=== PATIENT | female | born 1940 | race Caucasian/White ===

== ENCOUNTER 2016-09-06 23:29 | Emergency (ER) | payer OTHER ==
[~2016-09-06] VITALS: Ht 154.9 cm; Wt 81.6 kg
[~2016-09-06 23:29] MED LIST: ASPI1TAB PO; COUM2.5T11 PO; DIVA250T7 PO; FOLI1TAB2 PO; FURO20TA2 PO; NEXI40CA PO; PERC5TAB6 PO; ROSUVASTATIN PO; THYROX; TYLE650T35 PO; VALS1TAB46 PO; VERA240C PO; VITA500046 PO; XOPEAER INH; ZYLO300T4 PO; thyroxine PO
[2016-09-06] MEDS ORDERED: SYNT50TA PO (23:51)
[2016-09-06] MEDS ORDERED: OMEP40CA2 PO (23:51)
[2016-09-06] MEDS ORDERED: CRES10TA32 PO (23:51)
[2016-09-07] MEDS ORDERED: hydrALAZINE INJ 20 MG/ML VIAL IV ONE ×2 (00:15→00:45)
[2016-09-07 00:33] LABS: INR 0.88
[2016-09-07 00:40] LABS: BASO % 0.5 % (0.0-1.0); EOS # 0.2 K/mm3 (0.0-0.50); EOS % 2.6 % (0.0-3.0); LARGE UNSTAINED CELL # 0.2 K/mm3 (0.0-0.4); LARGE UNSTAINED CELL % 3.1 % (0.0-4.0); LYMPH # 2.6 K/mm3 (1.5-4.5); LYMPH % 39.5 % (24.0-44.0); MEAN CORPUSCULAR HEMOGLOBIN 29.9 pg (27.0-33.0); MEAN CORPUSCULAR HGB CONC 32.2 g/dl (32.0-36.5); MONO # 0.5 K/mm3 (0.0-0.8); MONO % 8.4 % (0.0-5.0); NEUTROPHILS # 2.8 K/mm3 (1.8-7.7); NEUTROPHILS % 45.8 % (36.0-66.0); PLATELET COUNT, AUTOMATED 208 k/mm3 (150-450); WHITE BLOOD COUNT 6.2 K/mm3 (4.0-10.0)
--- NOTE | 2016-09-07 01:00 | REPUSA ---
CLINICAL HISTORY: Altered level of consciousness. TECHNIQUE: Multiple axial brain CT scan sections were obtained from base to vertex without contrast a dministration. COMMENTS: The study shows normal configuration of sella turcica. There are no intra or extra-axial collections. There is no mass effect or midline shift. There is no evidence of hematoma formation. No hydrocephal us is present. No abnormal calcifications are noted. No significant abnormalities are seen either in the posterior fossa or supratentorial compartment. The sinuses and mastoid air cells are patent. IMPRESSION: No evidence of acute intracranial pathology. Thank you for your kind referral of this patient.
[2016-09-07] MEDS ORDERED: ASPIRIN 325 MG TAB PO ONE (01:15)
[2016-09-07] MEDS ORDERED: VERAPAMIL 80 MG TAB PO ONE (01:30)
[2016-09-07 01:33] VITALS: BP 175/81
[2016-09-07 01:56] LABS: CALCIUM LEVEL 9.1 MG/DL (8.8-10.2); CREATININE FOR GFR 1.08 MG/DL (0.55-1.02); GLOMERULAR FILTRATION RATE 52.7 (>39); POTASSIUM SERUM 4.3 MEQ/L (3.5-5.1)
[2016-09-07] MEDS ORDERED: VERA300C PO (03:26)
[2016-09-07] MEDS ORDERED: ASPI1TAB PO (03:27)
[2016-09-07 03:45] VITALS: BP 164/79
--- NOTE | 2016-09-07 20:37 | ECGEPIP ---
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
== END 2016-09-07 04:03 | disposition home or self-care (01) ==
LOC: M ED 23:37
DX: I16.0 Hypertensive urgency (principal); I10 Essential (primary) hypertension; E78.5 Hyperlipidemia, unspecified; K21.9 Gastro-esophageal reflux disease without esophagitis; Z86.73 Personal history of transient ischemic attack (TIA), and cerebral infarction without residual deficits; Z79.82 Long term (current) use of aspirin; Z79.899 Other long term (current) drug therapy; Z88.5 Allergy status to narcotic agent; Z88.8 Allergy status to other drugs, medicaments and biological substances

== ENCOUNTER 2016-09-14 22:56 | Emergency (ER) | payer OTHER ==
[~2016-09-14] VITALS: Ht 152.4 cm; Wt 87.1 kg
[~2016-09-14 22:56] MED LIST changes: +CRES10TA32 PO; +OMEP40CA2 PO; +SYNT50TA PO; +VERA300C PO
[2016-09-15 00:29] LABS: BASO % 0.7 % (0.0-1.0); EOS # 0.2 K/mm3 (0.0-0.50); EOS % 3.4 % (0.0-3.0); LARGE UNSTAINED CELL # 0.2 K/mm3 (0.0-0.4); LARGE UNSTAINED CELL % 3.1 % (0.0-4.0); LYMPH # 2.2 K/mm3 (1.5-4.5); LYMPH % 36.2 % (24.0-44.0); MEAN CORPUSCULAR HEMOGLOBIN 31.2 pg (27.0-33.0); MEAN CORPUSCULAR HGB CONC 33.4 g/dl (32.0-36.5); MEAN CORPUSCULAR VOLUME 93.6 fl (80.0-96.0); MONO # 0.6 K/mm3 (0.0-0.8); MONO % 9.2 % (0.0-5.0); NEUTROPHILS # 2.8 K/mm3 (1.8-7.7); NEUTROPHILS % 47.4 % (36.0-66.0); PLATELET COUNT, AUTOMATED 183 k/mm3 (150-450); RED CELL DISTRIBUTION WIDTH 14.7 % (11.5-14.5)
[2016-09-15 00:42] LABS: ANION GAP 7 MEQ/L (8-16); BLOOD UREA NITROGEN 17 MG/DL (7-18); CALCIUM LEVEL 8.8 MG/DL (8.8-10.2); CARBON DIOXIDE LEVEL 29 MEQ/L (21-32); CHLORIDE LEVEL 107 MEQ/L (98-107); GLOMERULAR FILTRATION RATE > 60.0 (>39); GLUCOSE, FASTING 106 MG/DL (83-110); POTASSIUM SERUM 3.9 MEQ/L (3.5-5.1); SODIUM LEVEL 143 MEQ/L (136-145)
[2016-09-15] MEDS ORDERED: cloNIDine 0.1 MG TAB PO ONE (01:00)
[2016-09-15] MEDS ORDERED: ACETAMINOPHEN 325 MG TAB PO ONE (01:00)
[2016-09-15 01:04] VITALS: BP 206/98
[2016-09-15 02:01] VITALS: BP 175/77
--- NOTE | 2016-09-15 08:28 | ECGEPIP ---
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
== END 2016-09-15 02:12 | disposition home or self-care (01) ==
LOC: M ED 09-15 01:09
DX: I10 Essential (primary) hypertension (principal); J45.909 Unspecified asthma, uncomplicated; E03.9 Hypothyroidism, unspecified; G40.909 Epilepsy, unspecified, not intractable, without status epilepticus; Z79.82 Long term (current) use of aspirin; Z79.899 Other long term (current) drug therapy; Z88.5 Allergy status to narcotic agent; Z88.8 Allergy status to other drugs, medicaments and biological substances

== ENCOUNTER → 2016-10-19 | Outpatient (REF) | payer OTHER ==
[2016-10-19 20:47] LABS: BACTERIA, URINE SMALL AMOUNT; HYALINE CAST, URINE NONE SEEN /lpf (0-1); MICROSCOPIC EXAM PERFORMED; RBC, URINE 0-1 /hpf (0-3); SQUAMOUS EPITHELIAL CELL URINE SMALL AMOUNT /hpf (SMALL AMT)
== END ==
LOC: M SMT 16:26
PROVIDERS: ATTEND Specialist
DX: R32 Unspecified urinary incontinence (principal)

== ENCOUNTER → 2017-04-15 | Outpatient (CLI) | payer OTHER ==
[~2017-04-15] MED LIST changes: -COUM2.5T11 PO; +COUM2.5T17 PO; -FOLI1TAB2 PO; +FOLI1TAB4 PO; +LEVAINH INH; +PERC5TAB12 PO; -PERC5TAB6 PO; -XOPEAER INH
[2017-04-15 14:39] LABS: BASO # 0.1 10^3/uL (0.0-0.2); BASO % 0.7 % (0.0-1.0); EOS # 0.1 10^3/uL (0.0-0.50); EOS % 1.9 % (0.0-3.0); IMMATURE GRANULOCYTE % 1.3 % (0-0); LYMPH # 1.8 10^3/uL (1.5-4.5); LYMPH % 26.1 % (24.0-44.0); MEAN CORPUSCULAR HEMOGLOBIN 30.6 pg (27.0-33.0); MEAN CORPUSCULAR HGB CONC 32.2 g/dl (32.0-36.5); MONO # 0.9 10^3/uL (0.0-0.8); MONO % 12.4 % (0.0-5.0); NEUTROPHILS % 57.6 % (36.0-66.0); PLATELET COUNT, AUTOMATED 215 10^3/uL (150-450); WHITE BLOOD COUNT 6.9 10^3/uL (4.0-10.0)
[2017-04-15 15:15] LABS: ALBUMIN 3.4 GM/DL (3.2-5.2); ALBUMIN/GLOBULIN RATIO 0.81 (1.00-1.93); BILIRUBIN,TOTAL 0.2 MG/DL (0.2-1.0); CALCIUM LEVEL 9.6 MG/DL (8.8-10.2); CREATININE FOR GFR 1.39 MG/DL (0.55-1.02); GLOMERULAR FILTRATION RATE 39.2 (>39); POTASSIUM SERUM 4.5 MEQ/L (3.5-5.1); TOTAL PROTEIN 7.6 GM/DL (6.4-8.2)
== END ==
LOC: M LABNEURO 13:45
PROVIDERS: ATTEND Psychiatry & Neurology Neurology
DX: Z79.899 Other long term (current) drug therapy (principal)

== ENCOUNTER → 2017-05-03 | Outpatient (CLI) | payer OTHER ==
--- NOTE | 2017-05-03 15:52 | REP ---
MRI brain without contrast: History: Effusion. Comparison CT brain study is from September 08, 1999 17. Technique: Axial and sagittal imaging planes are utilized for T1 and T2-weighted scans. Sequences include spin-echo, fast spin echo, FLAIR, and diffusion weighted sequences. MRI findings: No bony calvarial lesion is seen. Craniocervical junction and upper cervical cord are normal in appearance. There is diffuse moderate cerebral atrophy, unchanged from the September 07, 2016 CT study. There is no MR evidence of significant paranasal sinus disease. No intraorbital abnormality is seen. There are mild small vessel changes in the periventricular and subcortical white matter bilaterally. There is no evidence of intracranial hemorrhage. Diffusion weighted scans show no evidence of acute ischemia. No extra-axial fluid collection, mass or infarction is seen Impression: Moderate diffuse cerebral atrophy. Small vessel changes. Otherwise unremarkable MRI brain. Signed by Claude Hussein MD 05/03/2017 04:15 P
== END ==
LOC: M PLARAD 13:57
PROVIDERS: ATTEND Psychiatry & Neurology Neurology
DX: R41.0 Disorientation, unspecified (principal); G31.9 Degenerative disease of nervous system, unspecified; I67.9 Cerebrovascular disease, unspecified

== ENCOUNTER → 2017-09-28 | Outpatient (REF) | payer OTHER ==
[2017-09-28 13:49] LABS: BACTERIA, URINE AUTO 1+ (NEGATIVE); MUCUS, URINE SMALL (NEGATIVE); RBC, URINE AUTO 0 /HPF (0-3); SQUAMOUS EPITHELIAL CELL UR AU 7 /HPF (0-6); TRANSITIONAL EPITHELIAL AUTO 2 /HPF; WBC, URINE AUTO 3 /HPF (0-3)
== END ==
LOC: M SMT 13:12
DX: R35.0 Frequency of micturition (principal)
CPT/HCPCS: 81015

== ENCOUNTER → 2017-10-18 | Outpatient (REF) | payer OTHER ==
[2017-10-18 19:40] LABS: FERRITIN 104 NG/ML (8-252); IRON (FE) 70 UG/DL (50-170); PERCENT SATURATION 20.9 % (13.2-45.0); TOTAL IRON BINDING CAPACITY 335 UG/DL (250-450)
== END ==
LOC: M LAB REF 18:09
DX: R56.9 Unspecified convulsions (principal); D64.9 Anemia, unspecified
CPT/HCPCS: 83550

== ENCOUNTER → 2018-09-05 | Outpatient (REF) | payer OTHER, MEDICARE ==
[~2018-09-05] MED LIST changes: -ASPI1TAB PO; +ASPI81TA26 PO; +CRES10TA PO; -CRES10TA32 PO; +FOLI1TAB11 PO; -FOLI1TAB4 PO; -VALS1TAB46 PO; +VALS1TAB66 PO; -ZYLO300T4 PO; +ZYLO300T6 PO
[2018-09-05 18:55] LABS: PERCENT SATURATION 17.7 % (13.2-45.0)
== END ==
LOC: M LAB REF 18:10
PROVIDERS: ATTEND Internal Medicine
DX: D50.9 Iron deficiency anemia, unspecified (principal)

== ENCOUNTER → 2019-03-13 | Outpatient (REF) | payer OTHER, MEDICARE ==
[~2019-03-13] MED LIST changes: -OMEP40CA2 PO; +OMEP40CA97 PO; -VERA300C PO; +VERA300C6 PO
== END ==
LOC: M LAB REF 16:26
PROVIDERS: ATTEND Internal Medicine
DX: D50.9 Iron deficiency anemia, unspecified (principal)

== ENCOUNTER → 2019-06-30 | Outpatient (CLI) | payer MEDICARE ==
[~2019-06-30] MED LIST changes: +ALEN70TA74 PO; +ELIQ2.5T PO; +LEXA1TAB PO; +MYRB50TA PO
--- NOTE | 2019-06-30 10:55 | REP ---
Clinical: Preoperative assessment . Comparison: 01/10/2016 . Technique: PA and lateral. Findings: The mediastinum and cardiac silhouette are normal. The lung duran are clear and without acute consolidation, effusion, or pneumothorax. The skeletal structures are intact and normal. Impression: 1. No acute cardiopulmonary process. Electronically Signed by Reese Quintanilla MD 06/30/2019 10:46 A
[2019-06-30 11:28] LABS: HEMATOCRIT 34.5 % (36.0-47.0); HEMOGLOBIN 11.2 g/dl (12.0-15.5); MEAN CORPUSCULAR HEMOGLOBIN 30.8 pg (27.0-33.0); MEAN CORPUSCULAR HGB CONC 32.5 g/dl (32.0-36.5); MEAN CORPUSCULAR VOLUME 94.8 fl (80.0-96.0); PLATELET COUNT, AUTOMATED 214 10^3/uL (150-450); RED BLOOD COUNT 3.64 10^6/uL (4.00-5.40); WHITE BLOOD COUNT 7.7 10^3/uL (4.0-10.0)
[2019-06-30 11:46] LABS: INR 1.21
[2019-06-30 12:02] LABS: ALBUMIN 3.2 GM/DL (3.2-5.2); BILIRUBIN,TOTAL 0.3 MG/DL (0.2-1.0); CALCIUM LEVEL 9.3 MG/DL (8.8-10.2); CREATININE FOR GFR 1.22 MG/DL (0.55-1.30); GLOMERULAR FILTRATION RATE 45.4 (>39); POTASSIUM SERUM 4.6 MEQ/L (3.5-5.1); TOTAL PROTEIN 7.1 GM/DL (6.4-8.2)
[2019-06-30 12:08] LABS: ERYTHROCYTE SEDIMENTATION RATE 50 mm/hr (0-30)
== END ==
LOC: M LAB 09:58
PROVIDERS: ATTEND Orthopaedic Surgery
DX: Z01.810 Encounter for preprocedural cardiovascular examination (principal); M16.11 Unilateral primary osteoarthritis, right hip; Z79.899 Other long term (current) drug therapy; Z79.01 Long term (current) use of anticoagulants

== ENCOUNTER 2019-07-12 08:35 | Inpatient (IN) | payer MEDICARE ==
[~2019-07-12] VITALS: Ht 157.5 cm; Wt 88.3 kg
[~2019-07-12 08:35] MED LIST changes: +LR 1,000 ML IV ONE; +ceFAZolin SOD 2 GM in IV 1 EA IV ONE
--- NOTE | 2019-07-12 09:31 | IPN ---
DATE: 07/12/2019 The patient is seen and examined. She wishes to go ahead with a right total hip arthroplasty. She understands the nature of this and the risks of bleeding, infection, damage to nerves, vessels, persistent pain, wear, loosening, dislocation, leg length inequality, blood clots, medical problems, , among others. I anticipate this being more difficult due to her obesity. Preop clearance was obtained.
[2019-07-12] MEDS ORDERED: TRANEXAMIC ACID 100 MG/ML 10ML VIAL As Ordered ONE (09:36)
[2019-07-12] MEDS ORDERED: BUPIVACAINE LIPOSOME/PF 1.3% 20ML VIAL (13.3MG/ML)(EXPAREL)(C9290 PER1MG) As Ordered ONE (09:37)
[2019-07-12] MEDS ORDERED: ceFAZolin 1GM INJ (J0690 PER 500MG) As Ordered ONE (09:37)
[2019-07-12] MEDS ORDERED: EPINEPHrine INJ 1 MG/ML 1ML VIAL As Ordered ONE (09:37)
[2019-07-12] MEDS ORDERED: fentaNYL 100 MCG/2 ML INJECTION (J3010) As Ordered ONE (10:40)
[2019-07-12] MEDS ORDERED: MIDAZOLAM INJ 2 MG/2 ML VIAL (J2250) As Ordered ONE (10:40)
[2019-07-12] MEDS ORDERED: propofoL 200 MG/20 ML VIAL As Ordered ONE (10:40)
[2019-07-12] MEDS ORDERED: LIDOCAINE 2% INJ 100 MG/5 ML SDV (FOR ANES.) As Ordered ONE (10:40)
[2019-07-12] MEDS ORDERED: PHENYLephrine HCL 500 MCG/5 ML (100MCG/ML) SYRINGE (J2370) As Ordered ONE (10:59)
[2019-07-12] MEDS ORDERED: ePHEDrine SULFATE 25 MG/5 ML(5MG/ML) SYRINGE As Ordered ONE (11:19)
[2019-07-12] MEDS ORDERED: LR 1,000 ML IV SCH (12:45)
[2019-07-12] MEDS ORDERED: HYDROMORPHONE HCL 0.5 MG/ 0.5 ML SYRINGE (J1170 PER 1) IV PRN ×2 (12:45)
[2019-07-12] MEDS ORDERED: PERCOCET 5MG/325MG TAB PO PRN (12:45)
[2019-07-12] MEDS ORDERED: ONDANSETRON 4MG/2ML VIAL (J2405) IV PRN ×2 (12:45)
[2019-07-12] MEDS ORDERED: METOCLOPRAMIDE INJ 10MG/2ML VIAL (J2765) IV PRN (12:45)
[2019-07-12] MEDS ORDERED: fentaNYL 100 MCG/2 ML INJECTION (J3010) IV PRN (12:45)
[2019-07-12] MEDS ORDERED: oxyCODONE 5MG TAB PO PRN (12:45)
--- NOTE | 2019-07-12 13:24 | REP ---
Right hip two views postoperative study: There is a total hip arthroplasty with the components tightly applied and in satisfactory positions alignment. Electronically Signed by Dakota Mcgee MD 07/12/2019 01:14 P
[2019-07-12 15:00] VITALS: BP 100/59
[2019-07-12] MEDS: LR 1,000 ML IV SCH (15:15)
[2019-07-12 15:30] VITALS: BP 96/52
[2019-07-12] MEDS ORDERED: LEVALBUTEROL 1.25 MG/0.5 ML CONCENTRATE NEB INH PRN (15:45)
--- NOTE | 2019-07-12 15:47 | CR.PDOC ---
General Date of Consultation: Jul 12, 2019 Consultation REASON FOR CONSULTATION/CHIEF COMPLAINT: Who presented to [facility] for an elective right hip arthroplasty HISTORY OF PRESENT ILLNESS: Patient is a 71-year-old female with a PMHx of Paroxysmal A. fib, Diastolic CHF, HTN, DLP, Asthma, Hypothyroidism, Seizure disorder, Anxiety, Gout, Vitamin D deficiency, Osteopenia, GERD, who presented to [facility] for an elective total right hip arthroplasty. Patient received medical clearance through her outpatient provider, Dr. Carmen Mejia. Patient was seen postoperatively. . She denies headache, nausea, vomiting, chest pain, shortness breath, palpitations, cough, abdominal pain, constipation, diarrhea, urinary discomfort or any fevers or chills recently. Patient reports that her appetite has been fairly normal and denies any significant changes in her weight. ALLERGIES: Please see below. HOME MEDICATIONS: Please see below. PAST MEDICAL HISTORY: Paroxysmal A. fib, Diastolic CHF, HTN, DLP, Asthma, Hypothyroidism, Seizure disorder, Anxiety, Gout, Vitamin D deficiency, Osteopenia, GERD PAST SURGICAL HISTORY: Total left hip arthroplasty, 2016 Cholecystectomy 2006 Dilation curettage Tonsillectomy and adenoidectomy Bilateral cataract resection 2008 Right nasal cauterization 2/2 bleed Right eyebrow lesion biopsied and was negative FAMILY HISTORY: - Family history was reviewed and is currently noncontributory to the current hospitalization SOCIAL HISTORY: - Denies the use of alcohol or illicit drugs; patient quit smoking in 1995 but was a smoker for about 20 years at [facility] - Denies recent travel or sick contacts - Lives alone - 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; 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 ASSESSMENT/PLAN: Elective total right hip arthroplasty - Presented to [facility] for elective procedure with the patient. Surgery - Shes received outpatient medical clearance through her provider leo Mejia - Pain control and physical therapy at the direction of orthopedic surgery - Discussed anti-coag elation with orthopedic surgery; will resume tomorrow; 07/13 AM Paroxysmal A. fib - Currently, patient is rate controlled - Will continue with rate control with verapamil - Will resume anticoagulation tomorrow a.m. Chronic Diastolic CHF - No evidence of exacerbation at this time - Will resume furosemide tomorrow morning HTN - BP on lower limits of normal - Will likely resume Furosemide and Losartan tomorrow AM DLP - Will resume Rosuvastatin Asthma - No evidence of exacerbation - Will start Xopenix PRN Hypothyroidism - Will resume levothyroxine Seizure disorder - Will resume divalproex Anxiety - Will resume Escitalopram Gout - Will resume allopurinol Vitamin D deficiency / Osteopenia - Patient takes alendronate on a weekly basis; will resume this as an outpatient GERD - Will resume Omeprazole DVT prophylaxis - c/w full anticoagulation; will resume tomorrow AM Vital Signs/I&O Vital Signs Date Time Temp Pulse Resp B/P (MAP) Pulse Ox O2 Delivery O2 Flow Rate FiO2 07/12/19 15:30 97.4 64 16 96/52 (67) 90 Room Air Laboratory Data Labs 24H Laboratory Tests 2 07/12/19 09:43: Bedside Glucose (Misc Panel) 123H Allergies Coded Allergies: promethazine (Verified Adverse Reaction, Intermediate, confusion, 06/26/19) morphine (Verified Adverse Reaction, Mild, nausea, 06/26/19) tramadol (Verified Adverse Reaction, Mild, dizziness, 06/26/19) Home Medications Scheduled Alendronate Sodium (Alendronate Sodium) 70 Mg Tablet, 70 MG PO QWEEK, (Reported) Allopurinol (Zyloprim) 300 Mg Tab, 300 MG PO DAILY, (Reported) Apixaban (Eliquis) 2.5 Mg Tablet, 2.5 MG PO BID, (Reported) Divalproex Sodium (Divalproex Sodium ER) 250 Mg Tab, 500 MG PO QAM, (Reported) Divalproex Sodium (Divalproex Sodium ER) 250 Mg Tab, 250 MG PO QHS, (Reported) Escitalopram Oxalate (Lexapro) 10 Mg Tablet, 10 MG PO DAILY, (Reported) Folic Acid (Folic Acid) 1 Mg Tab, 1 MG PO BID, (Reported) Levothyroxine Sodium (Synthroid) 50 Mcg Tab, 50 MCG PO DAILY, (Reported) Mirabegron (Myrbetriq) 50 Mg Tab.er.24h, 50 MG PO DAILY, (Reported) Omeprazole (Omeprazole) 40 Mg Cap, 40 MG PO DAILY, (Reported) Valsartan (Valsartan) 80 Mg Tab, 160 MG PO DAILY, (Reported) Verapamil Hcl (Verapamil ER Pm) 300 Mg Cap, 300 MG PO DAILY, #60 Scheduled PRN Acetaminophen (Tylenol Arthritis) 650 Mg Tab, 500 MG PO PRN PRN for PAIN, (Reported) Furosemide (Furosemide) 20 Mg Tab, 20 MG PO DAILY PRN for EDEMA, (Reported) Levalbuterol Hydrochloride (Xopenex Hfa) 45 Mcg/Act Aer, 2 PUFF INH PRN PRN for SHORTNESS OF BREATH, (Reported) Miscellaneous Medications Rosuvastatin Calcium (Crestor) 10 Mg Tab, 10 MG PO, (Reported) OLIVIA TOLEDO MD Jul 12, 2019 15:47
[2019-07-12 16:30] VITALS: BP 109/43
[2019-07-12 17:30] VITALS: BP 136/57
[2019-07-12] MEDS: PERCOCET 5MG/325MG TAB PO PRN (18:15)
[2019-07-12 18:30] VITALS: BP 135/58
[2019-07-12] MEDS: ceFAZolin SOD 2 GM in IV 1 EA IV SCH (18:53)
[2019-07-12] MEDS: FOLIC ACID 1 MG TAB PO SCH (21:16)
[2019-07-12] MEDS: DIVALPROEX 250MG *ER* TAB PO SCH (21:17)
[2019-07-12 21:53] VITALS: BP 137/55
[2019-07-13] MEDS: PERCOCET 5MG/325MG TAB PO PRN ×4 (01:06→20:46)
[2019-07-13] MEDS: ceFAZolin SOD 2 GM in IV 1 EA IV SCH ×3 (02:22→18:19)
[2019-07-13] MEDS: LR 1,000 ML IV SCH (02:22)
[2019-07-13 02:23] VITALS: BP 118/52
[2019-07-13 06:00] VITALS: BP 125/55
[2019-07-13] MEDS: LEVOTHYROXINE 50MCG TABLET (0.05MG) PO SCH (06:06)
[2019-07-13] MEDS ORDERED: PERC5TAB12 PO (07:04)
[2019-07-13 08:28] LABS: HEMATOCRIT 27.5 % (36.0-47.0); HEMOGLOBIN 8.6 g/dl (12.0-15.5); MEAN CORPUSCULAR HEMOGLOBIN 29.9 pg (27.0-33.0); MEAN CORPUSCULAR HGB CONC 31.3 g/dl (32.0-36.5); MEAN CORPUSCULAR VOLUME 95.5 fl (80.0-96.0); PLATELET COUNT, AUTOMATED 172 10^3/uL (150-450); RED BLOOD COUNT 2.88 10^6/uL (4.00-5.40); WHITE BLOOD COUNT 11.9 10^3/uL (4.0-10.0)
[2019-07-13 08:49] LABS: CALCIUM LEVEL 8.6 MG/DL (8.8-10.2); CREATININE FOR GFR 1.52 MG/DL (0.55-1.30); GLOMERULAR FILTRATION RATE 35.2 (>39); MAGNESIUM LEVEL 1.4 MG/DL (1.8-2.4); POTASSIUM SERUM 5.2 MEQ/L (3.5-5.1)
[2019-07-13] MEDS ORDERED: VERAPAMIL 180MG EXTENDED RELEASE TABLET PO SCH (09:00)
[2019-07-13] MEDS: MIRALAX *UNIT DOSE* 17GM PACKET PO SCH (09:00)
[2019-07-13] MEDS: MOM 30ML SUSPENSION UDC PO SCH (09:00)
[2019-07-13 09:01] LABS: ANISOCYTOSIS 1+; LYMPHOCYTES 15 % (16-44); MONOCYTES 8 % (0-5); NEUTROPHILS 73 % (28-66); PLATELET ESTIMATE NORMAL (NORMAL)
[2019-07-13] MEDS: VERAPAMIL 120 MG SR TAB PO SCH (09:15)
[2019-07-13] MEDS: allopurinoL 300 MG TAB PO SCH (09:15)
[2019-07-13] MEDS: FOLIC ACID 1 MG TAB PO SCH ×2 (09:15→20:46)
[2019-07-13] MEDS: VERAPAMIL 180MG EXTENDED RELEASE TABLET PO SCH (09:15)
[2019-07-13] MEDS: DIVALPROEX 250MG *ER* TAB PO SCH ×2 (09:15→20:46)
[2019-07-13] MEDS: ESCITALOPRAM OXALATE 10 MG TAB (LEXAPRO) PO SCH (09:15)
[2019-07-13] MEDS: ROSUVASTATIN 10 MG TAB (CRESTOR) PO SCH (09:15)
[2019-07-13] MEDS: OMEPRAZOLE 20 MG CAP PO SCH (09:16)
[2019-07-13] MEDS: NS 1,000 ML IV SCH (09:44)
[2019-07-13] MEDS: MAG SULF 1GM/100ML (MAG RUN) 1 GM in IV 1 EA IV SCH ×2 (09:44→12:16)
--- NOTE | 2019-07-13 09:53 | RO ---
DATE OF PROCEDURE: 07/12/2019 PREOPERATIVE DIAGNOSIS: Right hip osteoarthritis. AVN. POSTOPERATIVE DIAGNOSIS: Right hip osteoarthritis. PROCEDURE: Right total hip arthroplasty using a [place] size 4 standard plus one 32 ball with a size 50 cup. SURGEON: Dr. Bib Basilio BULK PLANT MANAGER: HENRY Lindsay ANESTHESIA: Spinal. ESTIMATED BLOOD LOSS: 200. COMPLICATIONS: None. INDICATIONS: This 79-year-old morbidly obese woman with right hip pain who wished to go ahead with a hip replacement. 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 PROCEDURE: The patient was taken to operating room, placed in the left lateral decubitus position on the [place] positioner. All areas were padded appropriately. Positioning was a little bit difficult due to her obesity. We prepped and draped the right hip in the usual sterile fashion. A longitudinal incision was made. Sharp dissection was carried down through subcutaneous tissue. I controlled hemostasis with a cautery. I identified the fascia which was quite deep. We then incised the fascia and then I exposed the anterior aspect the proximal femur, removing about 40% of the abductors as we externally rotated the femur and this was relatively challenging due to the depth of the wound. I was able to dislocate the hip. There was some evidence of some delamination consistent with AVN of the femoral head. I then used an oscillating saw to remove the head with a guide. This was done about three-quarters of a fingerbreadth up from the lesser trochanter. The acetabulum was then prepared, anterior and posterior retractors were placed, soft tissue was removed, and I sequentially reamed up to a size 49 which had good concentric reaming of bleeding bone. I did bone graft a cyst. I irrigated and then impacted in the actual size 50 cup in the appropriate amount of anteversion horizontal tilt. Excellent fit was noted. There were no osteophytes that needed to be removed. I inserted the cup and impacted this in place. I had also placed the apex hole eliminator. I then directed attention to the femur, removed the bone from the proximal femur and then sequentially broached up to a size 4. I had previously reamed the canal prior to removal of the head and neck using the canal initiating reamer and the canal finding reamer lateralizing reamer and then had was able to ream up to a size 4 which had good bony purchase. The other side had a 5, but when I was broaching it was clear that I was not going to be able to get a 5 in this side. Once I had seated. The actual broach were it should be I then trialed off that with a plus one 32 ball, reduced it, put the hip through range of motion, there was minimal shuck in full extension, excellent stability in external rotation, full extension and flexion internal rotation. Her thigh actually impinged on her pannus before I could get to 90 degrees but it felt very stable. I then removed the trial components, irrigated again copiously placed the actual size 4r standard stem, impacted it down it was well seated. There were no fractures noted. I then dried the taper placed the plus one 32 ball and we reduced the hip again put the hip through range of motion again very pleased with in terms of stability, soft tissue, tension. I irrigated copiously placed the Exparel the deep tissues and the TXA in the deep wound then repaired the minimus with #1 Vicryl suture and the abductor with #1 Vicryl suture. I was not terribly pleased with quality of her abductors, they were somewhat infiltrated by fat. I was able to get with several stitches a reasonable approximation. I then irrigated, closed the fascia carmel with #1 Vicryl in running Stratafix suture in both directions. We obtained a watertight closure. I then closed the deep subcutaneous tissue with another running Stratafix double arm suture in both directions to close the space because there was significant subcutaneous tissue. Subcu was closed 2-0 Vicryl and the skin with yvon. Sterile dressing was applied. She was taken to recovery room in stable condition. No known complications. The plan will be routine postop. The assistant producer was instrumental holding retractors and assisting at reducing and dislocating the hip multiple times. She was instrumental in wound closure and retraction. This is coded as an unusually difficult procedure due to the patient's morbid obesity which added significant amount of difficulty due to the depth of the wound and the difficulty manipulating the leg in reducing and dislocating the hip and difficulty in wound closure.
--- NOTE | 2019-07-13 11:04 | IPNPDOC ---
Text Note Date of Service The patient was seen on 07/13/19. NOTE Subjective: Patient is a 71-year-old female with a PMHx of Paroxysmal A. fib, Diastolic CHF, HTN, DLP, Asthma, Hypothyroidism, Seizure disorder, Anxiety, Gout, Vitamin D deficiency, Osteopenia, GERD, who presented to [facility] for an elective total right hip arthroplasty. Patient received medical clearance through her outpatient provider, Dr. Carmen Mejia. Patient was seen postoperatively. She denies headache, nausea, vomiting, chest pain, shortness breath, palpitations, cough, abdominal pain, constipation, diarrhea, urinary discomfort or any fevers or chills recently. Patient reports that her appetite has been fairly normal and denies any significant changes in her weight. Patient was seen and examined at the bedside. Currently, patient reports that she feels weak. She has been out of bed and ambulatory but still reports sig nificant pain. She denies nausea, vomiting, chest pain, shortness breath, palpitations. She has not yet had a bowel movement this morning. Denies any difficulty with urination. Objective: Vitals (See below) General: Lying in bed, no acute distress, comfortable, AAOx3 HEENT: NC, AT CVS: +S1S2 Lungs: Fair air entry b/l, -w/r/r Abdomen: Soft, ND, NT Extremities: - Edema, - Calf tenderness Assessment and plan: Elective total right hip arthroplasty - Presented to [facility] for elective procedure with orthopedic surgery - Shes received outpatient medical clearance through her provider Carmen Mejia - Pain control and physical therapy at the direction of orthopedic surgery Hypomagnesemia - Will supplement Elevated Cr on likely CKD - Cr baseline of 0.9-1.22 - Will provide IV fluid hydration - Will continue to hold on diuretics at this time Paroxysmal A. fib - Currently, patient is rate controlled - Will continue with rate control with verapamil - c/w Eliquis tonight Chronic Diastolic CHF - No evidence of exacerbation at this time - Will Hold furosemide again today HTN - BP well controlled currently - Will continue to hold Furosemide and Losartan tomorrow AM DLP - c/w Rosuvastatin Asthma - No evidence of exacerbation - Will start Xopenix PRN Hypothyroidism - c/w levothyroxine Seizure disorder - c/w divalproex Anxiety - c/w Escitalopram Gout - c/w allopurinol Vitamin D deficiency / Osteopenia - Patient takes alendronate on a weekly basis; will resume this as an outpatient GERD - c/w Omeprazole DVT prophylaxis - c/w full anticoagulation starting tonight VSNancy, I+O VSNancy, I+O Laboratory Tests 07/13/19 07:54 Vital Signs Date Time Temp Pulse Resp B/P (MAP) Pulse Ox O2 Delivery O2 Flow Rate FiO2 07/13/19 09:15 85 125/55 07/13/19 06:06 17 07/13/19 06:00 97.9 98 Nasal Cannula 2.0 I&O- Last 24 Hours up to 6 AM 07/13/19 06:00 Intake Total 4820 ml Output Total 200 ml Balance 4620 ml OLIVIA TOLEDO MD Jul 13, 2019 11:04
[2019-07-13 14:00] VITALS: BP 128/56
[2019-07-13] MEDS: APIXABAN 2.5 MG TAB (ELIQUIS) PO SCH (20:47)
[2019-07-13 20:51] VITALS: BP 105/48
[2019-07-14] VITALS (30 sets, daily range): BP systolic 58–113; BP diastolic 32–58
[2019-07-14] MEDS: NS 1,000 ML IV SCH (02:12)
[2019-07-14] MEDS: ceFAZolin SOD 2 GM in IV 1 EA IV SCH ×3 (02:13→18:39)
[2019-07-14] MEDS: PERCOCET 5MG/325MG TAB PO PRN (02:14)
[2019-07-14] MEDS: LEVOTHYROXINE 50MCG TABLET (0.05MG) PO SCH (06:12)
[2019-07-14] MEDS ORDERED: NS 1,000 ML IV ONE (06:15)
[2019-07-14] MEDS ORDERED: CYCL10TA PO (06:55)
[2019-07-14] MEDS ORDERED: NS 500 ML IV ONE (07:30)
[2019-07-14 08:03] LABS: BASO % 0.1 % (0.0-1.0); EOS # 0.2 10^3/uL (0.0-0.5); EOS % 2.2 % (0.0-3.0); HEMATOCRIT 22.8 % (36.0-47.0); HEMOGLOBIN 7.2 g/dl (12.0-15.5); LYMPH # 0.9 10^3/uL (1.5-5.0); LYMPH % 10.3 % (24.0-44.0); MEAN CORPUSCULAR HEMOGLOBIN 30.5 pg (27.0-33.0); MEAN CORPUSCULAR HGB CONC 31.6 g/dl (32.0-36.5); MEAN CORPUSCULAR VOLUME 96.6 fl (80.0-96.0); MONO # 1.5 10^3/uL (0.0-0.8); NEUTROPHILS # 6.4 10^3/uL (1.5-8.5); NEUTROPHILS % 70.7 % (36.0-66.0); PLATELET COUNT, AUTOMATED 140 10^3/uL (150-450); RED BLOOD COUNT 2.36 10^6/uL (4.00-5.40); WHITE BLOOD COUNT 9.1 10^3/uL (4.0-10.0)
[2019-07-14 08:32] LABS: CALCIUM LEVEL 7.2 MG/DL (8.8-10.2); CREATININE FOR GFR 2.59 MG/DL (0.55-1.30); POTASSIUM SERUM 4.9 MEQ/L (3.5-5.1)
[2019-07-14] MEDS: MOM 30ML SUSPENSION UDC PO SCH (09:00)
[2019-07-14] MEDS ORDERED: CYCLOBENZAPRINE 10 MG TAB PO SCH (09:00)
[2019-07-14] MEDS: VERAPAMIL 120 MG SR TAB PO SCH (09:00)
[2019-07-14] MEDS: MIRALAX *UNIT DOSE* 17GM PACKET PO SCH (09:00)
[2019-07-14] MEDS: VERAPAMIL 180MG EXTENDED RELEASE TABLET PO SCH (09:00)
[2019-07-14] MEDS: OMEPRAZOLE 20 MG CAP PO SCH (09:02)
[2019-07-14] MEDS: FOLIC ACID 1 MG TAB PO SCH ×2 (09:02→21:14)
[2019-07-14] MEDS: APIXABAN 2.5 MG TAB (ELIQUIS) PO SCH (09:02)
[2019-07-14] MEDS: ROSUVASTATIN 10 MG TAB (CRESTOR) PO SCH (09:03)
[2019-07-14] MEDS: DIVALPROEX 250MG *ER* TAB PO SCH ×2 (09:03→21:14)
[2019-07-14] MEDS: ESCITALOPRAM OXALATE 10 MG TAB (LEXAPRO) PO SCH (09:03)
[2019-07-14] MEDS: allopurinoL 300 MG TAB PO SCH (09:04)
[2019-07-14] MEDS ORDERED: MIDODRINE 5 MG TAB PO ONE ×2 (10:00→10:15)
--- NOTE | 2019-07-14 10:54 | ECGEPIP ---
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
--- NOTE | 2019-07-14 10:59 | REP ---
CHEST, SINGLE VIEW: Single view of the chest is performed. There is mild cardiomegaly. There is pulmonary venous hypertension with no infiltrate. There is calcification and tortuosity of the thoracic aorta. Mediastinal silhouette is unchanged since 06/30/2019. IMPRESSION: Cardiomegaly and pulmonary venous hypertension without acute infiltrate. Electronically Signed by Dakota Mendiola MD 07/14/2019 11:58 A
[2019-07-14] MEDS ORDERED: HYDROCORTISONE 100 MG/2 ML VIAL (J1720 PER 1) IV ONE (11:00)
[2019-07-14 11:37] LABS: BASO % 0.1 % (0.0-1.0); EOS # 0.2 10^3/uL (0.0-0.5); EOS % 2.4 % (0.0-3.0); HEMATOCRIT 23.3 % (36.0-47.0); HEMOGLOBIN 7.5 g/dl (12.0-15.5); LYMPH # 0.7 10^3/uL (1.5-5.0); LYMPH % 7.4 % (24.0-44.0); MEAN CORPUSCULAR HEMOGLOBIN 30.9 pg (27.0-33.0); MEAN CORPUSCULAR HGB CONC 32.2 g/dl (32.0-36.5); MEAN CORPUSCULAR VOLUME 95.9 fl (80.0-96.0); MONO # 1.5 10^3/uL (0.0-0.8); MONO % 16.5 % (0.0-5.0); NEUTROPHILS # 6.4 10^3/uL (1.5-8.5); NEUTROPHILS % 72.6 % (36.0-66.0); PLATELET COUNT, AUTOMATED 134 10^3/uL (150-450); RED BLOOD COUNT 2.43 10^6/uL (4.00-5.40); WHITE BLOOD COUNT 8.9 10^3/uL (4.0-10.0)
[2019-07-14 12:00] LABS: ALBUMIN 1.9 GM/DL (3.2-5.2); ALT/SGPT < 6 U/L (12-78); BILIRUBIN,TOTAL 0.2 MG/DL (0.2-1.0); BLOOD UREA NITROGEN 37 MG/DL (7-18); CALCIUM LEVEL 7.4 MG/DL (8.8-10.2); CARBON DIOXIDE LEVEL 24 MEQ/L (21-32); CHLORIDE LEVEL 106 MEQ/L (98-107); CK-MB VALUE MASS 6.1 NG/ML (<3.6); CPK CREATINE PHOSPHOKINASE 874 U/L (26-192); CREATININE FOR GFR 2.64 MG/DL (0.55-1.30); GLOMERULAR FILTRATION RATE 18.6 (>39); GLUCOSE, FASTING 115 MG/DL (70-100); POTASSIUM SERUM 4.6 MEQ/L (3.5-5.1); SODIUM LEVEL 135 MEQ/L (136-145); TOTAL PROTEIN 5.6 GM/DL (6.4-8.2); TROPONIN I < 0.02 NG/ML (< 0.10)
[2019-07-14 12:08] LABS: FOLATE > 24.0 NG/ML (>5.4); VITAMIN B12 LEVEL 293 PG/ML (247-911)
[2019-07-14 12:35] LABS: NT-PRO BNP 2182 PG/ML (<450)
[2019-07-14] MEDS ORDERED: FUROSEMIDE 20 MG/2 ML VIAL (J1940) IV ONE (13:00)
[2019-07-14 13:25] LABS: INR 1.21; PARTIAL THROMBOPLASTIN TIME 39.2 SECONDS (25.0-38.4); PROTHROMBIN TIME 15.1 SECONDS (11.8-14.0)
[2019-07-14] MEDS: MIDODRINE 5 MG TAB PO SCH ×2 (14:33→16:42)
--- NOTE | 2019-07-14 15:51 | IPNPDOC ---
Text Note Date of Service The patient was seen on 07/14/19. NOTE HOSPITALIST NOTE S: Pt examined at bedside. No events overnight, however started to become hypotensive towards the morning. Her only complaint is that she feels slightly weak which she has had since admission. Denies all other complaints, including chest pain, shortness of breath, lightheadedness, dizziness, nausea, vomiting, abdominal pain, blood loss. Still requiring supplemental oxygen since yesterday morning, 2 L. She has been afebrile thus far. When examined at bedside, she continues to be hypotensive with manual blood pressures in 80s/40s despite continuous gentle IVF since yesterday. No tachycardia or tachypnea. She received roughly an additional 2 L of fluids this morning with minimal response in blood pressure. Also is found to be worsening in her anemia with hemoglobin down to 7.5 today from 8.6 yesterday, baseline appears to be around 10 -11. She is agreeable to receive blood transfusions, which have been ordered with repeat H&H afterwards. No occult bleed. Given her persistent hypotension, she was started on Midodrine and 1 dose steroids for possible adrenal crisis. She is transferred over to ICU this morning and reassessed at bedside, she continues to be asymptomatic and has no other complaints. When attempting to wean off of her nasal cannula, she desats to the high 80s, but again remains asymptomatic. PE: Vitals: see below General: NAD, A&Ox3, resting comfortably speaking in full sentences HEENT: NCAT, EOMI, anicteric sclera, MMM, no appreciable JVD, neck supple CV: RRR, soft 2/6 systolic murmur, no clicks or rub. Trace edema RESP: CTAB, no w/r/r, no accessory muscle use, breathing comfortably on 2 L nasal cannula supplemental O2 ABD: soft, NT, ND. Benign EXTREMITIES: 2+ radial pulses b/l, able to move all extremities SKIN: No visible lesions or rashes. Right hip bandage dry and intact from recent surgery. Skin taut around the surgical site without any oozing NEURO: no focal deficits or acute changes. Appropriate the follows commands and answers questions A/P: 71-year-old female with a PMHx of Paroxysmal A. fib, Diastolic CHF, HTN, DLP, Asthma, Hypothyroidism, Seizure disorder, Anxiety, Gout, Vitamin D deficiency, Osteopenia, GERD, who presented to hospital for an elective total right hip arthroplasty. Hospitalist is following for medical management. 1. Hypotension in setting of baseline HTN Etiology at this point is unclear. She does not have any signs of infection and does not appear septic. No leukocytosis or fever, lactic acidosis negative X2. She is asymptomatic and otherwise doing well and has no complaints. There is concern for possible pericardial effusion versus tamponade given globular appearing heart on chest x-ray done today. Stat echo is done with formal read pending. Cardiac markers and EKG are unremarkable, however BNP is elevated 2000+ today. She has not required an increase in her oxygen from yesterday to today, however remains on 2 L nasal cannula although she is on no supplementation at baseline. She quickly desaturates into the 80s when attempting to wean her off of her nasal cannula. Thoracic surgery and pulmonary are consulted, appreciate input. At this point, closely monitor blood pressure and will hold off on any additional IV fluids given her history of CHF and increasing lower extremity edema and elevated BNP. Will transfer to the ICU. Less likely adrenal crisis during clinical picture and electrolytes has received 1 dose of IV steroids, monitor response and consider additional doses as an option. This may also be 2/2 fluid overload versus third spacing with low albumin. Consider Lasix depending on her renal function which also has been worsening since admission. Ponce has been placed for critical monitoring of I's and O's. Hold all antihypertensives. 2. Acute on chronic anemia Baseline hemoglobin appears to be around 11. She has been gradually dropping down to 7.2 today. No occult bleeding. May be 2/2 operative blood loss versus hemodilution. She has consented to blood transfusion after risks and benefits discussed and informed consent obtained. 2 units have been ordered, transfuse 1 unit now slowly given her volume status and recheck levels after. May possibly be bleeding into her surgical site. We have reached out to her surgeon who will reassess her right thigh. Her iron panel from 01/2019 was all within normal. Repeat iron workup is pending. In meanwhile, will hold off on her Eliquis till bleed is ruled out and she is stablized. 3. Acute kidney injury on CKD 3 Baseline GFR around 0.9-1.1. She had mildly DIMITRI preoperatively with creatinine 1.52, gradually been rising since then, up to 2.64 today. Hold all nephrotoxins and also hold IVF given lack of improvement with hydration. May require diuresis at this point. Repeat labs pending. UA is also ordered, currently awaiting sample to be sent. 4. Arthritis Patient underwent elective right hip arthroplasty with Dr. Basilio 07/12. Activity, diet, pain as per Ortho. Would recommend holding off on anticoagulation at this point until bleed is ruled out -see above. Rehab and therapy once more stable. Paroxysmal A. fib-controlled on verapamil. This is on hold due to hypotension. Closely monitor heart rate. If needed, consider cardioselective drugs. Diastolic CHF-does not appear to be significantly fluid overloaded. Monitor volume status. Repeat echo pending - Will provide low dose Furosemide 20 IV x 1 HTN-hold meds given hypotension DLP-continue Crestor Asthma-controlled. Continue prn inhalers Hypothyroidism-continue Synthroid Seizure disorder-stable. Continue Depakote Anxiety/depression-controlled. Continue Lexapro Gout-continue allopurinol Vitamin D deficiency-continue supplement & o/p f/u Osteopenia-o/p f/u GERD-continue omeprazole DVT ppx: Mechanical. Hold anticoagulation given concern for possible bleed DISPO: Transfer to ICU for critical monitoring. Pending workup & Pulmonology and thoracic surgery input. VS,Nancy, I+O VS, Nancy, I+O Laboratory Tests 07/14/19 07:52 07/14/19 11:18 Vital Signs Date Time Temp Pulse Resp B/P (MAP) Pulse Ox O2 Delivery O2 Flow Rate FiO2 07/14/19 14:45 82 8 94/54 90 NIPPV (BIPAP/CPAP) 3.0 07/14/19 14:00 97.0 I&O- Last 24 Hours up to 6 AM 07/14/19 06:00 Intake Total 2420 ml Balance 2420 ml GME ATTESTATION GME ATTESTATION My faculty preceptor for this patient encounter was physically present during the encounter and was fully available. All aspects of the patient interview, examination, medical decision making process, and medical care plan development were reviewed and approved by the faculty preceptor. The faculty preceptor is aware and concurs with the plan as stated in the body of this note and will attest to such by his/her cosignature. ATTENDING NOTE I, Kaylin Schmidt, have independently examined this patient and performed my own physical exam, as well as reviewed the documentation and edited where necessary. I have discussed in detail with the resident / student the findings and plan of treatment as documented by the resident / student and edited their note. I agree with their findings and treatment plan and have edited their documentation. I will continue to follow the patient during this hospital stay. Critical care of 56 minutes JIM SUNSHINE DO Jul 14, 2019 15:51 KAYLIN SCHMIDT MD Jul 14, 2019 16:03
[2019-07-14 15:53] LABS: FERRITIN 319 NG/ML (8-252); IRON (FE) 14 UG/DL (50-170); PERCENT SATURATION 7.2 % (13.2-45.0); TOTAL IRON BINDING CAPACITY 195 UG/DL (250-450)
[2019-07-14 17:23] LABS: HEMATOCRIT 28.8 % (36.0-47.0); HEMOGLOBIN 9.3 g/dl (12.0-15.5)
--- NOTE | 2019-07-14 18:42 | CR ---
DATE OF CONSULTATION: 07/14/2019 CHIEF COMPLAINT: Hypotension. HISTORY OF PRESENT ILLNESS: Ms. Guzman is a 71-year-old female with history of paroxysmal atrial fibrillation on anticoagulation, diastolic congestive heart failure (CHF), hypertension, hyperlipidemia, asthma, hypothyroidism, seizure disorder, anxiety, gastroesophageal reflux disease (GERD) and osteopenia and obstructive sleep apnea (CHANDU) on continuous positive airway pressure (C-PAP), who presented for a total right hip arthroplasty. Preoperatively, the patient had denied any significant complaints besides her right hip pain. She was admitted and had a right hip arthroplasty on 07/12/2019. During this surgery, she did not have any significant blood loss noted. However, given her obesity, there was some increased difficulty to the procedure due to the depth of the wound and some difficulty in manipulating the leg and reducing and dislocating the hip and some difficulty in wound closure. Patient was seen postoperatively and had denied any significant complaints. Later on in the day, however, she was noted to be hypotensive, although she denied feeling any chest pain or increased shortness of breath and had not had any dizziness or lightheadedness. She also denied any nausea or vomiting. The patient was on intravenous (IV) fluid 14. hydration pre- and postoperatively. She was also given additional fluid boluses during the episodes of hypotension. She continued to maintain well. However, she had significantly dropped her blood pressure and there was some concern. The patient was also started on midodrine and given one dose of steroids for a possible adrenal crisis. She was transferred to the intensive care unit (ICU) for further monitoring. PAST MEDICAL AND SURGICAL HISTORY: 1. Paroxysmal atrial fibrillation. 2. Diastolic congestive heart failure (CHF). 3. Hypertension. 4. Hyperlipidemia. 5. Asthma. 6. Hypothyroidism. 7. Seizure disorder. 8. Anxiety. 9. Gout. 10. Vitamin D deficiency. 11. Osteopenia. 12. Gastroesophageal reflux disease. 13. Obstructive sleep apnea (CHANDU) on continuous positive airway pressure (C- PAP) . 14. Left hip arthroplasty in 2016. 15. Cholecystectomy 2005. 16. Tonsillectomy. 17. Adenoidectomy. 18. Bilateral cataract surgery. 19. Right eyebrow lesion biopsy. 20. Right nasal cauterization. FAMILY HISTORY: Noncontributory. SOCIAL HISTORY: Former smoker, one pack a day for 20 years, quit in 1995. HOME MEDICATIONS: - alendronate - allopurinol - Eliquis - divalproex - Lexapro - folic acid - Synthroid - Myrbetriq - omeprazole - valsartan - verapamil - Lasix 20 mg as needed - Xopenex - rosuvastatin PHYSICAL EXAMINATION: Temperature 98.1, pulse 62, respirations 13, blood pressure 92/55, oxygen 90-83% on 2 liters nasal cannula. INPUT: 4 liters. OUTPUT: None reported. GENERAL:: The patient is an obese female, lying in bed, in no acute distress. She is sleepy, but able to be easily arousable and answering questions appropriately. HEENT: Normocephalic, atraumatic. Mucous membranes are moist. Neck is supple. No palpable cervical adenopathy. CARDIOVASCULAR: Regular rate and rhythm. Normal S1, S2 with the slight systolic murmur auscultated. PULMONARY: There are diminished breath sounds bilaterally with few crackles noted. ABDOMEN: Obese, soft, nontender and mildly distended. EXTREMITIES: There is new pitting bilateral +1 edema in the lower extremities. The right hip has a surgical dressing in place. LABORATORY DATA: WBC 8.9, hemoglobin 7.5, platelets 134. Chemistry: Sodium is 135, potassium is 4.6, chloride is 106, bicarbonate is 24, BUN 37, creatinine is 2.64, glucose is 115, calcium 7.4. Lactic acid 4.2, AST 40, ALT less than 6. CPK is 874. Troponins are negative. BNP 2182. Albumin is 1.9. IMAGING STUDIES: Chest x-ray 07/14/2019 showed some cardiomegaly and increased pulmonary vascular congestion. ASSESSMENT AND PLAN: Ms. Guzman is a 79-year-old female with a past medical history of atrial fibrillation on anticoagulation, diastolic CHF, hypertension, hyperlipidemia, asthma, hypothyroidism, CHANDU on C-PAP, who presented for a right hip arthroplasty on 07/12/2019. Postoperatively, the patient was noted to have hypotension this morning and required fluid boluses on top of her maintenance IV fluids. Her blood pressure did respond with the IV fluid boluses, but she was noted to have new hypoxemic respiratory failure requiring nasal cannula oxygen supplementation. The patient's hemoglobin and hematocrit (H and H) postoperatively was 8.6. Presurgery, she had a hemoglobin of approximately 11 and her hemoglobin did continue to trend down this morning to 7.2. She has not had any fevers overnight and her mild leukocytosis has improved. The patient's chest x-ray today also showed some increased pulmonary vascular congestion and some cardiomegaly. She did have a stat echocardiogram done which, on the bedside read, showed a normal ejection fraction (EF) with what appears to be have likely some diastolic dysfunction. Her right ventricle did not appear enlarged and her inferior vena cava (IVC) was not distended, with normal respiratory variation noted. She did have a small pericardial effusion; however, given the normal IVC, pericardial tamponade is less likely. She also did not have any elevated pulmonary artery systolic pressures as well. Hypotension, likely in the setting of anemia. - Anemia, likely in the setting of acute blood loss postoperatively. During the surgery there was some difficulty due to her morbid obesity and she likely does have some component of bleeding into her wound, as she is also been on anticoagulation for her history of atrial fibrillation. - The patient was given IV fluid boluses, but was noted to have increasing pulmonary edema contributing to her hypoxemic respiratory failure. Would discontinue fluids and continue with transfusion of blood products as needed, with as needed Lasix as well as tolerated by her blood pressure and her renal function. - The patient has acute kidney injury, possibly prerenal from her hypotension from anemia versus a component of cardiorenal, given her history of CHF. Would continue to closely monitor renal function and input and output and monitor her electrolytes and replete as needed. - Continue with nasal cannula oxygen supplementation to maintain oxygen saturations above 90%. She also has a history of sleep apnea, but has not received her C-PAP during her admission, and so has had increasing fatigue and sleepiness. Would start her on her home C-PAP continue to monitor. If there is any concern for hypercapnia, would get an arterial blood gas (ABG). - The patient was started on antibiotics with cephazolin. She and did have some slight leukocytosis, which is likely reactionary postoperatively and has not had any significant fever or white count; however, given her hypotension, there was some potential concern for sepsis and so would continue with the Ancef now and can de-escalate as clinically indicated. - Would hold her anticoagulation and continue with thromboembolitic deterrents (TEDs) and sequential compression devices (SCDs) for deep venous thrombosis (DVT) prophylaxis. Given her risk of venous thromboembolic disease with her surgery, would need heparin for DVT ppx however when possible when no further active bleeding. - Will continue to monitor her blood pressures. If she becomes more hypotensive, the patient may need central line placement for administration of vasopressors to maintain a mean arterial pressure (MAP) above 65. Continue with midodrine. Her blood pressures are currently maintaining now with MAPs above 65, and she has no lactic acidosis noted. - DVT prophylaxis. TEDs and SCDs. - FULL CODE. Total critical care time spent, not including procedures, approximately 1 hour and 15 minutes. MTDD
[2019-07-14] MEDS ORDERED: SLF 3 ML SYR IV PRN (18:45)
--- NOTE | 2019-07-14 19:33 | CR ---
DATE OF ADMISSION: 07/12/2019 DATE OF CONSULTATION: 07/14/2019 ADMITTING PHYSICIAN: Dr. Glaser. CONSULTING PHYSICIAN: Dr. Kaylin Schmidt. REASON FOR CONSULT: Pericardial effusion. HISTORY OF PRESENT ILLNESS: This is a very pleasant 79-year-old female who has a pertinent past medical history of hypertension, diastolic heart failure, asthma, who presented to [facility] on 07/12/2019 for an elective right hip arthroplasty. Hospitalist team was called for medical management. The day after the surgery, the patient was doing relatively well with no complications whatsoever, but she was placed on 2 liters of nasal cannula as she was desaturating to around 80% on room air. With the daily labs, it also showed she had worsening acute kidney injury (DIMITRI), so she was started on gentle hydration. Early this morning, while she was evaluated by hospitalist team, it was found that the patient had a systolic blood pressure in the 90s and was given 2 liters of sodium chloride, which she did not respond appropriately. Around 9:00 a.m., her systolic blood pressure went down to the lows of 50s and a stat chest x-ray was performed at bedside, which showed that she had a mild cardiomegaly and a globular-appearing heart. Because of the hypotension and the mild cardiomegaly, hospitalist team then decided to transfer her to a higher level of care floor. Her labs up to this point showed that she had a slight drop in her hemoglobin and hematocrit (H and H) from 8.6 to 7.5, so she was consented for 2 units of blood and was given a one-time dose of hydrocortisone 100 mg, as well as started on midodrine 10 mg three times a day. Dr. Joiner was then consulted for evaluation of the pericardial effusion and possible tamponade. PAST MEDICAL HISTORY: 1. Paroxysmal atrial fibrillation. 2. Diastolic congestive heart failure. 3. Hypertension. 4. Dyslipidemia. 5. Asthma. 6. Hypothyroidism. 7. Seizure disorder. 8. Anxiety. 9. Gout. 10. Vitamin D deficiency. 11. Osteopenia. 12. Gastroesophageal reflux disease (GERD). PAST SURGICAL HISTORY: 1. Total left hip arthroplasty in 2015. 2. Cholecystectomy in 2005. 3. Dilation and curettage (D C). 4. Tonsillectomy. 5. Adenoidectomy. 6. Bilateral cataract resection 2008. 7. Right nasal catheterization secondary to bleed. 8. Right eyebrow lesion biopsied. 9. 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 SOCIAL HISTORY: Denies any illicit intravenous (IV) drug use. Former smoker of one pack a day for 20 years. Quit in 1995. Denies any recent travel or sick contact. 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 REVIEW OF SYSTEMS: CONSTITUTIONAL: Denies any weight change, fevers, chills, night sweats or fatigue. HEENT: Denies hearing changes, ear pain, nasal congestion, sinus pain, hoarseness, sore throat, rhinorrhea. CARDIOVASCULAR: Denies any chest pain, shortness of breath, paroxysmal nocturnal dyspnea (PND), dyspnea on exertion, orthopnea, or lower extremity edema. RESPIRATION: Admits to a dry cough, minimal sputum production. No wheezing. Admits to a history of obstructive sleep apnea. Has not worn her continuous positive airway pressure (C-PAP) since being admitted. GASTROINTESTINAL (GI): Denies any nausea, vomiting, diarrhea, constipation. GENITOURINARY: Denies any dysuria or urinary frequency. MUSCULOSKELETAL: Admits to some discomfort in the right hip secondary to surgical pain. No increased tenderness to palpation, erythema, joint stiffness or joint swelling. INTEGUMENTARY: Denies any new skin changes. NEUROLOGIC: Denies any weakness, paresthesia, syncope, dizziness, headaches. HEMATOLOGIC: Denies any easy bruising, bleeding or lymphadenopathy. PHYSICAL EXAMINATION: VITAL SIGNS: Temperature 97.0, pulse 80, respirations 10, blood pressure 90/49, pulse oximetry 92 on C-PAP on 3 liters of flow rate. INTAKE AND OUTPUT: Intake total 4280, output total documented with zero, net balance positive 4280 mL. GENERAL: This is a very pleasant 79-year-old female who is resting in bed, did not appear in any acute distress, appropriately answering questions, but very somnolent during exam, a the patient randomly will fall asleep in the middle of conversation, arousable to light touch, though. HEENT: Atraumatic, normocephalic. Pupils equal, round and reactive. Moist mucous membranes. No jugular venous distention (JVD). Neck is supple. CARDIOVASCULAR: Regular rate and rhythm. Soft 2/6 systolic murmur loudest at the right intercostal space with no radiation to the carotids at the apex. No clicks or rubs noted. 1+ to 2+ pitting edema bilaterally in the lower extremities up to mid calves, which improved after Lasix, now localized to the left side. RESPIRATION: Patient had bibasilar crackles with no audible wheezing. ABDOMEN: Soft, nontender, nondistended. EXTREMITIES: 1+ to 2+ pitting edema bilaterally in the lower extremities, which improved after Lasix. Right hip examined. Bandage over surgical site. Very minimal serosanguineous discharge appreciated on top of bandage with no tenderness to palpation. No oozing. No erythema noted. NEUROLOGIC: Alert and oriented times three. Very fatigable during exam. Falls asleep in mid conversation, but arousable with light touch. Appropriately answering questions and follows commands. LABORATORY DATA: WBC 8.9, hemoglobin 7.5, hematocrit 23.3, platelet count 134. Chemistry: Sodium 135, potassium 4.6, chloride 106, carbon dioxide 24, anion gap 5, BUN 37, creatinine 2.64, fasting glucose of 115, lactic acid 1.2, calcium 7.4. Pro-BNP 2182. Troponin less than 0.02. IMAGING: Chest x-ray from 07/14/2019: Cardiomegaly with pulmonary venous hypertension without acute infiltrate. ASSESSMENT AND PLAN: This is a very pleasant 79-year-old female with a pertinent past medical history of paroxysmal atrial fibrillation, diastolic heart failure, hypertension, asthma, obstructive sleep apnea, who presented to [facility] for an elective right total hip replacement whose stay was complicated by low systolic blood pressures despite IV fluids, as well as easy fatigue, despite not being on narcotics greater than 10 hours. Patient had a chest x-ray that showed a globular-appearing heart that has mild cardiomegaly with pulmonary hypertension. Therefore, cardiothoracic surgery was called for possible management of pericardial effusion. ]Abnormal chest x-ray. Abnormal chest x-ray did show an enlarged heart with vitals showing systolic blood pressures in the 90s despite IV fluids, midodrine and stress-dose steroids. Patient was transferred to intensive care unit (ICU) for further evaluation. Bedside echocardiogram did show that she had a pericardial effusion, maximum distance of 1 cm at it's greatest length, with no right ventricular collapse and had compressible IVCs. Based on the echo, it did not appear that she is currently in tamponade, and no surgical intervention is currently needed at this current time. Because the patient does have a history of obstructive sleep apnea who has not been on her CPAP machine since being admitted, I do believe her obstructive sleep apnea is contributing to her underlying problem at this current time. She does have worsening creatinine function despite IV fluids, lower extremity edema and crackles in her bases bilaterally in her lungs. I do believe that she might benefit from some gentle IV Lasix to help her diurese the extra fluid that she has gotten and place her back on her home CPAP settings. I do believe her mentation and her systolic blood pressure will improve with noninvasive ventilation. If mentation does not continue to improve, can consider getting a venous blood gas (VBG) or an arterial blood gas (ABG) to assess if the patient is retaining any carbon dioxide and will need BI-PAP assistance with a backup respiration mode. Thank you for this consultation. We will follow along with you while the patient is admitted.
[2019-07-14] MEDS: SLF 3 ML SYR IV SCH (21:15)
--- NOTE | 2019-07-14 22:13 | ECHO ---
DATE OF PROCEDURE: 07/14/2019 Date of : 1940 Age: 79 REFERRING PHYSICIAN: Michela Schmidt MD PATIENT LOCATION: Room 3221 REASON FOR ECHOCARDIOGRAM: Heart murmur. 2D MEASUREMENTS: IVS: 1.2 cm LV: 5.1 cm LVPW: 1.0 cm LA: 4.2 cm Aorta: 2.4 cm IVC: 1.9 cm DOPPLER MEASUREMENTS: Peak velocity across the aortic valve: 2.6 m/s Peak velocity across the LVOT: 1.3 m/s Peak gradient across the aortic valve: 26 mmHg Mean gradient across the aortic valve: 16 mmHg Mitral E: 1.3, Mitral A: 1.0 with a ratio of 1.3 Maximum tricuspid valve velocity: 2.7 m/s 2D COMMENTS: 1. Normal left ventricular size, wall thickness, and normal global left ventricular systolic function. The estimated left ventricular systolic ejection fraction is 60 to 65%. 2. Mildly enlarged left atrium. Normal right atrium and right ventricle. 3. The atrial septum appeared to be normal without evidence of defect or shunt. 4. Normal aortic root. 5. A small pericardial effusion was noted, no evidence of cardiac tamponade. 6. Mildly calcified aortic valve with minimally restricted leaflet motion. Mildly calcified mitral annulus with normal anterior mitral valve leaflet motion. Normal tricuspid valve and pulmonic valve. The proximal pulmonary artery branches also appeared to be normal. 7. The inferior vena cava was normal in size, central venous pressure might be normal. DOPPLER: Doppler detects moderately severe mitral regurgitation, mild tricuspid regurgitation. The calculated pulmonary artery systolic pressure varies between 30-40 mmHg. Assessment of the left ventricular diastolic function appeared to be normal. IMPRESSION 1. Normal global left ventricular systolic and diastolic function. 2. Aortic valve sclerosis with mild aortic stenosis. 3. Mitral annulus calcification with a mildly enlarged left atrium and moderately severe mitral regurgitation. 4. Mild tricuspid regurgitation with mild pulmonary hypertension. 5. A small pericardial effusion was noted, no evidence of cardiac tamponade. MTDD
[2019-07-15] VITALS (12 sets, daily range): BP systolic 107–151; BP diastolic 50–75
[2019-07-15] MEDS ORDERED: FUROSEMIDE 20 MG/2 ML VIAL (J1940) IV ONE (00:45)
[2019-07-15] MEDS: ceFAZolin SOD 2 GM in IV 1 EA IV SCH ×3 (02:43→18:00)
[2019-07-15 04:48] LABS: BASO % 0.2 % (0.0-1.0); EOS # 0.3 10^3/uL (0.0-0.5); EOS % 2.8 % (0.0-3.0); HEMATOCRIT 27.3 % (36.0-47.0); HEMOGLOBIN 8.8 g/dl (12.0-15.5); LYMPH # 0.9 10^3/uL (1.5-5.0); LYMPH % 8.8 % (24.0-44.0); MEAN CORPUSCULAR HEMOGLOBIN 30.4 pg (27.0-33.0); MEAN CORPUSCULAR HGB CONC 32.2 g/dl (32.0-36.5); MEAN CORPUSCULAR VOLUME 94.5 fl (80.0-96.0); MONO # 1.5 10^3/uL (0.0-0.8); MONO % 15.3 % (0.0-5.0); NEUTROPHILS # 7.1 10^3/uL (1.5-8.5); NEUTROPHILS % 71.6 % (36.0-66.0); PLATELET COUNT, AUTOMATED 153 10^3/uL (150-450); RED BLOOD COUNT 2.89 10^6/uL (4.00-5.40)
[2019-07-15 05:09] LABS: CALCIUM LEVEL 7.8 MG/DL (8.8-10.2); CREATININE FOR GFR 3.05 MG/DL (0.55-1.30); GLOMERULAR FILTRATION RATE 15.8 (>39); POTASSIUM SERUM 4.7 MEQ/L (3.5-5.1)
[2019-07-15] MEDS: LEVOTHYROXINE 50MCG TABLET (0.05MG) PO SCH (05:31)
[2019-07-15] MEDS: SLF 3 ML SYR IV SCH ×3 (05:32→21:37)
[2019-07-15] MEDS: VERAPAMIL 180MG EXTENDED RELEASE TABLET PO SCH (10:25)
[2019-07-15] MEDS: VERAPAMIL 120 MG SR TAB PO SCH (10:25)
[2019-07-15] MEDS: MOM 30ML SUSPENSION UDC PO SCH (10:26)
[2019-07-15] MEDS: ESCITALOPRAM OXALATE 10 MG TAB (LEXAPRO) PO SCH (10:26)
[2019-07-15] MEDS: FOLIC ACID 1 MG TAB PO SCH ×2 (10:26→21:36)
[2019-07-15] MEDS: ROSUVASTATIN 10 MG TAB (CRESTOR) PO SCH (10:26)
[2019-07-15] MEDS: OMEPRAZOLE 20 MG CAP PO SCH (10:26)
[2019-07-15] MEDS: DIVALPROEX 250MG *ER* TAB PO SCH ×2 (10:26→22:10)
[2019-07-15] MEDS: MIRALAX *UNIT DOSE* 17GM PACKET PO SCH (10:26)
[2019-07-15] MEDS: FUROSEMIDE 40 MG/4 ML VIAL (J1940) IV SCH ×2 (10:27→17:14)
[2019-07-15] MEDS: allopurinoL 300 MG TAB PO SCH (10:27)
--- NOTE | 2019-07-15 10:27 | REP ---
RENAL ULTRASOUND: Real-time sonographic evaluation of kidneys performed. The kidneys are normal in size and echotexture, right kidney measuring 10.2 x 4.7 x 5.3 cm, and left kidney 10.8 x 4.5 x 5.4 cm. There is no hydronephrosis or renal mass seen bilaterally. No definite calculus is seen. Ponce catheter is seen in a collapsed urinary bladder. IMPRESSION: Essentially negative renal ultrasound. Electronically Signed by Dakota Mendiola MD 07/15/2019 06:37 P
[2019-07-15] MEDS: FERROUS GLUCONATE 324 MG TAB PO SCH (10:33)
[2019-07-15] MEDS: MIDODRINE 5 MG TAB PO SCH ×3 (10:33→17:13)
--- NOTE | 2019-07-15 11:50 | IPNPDOC ---
Text Note Date of Service The patient was seen on 07/15/19. NOTE HOSPITALIST NOTE S: Pt examined at bedside in ICU. Is feeling better after she was transfused 1 unit with adequate response in H&H, Hgb 8.8 this am. Slightly short of breath overnight with low urine output, s/p 20 mg IV Lasix. She has no complaints today. No chest pain, shortness of breath, lightheaded, dizziness, weakness. Has been weaned down on her oxygen, down to 1 L nasal cannula is morning. She did use her CPAP overnight without any issues, and blood pressure has significantly improved but stable in 110s/50s. PE: Vitals: see below General: NAD, A&Ox3, laying comfortably in bed speaking in full sentences HEENT: NCAT, EOMI, anicteric sclera, MMM, no appreciable JVD, neck supple CV: RRR, soft 2/6 systolic murmur, no clicks or rub. 3+ edema bilateral lower extremities up to the knees RESP: CTAB, no w/r/r, no accessory muscle use, breathing comfortably on 1 L nasal cannula supplemental O2 ABD: soft, NT, ND. Benign EXTREMITIES: 2+ radial pulses b/l, able to move all extremities : Ponce in place SKIN: No visible lesions or rashes. Right hip bandage dry and intact from recent surgery. Skin continues to be taut around the surgical site without any oozing NEURO: no focal deficits or acute changes. Appropriately follows commands and answers questions A/P: 71-year-old female with a PMHx of Paroxysmal A. fib, Diastolic CHF, HTN, DLP, Asthma, Hypothyroidism, Seizure disorder, Anxiety, Gout, Vitamin D deficiency, Osteopenia, GERD, who presented to hospital for an elective total right hip arthroplasty. Hospitalist is following for medical management. Had severe asymptomatic hypotension 07/14 and desatting into 80s, along with worsening renal function. No tachycardia or tachypnea or fever and was otherwise stable and transferred to ICU for dropping blood pressures as low as 80s/40s. 1. Hypotension in setting of baseline HTN Resolved S/P 2+ liters fluid hydration, 1 unit PRBC transfusion, Midodrine, hydrocortisone x1. - Patient has been asymptomatic throughout the entire episode even with blood pressures as low 80s/40s. - She continues to not show any signs of infection or sepsis. - She has improved with diuresis and continues to remain afebrile without l eukocytosis. - Probable causes include third spacing and fluid overload. - Continue holding antihypertensives and monitor blood pressure. - Will consider resuming verapamil if she remained stable. - Given hypervolemic state, will start diuretics cautiously with close monitoring of blood pressure and renal function. Ponce in place for strict I's and O's. Continue monitoring daily weights. - Echo done yesterday reveals EF 60-65% and no diastolic dysfunction, small pericardial effusion present without any signs of tamponade and normal IVC and CVP. - Pulmonology following; Appreciate input: Hold off on Eilquis, start on heparin tomorrow for DVT prophylaxis if H&H remain stable, outpatient follow-up for repeat echo next week. 2. Acute hypervolemia Echo as noted above, normal systolic and diastolic function, inconsistent with the diagnosis of congestive heart failure. She has received aggressive IVF resuscitation in light of her recent surgery & post-op hypotension. Has been started on IV Lasix with close monitoring I's/O's with Ponce in place. 3. Acute kidney injury with oliguria in setting of baseline CKD 3 Baseline GFR around 0.9-1.1. Renal function continues to worsen with creatinine up to 3.05 today, with only roughly 400mL urine out yesterday. May be cardiorenal syndrome versus 2/2 hypervolemic state. Started on IV Lasix. Continue with holding any additional IV fluids given her lack of improvement with this. Will reassess renal function after diuresis is started. Repeat labs pending for the afternoon. Renal ultrasound done today is unremarkable. Trace ketones and a8RBC in UA, otherwise negative. Continue monitoring. 4. Acute on chronic anemia Improved after 1 unit PRBC transfused yesterday with hemoglobin of from 7.2 to 9.3. Her H&H have been gradually dropping during her hospitalization, with baseline hemoglobin around 11, as low 7.2. She has had no overt bleeding. Possible intra-operative blood loss versus bleeding into the surgical site postoperatively. We have reached out to her surgeon who will reassess her right thigh. Iron workup also revealed severe iron deficiency. Started on are supplement. Continue with holding all at this until she is stabilized. Repeat H&H through the day. 5. Small pericardial effusion Thoracic surgery consult, appreciate input. Currently no plans on any intervention. She is otherwise stable with without signs of tamponade. 6. Acute hypoxia Patient is asymptomatic, however desats into the 80s off nasal cannula. Likely 2/2 anemia and hypovolemic state and not using CPAP. Is improving and requiring less O2, down to 1L today. Continue to titrate off oxygen. 7. Arthritis Patient underwent elective right hip arthroplasty with Dr. Basilio 07/12. Activity, diet, pain as per Ortho. Would recommend holding off on anticoagulation at this point until bleed is ruled out -see above. Rehab and therapy once more stable. Paroxysmal A. fib-controlled on verapamil. This is on hold due to hypotension. Closely monitor heart rate & BP. If needed, consider cardioselective drugs. HTN-hold meds given hypotension DLP-continue Crestor Asthma-controlled. Continue prn inhalers Hypothyroidism-continue Synthroid Seizure disorder-stable. Continue Depakote Anxiety/depression-controlled. Continue Lexapro Gout-continue allopurinol Vitamin D deficiency-continue supplement & o/p f/u Osteopenia-o/p f/u GERD-continue omeprazole DVT ppx: Mechanical. Hold anticoagulation until H&H stable. Consider starting Heparin tomorrow. DISPO: Will downgrade out of ICU if stable today. Continue post-op therapy once more stable. VS,Prafulbone, I+O VS, Prafulbone, I+O Laboratory Tests 07/14/19 11:18 07/14/19 17:10 07/15/19 04:27 Vital Signs Date Time Temp Pulse Resp B/P (MAP) Pulse Ox O2 Delivery O2 Flow Rate FiO2 07/15/19 06:00 81 112/53 (72) 94 Nasal Cannula 1.0 07/15/19 04:00 98.4 17 I&O- Last 24 Hours up to 6 AM 07/15/19 06:00 Intake Total 1660 ml Output Total 677 ml Balance 983 ml GME ATTESTATION GME ATTESTATION My faculty preceptor for this patient encounter was physically present during the encounter and was fully available. All aspects of the patient interview, examination, medical decision making process, and medical care plan development were reviewed and approved by the faculty preceptor. The faculty preceptor is aware and concurs with the plan as stated in the body of this note and will attest to such by his/her cosignature. ATTENDING NOTE I, Kaylin Schmidt, have independently examined this patient and performed my own physical exam, as well as reviewed the documentation and edited where necessary. I have discussed in detail with the resident / student the findings and plan of treatment as documented by the resident / student and edited their note. I agree with their findings and treatment plan and have edited their documentation. I will continue to follow the patient during this hospital stay. JIM SUNSHINE DO Jul 15, 2019 11:50 KAYLIN SCHMIDT MD Jul 15, 2019 16:55
--- NOTE | 2019-07-15 12:18 | CCN ---
DATE: 07/15/2019 Patient was seen and examined this morning during bedside rounds. Yesterday, she was transfused 1 unit of packed red blood cells (PRBC) as well as given a dose of Lasix with the transfusion. Her blood pressures improved, and she did not require any vasopressor support yesterday. Patient was also placed on her home continuous positive airway pressure (CPAP) at night, and this morning she does report feeling less tired and sleepy and more refreshed from her sleep. She denies any chest pain. Has not had any shortness of breath. She does have some cough still, occasionally productive of mucus. She denies any nausea or vomiting. No abdominal pain. She does have some pain in her right hip still as well. PHYSICAL EXAM: Temperature 98.4, pulse 81, respirations 17, blood pressure 112/53, oxygen 94% on 1 liter nasal cannula. Ins 130 mL, out 212. General: The patient is an obese female, is lying in bed, is awake and alert and answering questions appropriately, in no acute respiratory distress. HEENT: Normocephalic, atraumatic. Mucous membranes are moist. Neck is supple. No palpable cervical adenopathy. Cardiovascular: Regular rate and normal S1, S2 with a faint systolic murmur auscultated. Pulmonary: There are some diminished breath sounds bilaterally with few crackles at the bases. Abdomen is soft, obese, nontender and nondistended. Extremities: There is mild pitting edema in the lower extremities and some tenderness in the right hip with a cervical dressing in place. LABS: WBC 10.0, hemoglobin 8.8, platelets are 153. Chemistry: Sodium is 134, potassium 4.7, chloride is 103, bicarb 25, BUN 46, creatinine is 3.05, glucose is 108. IMAGING: Echocardiogram; normal ejection fraction (EF) with mildly enlarged left atrium and normal right atrium, right ventricle. There is a small pericardial effusion but no evidence of cardiac tamponade. There is moderately severe mitral regurgitation with mild tricuspid regurgitation. The pulmonary artery systolic pressure is 30-40 mmHg. ASSESSMENT AND PLAN: Ms. Guzman is a 79-year-old female with a history of atrial fibrillation on anticoagulation, diastolic CHF, hypertension, hyperlipidemia, asthma, hypothyroidism, obstructive sleep apnea (CHANDU) on continuous positive airway pressure, who presented for right hip arthroplasty on 07/12/2019. Postoperatively, the patient was noted to have episodes of hypotension requiring intravenous (IV) fluid boluses. She was also to be more anemic and required a transfusion of 1 unit packed red blood cells (PRBC) yesterday with improvement in her blood pressure. The patient was also noted to have some increased pulmonary vascular congestion as well as acute hypoxemic respiratory failure, likely in the setting of some pulmonary edema. She was given Lasix as well for diuresis which her blood pressure tolerated, and she able to be weaned down on her nasal cannula oxygen. - Hypotension in the setting of anemia, likely acute blood loss from her right hip surgery postoperatively. She did have some difficulty during the surgery due to her morbid obesity, and she had also been on anticoagulation for her history of atrial fibrillation postoperatively. - The patient did have a small pericardial effusion noted on her echo, but no evidence of tamponade. Would repeat echocardiogram in 1 week to monitor the effusion as well as her mitral regurgitation. Patient likely does need to followup with coppersmith helper as an outpatient for her MR. - The patient's blood pressure improved with transfusion of 1 unit PRBC yesterday. Will continue to monitor her hemoglobin and hematocrit and transfuse as needed and continue to monitor blood pressure and maintain a MAP above 65. - The patient's Eliquis is on hold given the acute blood loss. However, she is at increased risk for venous thromboembolism (VTE) given her recent surgery, and if her hemoglobin and hematocrit remain stable, would start her on deep venous thrombosis (DVT) prophylaxis with heparin, likely tomorrow, and continue monitoring and start anticoagulation when clinically indicated. - The patient had acute hypoxemic respiratory failure likely in the setting of some atelectasis postoperatively as well as from pulmonary edema, as her x-ray had shown increased pulmonary vascular congestion and she did have increased BNP. Her echocardiogram shows evidence of some mitral regurgitation which likely contributed to her pulmonary edema. She was given Lasix for diuresis yesterday, which she tolerated, and she has been able to be weaned down on her nasal cannula oxygen. - Would continue Lasix as per primary team, but would monitor renal function as she does have evidence of acute kidney injury. Likely prerenal from her hypotension as well as possible component of cardiorenal; however, she may also be in ATN at this point as well. Would need to closely monitor renal function with any diuresis and monitor ins and outs and replete electrolytes as needed. - Continue to wean down nasal cannula oxygen and wean off as tolerated to maintain oxygen saturation above 90%. Would continue with incentive spirometer to help with atelectasis. - The patient has history of sleep apnea. Will continue with home C-PAP at night. - The patient was given a cephazolin for concern of possible sepsis. Her leukocytosis postoperative likely reactionary, and she has not had any fevers. Would de-escalate antibiotics as clinically indicated. Deep venous thrombosis (DVT) prophylaxis. Thromboembolism deterrents (TEDs) and sequential compression devices (SCDs). FULL CODE. Total critical care time spent, not including procedures, approximately 40 minutes. Please do not hesitate to call if any further questions or concerns. MTDD
[2019-07-15 12:57] LABS: HEMATOCRIT 26.3 % (36.0-47.0); HEMOGLOBIN 8.5 g/dl (12.0-15.5)
[2019-07-15 13:18] LABS: CALCIUM LEVEL 7.4 MG/DL (8.8-10.2); CREATININE FOR GFR 2.9 MG/DL (0.55-1.30); GLOMERULAR FILTRATION RATE 16.7 (>39); POTASSIUM SERUM 4.7 MEQ/L (3.5-5.1)
--- NOTE | 2019-07-15 14:42 | IPN ---
DATE: 07/15/2019 SUBJECTIVE: Ms. Guzman was seen and examined this morning during bedside rounds in the intensive care unit (ICU). She does not appear in acute distress. She has no complaints this morning. She states she slept relatively well last night with her continuous positive airway pressure (C-PAP) machine on. She states she is feeling much better, but she did not have any complaints yesterday to begin with. She has no complaints this morning, as well. No overnight events were reported by nursing. She denies any nausea, vomiting, diarrhea, constipation, abdominal pain. She does have some discomfort with palpation of the right hip, but this was expected. PHYSICAL EXAMINATION: VITAL SIGNS: Temperature 98.4, pulse 79, respirations 17, blood pressure 119/59 (79), pulse oximetry 94% on 1 liter of nasal cannula. INTAKE AND OUTPUT: Intake total 1820, output total 455, balance positive 1355. Weight 91.3, up from 86.6 kg. GENERAL: This is a very pleasant 79-year-old female who is obese, no acute distress, laying comfortably in bed, appropriately answering questions, not as sleepy during exam today and answering questions appropriately. HEENT: Atraumatic, normocephalic. Mucous membranes are moist. No jugular venous distention (JVD) noted. CARDIOVASCULAR: Regular rate and rhythm. Normal S1, S2 sounds with a 2/6 systolic murmur at the lattice at the right second intercostal space, with no radiation. No rubs or gallops noted. PULMONARY: Bilateral crackles. Diminished breath sounds at the bases. Clear to auscultation in the upper lobes. ABDOMEN: Soft, nontender. Obese. EXTREMITIES: 1+ pitting edema bilaterally in the lower extremities. Right hip surgical dressing in place. Slightly indurated, hard fullness appreciated at the inferior pole of the dressing, but no ecchymosis, no skin breakdown noted. No dimpling. No pus or discharge noted on the surgical dressing as well. LABORATORIES: WBC 10.0, hemoglobin 8.8, hematocrit 27.3, platelets 153. Chemistries: Sodium 134, potassium 4.7, chloride 103, carbon dioxide 25, BUN 46, creatinine 3.05, fasting glucose 108, calcium 7.8. IMAGING STUDIES: New imaging since yesterday: Renal ultrasound: Normal kidney size and echotexture. No hydronephrosis or renal mass noted. No calculi. ASSESSMENT AND PLAN: Ms. Guzman is a 79-year-old female with a pertinent past medical history of atrial fibrillation on anticoagulation, diastolic heart failure, hypertension, asthma, hypothyroidism, obstructive sleep apnea (CHANDU) on CPAP, who presented for a right hip arthroplasty on 07/12/2019. Postoperatively, she was noted to have hypotension that required fluid boluses. The patient did respond to the fluid boluses, but not adequately. She ended up having a new hypoxic respiratory failure requiring nasal cannula oxygen supplementation. Chest x-ray at bedside showed a globular-appearing heart and cardiothoracic was called for a possible pericardial effusion management. 1. Pericardial effusion. Abnormal chest x-ray at bedside showed enlarged heart. Bedside echocardiogram did show ejection fraction of 60-65%, mild enlarged left atrium with mitral anular calcification with a moderately severe mitral regurgitation. There is a small pericardial effusion noted and mild tricuspid regurgitation with mild pulmonary hypertension. Based on these findings, for the pericardial effusion, because is it not too large and the patient is currently stable, we do not believe any surgical intervention is needed at this current time. We do recommend a repeat echocardiogram in one weeks' time to reassess that pericardial effusion level. 2. Abnormal echocardiogram. Abnormal echocardiogram did show mildly enlarged left atrium with moderately severe mitral regurgitation with mild pulmonary hypertension in 30-40 mmHg. We do not know if it is contributing to the fact that she is fluid overloaded. Because of the severity of the mitral regurgitation, they are fluid-dependent. Because of the kidney function, do recommend continuing gentle diuresing and monitor kidney function and see if there is improvement in her regurgitation. Do continue to recommend that the followup repeat echocardiogram in one week to reassess if the severe mitral regurgitation improves slightly. Do recommend that she follows with her sample processor to reassess the severe regurgitation to see if she is a candidate for a possible replacement versus repair. Thank you for this consultation. Cardiothoracic team will be signing off. If you have any questions, please feel free to consult us again.
[2019-07-15] MEDS: ACETAMINOPHEN TAB 650MG DOSE (2X325MG) PO PRN (21:36)
[2019-07-16] VITALS: BP 136/63
[2019-07-16] MEDS: PERCOCET 5MG/325MG TAB PO PRN ×2 (00:11→14:13)
[2019-07-16] MEDS: ceFAZolin SOD 2 GM in IV 1 EA IV SCH ×3 (03:40→18:34)
[2019-07-16 04:00] VITALS: BP 144/67
[2019-07-16 05:13] LABS: HEMATOCRIT 26.8 % (36.0-47.0); HEMOGLOBIN 8.8 g/dl (12.0-15.5); MEAN CORPUSCULAR HEMOGLOBIN 30.4 pg (27.0-33.0); MEAN CORPUSCULAR HGB CONC 32.8 g/dl (32.0-36.5); MEAN CORPUSCULAR VOLUME 92.7 fl (80.0-96.0); PLATELET COUNT, AUTOMATED 196 10^3/uL (150-450); RED BLOOD COUNT 2.89 10^6/uL (4.00-5.40); WHITE BLOOD COUNT 9.9 10^3/uL (4.0-10.0)
[2019-07-16 05:32] LABS: CREATININE FOR GFR 2.62 MG/DL (0.55-1.30); GLOMERULAR FILTRATION RATE 18.8 (>39); POTASSIUM SERUM 4.6 MEQ/L (3.5-5.1)
[2019-07-16] MEDS: LEVOTHYROXINE 50MCG TABLET (0.05MG) PO SCH (06:32)
[2019-07-16] MEDS: SLF 3 ML SYR IV SCH ×3 (06:33→22:52)
[2019-07-16 08:00] VITALS: BP 138/64
[2019-07-16] MEDS: MIRALAX *UNIT DOSE* 17GM PACKET PO SCH (08:28)
[2019-07-16] MEDS: MOM 30ML SUSPENSION UDC PO SCH (08:28)
[2019-07-16] MEDS: FOLIC ACID 1 MG TAB PO SCH ×2 (08:29→22:51)
[2019-07-16] MEDS: MIDODRINE 5 MG TAB PO SCH ×3 (08:29→16:45)
[2019-07-16] MEDS: OMEPRAZOLE 20 MG CAP PO SCH (08:29)
[2019-07-16] MEDS: ROSUVASTATIN 10 MG TAB (CRESTOR) PO SCH (08:29)
[2019-07-16] MEDS: allopurinoL 300 MG TAB PO SCH (08:29)
[2019-07-16] MEDS: ESCITALOPRAM OXALATE 10 MG TAB (LEXAPRO) PO SCH (08:29)
[2019-07-16] MEDS: FERROUS GLUCONATE 324 MG TAB PO SCH (08:29)
[2019-07-16] MEDS: DIVALPROEX 250MG *ER* TAB PO SCH ×2 (08:30→22:52)
[2019-07-16] MEDS: FUROSEMIDE 40 MG/4 ML VIAL (J1940) IV SCH ×2 (08:30→16:46)
[2019-07-16 12:00] VITALS: BP 140/58
--- NOTE | 2019-07-16 12:28 | IPNPDOC ---
Text Note Date of Service The patient was seen on 07/16/19. NOTE Subjective: Patient is a 71-year-old female with a PMHx of Paroxysmal A. fib, Diastolic CHF, HTN, DLP, Asthma, Hypothyroidism, Seizure disorder, Anxiety, Gout, Vitamin D deficiency, Osteopenia, GERD, who presented to [facility] for an elective total right hip arthroplasty. Patient received medical clearance through her outpatient provider, Dr. Carmen Mejia. Hospitalist service was consulted for medical management. Patient was seen and examined at the bedside. Currently she denies any CP, SOB or palpitations. Denies any CP or palpitations. Denies any abdominal pain. No constipation. Ponce catheter is in place. Objective: Vitals (See below) General: Lying in bed, no acute distress, comfortable, AAOx3 HEENT: NC, AT CVS: +S1S2 Lungs: Fair air entry b/l, no appreciable wheezing / rhonchi / rales Abdomen: Soft, non-distended and non-tender Extremities: No evidence of edema, - Calf tenderness Assessment and plan: Elective total right hip arthroplasty (POD#4) - Presented to [facility] for elective procedure with orthopedic surgery - Shes received outpatient medical clearance through her provider Carmen Mejia - Pain control and physical therapy at the direction of orthopedic surgery Hypotension - etiology unclear - possibly 2/2 cardiogenic etiology, possibly 2/2 anemia - Remains asymptomatic - Denies any CP, SOB, Palpitations, Denies any dizziness / light headedness - ECHO 07/14: EF 60-65% and no diastolic dysfunction, small pericardial effusion present without any signs of tamponade and normal IVC and CVP. - Ponce catheter present for critical monitoring - will discontinue within 24 hours - Strict ins/outs, daily weights - Will reduce Midodrine dose; c/w Diuresis with Furosemide 40 IV BID - Pulmonology on consult s/p Hyponatremia s/p Hypomagnesemia Elevated Cr on likely CKD - possibly 2/2 cardiorenal syndrome - Cr baseline of 0.9-1.22 - Cr has been improving with diuresis - c/w diuresis Paroxysmal A. fib - Currently, patient is rate controlled - Will continue with rate control with verapamil - Off eliquis at this time - re (anemia / transfusions) Chronic Diastolic CHF - No evidence of exacerbation at this time - c/w Diuresis (See above) HTN - BP well controlled currently - Holding Losartan at this time DLP - c/w Rosuvastatin Asthma - No evidence of exacerbation - c/w Xopenix PRN Hypothyroidism - c/w Levothyroxine Seizure disorder - c/w Divalproex Anxiety - c/w Escitalopram Gout - c/w allopurinol Vitamin D deficiency / Osteopenia - Patient takes alendronate on a weekly basis; will resume this as an outpatient GERD - c/w Omeprazole DVT prophylaxis - c/w Heparin - Will likely need to resume Eliquis VS,Fishbone, I+O VS, Fishbone, I+O Laboratory Tests 07/15/19 12:35 07/16/19 04:56 Vital Signs Date Time Temp Pulse Resp B/P (MAP) Pulse Ox O2 Delivery O2 Flow Rate FiO2 07/16/19 08:00 97.3 82 17 138/64 (88) 91 Room Air 07/15/19 08:00 1.0 I&O- Last 24 Hours up to 6 AM 07/16/19 06:00 Intake Total 700 ml Output Total 1380 ml Balance -680 ml OLIVIA TOLEDO MD Jul 16, 2019 12:28
[2019-07-16 13:44] LABS: CALCIUM LEVEL 8.6 MG/DL (8.8-10.2); CREATININE FOR GFR 2.31 MG/DL (0.55-1.30); GLOMERULAR FILTRATION RATE 21.7 (>39); POTASSIUM SERUM 4.6 MEQ/L (3.5-5.1)
[2019-07-16 16:00] VITALS: BP 140/62
[2019-07-16 20:00] VITALS: BP 153/66
[2019-07-17] VITALS: BP 142/58
[2019-07-17] MEDS: ceFAZolin SOD 2 GM in IV 1 EA IV SCH (03:43)
[2019-07-17 04:00] VITALS: BP 162/70
[2019-07-17 05:38] LABS: HEMATOCRIT 26.2 % (36.0-47.0); HEMOGLOBIN 8.7 g/dl (12.0-15.5); MEAN CORPUSCULAR HEMOGLOBIN 30.7 pg (27.0-33.0); MEAN CORPUSCULAR HGB CONC 33.2 g/dl (32.0-36.5); MEAN CORPUSCULAR VOLUME 92.6 fl (80.0-96.0); PLATELET COUNT, AUTOMATED 239 10^3/uL (150-450); RED BLOOD COUNT 2.83 10^6/uL (4.00-5.40); WHITE BLOOD COUNT 7.4 10^3/uL (4.0-10.0)
[2019-07-17] MEDS: LEVOTHYROXINE 50MCG TABLET (0.05MG) PO SCH (05:43)
[2019-07-17] MEDS: SLF 3 ML SYR IV SCH ×3 (05:44→21:01)
[2019-07-17 05:54] LABS: CALCIUM LEVEL 8.7 MG/DL (8.8-10.2); CREATININE FOR GFR 1.76 MG/DL (0.55-1.30); GLOMERULAR FILTRATION RATE 29.7 (>39); POTASSIUM SERUM 4.7 MEQ/L (3.5-5.1)
[2019-07-17 08:00] VITALS: BP 180/70
[2019-07-17] MEDS: ROSUVASTATIN 10 MG TAB (CRESTOR) PO SCH (08:38)
[2019-07-17] MEDS: OMEPRAZOLE 20 MG CAP PO SCH (08:38)
[2019-07-17] MEDS: allopurinoL 300 MG TAB PO SCH (08:39)
[2019-07-17] MEDS: ESCITALOPRAM OXALATE 10 MG TAB (LEXAPRO) PO SCH (08:39)
[2019-07-17] MEDS: MIRALAX *UNIT DOSE* 17GM PACKET PO SCH (08:39)
[2019-07-17] MEDS: MOM 30ML SUSPENSION UDC PO SCH (08:39)
[2019-07-17] MEDS: FOLIC ACID 1 MG TAB PO SCH ×2 (08:39→20:55)
[2019-07-17] MEDS: DIVALPROEX 250MG *ER* TAB PO SCH (08:39)
[2019-07-17] MEDS: FERROUS GLUCONATE 324 MG TAB PO SCH (08:39)
[2019-07-17] MEDS: HEPARIN SOD (PORCINE) 5000 UNITS/ML VIAL (J1644 PER 1000UNITS) SQ SCH ×3 (08:40→21:01)
[2019-07-17] MEDS: FUROSEMIDE 40 MG/4 ML VIAL (J1940) IV SCH ×3 (09:00→17:34)
[2019-07-17] MEDS: VERAPAMIL 180MG EXTENDED RELEASE TABLET PO SCH (09:29)
[2019-07-17] MEDS: VERAPAMIL 120 MG SR TAB PO SCH (09:29)
--- NOTE | 2019-07-17 10:37 | IPNPDOC ---
Date Seen The patient was seen on 07/17/19. Progress Note SUBJECTIVE: Patient was seen and examined this morning bedside. She says she is feeling better today with no events overnight. She is still having trouble with swallowing, describes the swallowing trouble as she feels food is getting stuck. Patient otherwise denies chest pain, cough, shortness of breath, nausea, vomiting, lightheadedness, fevers, chills, acid reflux. OBJECTIVE PHYSICAL EXAMINATION: VITAL SIGNS: Please see below. GENERAL: Pleasant 79 year old female sitting up in bed eating for a swallow study, in no acute distress. HEENT: Atraumatic, normocephalic, moist mucus membranes, neck supple with no elevated JVD. CARDIOVASCULAR: Regular rate and rhythm with soft 2/6 systolic murmur no gallops or rubs RESPIRATORY: Clear to auscultation bilaterally with no wheezes, rhonchi or rales On room air. ABDOMINAL: Bowel sounds present abdomen soft and nontender. EXTREMITIES: Surgical site on R outside leg is non-erythematous and not warm with no discharge. NEUROLOGICAL: AOx3 with no gross focal deficits. PSYCHOLOGICAL: Appropriate. LABORATORY DATA, MICROBIOLOGY: Please see below. IMAGING STUDIES: No new imaging today. ASSESSMENT: This is a 79 year old female with PMHx of Paroxysmal A. fib, Diastolic CHF, HTN, Asthma, Hypothyroidism, Seizure disorder, GERD who presented for an elective R total hip arthroplasty. Hospitalist was consulted for medical management and patient was found to have severe asymptomatic hypotension on 07/14/19 with desatting in 80s and decreased renal function. She has stabilized and will be downgraded to Med/Surg today. PLAN: Elective total right hip arthroplasty (POD #5) - presented on 07/12/19 for elective R total hip arthroplasty, cleared by PCP prior to surgery. - Pain control and physical therapy at the direction of orthopedic surgery s/p Hypotension - etiology unclear - possibly 2/2 cardiogenic etiology, possibly 2/2 anemia - ECHO 07/14: EF 60-65% and no diastolic dysfunction, small pericardial effusion present without any signs of tamponade and normal IVC and CVP. - Ponce catheter present for critical monitoring - Strict ins/outs, daily weights - discontinue Midodrine - c/w Diuresis with Furosemide 40 IV TID - Pulmonology on consult s/p Hyponatremia s/p Hypomagnesemia Elevated Cr on likely CKD - possibly 2/2 cardiorenal syndrome - Cr baseline of 0.9-1.22 - Cr has been improving with diuresis - c/w diuresis Paroxysmal A. fib - Currently, patient is rate controlled - Will continue with rate control with verapamil - Off eliquis at this time due to transfusion and anemia, will discharge on Eliquis. Chronic Diastolic CHF - No evidence of exacerbation at this time - c/w Diuresis (See above) Difficulty Swallowing -swallow study ordered -recommended cookie swallow (modified barium swallow) which has been orderd. HTN - BP moderately elevated today - Will resume home BP medications - Has received Valsartan - however will hold additional doses (re: elevated Cr); Will start Amlodipine DLP - c/w Rosuvastatin Asthma - No evidence of exacerbation - c/w Xopenix PRN Hypothyroidism - c/w Levothyroxine Seizure disorder - c/w Divalproex Anxiety - Will hold Escitalopram Gout - c/w allopurinol Vitamin D deficiency / Osteopenia - Patient takes alendronate on a weekly basis; will resume this as an outpatient GERD - c/w Omeprazole DVT prophylaxis: Continue with Heparin, will likely discharge on Eliquis. DISPOSITION: Pending clinical improvement. VS, I&O, 24H, Fishbone Vital Signs/I&O Vital Signs Date Time Temp Pulse Resp B/P (MAP) Pulse Ox O2 Delivery O2 Flow Rate FiO2 07/17/19 09:29 100 180/70 07/17/19 08:00 98.2 12 93 Room Air 07/15/19 08:00 1.0 I&O- Last 24 Hours up to 6 AM 07/17/19 06:00 Intake Total 480 ml Output Total 1525 ml Balance -1045 ml Laboratory Data 24H LABS Laboratory Tests 2 07/16/19 13:08: Anion Gap 5L, Glomerular Filtration Rate 21.7L, Calcium Level 8.6L, Magnesium Level 2.4 07/17/19 04:57: Anion Gap 2L, Glomerular Filtration Rate 29.7L, Calcium Level 8.7L, Nucleated Red Blood Cells % (auto) 0.0 CBC/BMP Laboratory Tests 07/16/19 13:08 07/17/19 04:57 Microbiology Microbiology 07/14/19 Blood Culture - Preliminary, Resulted No Growth after 48 hours. All Specime... 2/28/20 Blood Culture - Preliminary, Resulted No Growth after 48 hours. All Specime... GME ATTESTATION GME ATTESTATION My faculty preceptor for this patient encounter was physically present during the encounter and was fully available. All aspects of the patient interview, examination, medical decision making process, and medical care plan development were reviewed and approved by the faculty preceptor. The faculty preceptor is aware and concurs with the plan as stated in the body of this note and will attest to such by his/her cosignature. ATTENDING NOTE I, Kaylin Toledo, have independently examined this patient and performed my own physical exam, as well as reviewed the documentation and edited where necessary. I have discussed in detail with the resident / student the findings and plan of treatment as documented by the resident / student and edited their note. I agree with their findings and treatment plan and have edited their documentation. I will continue to follow the patient during this hospital stay. MANDIE PRESTON OMS-3 Jul 17, 2019 10:37 KAYLIN TOLEDO MD Jul 17, 2019 14:37
[2019-07-17] MEDS ORDERED: VALSARTAN 80 MG TAB (DIOVAN) PO SCH (10:45)
[2019-07-17 12:00] VITALS: BP 156/68
[2019-07-17 12:51] LABS: ABG BASE EXCESS 5.1 (-2.0-2.0); ABG HCO3 28.5 MEQ/L (22.0-26.0); ABG O2 SATURATION 95.7 % (95.0-99.0); ABG PARTIAL PRESSURE CO2 37.3 mmHg (35.0-45.0); ABG PARTIAL PRESSURE O2 75.1 mmHg (75.0-100.0); ABG TOTAL CO2 29.6 MEQ/L (23.0-31.0); ABG pH (ARTERIAL) 7.501 UNITS (7.350-7.450)
--- NOTE | 2019-07-17 13:48 | REP ---
CT BRAIN WITHOUT CONTRAST: HISTORY: Confusion. Comparison brain CT study September 07, 2016. FINDINGS: Digital preliminary record press tender radiograph is unremarkable. There is moderate vascular calcification in the distal carotid arteries. Visualized paranasal sinuses are clear. The bony calvarium is intact. There is mild hyperostosis frontalis interna. There is no evidence of extra-axial fluid collection, mass or hemorrhage. No midline shift is seen. There is a 5 mm low density area in the left thalamus consistent with a lacunar infarct. This appears sharply circumscribed and although it is new from the 2017 study it appears to be an old lacunar infarct. No acute cortical infarct is seen. Study is otherwise unremarkable. 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 Mild diffuse atrophy. Vascular calcification. Otherwise negative. Electronically Signed by Claude Hussein MD 07/17/2019 08:04 P
--- NOTE | 2019-07-17 14:12 | REP ---
Modified barium swallow: History: Dysphasia. Technique: Lateral fluoroscopy was performed in conjunction with the swallowing therapist who fed the patient various textures of barium labeled material. 1.1 minutes of fluoroscopy time was utilized. Findings: Moderate repetitive laryngeal penetration was observed with a thin liquid, nectar, and thickened orange juice material. No tracheal aspiration was observed. No other motor discoordination of swallow is seen. There is mild degenerative disc disease in the cervical spine. Impression: Laryngeal reflux noted. No tracheal aspiration seen. Electronically Signed by Claude Hussein MD 07/17/2019 08:05 P
[2019-07-17 15:28] LABS: CALCIUM LEVEL 8.5 MG/DL (8.8-10.2); CREATININE FOR GFR 1.5 MG/DL (0.55-1.30); GLOMERULAR FILTRATION RATE 35.8 (>39); POTASSIUM SERUM 4.4 MEQ/L (3.5-5.1)
[2019-07-17 16:00] VITALS: BP 146/64
[2019-07-17 20:00] VITALS: BP 150/70
[2019-07-17] MEDS: DIVALPROEX SPRINKLE 125 MG CAP PO SCH (20:55)
[2019-07-18] VITALS: BP 161/72
[2019-07-18 04:00] VITALS: BP 162/70
[2019-07-18 06:00] LABS: HEMATOCRIT 26.3 % (36.0-47.0); HEMOGLOBIN 8.5 g/dl (12.0-15.5); MEAN CORPUSCULAR HEMOGLOBIN 29.8 pg (27.0-33.0); MEAN CORPUSCULAR HGB CONC 32.3 g/dl (32.0-36.5); MEAN CORPUSCULAR VOLUME 92.3 fl (80.0-96.0); PLATELET COUNT, AUTOMATED 248 10^3/uL (150-450); RED BLOOD COUNT 2.85 10^6/uL (4.00-5.40); WHITE BLOOD COUNT 7.3 10^3/uL (4.0-10.0)
[2019-07-18] MEDS: HEPARIN SOD (PORCINE) 5000 UNITS/ML VIAL (J1644 PER 1000UNITS) SQ SCH (06:03)
[2019-07-18] MEDS: LEVOTHYROXINE 50MCG TABLET (0.05MG) PO SCH (06:03)
[2019-07-18] MEDS: SLF 3 ML SYR IV SCH ×3 (06:04→20:12)
[2019-07-18 06:22] LABS: CREATININE FOR GFR 1.26 MG/DL (0.55-1.30); GLOMERULAR FILTRATION RATE 43.7 (>39)
[2019-07-18 08:00] VITALS: BP 160/68
[2019-07-18] MEDS ORDERED: amLODIPine 5 MG TAB PO ONE (08:00)
[2019-07-18] MEDS: FERROUS GLUCONATE 324 MG TAB PO SCH (08:04)
[2019-07-18] MEDS: FOLIC ACID 1 MG TAB PO SCH ×2 (08:04→20:11)
[2019-07-18] MEDS: allopurinoL 300 MG TAB PO SCH (08:04)
[2019-07-18] MEDS: ROSUVASTATIN 10 MG TAB (CRESTOR) PO SCH (08:04)
[2019-07-18] MEDS: OMEPRAZOLE 20 MG CAP PO SCH (08:04)
[2019-07-18] MEDS: DIVALPROEX SPRINKLE 125 MG CAP PO SCH ×2 (08:05→20:11)
[2019-07-18] MEDS: VERAPAMIL 120 MG SR TAB PO SCH (08:05)
[2019-07-18] MEDS: MOM 30ML SUSPENSION UDC PO SCH (08:06)
[2019-07-18] MEDS: MIRALAX *UNIT DOSE* 17GM PACKET PO SCH (08:06)
[2019-07-18] MEDS: FUROSEMIDE 40 MG/4 ML VIAL (J1940) IV SCH ×2 (08:06→20:12)
[2019-07-18] MEDS: VERAPAMIL 180MG EXTENDED RELEASE TABLET PO SCH (08:06)
[2019-07-18 12:00] VITALS: BP 132/48
[2019-07-18] MEDS: APIXABAN 2.5 MG TAB (ELIQUIS) PO SCH ×2 (12:33→20:11)
--- NOTE | 2019-07-18 15:07 | IPNPDOC ---
Date Seen The patient was seen on 07/18/19. Progress Note SUBJECTIVE: Patient was seen and examined this morning bedside. She is tired today but otherwise feels good. Patient denies headaches, fevers, chills, chest pain, cough, shortness of breath, nausea and vomiting. OBJECTIVE PHYSICAL EXAMINATION: VITAL SIGNS: Please see below. GENERAL: Pleasant 79 year old female lying in bed, awake and alert in no acute distress. HEENT: Atraumatic, normocephalic, moist mucus membranes, neck supple with no elevated JVD. CARDIOVASCULAR: Regular rate and rhythm with 2/6 systolic murmur with no radiation, no gallops or rubs. RESPIRATORY: Clear to auscultation bilaterally with no wheezes, rhonchi or rales. ABDOMINAL: Bowel sounds present abdomen soft and nontender with no palpable masses. EXTREMITIES: Surgical site on R outside leg is non-erythematous and not warm with no discharge. NEUROLOGICAL: AOx3, no gross focal deficits. PSYCHOLOGICAL: Appropriate. LABORATORY DATA, MICROBIOLOGY: Please see below. IMAGING STUDIES: Esophagus XRay 07/17/19- impression: Laryngeal reflux noted. No tracheal aspiration seen. Head CT 07/17/19- impression: Old appearing small lacunar infarct in the left thalamus. Mild diffuse atrophy. Vascular calcification. Otherwise negative. ASSESSMENT : This is a 79 year old female with PMHx of Paroxysmal A. fib, Diastolic CHF, HTN, Asthma, Hypothyroidism, Seizure disorder, GERD who presented for an elective R total hip arthroplasty. Hospitalist was consulted for medical management and patient was found to have severe asymptomatic hypotension on 07/14/19 with desatting in 80s and decreased renal function. She has stabilized and will be downgraded today. PLAN: Elective total right hip arthroplasty (POD #6) - presented on 07/12/19 for elective R total hip arthroplasty, cleared by PCP prior to surgery. - Pain control and physical therapy at the direction of orthopedic surgery s/p Hypotension - etiology unclear - possibly 2/2 cardiogenic etiology, possibly 2/2 anemia - ECHO 07/14: EF 60-65% and no diastolic dysfunction, small pericardial effusion present without any signs of tamponade and normal IVC and CVP. - Ponce catheter present for critical monitoring - Strict ins/outs, daily weights - c/w Diuresis with Furosemide 40 IV BID - Pulmonology was consulted s/p Hyponatremia s/p Hypomagnesemia s/p Elevated Cr on likely CKD - possibly 2/2 cardiorenal syndrome - Cr baseline of 0.9-1.22 - Cr today is 1.26, will continue to monitor - c/w diuresis Paroxysmal A. fib - Currently, patient is rate controlled - Will continue with rate control with verapamil - Will discontinue Heparin today and restart Eliquis. Chronic Diastolic CHF - No evidence of exacerbation at this time - c/w Diuresis (See above) Difficulty Swallowing -swallow study ordered -esophageal xray showed laryngeal reflux. -c/w Omeprazole 40 mg PO daily HTN - BP moderately elevated today - Will resume home BP medications - Has received Valsartan - however will hold additional doses (re: elevated Cr); Will start Amlodipine DLP - c/w Rosuvastatin Asthma - No evidence of exacerbation - c/w Xopenix PRN Hypothyroidism - c/w Levothyroxine Seizure disorder - c/w Divalproex Anxiety - Will hold Escitalopram Gout - c/w allopurinol Vitamin D deficiency / Osteopenia - Patient takes alendronate on a weekly basis; will resume this as an outpatient GERD - c/w Omeprazole DVT prophylaxis: - Will discontinue Heparin, restart Eliquis. DISPOSITION: Pending clinical improvement. VS, I&O, 24H, Fishbone Vital Signs/I&O Vital Signs Date Time Temp Pulse Resp B/P (MAP) Pulse Ox O2 Delivery O2 Flow Rate FiO2 07/18/19 08:06 88 160/68 07/18/19 08:00 97.9 18 94 Room Air 07/15/19 08:00 1.0 I&O- Last 24 Hours up to 6 AM 07/18/19 06:00 Intake Total 0 ml Output Total 2400 ml Balance -2400 ml Laboratory Data 24H LABS Laboratory Tests 2 07/17/19 12:40: Blood Gas Bicarbonate Standard 29.0H, Arterial Blood pH 7.501H, Arterial Blood Partial Pressure CO2 37.3, Arterial Blood Partial Pressure O2 75.1, Arterial Blood Total CO2 29.6, Arterial Blood HCO3 28.5H, Arterial Blood Base Excess 5.1H, Arterial Blood Oxygen Saturation 95.7 07/17/19 14:29: Anion Gap 6L, Glomerular Filtration Rate 35.8L, Calcium Level 8.5L, Magnesium Level 2.0 07/18/19 05:20: Anion Gap 4L, Glomerular Filtration Rate 43.7, Calcium Level 9.0, Nucleated Red Blood Cells % (auto) 0.4H CBC/BMP Laboratory Tests 07/17/19 14:29 07/18/19 05:20 Microbiology Microbiology 07/14/19 Blood Culture - Preliminary, Resulted No Growth after 72 hours. All specime... 07/14/19 Blood Culture - Preliminary, Resulted No Growth after 72 hours. All specime... GME ATTESTATION GME ATTESTATION My faculty preceptor for this patient encounter was physically present during the encounter and was fully available. All aspects of the patient interview, examination, medical decision making process, and medical care plan development were reviewed and approved by the faculty preceptor. The faculty preceptor is aware and concurs with the plan as stated in the body of this note and will attest to such by his/her cosignature. ATTENDING NOTE I, Kaylin Toledo, have independently examined this patient and performed my own physical exam, as well as reviewed the documentation and edited where necessary. I have discussed in detail with the resident / student the findings and plan of treatment as documented by the resident / student and edited their note. I agree with their findings and treatment plan and have edited their documentation. I will continue to follow the patient during this hospital stay. MANDIE PRESTON S-3 Jul 18, 2019 11:44 KAYLIN TOLEDO MD Jul 18, 2019 16:45
[2019-07-18 15:30] VITALS: BP 141/51
[2019-07-18 22:00] VITALS: BP 156/72
[2019-07-19] MEDS: LEVOTHYROXINE 50MCG TABLET (0.05MG) PO SCH (05:24)
[2019-07-19] MEDS: SLF 3 ML SYR IV SCH ×3 (05:24→20:03)
[2019-07-19 06:00] VITALS: BP 166/79
[2019-07-19 06:23] LABS: HEMATOCRIT 30.9 % (36.0-47.0); HEMOGLOBIN 9.9 g/dl (12.0-15.5); MEAN CORPUSCULAR VOLUME 93.6 fl (80.0-96.0); PLATELET COUNT, AUTOMATED 266 10^3/uL (150-450)
[2019-07-19 06:47] LABS: CALCIUM LEVEL 9.3 MG/DL (8.8-10.2); CREATININE FOR GFR 1.19 MG/DL (0.55-1.30); GLOMERULAR FILTRATION RATE 46.7 (>39); POTASSIUM SERUM 4.2 MEQ/L (3.5-5.1)
[2019-07-19] MEDS: VALSARTAN 80 MG TAB (DIOVAN) PO SCH (08:24)
[2019-07-19] MEDS: OMEPRAZOLE 20 MG CAP PO SCH (08:24)
[2019-07-19] MEDS: ROSUVASTATIN 10 MG TAB (CRESTOR) PO SCH (08:25)
[2019-07-19] MEDS: FUROSEMIDE 40 MG TAB PO SCH (08:25)
[2019-07-19] MEDS: APIXABAN 2.5 MG TAB (ELIQUIS) PO SCH ×2 (08:25→20:02)
[2019-07-19] MEDS: FOLIC ACID 1 MG TAB PO SCH ×2 (08:25→20:02)
[2019-07-19] MEDS: FERROUS GLUCONATE 324 MG TAB PO SCH (08:25)
[2019-07-19] MEDS: DIVALPROEX SPRINKLE 125 MG CAP PO SCH ×2 (08:25→20:02)
[2019-07-19] MEDS: VERAPAMIL 120 MG SR TAB PO SCH (08:26)
[2019-07-19] MEDS: MOM 30ML SUSPENSION UDC PO SCH (08:26)
[2019-07-19] MEDS: allopurinoL 300 MG TAB PO SCH (08:26)
[2019-07-19] MEDS: MIRALAX *UNIT DOSE* 17GM PACKET PO SCH (08:26)
[2019-07-19] MEDS: VERAPAMIL 180MG EXTENDED RELEASE TABLET PO SCH (08:26)
--- NOTE | 2019-07-19 10:41 | IPNPDOC ---
Date Seen The patient was seen on 07/19/19. Progress Note SUBJECTIVE: Patient was seen and examined this morning. She is feeling well and more like herself today. She denies fevers, chills, headaches, cough, chest pain, shortness of breath, nausea, vomiting, abdominal pain, diarrhea, constipation. OBJECTIVE PHYSICAL EXAMINATION: VITAL SIGNS: Please see below. GENERAL: Pleasant 79 year old female sitting up in bed, in no acute distress. HEENT: atraumatic, normocephalic, moist mucus membranes. CARDIOVASCULAR: Regular rate and rhythm with 2/6 systolic murmur, no gallops or rubs. RESPIRATORY: Clear to auscultation bilaterally with no wheezes, rhonchi or rales. ABDOMINAL: Bowel sounds present abdomen soft and nontender. EXTREMITIES: Surgical site on R outside leg is non-erythematous and not warm with no discharge. NEUROLOGICAL: AOx3, no gross focal deficits. PSYCHOLOGICAL: Appropriate. LABORATORY DATA, MICROBIOLOGY: Please see below. IMAGING STUDIES: Esophagus XRay 07/17/19- impression: Laryngeal reflux noted. No tracheal aspiration seen. Head CT 07/17/19- impression: Old appearing small lacunar infarct in the left thalamus. Mild diffuse atrophy. Vascular calcification. Otherwise negative. ASSESSMENT : This is a 79 year old female with PMHx of Paroxysmal A. fib, Diastolic CHF, HTN, Asthma, Hypothyroidism, Seizure disorder, GERD who presented for an elective R total hip arthroplasty. Hospitalist was consulted for medical management. PLAN: Elective total right hip arthroplasty (POD #7) - presented on 07/12/19 for elective R total hip arthroplasty, cleared by PCP prior to surgery. - Pain control, diet and physical therapy at the direction of orthopedic surgery s/p Hypotension - Etiology unclear - possibly 2/2 cardiogenic etiology, possibly 2/2 anemia - ECHO 07/14: EF 60-65% and no diastolic dysfunction, small pericardial effusion present without any signs of tamponade and normal IVC and CVP. - Ponce catheter present for critical monitoring - Strict ins/outs, daily weights - will start her home dose of Furosemide 40 mg PO daily today. - Pulmonology was consulted s/p DIMITRI -patient had elevated creatinine possibly 2/2 cardiorenal syndrome - Cr is 1.19, which is her baseline. -will start her home medications that had been held including Valsartan and Furosemide 40 mg PO daily. s/p Hyponatremia s/p Hypomagnesemia Paroxysmal A. fib - Currently, patient is rate controlled - c/w rate control with verapamil - c/w Eliquis. Chronic Diastolic CHF - No evidence of exacerbation at this time - c/w home Furosemide Difficulty Swallowing -swallow study ordered -esophageal xray showed laryngeal reflux. -pureed diet -speech therapy was consulted and will continue to work with the patient. HTN - BP moderately elevated today - Will resume all home BP medications today including her Valsartan which was held due to DIMITRI. DLP - c/w Rosuvastatin Asthma - No evidence of exacerbation - c/w Xopenix PRN Hypothyroidism - c/w Levothyroxine Seizure disorder - c/w Divalproex Anxiety - Will hold Escitalopram Gout - c/w allopurinol Vitamin D deficiency / Osteopenia - Patient takes alendronate on a weekly basis; will resume this as an outpatient GERD - c/w Omeprazole DVT prophylaxis: Eliquis DISPOSITION: Discharged pending Orthopedics. Patient is medically stable on her home medications and will be having an EGD on Wednesday. VS, I&O, 24H, Fishbone Vital Signs/I&O Vital Signs Date Time Temp Pulse Resp B/P (MAP) Pulse Ox O2 Delivery O2 Flow Rate FiO2 07/19/19 06:00 98.8 96 18 166/79 (108) 94 Room Air 07/15/19 08:00 1.0 I&O- Last 24 Hours up to 6 AM 07/19/19 06:00 Intake Total 595 ml Output Total 800 ml Balance -205 ml Laboratory Data 24H LABS Laboratory Tests 2 07/19/19 05:59: Nucleated Red Blood Cells % (auto) 0.0, Anion Gap 4L, Glomerular Filtration Rate 46.7, Calcium Level 9.3 CBC/BMP Laboratory Tests 07/19/19 05:59 Microbiology Microbiology 07/14/19 Blood Culture - Preliminary, Resulted No Growth after 72 hours. All specime... 07/14/19 Blood Culture - Preliminary, Resulted No Growth after 72 hours. All specime... GME ATTESTATION GME ATTESTATION My faculty preceptor for this patient encounter was physically present during the encounter and was fully available. All aspects of the patient interview, examination, medical decision making process, and medical care plan development were reviewed and approved by the faculty preceptor. The faculty preceptor is aware and concurs with the plan as stated in the body of this note and will attest to such by his/her cosignature. ATTENDING NOTE I, Kaylin Toledo, have independently examined this patient and performed my own physical exam, as well as reviewed the documentation and edited where necessary. I have discussed in detail with the resident / student the findings and plan of treatment as documented by the resident / student and edited their note. I agree with their findings and treatment plan and have edited their documentation. I will continue to follow the patient during this hospital stay. MANDIE PRESTON OMS-3 Jul 19, 2019 10:41 KAYLIN TOLEDO MD Jul 25, 2019 17:19
[2019-07-19 14:00] VITALS: BP 133/61
[2019-07-19 20:09] VITALS: BP 109/63
[2019-07-19] MEDS: ACETAMINOPHEN TAB 650MG DOSE (2X325MG) PO PRN (23:15)
[2019-07-20 06:00] VITALS: BP 152/80
[2019-07-20] MEDS: SLF 3 ML SYR IV SCH (06:08)
[2019-07-20] MEDS: LEVOTHYROXINE 50MCG TABLET (0.05MG) PO SCH (06:08)
[2019-07-20 07:14] LABS: HEMATOCRIT 28.7 % (36.0-47.0); MEAN CORPUSCULAR HEMOGLOBIN 29.8 pg (27.0-33.0); MEAN CORPUSCULAR HGB CONC 31.4 g/dl (32.0-36.5); PLATELET COUNT, AUTOMATED 240 10^3/uL (150-450); RED BLOOD COUNT 3.02 10^6/uL (4.00-5.40); WHITE BLOOD COUNT 6.9 10^3/uL (4.0-10.0)
[2019-07-20 07:35] LABS: CREATININE FOR GFR 1.14 MG/DL (0.55-1.30); GLOMERULAR FILTRATION RATE 49.1 (>39); POTASSIUM SERUM 3.9 MEQ/L (3.5-5.1)
[2019-07-20] MEDS: ROSUVASTATIN 10 MG TAB (CRESTOR) PO SCH (09:09)
[2019-07-20] MEDS: DIVALPROEX SPRINKLE 125 MG CAP PO SCH ×2 (09:10→21:33)
[2019-07-20] MEDS: VERAPAMIL 120 MG SR TAB PO SCH (09:10)
[2019-07-20] MEDS: FOLIC ACID 1 MG TAB PO SCH ×2 (09:10→21:34)
[2019-07-20] MEDS: APIXABAN 2.5 MG TAB (ELIQUIS) PO SCH ×2 (09:11→21:34)
[2019-07-20] MEDS: VALSARTAN 80 MG TAB (DIOVAN) PO SCH (09:11)
[2019-07-20] MEDS: VERAPAMIL 180MG EXTENDED RELEASE TABLET PO SCH (09:11)
[2019-07-20] MEDS: OMEPRAZOLE 20 MG CAP PO SCH (09:12)
[2019-07-20] MEDS: FERROUS GLUCONATE 324 MG TAB PO SCH (09:12)
[2019-07-20] MEDS: MIRALAX *UNIT DOSE* 17GM PACKET PO SCH (09:12)
[2019-07-20] MEDS: allopurinoL 300 MG TAB PO SCH (09:12)
[2019-07-20] MEDS: MOM 30ML SUSPENSION UDC PO SCH (09:12)
[2019-07-20] MEDS: FUROSEMIDE 40 MG TAB PO SCH (09:13)
--- NOTE | 2019-07-20 10:14 | IPNPDOC ---
Date Seen The patient was seen on 07/20/19. Progress Note SUBJECTIVE: Patient was seen and examined this morning. She is feeling well today and her pain is under control. She denies fevers, chills, headaches, cough, chest pain, shortness of breath, nausea, vomiting, abdominal pain, diarrhea, constipation. OBJECTIVE PHYSICAL EXAMINATION: VITAL SIGNS: Please see below. GENERAL: Pleasant 79 year old female sitting up in her chair, in no acute distress. HEENT: atraumatic, normocephalic, moist mucus membranes. CARDIOVASCULAR: Regular rate and rhythm with 2/6 systolic murmur, no gallops or rubs. RESPIRATORY: Clear to auscultation bilaterally with no wheezes, rhonchi or rales. ABDOMINAL: Bowel sounds present abdomen soft and nontender with no palpable masses. EXTREMITIES: Surgical site on R outside leg is non-erythematous and not warm with no discharge. NEUROLOGICAL: AOx3, no gross focal deficits. PSYCHOLOGICAL: Appropriate. LABORATORY DATA, MICROBIOLOGY: Please see below. IMAGING STUDIES: Esophagus XRay 07/17/19- impression: Laryngeal reflux noted. No tracheal aspiration seen. Head CT 07/17/19- impression: Old appearing small lacunar infarct in the left thalamus. Mild diffuse atrophy. Vascular calcification. Otherwise negative. ASSESSMENT : This is a 79 year old female with PMHx of Paroxysmal A. fib, Diastolic CHF, HTN, Asthma, Hypothyroidism, Seizure disorder, GERD who presented for an elective R total hip arthroplasty. Hospitalist was consulted for medical management. PLAN: Elective total right hip arthroplasty (POD #8) - presented on 07/12/19 for elective R total hip arthroplasty, cleared by PCP prior to surgery. - Pain control, diet and physical therapy at the direction of orthopedic surgery s/p Hypotension - etiology unclear - possibly 2/2 cardiogenic etiology, possibly 2/2 anemia - ECHO 07/14: EF 60-65% and no diastolic dysfunction, small pericardial effusion present without any signs of tamponade and normal IVC and CVP. - Ponce catheter present for critical monitoring - Strict ins/outs, daily weights - will start her home dose of Furosemide 40 mg PO daily today. - Pulmonology was consulted s/p DIMITRI -patient had elevated creatinine possibly 2/2 cardiorenal syndrome - Cr is 1.19, which is her baseline. -c/w all home medications including the ones held for the DIMITRI. s/p Hyponatremia s/p Hypomagnesemia Paroxysmal A. fib - Currently, patient is rate controlled - c/w rate control with verapamil - c/w Eliquis. Chronic Diastolic CHF - No evidence of exacerbation at this time - c/w home Furosemide Difficulty Swallowing -swallow study ordered -esophageal xray showed laryngeal reflux. -pureed diet -speech therapy was consulted and will continue to work with the patient. -gastroenterology consulted and we appreciate their input. Patient will have an EGD on Wednesday. HTN - BP moderately elevated today - c/w all home medications DLP - c/w Rosuvastatin Asthma - No evidence of exacerbation - c/w Xopenix PRN Hypothyroidism - c/w Levothyroxine Seizure disorder - c/w Divalproex Anxiety - Will hold Escitalopram Gout - c/w allopurinol Vitamin D deficiency / Osteopenia - Patient takes alendronate on a weekly basis; will resume this as an outpatient GERD - c/w Omeprazole DVT prophylaxis: Eliquis DISPOSITION: Discharged pending Orthopedics. Patient is scheduled for an EGD on Wednesday. Attending Note: Patient was independently evaluated and examined. Agree with note. VS, I&O, 24H, [facility] Vital Signs/I&O Vital Signs Date Time Temp Pulse Resp B/P (MAP) Pulse Ox O2 Delivery O2 Flow Rate FiO2 07/20/19 06:00 98.4 99 18 152/80 (104) 96 Room Air 07/15/19 08:00 1.0 I&O- Last 24 Hours up to 6 AM 07/20/19 06:00 Intake Total 680 ml Output Total 250 ml Balance 430 ml Laboratory Data 24H LABS Laboratory Tests 2 07/20/19 06:55: Nucleated Red Blood Cells % (auto) 0.0, Anion Gap 5L, Glomerular Filtration Rate 49.1, Calcium Level 9.0 CBC/BMP Laboratory Tests 07/20/19 06:55 Microbiology Microbiology 07/14/19 Blood Culture - Final, Complete NO GROWTH AFTER 5 DAYS 07/14/19 Blood Culture - Final, Complete NO GROWTH AFTER 5 DAYS MANDIE PRESTON OMS-3 Jul 20, 2019 09:12 CLAUDIA BARKER MD Aug 01, 2019 07:30
[2019-07-21 06:00] VITALS: BP 152/78
[2019-07-21] MEDS: MOM 30ML SUSPENSION UDC PO SCH (09:00)
[2019-07-21] MEDS: MIRALAX *UNIT DOSE* 17GM PACKET PO SCH (09:00)
[2019-07-21] MEDS ORDERED: LIDOCAINE 2% INJ 100 MG/5 ML SDV (FOR ANES.) As Ordered ONE (09:09)
[2019-07-21] MEDS ORDERED: propofoL 200 MG/20 ML VIAL As Ordered ONE (09:09)
--- NOTE | 2019-07-21 09:36 | ROOR ---
Patient Name: Diana Guzman Procedure Date: 07/21/2019 9:22 AM Date of : 1940 Age: 79 Room: [facility] Gender: Female Note Status: Finalized Procedure: Upper GI endoscopy Indications: Dysphagia Providers: Jasvir Dailey MD Referring MD: Carmen Mejia DO Requesting Provider: Medicines: Monitored Anesthesia Care Complications: No immediate complications. Procedure: Pre-Anesthesia Assessment: - The heart rate, respiratory rate, oxygen saturations, blood pressure, adequacy of pulmonary ventilation, and response to care were monitored throughout the procedure. The Endoscope was introduced through the mouth, and advanced to the second part of duodenum. The upper GI endoscopy was accomplished without difficulty. The patient tolerated the procedure well. Findings: The Z-line was irregular and was found 35 cm from the incisors. A small hiatal hernia was present. No other significant abnormalities were identified in a careful examination of the stomach. The exam of the duodenum was otherwise normal. Impression: - Z-line irregular, 35 cm from the incisors. - Small hiatal hernia. - No specimens collected. - The examination was otherwise normal. Recommendation: - Patient has a contact number available for emergencies. The signs and symptoms of potential delayed complications were discussed with the patient. Return to normal activities tomorrow. Written discharge instructions were provided to the patient. - High fiber diet. - [place] thick liquids diet. - Continue present medications. - Return to referring physician. - Return patient to hospital [facility] for ongoing care. - The findings and recommendations were discussed with the patient. Jasvir Dailey MD Jasvir Dailey MD 07/21/2019 9:36:25 AM Electronically signed by Jasvir Dailey MD Number of Addenda: 0 Note Initiated On: 07/21/2019 9:22 AM Estimated Blood Loss: Estimated blood loss: none.
--- NOTE | 2019-07-21 09:53 | IPNPDOC ---
Date Seen The patient was seen on 07/21/19. Progress Note SUBJECTIVE: Patient was seen and examined this morning. She is feeling well today, just a little nervous about her EGD this morning. She denies fevers, c hills, headaches, cough, sore throat, burning in her throat, dysphagia, chest pain, shortness of breath, nausea, vomiting, abdominal pain, diarrhea, constipation. OBJECTIVE PHYSICAL EXAMINATION: VITAL SIGNS: Please see below. GENERAL: Pleasant 79 year old female sitting up in bed, in no acute distress. HEENT: atraumatic, normocephalic, moist mucus membrane, no elevated JVD. CARDIOVASCULAR: Regular rate and rhythm with 2/6 systolic murmur, no gallops or rubs. RESPIRATORY: Clear to auscultation bilaterally with no wheezes, rhonchi or rales. ABDOMINAL: Bowel sounds present abdomen soft and nontender with no palpable masses. EXTREMITIES: Surgical site on R outside leg is non-erythematous with no discharge. NEUROLOGICAL: AOx3, no gross focal deficits. PSYCHOLOGICAL: Appropriate. LABORATORY DATA, MICROBIOLOGY: Please see below. IMAGING STUDIES: Esophagus XRay 07/17/19- impression: Laryngeal reflux noted. No tracheal aspiration seen. 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 Mild diffuse atrophy. Vascular calcification. Otherwise negative. ASSESSMENT : This is a 79 year old female with PMHx of Paroxysmal A. fib, Diastolic CHF, HTN, Asthma, Hypothyroidism, Seizure disorder, GERD who presented for an elective R total hip arthroplasty. Hospitalist was consulted for medical management. PLAN: Elective total right hip arthroplasty (POD #9) - presented on 07/12/19 for elective R total hip arthroplasty, cleared by PCP prior to surgery. - Pain control, diet and physical therapy at the direction of orthopedic surgery s/p Hypotension - etiology unclear - possibly 2/2 cardiogenic etiology, possibly 2/2 anemia - ECHO 07/14: EF 60-65% and no diastolic dysfunction, small pericardial effusion present without any signs of tamponade and normal IVC and CVP. - Ponce catheter present for critical monitoring - Strict ins/outs, daily weights - will start her home dose of Furosemide 40 mg PO daily today. - Pulmonology was consulted s/p DIMITRI -patient had elevated creatinine possibly 2/2 cardiorenal syndrome -her last Cr was 1.14, which is her baseline. -c/w all home medications including the ones held for the DIMITRI. s/p Hyponatremia s/p Hypomagnesemia Paroxysmal A. fib - Currently, patient is rate controlled - c/w rate control with verapamil - c/w Eliquis. Chronic Diastolic CHF - No evidence of exacerbation at this time - c/w home Furosemide Difficulty Swallowing -swallow study ordered -esophageal xray showed laryngeal reflux. -pureed diet -speech therapy was consulted and will continue to work with the patient. -gastroenterology consulted and we appreciate their input. Patient will have an EGD this AM with Dr. Dailey. HTN - BP moderately elevated today - c/w all home medications DLP - c/w Rosuvastatin Asthma - No evidence of exacerbation - c/w Xopenix PRN Hypothyroidism - c/w Levothyroxine Seizure disorder - c/w Divalproex Anxiety - Will hold Escitalopram Gout - c/w allopurinol Vitamin D deficiency / Osteopenia - Patient takes alendronate on a weekly basis; will resume this as an outpatient GERD - c/w Omeprazole DVT prophylaxis: Eliquis DISPOSITION: Discharged pending Orthopedics. Patient is stable on all of her home medications. Hospitalist team will be signing off on the patient, we appreciate the consult. Attending Note: Patient was independently evaluated and examined. Agree with note. VS, I&O, 24H, Fishbone Vital Signs/I&O Vital Signs Date Time Temp Pulse Resp B/P (MAP) Pulse Ox O2 Delivery O2 Flow Rate FiO2 07/21/19 09:37 98.2 90 16 123/58 (79) 94 Room Air 07/15/19 08:00 1.0 I&O- Last 24 Hours up to 6 AM 07/21/19 06:00 Intake Total 480 ml Balance 480 ml Laboratory Data Microbiology Microbiology 07/14/19 Blood Culture - Final, Complete NO GROWTH AFTER 5 DAYS 07/14/19 Blood Culture - Final, Complete NO GROWTH AFTER 5 DAYS MANDIE PRESTON OMS-3 Jul 21, 2019 09:53 CLAUDIA BARKER MD Aug 01, 2019 07:31
[2019-07-21] MEDS: FUROSEMIDE 40 MG TAB PO SCH (11:15)
[2019-07-21] MEDS: LEVOTHYROXINE 50MCG TABLET (0.05MG) PO SCH (11:15)
[2019-07-21] MEDS: APIXABAN 2.5 MG TAB (ELIQUIS) PO SCH ×2 (11:15→20:32)
[2019-07-21] MEDS: ROSUVASTATIN 10 MG TAB (CRESTOR) PO SCH (11:15)
[2019-07-21] MEDS: OMEPRAZOLE 20 MG CAP PO SCH (11:15)
[2019-07-21] MEDS: DIVALPROEX SPRINKLE 125 MG CAP PO SCH ×2 (11:16→20:33)
[2019-07-21] MEDS: FERROUS GLUCONATE 324 MG TAB PO SCH (11:16)
[2019-07-21] MEDS: FOLIC ACID 1 MG TAB PO SCH ×2 (11:16→20:32)
[2019-07-21] MEDS: allopurinoL 300 MG TAB PO SCH (11:16)
[2019-07-21] MEDS: VERAPAMIL 180MG EXTENDED RELEASE TABLET PO SCH (11:19)
[2019-07-21] MEDS: VALSARTAN 80 MG TAB (DIOVAN) PO SCH (11:19)
[2019-07-21] MEDS: VERAPAMIL 120 MG SR TAB PO SCH (11:19)
[2019-07-22] MEDS: LEVOTHYROXINE 50MCG TABLET (0.05MG) PO SCH (05:42)
[2019-07-22 06:00] VITALS: BP 159/76
[2019-07-22] MEDS: VERAPAMIL 120 MG SR TAB PO SCH (07:55)
[2019-07-22] MEDS: VALSARTAN 80 MG TAB (DIOVAN) PO SCH (07:55)
[2019-07-22] MEDS: DIVALPROEX SPRINKLE 125 MG CAP PO SCH ×2 (07:55→21:23)
[2019-07-22] MEDS: OMEPRAZOLE 20 MG CAP PO SCH (07:56)
[2019-07-22] MEDS: allopurinoL 300 MG TAB PO SCH (07:56)
[2019-07-22] MEDS: VERAPAMIL 180MG EXTENDED RELEASE TABLET PO SCH (07:56)
[2019-07-22] MEDS: FERROUS GLUCONATE 324 MG TAB PO SCH (07:56)
[2019-07-22] MEDS: ROSUVASTATIN 10 MG TAB (CRESTOR) PO SCH (07:56)
[2019-07-22] MEDS: FUROSEMIDE 40 MG TAB PO SCH (07:56)
[2019-07-22] MEDS: APIXABAN 2.5 MG TAB (ELIQUIS) PO SCH ×2 (07:56→21:22)
[2019-07-22] MEDS: FOLIC ACID 1 MG TAB PO SCH ×2 (07:56→21:22)
[2019-07-22] MEDS: MOM 30ML SUSPENSION UDC PO SCH (07:57)
[2019-07-22] MEDS: MIRALAX *UNIT DOSE* 17GM PACKET PO SCH (07:57)
--- NOTE | 2019-07-22 08:07 | CR ---
DATE OF CONSULTATION: 07/21/2019 This is 79-year white female who has multiple medical problems including atrial fibrillation on Eliquis for the atrial fibrillation, has know diastolic congestive heart failure, hypertension, hyperlipidemia, and hypothyroidism, seizure disorder, reflux disease, obstructive sleep apnea who is status post right hip arthroplasty. The patient is being seen by GI for a recent onset of dysphagia. The patient is on chronic reflux medications; has not had any issues with dysphagia as an outpatient. The patient will have an upper endoscopy set up. Past medical history is positive as above. Past surgical history is positive for left hip arthroplasty 2015, cholecystectomy 2005, tonsils and adenoids and bilateral cataract surgery. Family history is noncontributory. SOCIAL HISTORY: The patient smoked one pack a day for 20 years, quit in 1995. MEDICATIONS: As per admission history and physical. REVIEW OF SYSTEMS: 12-point review of systems noncontributory to the above problem. Laboratory studies at the time of this consultation shows a white count 6900, hemoglobin and hematocrit 9 and 28.7. The patient had a med profile which was normal, BUN 30, creatinine is 1.14. INR was 1.21. Imaging studies on 07/17/2019 the patient had esophagram, which showed some laryngeal reflux but no tracheal aspiration seen. No strictures or abnormalities were noted. ANALYSIS: 1. Dysphagia, unknown etiology. At the present time, plan will be to set the patient up for upper endoscopy. 2. Thickened liquids will be recommended. 3. Would be more aggressive with proton pump inhibitor (PPI) and with the dose of the proton pump inhibitor she is on take it twice a day before breakfast and dinner. The patient should be advised to be careful and eat slowly.
[2019-07-22] MEDS: ACETAMINOPHEN TAB 650MG DOSE (2X325MG) PO PRN (17:25)
[2019-07-23] MEDS: LEVOTHYROXINE 50MCG TABLET (0.05MG) PO SCH (05:35)
[2019-07-23] MEDS: ACETAMINOPHEN TAB 650MG DOSE (2X325MG) PO PRN ×2 (05:36→17:56)
[2019-07-23 06:00] VITALS: BP 150/68
[2019-07-23] MEDS: ROSUVASTATIN 10 MG TAB (CRESTOR) PO SCH (08:40)
[2019-07-23] MEDS: FUROSEMIDE 40 MG TAB PO SCH (08:40)
[2019-07-23] MEDS: FOLIC ACID 1 MG TAB PO SCH ×2 (08:40→20:30)
[2019-07-23] MEDS: OMEPRAZOLE 20 MG CAP PO SCH (08:40)
[2019-07-23] MEDS: VERAPAMIL 120 MG SR TAB PO SCH (08:40)
[2019-07-23] MEDS: FERROUS GLUCONATE 324 MG TAB PO SCH (08:40)
[2019-07-23] MEDS: allopurinoL 300 MG TAB PO SCH (08:40)
[2019-07-23] MEDS: APIXABAN 2.5 MG TAB (ELIQUIS) PO SCH ×2 (08:40→20:30)
[2019-07-23] MEDS: VALSARTAN 80 MG TAB (DIOVAN) PO SCH (08:40)
[2019-07-23] MEDS: VERAPAMIL 180MG EXTENDED RELEASE TABLET PO SCH (08:41)
[2019-07-23] MEDS: DIVALPROEX SPRINKLE 125 MG CAP PO SCH ×2 (08:41→20:31)
[2019-07-23] MEDS: MOM 30ML SUSPENSION UDC PO SCH (09:00)
[2019-07-23] MEDS: MIRALAX *UNIT DOSE* 17GM PACKET PO SCH (09:00)
[2019-07-24 06:00] VITALS: BP 153/84
[2019-07-24] MEDS: LEVOTHYROXINE 50MCG TABLET (0.05MG) PO SCH (06:41)
[2019-07-24] MEDS: MIRALAX *UNIT DOSE* 17GM PACKET PO SCH (09:00)
[2019-07-24] MEDS: MOM 30ML SUSPENSION UDC PO SCH (09:00)
[2019-07-24] MEDS: FERROUS GLUCONATE 324 MG TAB PO SCH (09:36)
[2019-07-24] MEDS: FUROSEMIDE 40 MG TAB PO SCH (09:36)
[2019-07-24] MEDS: allopurinoL 300 MG TAB PO SCH (09:36)
[2019-07-24] MEDS: APIXABAN 2.5 MG TAB (ELIQUIS) PO SCH ×2 (09:37→20:12)
[2019-07-24] MEDS: ROSUVASTATIN 10 MG TAB (CRESTOR) PO SCH (09:37)
[2019-07-24] MEDS: FOLIC ACID 1 MG TAB PO SCH ×2 (09:37→20:12)
[2019-07-24] MEDS: VALSARTAN 80 MG TAB (DIOVAN) PO SCH (09:37)
[2019-07-24] MEDS: VERAPAMIL 180MG EXTENDED RELEASE TABLET PO SCH (09:37)
[2019-07-24] MEDS: VERAPAMIL 120 MG SR TAB PO SCH (09:38)
[2019-07-24] MEDS: OMEPRAZOLE 20 MG CAP PO SCH (09:38)
[2019-07-24] MEDS: DIVALPROEX SPRINKLE 125 MG CAP PO SCH ×2 (09:38→20:12)
[2019-07-24] MEDS ORDERED: E-Z-PAQUE 96% w/w SUSP 176GM BTL As Ordered ONE (13:28)
[2019-07-24] MEDS ORDERED: BARIUM SULFATE 700 MG TABLET (E-Z-DISK) As Ordered ONE (13:28)
[2019-07-24] MEDS ORDERED: VARIBAR PUDDING 40% w/v 230ML TUBE As Ordered ONE (13:28)
[2019-07-24] MEDS ORDERED: VARIBAR NECTAR 40% w/v 240ML SUSP BTL As Ordered ONE (13:28)
--- NOTE | 2019-07-24 17:55 | REP ---
COOKIE SWALLOW The procedure was performed under the direct supervision of Dr. Hussein. The procedure was performed with Luanne Kelly from speech pathology present. 5 ml aliquots of pudding, thin, fruit, soft and solid consistency barium as well as a barium pill were administered. With thin, soft and solid consistency barium there is laryngeal penetration. The detailed report of this examination will be provided by speech pathology. 1.4 minutes of fluoroscopy time was utilized for this procedure. Electronically Signed by ILANA Person 07/24/2019 04:16 P Electronically Signed by Claude Hussein MD 07/24/2019 05:47 P
[2019-07-24] MEDS: ACETAMINOPHEN TAB 650MG DOSE (2X325MG) PO PRN (20:12)
[2019-07-25 06:00] VITALS: BP 158/85
[2019-07-25] MEDS: LEVOTHYROXINE 50MCG TABLET (0.05MG) PO SCH (06:22)
[2019-07-25] MEDS: MIRALAX *UNIT DOSE* 17GM PACKET PO SCH (09:00)
[2019-07-25] MEDS: MOM 30ML SUSPENSION UDC PO SCH (09:00)
[2019-07-25] MEDS: APIXABAN 2.5 MG TAB (ELIQUIS) PO SCH (09:34)
[2019-07-25] MEDS: VERAPAMIL 180MG EXTENDED RELEASE TABLET PO SCH (09:34)
[2019-07-25] MEDS: OMEPRAZOLE 20 MG CAP PO SCH (09:35)
[2019-07-25] MEDS: VERAPAMIL 120 MG SR TAB PO SCH (09:35)
[2019-07-25 09:36] VITALS: BP 158/85
[2019-07-25] MEDS: VALSARTAN 80 MG TAB (DIOVAN) PO SCH (09:36)
[2019-07-25] MEDS: FOLIC ACID 1 MG TAB PO SCH (09:36)
[2019-07-25] MEDS: FUROSEMIDE 40 MG TAB PO SCH (09:36)
[2019-07-25] MEDS: allopurinoL 300 MG TAB PO SCH (09:36)
[2019-07-25] MEDS: ROSUVASTATIN 10 MG TAB (CRESTOR) PO SCH (09:36)
[2019-07-25] MEDS: FERROUS GLUCONATE 324 MG TAB PO SCH (09:37)
[2019-07-25] MEDS: DIVALPROEX SPRINKLE 125 MG CAP PO SCH (09:37)
--- NOTE | 2019-07-29 15:44 | DSES ---
DATE OF ADMISSION: 07/12/2019 DATE OF DISCHARGE: 07/25/2019 ADMISSION DIAGNOSIS: Osteoarthritis, right hip. OTHER DIAGNOSES: 1. Atrial fibrillation. 2. Congestive heart failure, diastolic. 3. Hypertension. 4. Elevated lipids. 5. Asthma. 6. Hypothyroidism. 7. Seizure disorder. 8. Anxiety. 9. Gout. 10. Vitamin D deficiency. 11. Osteopenia. 12. Gastric reflux disease. 13. Also developed hypotension and dysphagia during her hospital stay. DISCHARGE DIAGNOSIS: Osteoarthritis, right hip, status post right total hip arthroplasty. OPERATION PERFORMED: Right total hip arthroplasty. HISTORY: This is a 79-year-old female patient with progressively worsening right hip pain and stiffness. She failed to improve with conservative management. She was admitted for elective hip replacement on the right side. HOSPITAL COURSE: The patient was admitted on the day of surgery and underwent a right total hip arthroplasty, which was uneventful. Unfortunately, during the postoperative period she did develop significant hypotension and ultimately required transfusions and intravenous (IV) fluids, and then she also developed persistent dysphagia and ultimately was seen by Dr. Dailey, and an upper gastrointestinal (GI) was performed. Ultimately, her symptoms had improved, and 07/25/2019 she was discharged home. At that juncture, she was weightbearing as tolerated on her right lower extremity. She will followup in our office in 10-14 days for surgical followup. She will begin her Eliquis as per her head correction officer. She will use that for deep vein thrombosis (DVT) prophylaxis and her atrial fibrillation. She will use thromboembolic deterrent (VICK) stockings for 30 days postoperatively. She will use oral pain medications for pain control. Please refer the medical record further detail.
== END 2019-07-25 14:35 | disposition home health service (06) | DRG 469 ==
LOC: M OR 08:35 → M MS5PR 14:30 → M PCU 07-14 10:42 → M ICU 07-14 13:01 → M PCU 07-15 17:29 → M MS5PR 07-18 15:25
PROVIDERS: ADMIT Orthopaedic Surgery; ATTEND Orthopaedic Surgery
PROC: 0SR904A Replacement of Right Hip Joint with Ceramic on Polyethylene Synthetic Substitute, Uncemented, Open Approach (ICD-10-PCS; principal; 2019-07-12 11:00)
PROC: 30233N1 Transfusion of Nonautologous Red Blood Cells into Peripheral Vein, Percutaneous Approach (ICD-10-PCS; 2019-07-14)
PROC: 0DJ08ZZ Inspection of Upper Intestinal Tract, Via Natural or Artificial Opening Endoscopic (ICD-10-PCS; 2019-07-21)
DX: M16.11 Unilateral primary osteoarthritis, right hip (principal); J96.01 Acute respiratory failure with hypoxia; D62 Acute posthemorrhagic anemia; N17.9 Acute kidney failure, unspecified; I31.3 Pericardial effusion (noninflammatory); I13.0 Hypertensive heart and chronic kidney disease with heart failure and stage 1 through stage 4 chronic kidney disease, or unspecified chronic kidney disease; E87.1 Hypo-osmolality and hyponatremia; I50.32 Chronic diastolic (congestive) heart failure; J98.11 Atelectasis; N18.3 Chronic kidney disease, stage 3 (moderate); E66.01 Morbid (severe) obesity due to excess calories; I48.0 Paroxysmal atrial fibrillation; J45.909 Unspecified asthma, uncomplicated; E03.9 Hypothyroidism, unspecified; G40.909 Epilepsy, unspecified, not intractable, without status epilepticus; F41.9 Anxiety disorder, unspecified; M10.9 Gout, unspecified; E55.9 Vitamin D deficiency, unspecified; K21.9 Gastro-esophageal reflux disease without esophagitis; Z79.899 Other long term (current) drug therapy; E83.42 Hypomagnesemia; E78.5 Hyperlipidemia, unspecified; G47.33 Obstructive sleep apnea (adult) (pediatric); Z96.642 Presence of left artificial hip joint; Z87.891 Personal history of nicotine dependence; Z79.01 Long term (current) use of anticoagulants; I95.81 Postprocedural hypotension; E87.70 Fluid overload, unspecified; I08.1 Rheumatic disorders of both mitral and tricuspid valves; R13.10 Dysphagia, unspecified

== ENCOUNTER 2019-07-31 04:08 | Inpatient (IN) | payer MEDICARE ==
[~2019-07-31] VITALS: Ht 157.5 cm; Wt 86.4 kg
[~2019-07-31 04:08] MED LIST changes: +CYCL10TA PO; -LR 1,000 ML IV ONE; -ceFAZolin SOD 2 GM in IV 1 EA IV ONE
[2019-07-31] MEDS ORDERED: PERC5TAB12 PO (04:17)
--- NOTE | 2019-07-31 07:28 | REP ---
Clinical: Trauma. Technique: AP and cross-table lateral views of the right femur. Findings: The patient is noted to be status post right hip replacement. There is a new acute oblique fracture through the proximal femoral metadiaphysis through the area of prior femoral prosthetic device placement. The acetabular component appears intact and in normal position and there is no evidence for hip dislocation. Impression: Prior hip replacement. New acute oblique fracture through the proximal femoral metadiaphysis. Electronically Signed by Reese Quintanilla MD 07/31/2019 07:19 A
--- NOTE | 2019-07-31 07:30 | REP ---
Clinical: Trauma. Fall. Technique: AP, lateral, bilateral oblique views of the right knee. Findings: Advanced tricompartmental osteoarthritic degenerative changes and age related osteopenia noted. No acute fracture or dislocation identified. Impression: Age-related osteopenia and advanced tricompartmental degenerative changes. No acute fracture or dislocation. Electronically Signed by Reese Quintanilla MD 07/31/2019 07:21 A
[2019-07-31] MEDS: NS 1,000 ML IV SCH ×2 (07:34→17:29)
[2019-07-31 07:37] LABS: HEMATOCRIT 27.8 % (36.0-47.0); HEMOGLOBIN 8.9 g/dl (12.0-15.5); MEAN CORPUSCULAR HEMOGLOBIN 30.3 pg (27.0-33.0); MEAN CORPUSCULAR VOLUME 94.6 fl (80.0-96.0); PLATELET COUNT, AUTOMATED 278 10^3/uL (150-450); RED BLOOD COUNT 2.94 10^6/uL (4.00-5.40); WHITE BLOOD COUNT 7.7 10^3/uL (4.0-10.0)
[2019-07-31] MEDS ORDERED: ONDANSETRON 4MG/2ML VIAL (J2405) IV ONE (07:45)
[2019-07-31] MEDS ORDERED: MORPHINE 2 MG/ML 1ML VIAL (J2270) IV PRN (07:45)
[2019-07-31 07:52] LABS: INR 1.14; PROTHROMBIN TIME 14.3 SECONDS (11.8-14.0)
[2019-07-31 07:53] LABS: PARTIAL THROMBOPLASTIN TIME 28.3 SECONDS (25.0-38.4)
[2019-07-31 08:27] LABS: CREATININE FOR GFR 1.1 MG/DL (0.55-1.30); GLOMERULAR FILTRATION RATE 51.1 (>39)
[2019-07-31] MEDS ORDERED: ACET-683 PO (08:49)
[2019-07-31] MEDS ORDERED: VERA300C6 PO (08:49)
[2019-07-31] MEDS ORDERED: VALS1TAB67 PO (08:49)
[2019-07-31] MEDS ORDERED: DIVA250T67 PO ×2 (08:59)
[2019-07-31] MEDS ORDERED: ACETAMINOPHEN TAB 650MG DOSE (2X325MG) PO PRN (10:15)
--- NOTE | 2019-07-31 10:38 | HPEPDOC ---
General Date of Admission 07/31/19 Date of Service: Jul 31, 2019 Chief Complaint The patient is a 79-year-old female admitted with a reason for visit of Knee Pain. Source: Patient Exam Limitations: No limitations Timing/Duration: 4-6 hours Severity: Moderate Associated Symptoms: Mechanical fall History of Present Illness Patient is 79 years old female with past medical history hypertension, hypothyroidism, seizure disorder, atrial fibrillation, diastolic CHF presented to the hospital with history of mechanical fall. The patient stated that she lost her balance in the way to the bathroom. In emergency room patient was found to have on x-ray New acute oblique fracture through the proximal femoral metadiaphysis. Of note, patient had recent right hip arthroplasty on July 12/2020. Dr Lemon was contacted by phone, she recommended to postpone surgery due to oral targeted anticoagulation therapy which patient took last night. Patient denied fever, chills, nausea, vomiting, chest pain, palpitations, diarrhea or dysuria Home Medications Scheduled Alendronate Sodium (Alendronate Sodium) 70 Mg Tablet, 70 MG PO QWEEK, (Reported) wednesday Allopurinol (Zyloprim) 300 Mg Tab, 300 MG PO DAILY, (Reported) Apixaban (Eliquis) 2.5 Mg Tablet, 2.5 MG PO BID, (Reported) Divalproex Sodium (Divalproex Sodium) 250 Mg Tablet.dr, 500 MG PO QAM, (Reported) Divalproex Sodium (Divalproex Sodium) 250 Mg Tablet.dr, 250 MG PO QHS, (Reported) Escitalopram Oxalate (Lexapro) 10 Mg Tablet, 10 MG PO DAILY, (Reported) Folic Acid (Folic Acid) 1 Mg Tab, 1 MG PO BID, (Reported) Levothyroxine Sodium (Synthroid) 50 Mcg Tab, 50 MCG PO QAM, (Reported) Mirabegron (Myrbetriq) 50 Mg Tab.er.24h, 50 MG PO DAILY, (Reported) Omeprazole (Omeprazole) 40 Mg Cap, 40 MG PO DAILY, (Reported) Rosuvastatin Calcium (Crestor) 10 Mg Tab, 10 MG PO QHS, (Reported) Valsartan (Valsartan) 160 Mg Tablet, 160 MG PO DAILY, (Reported) Verapamil Hcl (Verapamil ER Pm) 300 Mg Cap24h.pct, 300 MG PO DAILY, (Reported) Scheduled PRN Acetaminophen (Acetaminophen) 500 Mg Tablet, 500 MG PO Q4H PRN for PAIN, (Reported) Furosemide (Furosemide) 20 Mg Tab, 20 MG PO DAILY PRN for EDEMA, (Reported) Levalbuterol Hydrochloride (Xopenex Hfa) 45 Mcg/Act Aer, 2 PUFF INH PRN PRN for SHORTNESS OF BREATH, (Reported) Oxycodone HCl/Acetaminophen (Percocet 5-325 mg Tablet) 1 Each Tablet, 1-2 TAB PO Q4-6HP PRN for PAIN, (Reported) Allergies Coded Allergies: promethazine (Verified Adverse Reaction, Intermediate, confusion, 06/26/19) morphine (Verified Adverse Reaction, Mild, nausea, 06/26/19) tramadol (Verified Adverse Reaction, Mild, dizziness, 06/26/19) Past Medical History Medical History 1. 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 2. Gastroesophageal reflux disease (GERD). 3. Hypothyroidism. 4. Vitamin D deficiency. 5. Seizure disorder. 6. Hyperlipidemia. 7. Venous insufficiency. 8. Paroxysmal atrial fibrillation (PAF) with diastolic dysfunction seen on echocardiogram with preserved systolic function. 9. Gout. Surgical History 1. Left hip total arthroplasty 2015. 2. Cholecystectomy 2005. 3. Dilatation and curettage (D and C). 4. Tonsillectomy and adenoidectomy (T and A). Right hip arthroplasty in 2019 Family History Mother with coronary artery disease, hypertension. Father with hypertension, congestive heart failure (CHF). Sister with diabetes. Social History * Smoker: former Smoker Alcohol: Denies Drugs: denies A-FIB/CHADSVASC A-FIB History Current/History of A-Fib/PAF?: Yes Current PO Anticoag Therapy: No Treatment Reason Anticoagulant not given: Recent/upcomin procedure Review of Systems Constitutional: Denies: Chills, Fever Eyes: Denies: Pain, Vision change ENT: Denies: Head Aches Skin: Denies: Rash, Lesions Pulmonary: Denies: Dyspnea Cardiovascular: Denies: Chest Pain Gastrointestinal: Denies: Nausea, Vomiting Genitourinary: Denies: Dysuria, Frequency Hematologic: Denies: Bruising Endocrine: Denies: Polydipsia, Polyphagia Musculoskeletal: Reports: Leg Pain (right femoral pain) Neurological: Denies: Weakness, Numbness Psych: Reports: Mood Normal Physical Examination General Exam: Positive: Alert, Cooperative Eye Exam: Positive: PERRLA ENT Exam: Positive: Atraumatic Neck Exam: Positive: Supple; Negative: JVD Chest Exam: Positive: Clear to auscultation Heart Exam: Positive: Rate Normal Telemetry: Positive: Sinus Abdomen Exam: Positive: Normal bowel sounds Extremity Exam: Negative: Clubbing, Cyanosis Skin Exam: Positive: Nl turgor and temperature Neuro Exam: Positive: Strength at 5/5 X4 ext, Cranial Nerves 3-12 NL; Negative: Normal Gait Psych Exam: Positive: Mental status NL Vital Signs Vital Signs Date Time Temp Pulse Resp B/P (MAP) Pulse Ox O2 Delivery O2 Flow Rate FiO2 07/31/19 10:01 100 139/63 (88) 94 Room Air 07/31/19 08:30 20 07/31/19 07:31 97.5 Laboratory Data Labs 24H Laboratory Tests 2 07/31/19 07:05: Nucleated Red Blood Cells % (auto) 0.0, Prothrombin Time 14.3H, Prothromb Time International Ratio 1.14, Activated Partial Thromboplast Time 28.3, Anion Gap 3L, Glomerular Filtration Rate 51.1, Calcium Level 10.0 CBC/BMP Laboratory Tests 07/31/19 07:05 Assessment/Plan Patient is 79 years old female with past medical history hypertension, hypothyroidism, seizure disorder, atrial fibrillation, diastolic CHF presented to the hospital with history of mechanical fall. The patient stated that she lost her balance in the way to the bathroom. In emergency room patient was found to have on x-ray New acute oblique fracture through the proximal femoral metadiaphysis. Of note, patient had recent right hip arthroplasty on July 12/2020. Dr Lemon was contacted by phone, she recommended to postpone surgery due to oral targeted anticoagulation therapy which patient took last night. Problems (1) Right femoral fracture Status: Acute Problem Text: Appreciate/agree with orthopedic surgeon consult Due to Eliquis which patient took last night with postpone surgical intervention Revised cardiac index <1 (2) Hypertension Status: Chronic Problem Text: Blood pressures under control, continue home meds (3) GERD (gastroesophageal reflux disease) Status: Chronic Problem Text: Continue home meds (4) Seizure disorder Status: Chronic Problem Text: Continue home meds (5) Atrial fibrillation Status: Chronic Problem Text: Heart rate is under control I changed her verapamil to metoprolol given history of CHF I will hold apixaban due to upcoming hip surgery (6) Hypothyroidism Status: Chronic Problem Text: Continue levothyroxine Plan / VTE VTE Prophylaxis Ordered?: Yes RAI ESTEVEZ DO Jul 31, 2019 10:37
[2019-07-31] MEDS ORDERED: FUROSEMIDE 20 MG TAB PO PRN (10:45)
[2019-07-31] MEDS ORDERED: ACETAMINOPHEN 500 MG TAB PO PRN (10:45)
[2019-07-31] MEDS ORDERED: KETOROLAC 30 MG/ML VIAL (J1885) IV PRN (10:45)
[2019-07-31] MEDS ORDERED: LEVALBUTEROL 1.25 MG/0.5 ML CONCENTRATE NEB INH PRN (10:45)
[2019-07-31] MEDS ORDERED: METOPROLOL TART 25 MG TABLET PO ONE (11:00)
[2019-07-31] MEDS ORDERED: PERCOCET 5MG/325MG TAB PO PRN (13:30)
[2019-07-31] MEDS: DIVALPROEX 250 MG TAB PO SCH ×2 (13:34→21:35)
[2019-07-31] MEDS: ESCITALOPRAM OXALATE 10 MG TAB (LEXAPRO) PO SCH (13:34)
[2019-07-31] MEDS: OMEPRAZOLE 20 MG CAP PO SCH (13:34)
[2019-07-31] MEDS: VALSARTAN 80 MG TAB (DIOVAN) PO SCH (13:35)
[2019-07-31] MEDS: LEVOTHYROXINE 50MCG TABLET (0.05MG) PO SCH (13:35)
[2019-07-31] MEDS: FOLIC ACID 1 MG TAB PO SCH ×2 (13:35→21:35)
[2019-07-31] MEDS: HEPARIN SOD (PORCINE) 5000 UNITS/ML VIAL (J1644 PER 1000UNITS) SC SCH ×2 (13:36→21:36)
[2019-07-31] MEDS: PERCOCET 5MG/325MG TAB PO PRN (13:51)
[2019-07-31 14:00] VITALS: BP 135/53
--- NOTE | 2019-07-31 17:24 | ECGEPIP ---
[facility] - ED Test Date: 2019-07-31 Pat Name: ÁLVARO LYONS Department: Room: - Gender: Female Dinkey Dispatcher: : [id number] Requested By: JUAN LOZANO PA-C. Order Number: [id number] Reading MD: Donna Gann Measurements Intervals [place] Rate: 98 P: 52 WI: 143 QRS: 16 QRSD: 102 T: 63 QT: 348 QTc: 445 Interpretive Statements SINUS RHYTHM NSTTW abnormalities INCREASED RATE 07/14/19 Electronically Signed on 07-31-2019 17:24:21 EDT by Donna Gann
[2019-07-31] MEDS: ROSUVASTATIN 10 MG TAB (CRESTOR) PO SCH (21:35)
[2019-07-31 22:00] VITALS: BP 150/64
[2019-08-01] VITALS (9 sets, daily range): BP systolic 102–156; BP diastolic 42–70
[2019-08-01] MEDS: NS 1,000 ML IV SCH ×2 (03:26→12:45)
[2019-08-01] MEDS: LEVOTHYROXINE 50MCG TABLET (0.05MG) PO SCH (05:31)
[2019-08-01 06:37] LABS: HEMATOCRIT 24.5 % (36.0-47.0); HEMOGLOBIN 7.7 g/dl (12.0-15.5); MEAN CORPUSCULAR HEMOGLOBIN 30.3 pg (27.0-33.0); MEAN CORPUSCULAR HGB CONC 31.4 g/dl (32.0-36.5); MEAN CORPUSCULAR VOLUME 96.5 fl (80.0-96.0); PLATELET COUNT, AUTOMATED 237 10^3/uL (150-450); RED BLOOD COUNT 2.54 10^6/uL (4.00-5.40); WHITE BLOOD COUNT 5.2 10^3/uL (4.0-10.0)
[2019-08-01 07:05] LABS: BLOOD UREA NITROGEN 16 MG/DL (7-18); CALCIUM LEVEL 8.6 MG/DL (8.8-10.2); CARBON DIOXIDE LEVEL 29 MEQ/L (21-32); CHLORIDE LEVEL 108 MEQ/L (98-107); CREATININE FOR GFR 0.93 MG/DL (0.55-1.30); GLOMERULAR FILTRATION RATE > 60.0 (>39); GLUCOSE, FASTING 90 MG/DL (70-100); SODIUM LEVEL 140 MEQ/L (136-145)
[2019-08-01] MEDS: VALSARTAN 80 MG TAB (DIOVAN) PO SCH (08:30)
[2019-08-01] MEDS: DIVALPROEX 250 MG TAB PO SCH ×2 (08:30→21:35)
[2019-08-01] MEDS: FOLIC ACID 1 MG TAB PO SCH ×2 (08:31→21:34)
[2019-08-01] MEDS: allopurinoL 300 MG TAB PO SCH (08:31)
[2019-08-01] MEDS: OMEPRAZOLE 20 MG CAP PO SCH (08:31)
[2019-08-01] MEDS: PERCOCET 5MG/325MG TAB PO PRN ×2 (08:31→21:36)
[2019-08-01] MEDS: ESCITALOPRAM OXALATE 10 MG TAB (LEXAPRO) PO SCH (08:31)
--- NOTE | 2019-08-01 08:38 | CR ---
DATE OF CONSULTATION: 07/31/2019 CHIEF COMPLAINT: Right hip pain. HISTORY OF PRESENT ILLNESS (HPI): Diana Guzman is a 79-year-old female, who is status post a right total hip arthroplasty, by Dr. Basilio, on 07/12/2019. The patient states she was recovering well at home. She was not having any significant pain. She had some slight drainage from the proximal aspect of her wound that was being monitored, but overall she was getting around quite well in her walker. Unfortunately, last evening, the patient was trying to get out of bed when she sustained a mechanical fall. She was unable to ambulate afterwards. She was brought to the emergency room and found to have a periprosthetic right femur fracture. She was then admitted to the medical service. She has been on Xarelto for deep venous thrombosis (DVT) prophylaxis postoperatively. The patient is somewhat confused about when she last took the medication but thinks it may have been Wednesday night. Other notes indicate it was actually Wednesday night. She denied any fevers, chills, nausea, vomiting, chest pain, shortness of breath, or other concerning symptoms. PAST MEDICAL HISTORY: 1. 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 2. Gastroesophageal reflux disease (GERD). 3. Hypothyroidism. 4. Vitamin D deficiency. 5. Seizure disorder. 6. Hyperlipidemia. 7. Venous insufficiency. 8. Atrial fibrillation (AFib) with diastolic dysfunction. 9. Gout. PAST SURGICAL HISTORY: 1. Left hip total arthroplasty 2015. 2. Cholecystectomy 2005. 3. Dilatation and curettage (D and C). 4. Tonsillectomy and adenoidectomy (T and A). 5. Right total hip arthroplasty 07/12/2019. SOCIAL HISTORY: The patient does not smoke. PHYSICAL EXAM: General: Well appearing, alert and oriented, no acute distress, afebrile with stable vital signs. Chest: Lungs clear to auscultation bilaterally. Abdomen: Soft, nontender. Cardiovascular (CV): Regular rate and rhythm. Extremities: The patient's right lower extremity is examined. There is a very mild amount of serosanguineous drainage on the dressing from the proximal aspect of the incision. There is no erythema. She is intact TA/GS/EHL/FHL. Normal sensation to light touch in the superficial peroneal, deep peroneal and tibialis distribution. Foot is warm and well perfused. The foot is warm and well perfused. IMAGING: Right femur x-rays are reviewed. There is periprosthetic right femur fracture. IMPRESSION: Right periprosthetic femur fracture. PLAN: The patient has been admitted to the medical service for medical optimization. Once she has been off Xarelto for 72 hours we will be able to proceed with surgery. The case was discussed with Dr. Basilio.
[2019-08-01] MEDS: HEPARIN SOD (PORCINE) 5000 UNITS/ML VIAL (J1644 PER 1000UNITS) SC SCH (09:42)
--- NOTE | 2019-08-01 10:02 | REP ---
CT RIGHT HIP WITHOUT CONTRAST: HISTORY: Recent right hip replacement July 12, 2019. Injury in a fall. Comparison radiographs July 12, 2019 and July 31, 2019. The July 31, 2019 study shows an interval fracture of the proximal femur. CT FINDINGS: The previously placed prosthetic components of the right hip replacement are unchanged in position. There is an acute fracture of the proximal femur extending through the medial cortex in the subtrochanteric level and extending cephalad to the intertrochanteric level. The fracture fragment is displaced anteromedially. The fracture fragment encompasses approximately 180 degrees of the circumference of the subtrochanteric femur. The visualized right hemipelvis and acetabulum are intact. No other acute fracture is seen. IMPRESSION: There is an acute fracture of the lesser trochanter and subtrochanteric femur on the right adjacent to a previously positioned right hip arthroplasty. Electronically Signed by Claude Hussein MD 08/01/2019 10:56 A
--- NOTE | 2019-08-01 12:30 | IPNPDOC ---
Text Note Date of Service The patient was seen on 08/01/19. NOTE Subjective: No any acute events overnight. Patient denies fever, chills, nausea, vomiting, diarrhea or dysuria Objective: VITAL SIGNS: Please see below. GENERAL APPEARANCE: not in apparent distress HEENT: Normocephalic, atraumatic. CARDIOVASCULAR: Regular rate and rhythm. No murmurs, rubs or gallops. Radial pulses are intact. LUNGS: Diminished lung sounds ABDOMEN: Abdomen is soft and nontender. MUSCULOSKELETAL: Range of motion is intact in all 4 extremities, There is a very mild amount of serosanguineous drainage on the dressing from the proximal aspect of the incision. There is no erythema NEUROLOGICAL: Cranial nerves II-12 are grossly intact. Speech is not dysarthric Assessment/Plan Patient is 79 years old female with past medical history hypertension, hypot hyroidism, seizure disorder, atrial fibrillation, diastolic CHF presented to the hospital with history of mechanical fall. The patient stated that she lost her balance in the way to the bathroom. In emergency room patient was found to have on x-ray New acute oblique fracture through the proximal femoral metadiaphysis. Of note, patient had recent right hip arthroplasty on July 12/2020. Dr Singh garcia was contacted by phone, she recommended to postpone surgery due to oral targeted anticoagulation therapy which patient took last night. Problems (1) Right femoral fracture Orthopedic team proceeded with surgery tomorrow Because of serosanguineous drainage on the dressing of the right lower ex tremity we will proceed with right lower extremity CAT scan to exclude acute bleed. Eliquis on hold Revised cardiac index <1 We will transfuse 2 units of blood as orthopedic surgical team recommended (2) Hypertension Blood pressures under control, continue home meds (3) GERD (gastroesophageal reflux disease) Continue home meds (4) Seizure disorder Continue home meds (5) Atrial fibrillation Heart rate is under control I changed her verapamil to metoprolol given history of CHF I will hold apixaban due to upcoming hip surgery (6) Hypothyroidism Continue levothyroxine Plan / VTE VTE Prophylaxis Ordered?: Yes VS,Fishbone, I+O VS, Fishbone, I+O Laboratory Tests 08/01/19 06:27 Vital Signs Date Time Temp Pulse Resp B/P (MAP) Pulse Ox O2 Delivery O2 Flow Rate FiO2 08/01/19 11:52 98.0 92 18 118/45 92 Room Air I&O- Last 24 Hours up to 6 AM 08/01/19 06:00 Intake Total 2375 ml Balance 2375 ml RAI ESTEVEZ DO Aug 01, 2019 12:30
[2019-08-01 17:15] LABS: HEMATOCRIT 30.6 % (36.0-47.0); HEMOGLOBIN 9.9 g/dl (12.0-15.5)
[2019-08-01] MEDS: ROSUVASTATIN 10 MG TAB (CRESTOR) PO SCH (21:34)
[2019-08-02] VITALS (8 sets, daily range): BP systolic 122–169; BP diastolic 56–96
[2019-08-02] MEDS: NS 1,000 ML IV SCH ×2 (04:41→15:17)
[2019-08-02] MEDS: LEVOTHYROXINE 50MCG TABLET (0.05MG) PO SCH (05:20)
[2019-08-02] MEDS ORDERED: ceFAZolin SOD 2 GM in IV 1 EA IV ONE (06:00)
[2019-08-02 06:13] LABS: BASO # 0.1 10^3/uL (0.0-0.2); BASO % 1.1 % (0.0-1.0); EOS # 0.2 10^3/uL (0.0-0.5); EOS % 4.5 % (0.0-3.0); HEMATOCRIT 32.1 % (36.0-47.0); HEMOGLOBIN 10.2 g/dl (12.0-15.5); LYMPH # 1.8 10^3/uL (1.5-5.0); LYMPH % 33.3 % (24.0-44.0); MEAN CORPUSCULAR HEMOGLOBIN 29.3 pg (27.0-33.0); MEAN CORPUSCULAR HGB CONC 31.8 g/dl (32.0-36.5); MEAN CORPUSCULAR VOLUME 92.2 fl (80.0-96.0); MONO # 0.9 10^3/uL (0.0-0.8); MONO % 17.5 % (0.0-5.0); NEUTROPHILS # 2.3 10^3/uL (1.5-8.5); NEUTROPHILS % 41.9 % (36.0-66.0); PLATELET COUNT, AUTOMATED 235 10^3/uL (150-450); RED BLOOD COUNT 3.48 10^6/uL (4.00-5.40); WHITE BLOOD COUNT 5.4 10^3/uL (4.0-10.0)
[2019-08-02 06:38] LABS: BLOOD UREA NITROGEN 12 MG/DL (7-18); CALCIUM LEVEL 8.8 MG/DL (8.8-10.2); CARBON DIOXIDE LEVEL 30 MEQ/L (21-32); CHLORIDE LEVEL 109 MEQ/L (98-107); CREATININE FOR GFR 0.91 MG/DL (0.55-1.30); GLOMERULAR FILTRATION RATE > 60.0 (>39); GLUCOSE, FASTING 89 MG/DL (70-100); MAGNESIUM LEVEL 1.7 MG/DL (1.8-2.4); POTASSIUM SERUM 5.2 MEQ/L (3.5-5.1); SODIUM LEVEL 142 MEQ/L (136-145)
[2019-08-02] MEDS: OMEPRAZOLE 20 MG CAP PO SCH (09:00)
[2019-08-02] MEDS: FOLIC ACID 1 MG TAB PO SCH ×2 (09:00→20:57)
[2019-08-02] MEDS: ESCITALOPRAM OXALATE 10 MG TAB (LEXAPRO) PO SCH (09:00)
[2019-08-02] MEDS: allopurinoL 300 MG TAB PO SCH (09:00)
[2019-08-02] MEDS: DIVALPROEX 250 MG TAB PO SCH ×2 (09:08→20:58)
[2019-08-02] MEDS: VALSARTAN 80 MG TAB (DIOVAN) PO SCH (09:10)
[2019-08-02] MEDS ORDERED: TRANEXAMIC ACID 100 MG/ML 10ML VIAL As Ordered ONE (10:34)
[2019-08-02] MEDS ORDERED: ceFAZolin 1GM INJ (J0690 PER 500MG) As Ordered ONE (10:34)
[2019-08-02] MEDS ORDERED: EPINEPHrine INJ 1 MG/ML 1ML VIAL As Ordered ONE (10:35)
[2019-08-02] MEDS ORDERED: ceFAZolin 2 GM/D5W 50 ML IV BAG (J0690 PER 500MG) As Ordered ONE (11:00)
[2019-08-02] MEDS ORDERED: IODINE STRONG SOLN 15 ML BTL As Ordered ONE (11:05)
[2019-08-02] MEDS ORDERED: MIDAZOLAM INJ 2 MG/2 ML VIAL (J2250) As Ordered ONE (11:08)
[2019-08-02] MEDS ORDERED: propofoL 500 MG/50 ML VIAL As Ordered ONE (11:08)
[2019-08-02] MEDS ORDERED: LIDOCAINE 2% INJ 100 MG/5 ML SDV (FOR ANES.) As Ordered ONE (11:08)
[2019-08-02] MEDS ORDERED: fentaNYL 100 MCG/2 ML INJECTION (J3010) As Ordered ONE ×2 (11:08→14:26)
[2019-08-02] MEDS ORDERED: ONDANSETRON 4MG/2ML VIAL (J2405) As Ordered ONE (11:09)
[2019-08-02] MEDS ORDERED: METOPROLOL TART 25 MG TABLET PO ONE (11:15)
--- NOTE | 2019-08-02 11:15 | IPNPDOC ---
Text Note Date of Service The patient was seen on 08/02/19. NOTE Subjective: No any acute events overnight. Patient denies fever, chills, chest pain, palpitations, nausea, vomiting, diarrhea or dysuria Objective: VITAL SIGNS: Please see below. GENERAL APPEARANCE: not in apparent distress HEENT: Normocephalic, atraumatic. CARDIOVASCULAR: Regular rate and rhythm. No murmurs, rubs or gallops. Radial pulses are intact. LUNGS: Diminished lung sounds ABDOMEN: Abdomen is soft and nontender. MUSCULOSKELETAL: Range of motion is intact in all 4 extremities, There is a very mild amount of serosanguineous drainage on the dressing from the proximal aspect of the incision. There is no erythema NEUROLOGICAL: Cranial nerves II-12 are grossly intact. Speech is not dysarthric Assessment/Plan Patient is 79 years old female with past medical history hypertension, hypothyroidism, seizure disorder, atrial fibrillation, diastolic CHF presented to the hospital with history of mechanical fall. The patient stated that she lost her balance in the way to the bathroom. In emergency room patient was found to have on x-ray New acute oblique fracture through the proximal femoral metadiaphysis. Of note, patient had recent right hip arthroplasty on July 12/2020. Dr Lemon was contacted by phone, she recommended to postpone surgery due to oral targeted anticoagulation therapy which patient took last night. Problems (1) Right femoral fracture Orthopedic team proceeded with surgery tomorrow CT showed There is an acute fracture of the lesser trochanter and subtrochanteric femur on the right adjacent to a previously positioned right hip arthroplasty. Eliquis on hold Revised cardiac index <1 Hemoglobin is stable Orthopedic team will proceed with surgery today (2) Hypertension Blood pressures under control, continue home meds (3) GERD (gastroesophageal reflux disease) Continue home meds (4) Seizure disorder Continue home meds (5) Atrial fibrillation Heart rate is under control I changed her verapamil to metoprolol given history of CHF. Metoprolol 25 mg twice a day I will hold apixaban due to upcoming hip surgery (6) Hypothyroidism Continue levothyroxine VS,Fishbone, I+O VS, Fishbone, I+O Laboratory Tests 08/01/19 17:02 08/02/19 05:55 Vital Signs Date Time Temp Pulse Resp B/P (MAP) Pulse Ox O2 Delivery O2 Flow Rate FiO2 08/02/19 09:10 160/96 3/18/20 06:00 98.1 99 18 95 Room Air I&O- Last 24 Hours up to 6 AM 08/02/19 06:00 Intake Total 1660 ml Balance 1660 ml RAI ESTEVEZ DO Aug 02, 2019 11:15
[2019-08-02] MEDS ORDERED: ROCURONIUM BROMIDE 50 MG/5 ML VIAL As Ordered ONE ×2 (11:19→12:54)
[2019-08-02] MEDS ORDERED: dexameTHASONE 4 MG/ML 1ML VIAL (J1100) As Ordered ONE (11:19)
[2019-08-02] MEDS ORDERED: ETOMIDATE INJ 20MG/10ML VIAL As Ordered ONE (11:19)
--- NOTE | 2019-08-02 11:21 | IPN ---
DATE: 08/02/2019 HISTORY: This is a 79-year-old woman who fell a couple of days ago. She is status post right total hip arthroplasty about 3 weeks ago when she fell going to the bathroom. She landed on her right hip and sustained a periprosthetic right femur fracture. Her History and physical was done by the hospitalist of the consult on by Dr. Lemon. She has some shortening of that leg due to the fracture. She has some coarse pain and difficulty with any sort of motion. Exam demonstrates no palpable cords. No calf tenderness. No signs of deep venous thrombosis (DVT) and she moves her toes well. Her incision is well healed. I talked the patient about the options and the plan and she does wish to go ahead with surgery. We would anticipate doing a removal of the stem and open reduction internal fixation of the proximal femur usually with cables and then a revision of the femoral component with likely a longer stem that is porous coated more distally to provide fixation be on the fracture site to hopefully not put pressure on it. She understands the nature this and the risks of bleeding, infection, damage to nerves, vessels, persistent pain, wear loosening, dislocation, leg length inequality, blood clots, medical problems, , malunion, nonunion, among others. She was given blood yesterday and her hematocrit is in the low 30s now. She has apparently been off her Eliquis since Wednesday night about 3 days ago as far as we can tell. She wishes to proceed. Preop clearance was obtained. NORA
[2019-08-02] MEDS ORDERED: TOBRAMYCIN SULF 1.2 GM VIAL As Ordered ONE (12:18)
[2019-08-02] MEDS ORDERED: VANCOMYCIN 1000 MG/20 ML VIAL (J3370) As Ordered ONE (12:19)
[2019-08-02] MEDS ORDERED: BUPIVACAINE LIPOSOME/PF 1.3% 20ML VIAL (13.3MG/ML)(EXPAREL)(C9290 PER1MG) As Ordered ONE (12:19)
[2019-08-02] MEDS ORDERED: HYDROmorphone HCL 2 MG/ML 1ML VIAL (J1170) As Ordered ONE (12:54)
[2019-08-02 12:56] LABS: HEMATOCRIT 31.9 % (36.0-47.0); HEMOGLOBIN 10.3 g/dl (12.0-15.5); MEAN CORPUSCULAR HEMOGLOBIN 29.9 pg (27.0-33.0); MEAN CORPUSCULAR HGB CONC 32.3 g/dl (32.0-36.5); MEAN CORPUSCULAR VOLUME 92.5 fl (80.0-96.0); PLATELET COUNT, AUTOMATED 215 10^3/uL (150-450); RED BLOOD COUNT 3.45 10^6/uL (4.00-5.40)
[2019-08-02] MEDS ORDERED: propofoL 200 MG/20 ML VIAL As Ordered ONE (13:34)
[2019-08-02] MEDS ORDERED: SUGAMMADEX SODIUM 500 MG/5 ML VIAL (BRIDION) As Ordered ONE (13:36)
[2019-08-02] MEDS: fentaNYL 100 MCG/2 ML INJECTION (J3010) IV PRN ×4 (14:26→15:03)
[2019-08-02] MEDS ORDERED: ONDANSETRON 4MG/2ML VIAL (J2405) IV PRN ×3 (14:30→15:30)
[2019-08-02] MEDS ORDERED: PERCOCET 5MG/325MG TAB PO PRN ×4 (14:30→15:30)
[2019-08-02] MEDS ORDERED: LR 1,000 ML IV SCH ×3 (14:30→15:30)
[2019-08-02] MEDS ORDERED: METOCLOPRAMIDE INJ 10MG/2ML VIAL (J2765) IV PRN (14:30)
[2019-08-02 14:41] LABS: HEMATOCRIT 30.9 % (36.0-47.0); HEMOGLOBIN 9.8 g/dl (12.0-15.5); MEAN CORPUSCULAR HEMOGLOBIN 29.4 pg (27.0-33.0); MEAN CORPUSCULAR HGB CONC 31.7 g/dl (32.0-36.5); MEAN CORPUSCULAR VOLUME 92.8 fl (80.0-96.0); PLATELET COUNT, AUTOMATED 236 10^3/uL (150-450); RED BLOOD COUNT 3.33 10^6/uL (4.00-5.40); WHITE BLOOD COUNT 7.1 10^3/uL (4.0-10.0)
[2019-08-02] MEDS ORDERED: HYDROMORPHONE HCL 0.5 MG/ 0.5 ML SYRINGE (J1170 PER 1) IV PRN ×2 (15:00)
[2019-08-02] MEDS ORDERED: PERCOCET 5MG/325MG TAB As Ordered ONE (15:01)
--- NOTE | 2019-08-02 15:03 | REP ---
RIGHT HIP, TWO VIEWS: Two views of the right hip are performed. Total right hip prosthesis is again noted. There is placement of cerclage wiring at the level of the acute fracture of the proximal right femur in the intertrochanteric region. The osseous structures are well aligned. Multiple radiodensities are seen in the lateral soft tissues. There are multiple skin yvon laterally. Electronically Signed by Dakota Mendiola MD 08/02/2019 03:20 P
[2019-08-02] MEDS ORDERED: ACETAMINOPHEN TAB 650MG DOSE (2X325MG) PO PRN (15:30)
--- NOTE | 2019-08-02 15:43 | RO ---
DATE OF PROCEDURE: 08/02/2019 PREOPERATIVE DIAGNOSIS: Right proximal femur fracture periprosthetic around a Swisher total hip arthroplasty. POSTOPERATIVE DIAGNOSIS: Right proximal femur fracture periprosthetic around a Swisher total hip arthroplasty. PROCEDURE: Open reduction, internal fixation of right proximal femur and revision of femoral component right hip. SURGEON: Bib Basilio MD GEODETIC ADVISOR: Mitzi Mendez MD ANESTHESIA: General. ESTIMATED BLOOD LOSS (EBL): 500. COMPLICATIONS: None. INDICATIONS: 79-year-old woman who about 3 weeks or so ago underwent a hip replacement. She recently went home and fell landing on the hip and sustained a fracture. She wished to go ahead with surgical treatment. She understood the nature and the risks associated with this. She was given 2 units of blood yesterday in anticipation of this being a relatively high blood loss procedure and her hemoglobin and hematocrit (H/H) were somewhat low. DESCRIPTION OF PROCEDURE: The patient was taken to the operating room and placed in a left lateral decubitus position on the [place] positioner. All areas were padded appropriately. We then prepped and draped the right hip in usual fashion. I first used a scrub brush to remove any dry skin and to sterilize the skin to some degree prior to the prep. Time-out was performed. I created a longitudinal incision along the lateral aspect of the hip through the previous incision, which was relatively long due to her morbid obesity. I did have to extend it for another couple inches distally. I then dissected down through the subcutaneous tissue, controlled hemostasis with the cautery and was able to identify the fascia carmel with some difficulty and I elevated a plane on either side of it slightly but it was very hard to define in some areas. I then sized this, removed all the sutures from the previous surgery and then gradually exposed the abductor. I then divided proximally the anterior 40% of the abductor off the femur as we gradually externally rotated the femur, and I did dissect down more distally than I had prior for the hip replacement to expose the fracture site. There was a large piece of the calcar that was displaced off medially and I had to carefully secure that initially with my finger to bring it back up as we exposed the hip and then dislocated the hip with the radiology practitioner assistant's help. I then was able to manipulate this fracture fragment into what appeared to be anatomic position. I had cleaned out the fracture site and irrigated. I then passed three cables 1.7 mm Synthes cables around the proximal femur, one above the lesser trochanter and two below and then gradually tightened these down. I initially tightened them only to about 10 kg to initially secure them and then prepared the femur. I left the locking devices on to keep tension on the cables with anticipation of tightening them more after the stem was put in. I was able to remove the stem without difficulty basically just with my hand, and this was done prior to placement of these cables. I then used the reamers and I was sequentially able to ream up to a size 11.5, which had excellent purchase distally, and I elected to use the 12 stem. I then used broaches and went with the large 12 broach, which had excellent fit and fill. I tried to lateralize a little bit more, and once I get the broach down, we then trialed off and used the +1 32 ball and were very pleased with the stability of this. There was excellent stability in flexion internal rotation, extension external rotation and minimal shuck noted. Was not able to countersink the broach any further and it looked as though the 12 small was going to not have good fit and fill proximally. I then irrigated copiously, impacted in the actual 12 large solution stem 8 inches long, impacted it down obtaining an excellent purchase in the canal. I was able to get it down to just about the calcar maybe a millimeter proud. I then tightened the cables to 4-50 kg and crimped them, cut them off and reduced the hip. Again very pleased with the stability of the hip and range of motion. I irrigated multiple times to this point. I again irrigated. We then prepared the minimus with #1 Vicryl suture. I also had placed tranexamic acid (TXA) in the deep tissues, Exparel the deep tissues and also placed some antibiotic absorbable beads throughout the wound to try to reduce chance of infection given that there was some serous fluid in the hip as we exposed this and due to her morbid obesity I felt the risk of infection was substantially higher. I then repaired the abductor with #1 Vicryl suture and her tissue quality was moderate to poor. I was able to obtain an adequate repair. I then the again irrigated, repaired the fascia carmel with interrupted #1 Vicryl suture in running Stratafix in both directions, but again this layer was a little bit indiscrete and was of medium to poor quality. Once I was satisfied with the reapproximation of the fascia carmel, I then irrigated, closed the deep subcu with a running Stratafix suture to close some of the space, the subcu with #2-0 Vicryl and the skin with yvon. A sterile dressing was applied and she was taken to recovery room in stable condition. There were no known complications. The plan will be routine postop. I am going to go with partial weightbearing for now. The radiology practitioner assistant was instrumental in holding retractors and assisting in reducing and dislocating the hip and assisting in wound closure and assisting in judgment throughout this case. The case was coded as unusually difficult procedure because of the fact she had morbid obesity and significant large soft tissue window which made the dissection much more difficult, the exposure much more difficult. I had used a longer incision and we had a harder time judging tissue tension and stability because of the size of her leg and belly pannus which impinged the leg all of which made this substantially more difficult.
[2019-08-02] MEDS ORDERED: ceFAZolin SOD 2 GM in IV 1 EA IV SCH (18:00)
[2019-08-02] MEDS: ROSUVASTATIN 10 MG TAB (CRESTOR) PO SCH (20:57)
[2019-08-02] MEDS: ceFAZolin SOD 2 GM in IV 1 EA IV SCH (20:57)
[2019-08-02] MEDS: METOPROLOL TART 25 MG TABLET PO SCH (20:58)
[2019-08-03 02:00] VITALS: BP 147/64
[2019-08-03] MEDS: ceFAZolin SOD 2 GM in IV 1 EA IV SCH ×3 (04:12→21:03)
[2019-08-03] MEDS: PERCOCET 5MG/325MG TAB PO PRN ×3 (04:28→18:59)
[2019-08-03] MEDS: LEVOTHYROXINE 50MCG TABLET (0.05MG) PO SCH (05:07)
[2019-08-03 06:01] VITALS: BP 140/62
[2019-08-03 07:16] LABS: BASO % 0.2 % (0.0-1.0); HEMATOCRIT 25.9 % (36.0-47.0); HEMOGLOBIN 8.3 g/dl (12.0-15.5); LYMPH # 1.4 10^3/uL (1.5-5.0); LYMPH % 14.4 % (24.0-44.0); MEAN CORPUSCULAR HEMOGLOBIN 29.4 pg (27.0-33.0); MEAN CORPUSCULAR VOLUME 91.8 fl (80.0-96.0); MONO # 1.8 10^3/uL (0.0-0.8); MONO % 18.8 % (0.0-5.0); NEUTROPHILS # 6.4 10^3/uL (1.5-8.5); NEUTROPHILS % 65.8 % (36.0-66.0); PLATELET COUNT, AUTOMATED 228 10^3/uL (150-450); RED BLOOD COUNT 2.82 10^6/uL (4.00-5.40); WHITE BLOOD COUNT 9.8 10^3/uL (4.0-10.0)
[2019-08-03] MEDS ORDERED: MOM 30ML SUSPENSION UDC PO SCH (07:30)
[2019-08-03 07:48] LABS: CALCIUM LEVEL 8.9 MG/DL (8.8-10.2); CREATININE FOR GFR 1.05 MG/DL (0.55-1.30); MAGNESIUM LEVEL 1.5 MG/DL (1.8-2.4); POTASSIUM SERUM 5.3 MEQ/L (3.5-5.1)
[2019-08-03] MEDS: VALSARTAN 80 MG TAB (DIOVAN) PO SCH (08:42)
[2019-08-03] MEDS: ESCITALOPRAM OXALATE 10 MG TAB (LEXAPRO) PO SCH (08:43)
[2019-08-03] MEDS: METOPROLOL TART 25 MG TABLET PO SCH ×2 (08:43→22:53)
[2019-08-03] MEDS: DIVALPROEX 250 MG TAB PO SCH ×2 (08:43→21:04)
[2019-08-03] MEDS: FOLIC ACID 1 MG TAB PO SCH ×2 (08:43→21:04)
[2019-08-03] MEDS: allopurinoL 300 MG TAB PO SCH (08:44)
[2019-08-03] MEDS: MOM 30ML SUSPENSION UDC PO SCH (08:44)
[2019-08-03] MEDS: MIRALAX *UNIT DOSE* 17GM PACKET PO SCH (08:44)
[2019-08-03] MEDS: OMEPRAZOLE 20 MG CAP PO SCH (08:44)
[2019-08-03 11:00] VITALS: BP 135/82
--- NOTE | 2019-08-03 12:49 | IPNPDOC ---
Text Note Date of Service The patient was seen on 08/03/19. NOTE Subjective: No any acute events overnight. No any symptoms of acute blood loss Patient denies fever, chills, chest pain, palpitations, nausea, vomiting, diarrhea or dysuria Objective: VITAL SIGNS: Please see below. GENERAL APPEARANCE: not in apparent distress HEENT: Normocephalic, atraumatic. CARDIOVASCULAR: Regular rate and rhythm. No murmurs, rubs or gallops. Radial pul ses are intact. LUNGS: Diminished lung sounds ABDOMEN: Abdomen is soft and nontender. MUSCULOSKELETAL: Range of motion is intact in all 4 extremities, There is a very mild amount of serosanguineous drainage on the dressing from the proximal aspect of the incision. There is no erythema NEUROLOGICAL: Cranial nerves II-12 are grossly intact. Speech is not dysarthric Assessment/Plan Patient is 79 years old female with past medical history hypertension, hypothyroidism, seizure disorder, atrial fibrillation, diastolic CHF presented to the hospital with history of mechanical fall. The patient stated that she lost her balance in the way to the bathroom. In emergency room patient was found to have on x-ray New acute oblique fracture through the proximal femoral metadiaphysis. Of note, patient had recent right hip arthroplasty on July 12/2020. Dr Lemon was contacted by phone, she recommended to postpone surgery due to oral targeted anticoagulation therapy which patient took last night. Problems (1) Right femoral fracture Orthopedic team did surgery on 08/02/19. No signs for any acute bleed CT showed There is an acute fracture of the lesser trochanter and subtrochanteric femur on the right adjacent to a previously positioned right hip arthroplasty. will restart Eliquis Hemoglobin is stable (2) Hypertension Blood pressures under control, I will hold ARB for 1 day due to 2 mild hyperkalemia (3) GERD (gastroesophageal reflux disease) Continue home meds (4) Seizure disorder Continue home meds (5) Atrial fibrillation Heart rate is under control I changed her verapamil to metoprolol given history of CHF. Metoprolol 25 mg twice a day (6) Hypothyroidism Continue levothyroxine Hyperkalemia Mild hyperkalemia. Valsartan on hold for 1 day. Lasix PO VS,Fishbone, I+O VS, Fishbone, I+O Laboratory Tests 08/02/19 14:31 08/03/19 06:58 Vital Signs Date Time Temp Pulse Resp B/P (MAP) Pulse Ox O2 Delivery O2 Flow Rate FiO2 08/03/19 11:21 18 Room Air 08/03/19 08:43 84 140/62 08/03/19 06:01 98.0 97 08/02/19 21:00 2.0 I&O- Last 24 Hours up to 6 AM 08/03/19 06:00 Intake Total 4920 ml Output Total 500 ml Balance 4420 ml RAI ESTEVEZ DO Aug 03, 2019 12:49
[2019-08-03] MEDS ORDERED: MAG SULF 1GM/100ML (MAG RUN) 1 GM in IV 1 EA IV ONE (14:00)
[2019-08-03] MEDS: MAGNESIUM CHLORIDE 64 MG TABCR (SLO MAG) PO SCH (14:16)
[2019-08-03] MEDS: FUROSEMIDE 20 MG TAB PO SCH (14:16)
[2019-08-03 15:27] VITALS: BP 114/41
[2019-08-03] MEDS ORDERED: APIXABAN 2.5 MG TAB (ELIQUIS) PO SCH (21:00)
[2019-08-03] MEDS: ROSUVASTATIN 10 MG TAB (CRESTOR) PO SCH (21:04)
[2019-08-03] MEDS: APIXABAN 2.5 MG TAB (ELIQUIS) PO SCH (21:05)
[2019-08-03 21:13] VITALS: BP 105/48
[2019-08-03 21:27] VITALS: BP 116/36
[2019-08-04] VITALS (11 sets, daily range): BP systolic 111–138; BP diastolic 47–54
[2019-08-04] MEDS ORDERED: MAGNESIUM CITRATE 300 ML BTL PO ONE (05:45)
[2019-08-04] MEDS: LEVOTHYROXINE 50MCG TABLET (0.05MG) PO SCH (06:10)
[2019-08-04 06:13] LABS: BASO % 0.3 % (0.0-1.0); EOS # 0.3 10^3/uL (0.0-0.5); HEMATOCRIT 22.8 % (36.0-47.0); HEMOGLOBIN 7.4 g/dl (12.0-15.5); LYMPH # 1.7 10^3/uL (1.5-5.0); LYMPH % 19.2 % (24.0-44.0); MEAN CORPUSCULAR HEMOGLOBIN 29.8 pg (27.0-33.0); MEAN CORPUSCULAR HGB CONC 32.5 g/dl (32.0-36.5); MEAN CORPUSCULAR VOLUME 91.9 fl (80.0-96.0); MONO # 1.7 10^3/uL (0.0-0.8); MONO % 19.4 % (0.0-5.0); NEUTROPHILS # 4.9 10^3/uL (1.5-8.5); NEUTROPHILS % 57.3 % (36.0-66.0); PLATELET COUNT, AUTOMATED 202 10^3/uL (150-450); RED BLOOD COUNT 2.48 10^6/uL (4.00-5.40); WHITE BLOOD COUNT 8.6 10^3/uL (4.0-10.0)
[2019-08-04] MEDS ORDERED: PERC5TAB12 PO (06:14)
[2019-08-04] MEDS: PERCOCET 5MG/325MG TAB PO PRN ×2 (06:18→20:46)
[2019-08-04 06:41] LABS: CALCIUM LEVEL 9.7 MG/DL (8.8-10.2); CREATININE FOR GFR 1.03 MG/DL (0.55-1.30); GLOMERULAR FILTRATION RATE 55.2 (>39); POTASSIUM SERUM 4.7 MEQ/L (3.5-5.1)
[2019-08-04] MEDS: MOM 30ML SUSPENSION UDC PO SCH (09:00)
[2019-08-04] MEDS: METOPROLOL TART 25 MG TABLET PO SCH ×2 (09:00→20:46)
[2019-08-04] MEDS: MIRALAX *UNIT DOSE* 17GM PACKET PO SCH (10:03)
[2019-08-04] MEDS: MAGNESIUM CHLORIDE 64 MG TABCR (SLO MAG) PO SCH (10:03)
[2019-08-04] MEDS: OMEPRAZOLE 20 MG CAP PO SCH (10:03)
[2019-08-04] MEDS: APIXABAN 2.5 MG TAB (ELIQUIS) PO SCH ×2 (10:04→20:45)
[2019-08-04] MEDS: ESCITALOPRAM OXALATE 10 MG TAB (LEXAPRO) PO SCH (10:04)
[2019-08-04] MEDS: DIVALPROEX 250 MG TAB PO SCH ×2 (10:04→20:45)
[2019-08-04] MEDS: FOLIC ACID 1 MG TAB PO SCH ×2 (10:05→20:45)
[2019-08-04] MEDS: allopurinoL 300 MG TAB PO SCH (10:05)
[2019-08-04] MEDS: FUROSEMIDE 20 MG TAB PO SCH (10:05)
--- NOTE | 2019-08-04 10:55 | IPNPDOC ---
Text Note Date of Service The patient was seen on 08/04/19. NOTE Subjective: No any acute events overnight. Patient developed dizziness, light headedness and mild tachycardia. She also complains of generalized fatigue Objective: VITAL SIGNS: Please see below. GENERAL APPEARANCE: not in apparent distress HEENT: Normocephalic, atraumatic. CARDIOVASCULAR: Regular rate and rhythm. No murmurs, rubs or gallops. Radial pulses are intact. LUNGS: Diminished lung sounds ABDOMEN: Abdomen is soft and nontender. MUSCULOSKELETAL: Pulsation preserved, no edema NEUROLOGICAL: Cranial nerves II-12 are grossly intact. Speech is not dysarthric Assessment/Plan Patient is 79 years old female with past medical history hypertension, hypothyroidism, seizure disorder, atrial fibrillation, diastolic CHF presented to the hospital with history of mechanical fall. The patient stated that she lost her balance in the way to the bathroom. In emergency room patient was found to have on x-ray New acute oblique fracture through the proximal femoral metadia physis. Of note, patient had recent right hip arthroplasty on July 12/2020. Dr Lemon was contacted by phone, she recommended to postpone surgery due to oral targeted anticoagulation therapy which patient took last night. Problems (1) Right femoral fracture Orthopedic team did surgery on 08/02/19. CT showed There is an acute fracture of the lesser trochanter and subtrochanteric femur on the right adjacent to a previously positioned right hip arthroplasty. Eliquis restarted (2) Hypertension Blood pressures under control, (3) GERD (gastroesophageal reflux disease) Continue home meds (4) Seizure disorder Continue home meds (5) Atrial fibrillation Heart rate is under control I changed her verapamil to metoprolol given history of CHF. Metoprolol 25 mg twice a day (6) Hypothyroidism Continue levothyroxine Hyperkalemia Resolved . Valsartan on hold for 1 day. Lasix PO Acute blood loss anemia Secondary to orthopedic surgery which was done on 08/02/19 Hemoglobin dropped today to 7.4. Patient complains of lightheadedness, generalized weakness and dizziness We'll transfuse 2 units of blood VS,Fishbone, I+O VS, Fishbone, I+O Laboratory Tests 08/04/19 05:55 Vital Signs Date Time Temp Pulse Resp B/P (MAP) Pulse Ox O2 Delivery O2 Flow Rate FiO2 08/04/19 09:00 97 108/48 08/04/19 06:48 18 08/04/19 06:04 98.6 95 Room Air 08/02/19 21:00 2.0 I&O- Last 24 Hours up to 6 AM 08/04/19 06:00 Intake Total 1070 ml Output Total 500 ml Balance 570 ml RAI ESTEVEZ DO Aug 04, 2019 10:55
[2019-08-04] MEDS: ROSUVASTATIN 10 MG TAB (CRESTOR) PO SCH (20:45)
[2019-08-05] MEDS: LEVOTHYROXINE 50MCG TABLET (0.05MG) PO SCH (05:09)
[2019-08-05] MEDS: PERCOCET 5MG/325MG TAB PO PRN ×2 (05:09→21:04)
[2019-08-05 06:00] VITALS: BP 148/57
[2019-08-05 07:33] LABS: BASO # 0.1 10^3/uL (0.0-0.2); BASO % 0.6 % (0.0-1.0); EOS # 0.7 10^3/uL (0.0-0.5); EOS % 8.7 % (0.0-3.0); HEMATOCRIT 30.5 % (36.0-47.0); LYMPH # 1.5 10^3/uL (1.5-5.0); LYMPH % 18.6 % (24.0-44.0); MEAN CORPUSCULAR HEMOGLOBIN 29.6 pg (27.0-33.0); MEAN CORPUSCULAR HGB CONC 32.1 g/dl (32.0-36.5); MEAN CORPUSCULAR VOLUME 92.1 fl (80.0-96.0); MONO # 1.3 10^3/uL (0.0-0.8); MONO % 15.9 % (0.0-5.0); NEUTROPHILS # 4.3 10^3/uL (1.5-8.5); PLATELET COUNT, AUTOMATED 200 10^3/uL (150-450); RED BLOOD COUNT 3.31 10^6/uL (4.00-5.40); WHITE BLOOD COUNT 7.9 10^3/uL (4.0-10.0)
[2019-08-05 07:34] LABS: BLOOD UREA NITROGEN 20 MG/DL (7-18); CALCIUM LEVEL 9.7 MG/DL (8.8-10.2); CARBON DIOXIDE LEVEL 32 MEQ/L (21-32); CHLORIDE LEVEL 105 MEQ/L (98-107); CREATININE FOR GFR 0.94 MG/DL (0.55-1.30); GLOMERULAR FILTRATION RATE > 60.0 (>39); GLUCOSE, FASTING 93 MG/DL (70-100); MAGNESIUM LEVEL 1.7 MG/DL (1.8-2.4); POTASSIUM SERUM 4.9 MEQ/L (3.5-5.1); SODIUM LEVEL 139 MEQ/L (136-145)
[2019-08-05 07:44] LABS: HEMOGLOBIN 9.8 g/dl (12.0-15.5)
[2019-08-05] MEDS: MAGNESIUM CHLORIDE 64 MG TABCR (SLO MAG) PO SCH (08:18)
[2019-08-05] MEDS: MOM 30ML SUSPENSION UDC PO SCH (08:18)
[2019-08-05] MEDS: DIVALPROEX 250 MG TAB PO SCH ×2 (08:18→21:02)
[2019-08-05] MEDS: OMEPRAZOLE 20 MG CAP PO SCH (08:18)
[2019-08-05] MEDS: ESCITALOPRAM OXALATE 10 MG TAB (LEXAPRO) PO SCH (08:18)
[2019-08-05] MEDS: APIXABAN 2.5 MG TAB (ELIQUIS) PO SCH ×2 (08:19→21:03)
[2019-08-05] MEDS: METOPROLOL TART 25 MG TABLET PO SCH ×2 (08:19→21:03)
[2019-08-05] MEDS: allopurinoL 300 MG TAB PO SCH (08:19)
[2019-08-05] MEDS: FOLIC ACID 1 MG TAB PO SCH ×2 (08:19→21:03)
[2019-08-05] MEDS: MIRALAX *UNIT DOSE* 17GM PACKET PO SCH (08:19)
[2019-08-05] MEDS: FUROSEMIDE 20 MG TAB PO SCH (08:19)
[2019-08-05] MEDS: VALSARTAN 80 MG TAB (DIOVAN) PO SCH (09:10)
--- NOTE | 2019-08-05 09:57 | IPNPDOC ---
Text Note Date of Service The patient was seen on 08/05/19. NOTE Subjective: No any acute events overnight. Patient denies fever, chills, nausea, vomiting, diarrhea or dysuria Objective: VITAL SIGNS: Please see below. GENERAL APPEARANCE: not in apparent distress HEENT: Normocephalic, atraumatic. CARDIOVASCULAR: Regular rate and rhythm. No murmurs, rubs or gallops. Radial pulses are intact. LUNGS: Diminished lung sounds ABDOMEN: Abdomen is soft and nontender. MUSCULOSKELETAL: Pulsation preserved, no edema NEUROLOGICAL: Cranial nerves II-12 are grossly intact. Speech is not dysarthric Assessment/Plan Patient is 79 years old female with past medical history hypertension, hypothyroidism, seizure disorder, atrial fibrillation, diastolic CHF presented to the hospital with history of mechanical fall. The patient stated that she lo st her balance in the way to the bathroom. In emergency room patient was found to have on x-ray New acute oblique fracture through the proximal femoral metadiaphysis. Of note, patient had recent right hip arthroplasty on July 12/2020. Dr Lemon was contacted by phone, she recommended to postpone surgery due to oral targeted anticoagulation therapy which patient took last night. Problems (1) Right femoral fracture Orthopedic team did surgery on 08/02/19. CT showed There is an acute fracture of the lesser trochanter and subtrochanteric femur on the right adjacent to a previously positioned right hip arthroplasty. Eliquis restarted (2) Hypertension Blood pressures under control, (3) GERD (gastroesophageal reflux disease) Continue home meds (4) Seizure disorder Continue home meds (5) Atrial fibrillation Heart rate is under control I changed her verapamil to metoprolol given history of CHF. Metoprolol 25 mg twice a day (6) Hypothyroidism Continue levothyroxine Hyperkalemia Resolved . Valsartan on hold for 1 day. Lasix PO Acute blood loss anemia Secondary to orthopedic surgery which was done on 08/02/19 Patient received 2 units of blood yesterday. Hemoglobin is stable. Patient is not tachycardic, not lightheaded VS,Fishbone, I+O VS, Fishbone, I+O Laboratory Tests 08/05/19 06:49 Vital Signs Date Time Temp Pulse Resp B/P (MAP) Pulse Ox O2 Delivery O2 Flow Rate FiO2 08/05/19 09:10 148/57 08/05/19 08:19 87 08/05/19 06:00 99.8 15 96 NIPPV (BIPAP/CPAP) 08/02/19 21:00 2.0 I&O- Last 24 Hours up to 6 AM 08/05/19 06:00 Intake Total 2810 ml Balance 2810 ml RAI ESTEVEZ DO Aug 05, 2019 09:57
[2019-08-05 14:30] VITALS: BP 117/57
[2019-08-05] MEDS: ROSUVASTATIN 10 MG TAB (CRESTOR) PO SCH (21:03)
[2019-08-05 22:00] VITALS: BP 127/60
[2019-08-06] MEDS: ACETAMINOPHEN TAB 650MG DOSE (2X325MG) PO PRN (01:13)
[2019-08-06] MEDS: LEVOTHYROXINE 50MCG TABLET (0.05MG) PO SCH (05:09)
[2019-08-06] MEDS: PERCOCET 5MG/325MG TAB PO PRN (05:09)
[2019-08-06 05:48] LABS: BASO % 0.5 % (0.0-1.0); EOS % 13.4 % (0.0-3.0); HEMOGLOBIN 10.1 g/dl (12.0-15.5); LYMPH # 1.8 10^3/uL (1.5-5.0); LYMPH % 24.1 % (24.0-44.0); MEAN CORPUSCULAR HEMOGLOBIN 30.5 pg (27.0-33.0); MEAN CORPUSCULAR HGB CONC 32.6 g/dl (32.0-36.5); MEAN CORPUSCULAR VOLUME 93.7 fl (80.0-96.0); MONO # 1.2 10^3/uL (0.0-0.8); MONO % 16.2 % (0.0-5.0); NEUTROPHILS # 3.2 10^3/uL (1.5-8.5); NEUTROPHILS % 43.7 % (36.0-66.0); PLATELET COUNT, AUTOMATED 199 10^3/uL (150-450); RED BLOOD COUNT 3.31 10^6/uL (4.00-5.40); WHITE BLOOD COUNT 7.3 10^3/uL (4.0-10.0)
[2019-08-06 06:00] VITALS: BP 135/63
[2019-08-06 06:13] LABS: BLOOD UREA NITROGEN 19 MG/DL (7-18); CALCIUM LEVEL 10.7 MG/DL (8.8-10.2); CARBON DIOXIDE LEVEL 30 MEQ/L (21-32); CHLORIDE LEVEL 104 MEQ/L (98-107); CREATININE FOR GFR 0.93 MG/DL (0.55-1.30); GLOMERULAR FILTRATION RATE > 60.0 (>39); GLUCOSE, FASTING 104 MG/DL (70-100); MAGNESIUM LEVEL 1.7 MG/DL (1.8-2.4); POTASSIUM SERUM 4.7 MEQ/L (3.5-5.1); SODIUM LEVEL 136 MEQ/L (136-145)
[2019-08-06] MEDS: MAGNESIUM CHLORIDE 64 MG TABCR (SLO MAG) PO SCH (09:48)
[2019-08-06] MEDS: FOLIC ACID 1 MG TAB PO SCH ×2 (09:50→21:20)
[2019-08-06] MEDS: ESCITALOPRAM OXALATE 10 MG TAB (LEXAPRO) PO SCH (09:50)
[2019-08-06] MEDS: DIVALPROEX 250 MG TAB PO SCH ×2 (09:50→21:19)
[2019-08-06] MEDS: OMEPRAZOLE 20 MG CAP PO SCH (09:50)
[2019-08-06] MEDS: VALSARTAN 80 MG TAB (DIOVAN) PO SCH (09:51)
[2019-08-06] MEDS: MOM 30ML SUSPENSION UDC PO SCH (09:52)
[2019-08-06] MEDS: allopurinoL 300 MG TAB PO SCH (09:52)
[2019-08-06] MEDS: METOPROLOL TART 25 MG TABLET PO SCH ×2 (09:52→21:20)
[2019-08-06] MEDS: APIXABAN 2.5 MG TAB (ELIQUIS) PO SCH ×2 (09:52→21:19)
[2019-08-06] MEDS: MIRALAX *UNIT DOSE* 17GM PACKET PO SCH (09:53)
[2019-08-06] MEDS: FUROSEMIDE 20 MG TAB PO SCH (09:53)
[2019-08-06 14:45] VITALS: BP 131/65
[2019-08-06] MEDS: ROSUVASTATIN 10 MG TAB (CRESTOR) PO SCH (21:20)
[2019-08-06 22:00] VITALS: BP 129/60
[2019-08-07] MEDS: ACETAMINOPHEN TAB 650MG DOSE (2X325MG) PO PRN (05:33)
[2019-08-07] MEDS: LEVOTHYROXINE 50MCG TABLET (0.05MG) PO SCH (05:33)
[2019-08-07 05:48] LABS: BASO % 0.6 % (0.0-1.0); EOS # 0.8 10^3/uL (0.0-0.5); EOS % 11.5 % (0.0-3.0); HEMATOCRIT 31.6 % (36.0-47.0); HEMOGLOBIN 10.4 g/dl (12.0-15.5); LYMPH # 1.5 10^3/uL (1.5-5.0); MEAN CORPUSCULAR HEMOGLOBIN 30.4 pg (27.0-33.0); MEAN CORPUSCULAR HGB CONC 32.9 g/dl (32.0-36.5); MEAN CORPUSCULAR VOLUME 92.4 fl (80.0-96.0); MONO # 1.1 10^3/uL (0.0-0.8); MONO % 15.1 % (0.0-5.0); NEUTROPHILS # 3.4 10^3/uL (1.5-8.5); NEUTROPHILS % 48.9 % (36.0-66.0); PLATELET COUNT, AUTOMATED 195 10^3/uL (150-450); RED BLOOD COUNT 3.42 10^6/uL (4.00-5.40); WHITE BLOOD COUNT 6.9 10^3/uL (4.0-10.0)
[2019-08-07 06:00] VITALS: BP 163/78
[2019-08-07 06:03] LABS: BLOOD UREA NITROGEN 17 MG/DL (7-18); CALCIUM LEVEL 10.8 MG/DL (8.8-10.2); CARBON DIOXIDE LEVEL 33 MEQ/L (21-32); CHLORIDE LEVEL 100 MEQ/L (98-107); CREATININE FOR GFR 0.92 MG/DL (0.55-1.30); GLOMERULAR FILTRATION RATE > 60.0 (>39); GLUCOSE, FASTING 104 MG/DL (70-100); MAGNESIUM LEVEL 1.6 MG/DL (1.8-2.4); POTASSIUM SERUM 4.6 MEQ/L (3.5-5.1); SODIUM LEVEL 134 MEQ/L (136-145)
[2019-08-07] MEDS: MAGNESIUM CHLORIDE 64 MG TABCR (SLO MAG) PO SCH (08:31)
[2019-08-07] MEDS: VALSARTAN 80 MG TAB (DIOVAN) PO SCH (08:32)
[2019-08-07] MEDS: DIVALPROEX 250 MG TAB PO SCH (08:32)
[2019-08-07 08:33] VITALS: BP 163/78
[2019-08-07] MEDS: APIXABAN 2.5 MG TAB (ELIQUIS) PO SCH (08:33)
[2019-08-07] MEDS: OMEPRAZOLE 20 MG CAP PO SCH (08:33)
[2019-08-07] MEDS: FOLIC ACID 1 MG TAB PO SCH (08:33)
[2019-08-07] MEDS: ESCITALOPRAM OXALATE 10 MG TAB (LEXAPRO) PO SCH (08:33)
[2019-08-07] MEDS: METOPROLOL TART 25 MG TABLET PO SCH (08:33)
[2019-08-07] MEDS: MOM 30ML SUSPENSION UDC PO SCH (08:34)
[2019-08-07] MEDS: allopurinoL 300 MG TAB PO SCH (08:34)
[2019-08-07] MEDS: FUROSEMIDE 20 MG TAB PO SCH (08:34)
[2019-08-07] MEDS: MIRALAX *UNIT DOSE* 17GM PACKET PO SCH (08:34)
--- NOTE | 2019-08-07 10:43 | DS.PDOC ---
Discharge Summary General Date of Admission Jul 31, 2019 at 10:14 Date of Discharge 08/07/19 Discharge Summary PROCEDURES PERFORMED DURING STAY: Right hip repair ADMITTING DIAGNOSES: Right femoral fracture Hypertension GERD (gastroesophageal reflux disease) Seizure disorder Atrial fibrillation Hypothyroidism Hyperkalemia Acute blood loss anemia DISCHARGE DIAGNOSES: Right femoral fracture Hypertension GERD (gastroesophageal reflux disease) Seizure disorder Atrial fibrillation Hypothyroidism Hyperkalemia Acute blood loss anemia COMPLICATIONS/CHIEF COMPLAINT: Rt Femoral Fracture. HISTORY OF PRESENT ILLNESS: Patient is 79 years old female with past medical history hypertension, hypothyroidism, seizure disorder, atrial fibrillation, diastolic CHF presented to the hospital with history of mechanical fall. The patient stated that she lost her balance in the way to the bathroom. In emergency room patient was found to have on x-ray New acute oblique fracture through the proximal femoral metadiaphysis. Of note, patient had recent right hip arthroplasty on July 12/2020. HOSPITAL COURSE: Orthopedic team did surgery on 08/02/19. Postoperative period without any complications DISCHARGE MEDICATIONS: Please see below. ALLERGIES: Please see below. PHYSICAL EXAMINATION ON DISCHARGE: VITAL SIGNS: Please see below. Objective: VITAL SIGNS: Please see below. GENERAL APPEARANCE: not in apparent distress HEENT: Normocephalic, atraumatic. CARDIOVASCULAR: Regular rate and rhythm. No murmurs, rubs or gallops. Radial pulses are intact. LUNGS: Diminished lung sounds ABDOMEN: Abdomen is soft and nontender. MUSCULOSKELETAL: Pulsation preserved, no edema NEUROLOGICAL: Cranial nerves II-12 are grossly intact. Speech is not dysarthric LABORATORY DATA: Please see below. IMAGING: CT showed There is an acute fracture of the lesser trochanter and subtrochanteric femur on the right adjacent to a previously positioned right hip arthroplasty. PROGNOSIS: Fair ACTIVITY: [As tolerated]. DIET: Cardiac DISCHARGE PLAN: [facility] DISPOSITION: . See above ITEMS TO FOLLOWUP ON ON OUTPATIENT: Follow-up with PCP and orthopedic surgeon DISCHARGE CONDITION: [Stable]. TIME SPENT ON DISCHARGE: Greater than 20 minutes. Vital Signs/I&Os Vital Signs Date Time Temp Pulse Resp B/P (MAP) Pulse Ox O2 Delivery O2 Flow Rate FiO2 08/07/19 08:33 74 163/78 08/07/19 06:00 99.3 17 95 Room Air 08/04/19 21:00 2.0 I&O- Last 24 Hours up to 6 AM 08/07/19 06:00 Intake Total 200 ml Balance 200 ml Laboratory Data Labs 24H Laboratory Tests 2 08/07/19 05:15: Immature Granulocyte % (Auto) 2.9, Neutrophils (%) (Auto) 48.9, Lymphocytes (%) (Auto) 21.0L, Monocytes (%) (Auto) 15.1H, Eosinophils (%) (Auto) 11.5H, Basophils (%) (Auto) 0.6, Neutrophils # (Auto) 3.4, Lymphocytes # (Auto) 1.5, Monocytes # (Auto) 1.1H, Eosinophils # (Auto) 0.8H, Basophils # (Auto) 0.0, Nucleated Red Blood Cells % (auto) 0.0, Anion Gap 1L, Glomerular Filtration Rate > 60.0, Calcium Level 10.8H, Magnesium Level 1.6L CBC/BMP Laboratory Tests 08/07/19 05:15 Discharge Medications Scheduled Alendronate Sodium (Alendronate Sodium) 70 Mg Tablet, 70 MG PO QWEEK, (Reported) wednesday Allopurinol (Zyloprim) 300 Mg Tab, 300 MG PO DAILY, (Reported) Apixaban (Eliquis) 2.5 Mg Tablet, 2.5 MG PO BID, (Reported) Divalproex Sodium (Divalproex Sodium) 250 Mg Tablet.dr, 500 MG PO QAM, (Reported) Divalproex Sodium (Divalproex Sodium) 250 Mg Tablet.dr, 250 MG PO QHS, (Reported) Escitalopram Oxalate (Lexapro) 10 Mg Tablet, 10 MG PO DAILY, (Reported) Folic Acid (Folic Acid) 1 Mg Tab, 1 MG PO BID, (Reported) Levothyroxine Sodium (Synthroid) 50 Mcg Tab, 50 MCG PO QAM, (Reported) Mirabegron (Myrbetriq) 50 Mg Tab.er.24h, 50 MG PO DAILY, (Reported) Omeprazole (Omeprazole) 40 Mg Cap, 40 MG PO DAILY, (Reported) Rosuvastatin Calcium (Crestor) 10 Mg Tab, 10 MG PO QHS, (Reported) Valsartan (Valsartan) 160 Mg Tablet, 160 MG PO DAILY, (Reported) Verapamil Hcl (Verapamil ER Pm) 300 Mg Cap24h.pct, 300 MG PO DAILY, (Reported) Scheduled PRN Acetaminophen (Acetaminophen) 500 Mg Tablet, 500 MG PO Q4H PRN for PAIN, (Reported) Furosemide (Furosemide) 20 Mg Tab, 20 MG PO DAILY PRN for EDEMA, (Reported) Levalbuterol Hydrochloride (Xopenex Hfa) 45 Mcg/Act Aer, 2 PUFF INH PRN PRN for SHORTNESS OF BREATH, (Reported) Oxycodone HCl/Acetaminophen (Percocet 5-325 mg Tablet) 1 Each Tablet, 1-2 TAB PO Q4-6HP PRN for PAIN, (Reported) Oxycodone HCl/Acetaminophen (Percocet 5-325 mg Tablet) 1 Each Tablet, 1 TAB PO Q4H PRN for PAIN Allergies Coded Allergies: promethazine (Verified Adverse Reaction, Intermediate, confusion, 06/26/19) morphine (Verified Adverse Reaction, Mild, nausea, 06/26/19) tramadol (Verified Adverse Reaction, Mild, dizziness, 06/26/19) RAI ESTEVEZ DO Aug 07, 2019 10:42
== END 2019-08-07 12:00 | DRG 467 ==
LOC: M ED 04:08 → M ED INP 10:14 → ENRESERVTM 10:49 → ENRESERVDT 10:49 → M MS5PR 11:15
PROVIDERS: ADMIT Internal Medicine; ATTEND Internal Medicine
PROC: 0SPR0JZ Removal of Synthetic Substitute from Right Hip Joint, Femoral Surface, Open Approach (ICD-10-PCS; 2019-08-02)
PROC: 0QS604Z Reposition Right Upper Femur with Internal Fixation Device, Open Approach (ICD-10-PCS; 2019-08-02)
PROC: 0SRR0JA Replacement of Right Hip Joint, Femoral Surface with Synthetic Substitute, Uncemented, Open Approach (ICD-10-PCS; principal; 2019-08-02 11:30)
DX: M97.01XA Periprosthetic fracture around internal prosthetic right hip joint, initial encounter (principal); I50.32 Chronic diastolic (congestive) heart failure; D62 Acute posthemorrhagic anemia; I48.0 Paroxysmal atrial fibrillation; I11.0 Hypertensive heart disease with heart failure; E87.5 Hyperkalemia; E03.9 Hypothyroidism, unspecified; K21.9 Gastro-esophageal reflux disease without esophagitis; G40.909 Epilepsy, unspecified, not intractable, without status epilepticus; Z96.641 Presence of right artificial hip joint; Z79.899 Other long term (current) drug therapy; Z88.5 Allergy status to narcotic agent; Z88.8 Allergy status to other drugs, medicaments and biological substances; E78.5 Hyperlipidemia, unspecified; Z87.891 Personal history of nicotine dependence; I87.8 Other specified disorders of veins; M10.9 Gout, unspecified; Z96.642 Presence of left artificial hip joint

== ENCOUNTER → 2019-08-28 | Outpatient (REF) | payer MEDICARE ==
[~2019-08-28] MED LIST changes: +ACET-683 PO; +CYCL-707 PO; -CYCL10TA PO; +DIVA250T67 PO; +VALS1TAB67 PO
== END ==
LOC: M LAB REF 15:29
PROVIDERS: ATTEND Physician Assistant
DX: T84.050A Periprosthetic osteolysis of internal prosthetic right hip joint, initial encounter (principal)

== ENCOUNTER 2019-11-23 11:56 | Emergency (ER) | payer MEDICARE ==
[~2019-11-23] VITALS: Ht 157.5 cm; Wt 83.1 kg
[2019-11-23 11:56] VITALS: BP 103/51
[2019-11-23] MEDS ORDERED: LEVO25TA5 PO (12:21)
--- NOTE | 2019-11-23 13:01 | REP ---
CT brain: 11/23/2019. Indication: Head trauma. Technique: Unenhanced axial CT images of the brain were obtained from skull base to vertex with coronal reconstructions provided. Comparison: 07/17/2019. Findings: There is no acute intracranial hemorrhage, acute cortical infarction, mass effect, hydrocephalus or acute calvarial fracture. Age-related volume loss is present. Left cerebellar hypoattenuation is present consistent with chronic infarction. Chronic right basal ganglia and left thalamic lacunar infarctions are present. Patchy areas of cerebral hemisphere white matter hypoattenuation are present most consistent with chronic small vessel disease. Impression: No acute intracranial process. 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 Volume loss and sequelae of chronic microangiopathic ischemic disease. Electronically Signed by Derick Foster DO 11/23/2019 12:52 P
--- NOTE | 2019-11-23 13:08 | REP ---
CT cervical spine: 11/23/2019. Indication: Cervical spine trauma. Technique: Unenhanced axial CT images of the cervical spine were performed with coronal sagittal reconstructions provided. Comparison: None. Findings: There is no acute fracture, subluxation or dislocation. No lytic or blastic lesions are present. Multilevel spondylosis is present most pronounced at C5/C6. No hemorrhage or additional acute post traumatic. Soft tissue abnormalities are detected within the spinal canal. Right lung apical scarring is noted. Impression: No acute osseous cervical spine injury. Electronically Signed by Derick Foster DO 11/23/2019 12:59 P
== END 2019-11-23 13:54 | disposition home or self-care (01) ==
LOC: M ED 11:56
DX: S00.93XA Contusion of unspecified part of head, initial encounter (principal); Z88.5 Allergy status to narcotic agent; Z88.8 Allergy status to other drugs, medicaments and biological substances; W18.30XA Fall on same level, unspecified, initial encounter; Y92.89 Other specified places as the place of occurrence of the external cause; Y99.8 Other external cause status; Y93.9 Activity, unspecified; Z79.01 Long term (current) use of anticoagulants; Z79.899 Other long term (current) drug therapy; I50.9 Heart failure, unspecified; I11.0 Hypertensive heart disease with heart failure; I48.91 Unspecified atrial fibrillation; G47.30 Sleep apnea, unspecified; R13.10 Dysphagia, unspecified; E03.9 Hypothyroidism, unspecified; F41.9 Anxiety disorder, unspecified; F32.9 Major depressive disorder, single episode, unspecified

== ENCOUNTER → 2021-03-10 | Outpatient (REF) | payer MEDICARE ==
[~2021-03-10] MED LIST changes: +ACET650T61 PO; -ALEN70TA74 PO; +ALEN70TA82 PO; +LEVO25TA5 PO; +OMEP40CA4 PO; -OMEP40CA97 PO; -TYLE650T35 PO
[2021-03-10 18:58] LABS: PERCENT SATURATION 21.4 % (13.2-45.0)
== END ==
LOC: M LAB REF 16:47
PROVIDERS: ATTEND Internal Medicine
DX: D64.9 Anemia, unspecified (principal)

== ENCOUNTER → 2021-03-11 | Outpatient (CLI) | payer MEDICARE ==
--- NOTE | 2021-03-11 18:14 | REP ---
INDICATION: SOB. COMPARISON: Portable chest, 07/14/2019. TECHNIQUE: Upright PA and lateral chest images were obtained. FINDINGS: There is cardiomegaly, pulmonary venous hypertension and pulmonary interstitial edema consistent with congestive heart failure. There are no significant pleural effusions. There is calcific vascular disease of the thoracic aorta. The upper abdominal bowel gas pattern is normal. There are no significant bony abnormalities of the chest. IMPRESSION: Congestive heart failure. <Electronically signed by Oseas Olvera > 03/11/21 1639
== END ==
LOC: M RAD 17:22
PROVIDERS: ATTEND Internal Medicine
DX: R06.02 Shortness of breath (principal)

== ENCOUNTER → 2021-07-15 | Outpatient (REF) | payer MEDICARE ==
[2021-07-15 18:06] LABS: PERCENT SATURATION 13.4 % (13.2-45.0)
[2021-07-16 13:11] LABS: EOSINOPHILS 3 % (0-3); LYMPHOCYTES 22 % (16-44); MONOCYTES 7 % (0-5); NEUTROPHILS 66 % (28-66); PLATELET ESTIMATE NORMAL (NORMAL)
[2021-07-16 13:12] LABS: ANISOCYTOSIS 1+
== END ==
LOC: M LAB REF 16:13
PROVIDERS: ATTEND Internal Medicine
DX: D72.9 Disorder of white blood cells, unspecified (principal); D64.9 Anemia, unspecified

== ENCOUNTER → 2022-01-12 | Outpatient (CLI) | payer MEDICARE | LOC: M WHC 10:26 | PROVIDERS: ATTEND Internal Medicine | DX: Z13.820 Encounter for screening for osteoporosis (principal); M85.80 Other specified disorders of bone density and structure, unspecified site; Z79.890 Hormone replacement therapy; Z79.01 Long term (current) use of anticoagulants; Z79.51 Long term (current) use of inhaled steroids; Z79.899 Other long term (current) drug therapy ==

== ENCOUNTER → 2023-01-05 | Outpatient (REF) | payer MEDICARE | LOC: M LAB REF 16:14 | PROVIDERS: ATTEND Nurse Practitioner Family | DX: I13.0 Hypertensive heart and chronic kidney disease with heart failure and stage 1 through stage 4 chronic kidney disease, or unspecified chronic kidney disease (principal); N18.9 Chronic kidney disease, unspecified ==

== ENCOUNTER → 2023-02-23 | Outpatient (REF) | payer MEDICARE, MEDICAID ==
[2023-02-23 19:13] LABS: PERCENT SATURATION 16.2 % (13.2-45.0)
[2023-02-23 19:16] LABS: FERRITIN 198.5 NG/ML (7.3-270.7)
== END ==
LOC: M LAB REF 18:01
PROVIDERS: ATTEND Internal Medicine
DX: D64.9 Anemia, unspecified (principal); I13.0 Hypertensive heart and chronic kidney disease with heart failure and stage 1 through stage 4 chronic kidney disease, or unspecified chronic kidney disease

== ENCOUNTER → 2023-04-05 | Outpatient (REF) | payer MEDICARE, MEDICAID ==
[2023-04-05 19:21] LABS: PERCENT SATURATION 10.4 % (13.2-45.0)
[2023-04-05 19:26] LABS: FERRITIN 386.7 NG/ML (7.3-270.7)
== END ==
LOC: M LAB REF 18:31
PROVIDERS: ATTEND Internal Medicine
DX: D64.9 Anemia, unspecified (principal)

== ENCOUNTER → 2023-05-12 | Outpatient (REF) ==
[2023-05-12 09:52] LABS: HEMATOCRIT 38.3 % (36.0-47.0); HEMOGLOBIN 11.5 g/dl (12.0-15.5); MEAN CORPUSCULAR HEMOGLOBIN 29.6 pg (27.0-33.0); MEAN CORPUSCULAR VOLUME 98.7 fl (80.0-96.0); PLATELET COUNT, AUTOMATED 294 10^3/uL (150-450); RED BLOOD COUNT 3.88 10^6/uL (4.00-5.40); WHITE BLOOD COUNT 10.4 10^3/uL (4.0-10.0)
[2023-05-12 10:19] LABS: URIC ACID 7.5 MG/DL (3.1-7.8); VALPROIC ACID (DEPAKOTE) 33.1 UG/ML (50.0-100.0)
[2023-05-12 10:22] LABS: ALBUMIN 2.9 G/DL (3.2-5.2); BILIRUBIN,DIRECT 0.2 MG/DL (<0.4); BILIRUBIN,TOTAL 0.5 MG/DL (0.3-1.2); CALCIUM LEVEL 9.5 MG/DL (8.3-10.6); CREATININE FOR GFR 1.39 MG/DL (0.55-1.30); GLOMERULAR FILTRATION RATE 38.6 (>32); MAGNESIUM LEVEL 2.2 MG/DL (1.8-2.4); POTASSIUM SERUM 4.5 MMOL/L (3.5-5.1); TOTAL PROTEIN 6.9 G/DL (5.7-8.2)
[2023-05-12 10:32] LABS: THYROID STIMULATING HORMONE 2.204 uIU/ML (0.55-4.78)
== END ==
PROVIDERS: ATTEND Physician Assistant
DX: I48.91 Unspecified atrial fibrillation (principal)

== ENCOUNTER → 2023-05-19 | Outpatient (REF) ==
[2023-05-19 10:54] LABS: HEMATOCRIT 35.5 % (36.0-47.0); HEMOGLOBIN 10.9 g/dl (12.0-15.5); MEAN CORPUSCULAR HEMOGLOBIN 30.2 pg (27.0-33.0); MEAN CORPUSCULAR HGB CONC 30.7 g/dl (32.0-36.5); MEAN CORPUSCULAR VOLUME 98.3 fl (80.0-96.0); PLATELET COUNT, AUTOMATED 212 10^3/uL (150-450); RED BLOOD COUNT 3.61 10^6/uL (4.00-5.40); WHITE BLOOD COUNT 10.4 10^3/uL (4.0-10.0)
[2023-05-19 11:19] LABS: CALCIUM LEVEL 9.1 MG/DL (8.3-10.6); CREATININE FOR GFR 1.23 MG/DL (0.55-1.30); GLOMERULAR FILTRATION RATE 44.5 (>32); POTASSIUM SERUM 4.6 MMOL/L (3.5-5.1)
== END ==
PROVIDERS: ATTEND Physician Assistant
DX: I48.91 Unspecified atrial fibrillation (principal)

== ENCOUNTER 2023-06-07 15:48 | Inpatient (IN) | payer MEDICARE, MEDICAID ==
[~2023-06-07] VITALS: Ht 152.4 cm; Wt 100.1 kg
[2023-06-07 17:45] LABS: VENOUS BASE EXCESS -1.2 (-2.0-2.0); VENOUS HCO3 24.8 MMOL/L (23.0-27.0); VENOUS O2 SATURATION 76.8 % (60.0-80.0); VENOUS PARTIAL PRESSURE O2 47.9 mmHg (30.0-50.0); VENOUS STANDARD HCO3 23.1 MMOL/L; VENOUS TOTAL CO2 26.2 MMOL/L (24.0-28.0)
[2023-06-07 18:02] LABS: HEMATOCRIT 30.9 % (36.0-47.0); HEMOGLOBIN 9.6 g/dl (12.0-15.5); MEAN CORPUSCULAR HEMOGLOBIN 29.6 pg (27.0-33.0); MEAN CORPUSCULAR HGB CONC 31.1 g/dl (32.0-36.5); MEAN CORPUSCULAR VOLUME 95.4 fl (80.0-96.0); PLATELET COUNT, AUTOMATED 204 10^3/uL (150-450); RED BLOOD COUNT 3.24 10^6/uL (4.00-5.40); WHITE BLOOD COUNT 6.4 10^3/uL (4.0-10.0)
[2023-06-07 18:32] LABS: CK-MB VALUE MASS < 1.0 NG/ML (<3.6)
[2023-06-07 18:34] LABS: ALBUMIN 2.3 G/DL (3.2-5.2); ALKALINE PHOSPHATASE 55 U/L (46-116); ALT/SGPT 15 U/L (7.0-40); AST/SGOT 35 U/L (<34); BILIRUBIN,DIRECT 0.2 MG/DL (<0.4); BILIRUBIN,TOTAL 0.7 MG/DL (0.3-1.2); BLOOD UREA NITROGEN 31 MG/DL (9-23); CALCIUM LEVEL 8.6 MG/DL (8.3-10.6); CARBON DIOXIDE LEVEL 28 MMOL/L (20-31); CHLORIDE LEVEL 101 MMOL/L (98-107); CREATININE FOR GFR 1.53 MG/DL (0.55-1.30); GLOMERULAR FILTRATION RATE 34.6 (>32); GLUCOSE, FASTING 139 MG/DL (74-106); POTASSIUM SERUM 5.1 MMOL/L (3.5-5.1); SODIUM LEVEL 136 MMOL/L (136-145); TOTAL PROTEIN 6.1 G/DL (5.7-8.2)
[2023-06-07 18:36] LABS: THYROID STIMULATING HORMONE 3.332 uIU/ML (0.55-4.78)
[2023-06-07 18:39] LABS: CPK CREATINE PHOSPHOKINASE 51 U/L (34-145); MB/CK RELATIVE INDEX 1.96 (< OR =4)
[2023-06-07] MEDS ORDERED: ISOVUE-370 76% 100ML VIAL As Ordered ONE (18:41)
[2023-06-07 19:11] LABS: ATYPICAL LYMPH 7 % (0-5); EOSINOPHILS 2 % (0-3); LYMPHOCYTES 16 % (16-44); METAMYELOCYTES 1 % (0-0); MONOCYTES 5 % (0-5); NEUTROPHILS 68 % (28-66); NUCLEATED RED BLOOD CELL 1 % (0-0)
[2023-06-07 19:12] LABS: PLATELET ESTIMATE NORMAL (NORMAL)
[2023-06-07 19:26] LABS: CK-MB VALUE MASS < 1.0 NG/ML (<3.6)
[2023-06-07 19:28] LABS: CPK CREATINE PHOSPHOKINASE 40 U/L (34-145)
[2023-06-07] MEDS: ALBUTEROL SULFATE 2.5MG/0.5ML INH NEB SOLN NEB SCH (20:00)
[2023-06-07] MEDS ORDERED: AMIO200T49 PO (20:42)
[2023-06-07] MEDS ORDERED: ATOR40TA75 PO (20:42)
[2023-06-07 20:47] LABS: PROCALCITONIN 0.16 ng/ml
[2023-06-07] MEDS ORDERED: ACETAMINOPHEN TAB 650MG DOSE (2X325MG) PO PRN (21:50)
[2023-06-07] MEDS ORDERED: ALBUTEROL SULFATE 2.5MG/0.5ML INH NEB SOLN NEB PRN (21:50)
[2023-06-07] MEDS: methylPREDNISolone 40MG 1ML VIAL IV SCH (22:43)
[2023-06-07] MEDS ORDERED: ELIQ5TAB PO (22:43)
[2023-06-07] MEDS ORDERED: ALBU2.5V10 INH (22:43)
[2023-06-07] MEDS ORDERED: LEVO75TA4 PO (22:44)
[2023-06-07] MEDS ORDERED: DIVA500T94 PO (22:44)
[2023-06-07] MEDS ORDERED: AMIO0.1T PO (22:44)
[2023-06-07] MEDS ORDERED: FERR1TAB8 PO (22:56)
[2023-06-07] MEDS ORDERED: BENZ200C70 PO (22:56)
[2023-06-07] MEDS ORDERED: POTA10CA60 PO (22:56)
[2023-06-07] MEDS ORDERED: METO1TAB87 PO (22:56)
[2023-06-07] MEDS ORDERED: SYMB80INH INH (22:56)
[2023-06-07] MEDS ORDERED: MILKSUS3 PO (22:56)
[2023-06-07] MEDS ORDERED: INCR1INH INH (22:56)
[2023-06-07] MEDS ORDERED: DILT180C78 PO (22:56)
[2023-06-07] MEDS ORDERED: IPRA2IN INH (22:56)
[2023-06-07] MEDS ORDERED: OXYB5TAB11 PO (22:56)
[2023-06-07] MEDS ORDERED: MAGN400T2 PO (22:56)
[2023-06-07] MEDS ORDERED: DIGOXIN INJ 0.5 MG/2 ML AMP IV ONE (23:00)
[2023-06-07] MEDS ORDERED: FURO40TA2 PO (23:05)
[2023-06-07] MEDS ORDERED: BISA10SU27 PR (23:05)
[2023-06-07] MEDS ORDERED: HOME MED LIST COMPLETE! XX SCH (23:05)
[2023-06-07] MEDS ORDERED: IPRA0.00 INH (23:05)
[2023-06-07] MEDS ORDERED: FLEEENE12 PR (23:05)
[2023-06-07 23:32] VITALS: BP 132/69; TEMP 97.8; O2SAT 95
[2023-06-08] VITALS (28 sets, daily range): BP systolic 106–156; BP diastolic 64–86; TEMP 96.5–98.6; O2SAT 82–99
[2023-06-08] MEDS: APIXABAN 2.5 MG TAB (ELIQUIS) PO SCH ×3 (00:04→20:48)
[2023-06-08] MEDS: DIVALPROEX 250MG TAB PO SCH ×2 (00:21→20:48)
[2023-06-08] MEDS: ALBUTEROL SULFATE 2.5MG/0.5ML INH NEB SOLN NEB SCH ×2 (00:55→07:17)
[2023-06-08 06:24] LABS: CALCIUM LEVEL 8.6 MG/DL (8.3-10.6); CREATININE FOR GFR 1.25 MG/DL (0.55-1.30); GLOMERULAR FILTRATION RATE 43.7 (>32); POTASSIUM SERUM 4.8 MMOL/L (3.5-5.1)
[2023-06-08] MEDS: methylPREDNISolone 40MG 1ML VIAL IV SCH ×3 (06:37→23:32)
[2023-06-08] MEDS ORDERED: BISACODYL 10MG SUPP PR PRN (07:15)
[2023-06-08] MEDS ORDERED: FLEET ENEMA PR PRN (07:15)
[2023-06-08 07:43] LABS: BASO % 0.2 % (0.0-1.0); HEMATOCRIT 29.5 % (36.0-47.0); HEMOGLOBIN 9.2 g/dl (12.0-15.5); LYMPH # 0.4 10^3/uL (1.5-5.0); LYMPH % 9.7 % (24.0-44.0); MEAN CORPUSCULAR HEMOGLOBIN 29.7 pg (27.0-33.0); MEAN CORPUSCULAR HGB CONC 31.2 g/dl (32.0-36.5); MEAN CORPUSCULAR VOLUME 95.2 fl (80.0-96.0); MONO # 0.1 10^3/uL (0.0-0.8); MONO % 2.3 % (2.0-8.0); NEUTROPHILS # 3.6 10^3/uL (1.5-8.5); NEUTROPHILS % 80.6 % (36.0-66.0); PLATELET COUNT, AUTOMATED 198 10^3/uL (150-450); WHITE BLOOD COUNT 4.4 10^3/uL (4.0-10.0)
[2023-06-08] MEDS: METOPROLOL TART 25 MG TABLET PO SCH (08:08)
[2023-06-08] MEDS: FERROUS SULFATE 325MG TAB PO SCH (08:09)
[2023-06-08] MEDS: ESCITALOPRAM OXALATE 10 MG TAB (LEXAPRO) PO SCH (08:09)
[2023-06-08] MEDS: guaiFENesin 200 MG TAB PO SCH ×3 (09:45→20:48)
[2023-06-08] MEDS: DIVALPROEX 500 MG TAB PO SCH (09:45)
[2023-06-08] MEDS: TIOTROPIUM INHALER/CAPSULE (SPIRIVA) INH SCH (11:03)
[2023-06-08] MEDS: SYMBICORT 80/4.5MCG INHALER 6GM INH SCH ×2 (11:03→19:37)
[2023-06-08] MEDS: LEVOTHYROXINE 75MCG TABLET (0.075MG) PO SCH (11:37)
[2023-06-08] MEDS ORDERED: LEVALBUTEROL 1.25MG 0.5ML CONCENTRATE NEB INH PRN (11:55)
[2023-06-08] MEDS: IPRATROPIUM 0.5MG/ALBUTEROL 2.5MG INH SOL UD 3ML (DUONEB) NEB SCH ×2 (13:43→19:37)
[2023-06-08] MEDS: ATORVASTATIN 20 MG TAB PO SCH (20:48)
[2023-06-08] MEDS ORDERED: DIVALPROEX 250MG TAB PO SCH (21:00)
[2023-06-09] VITALS (16 sets, daily range): BP systolic 101–145; BP diastolic 56–77; TEMP 96.4–97.6; O2SAT 90–99
[2023-06-09] MEDS: IPRATROPIUM 0.5MG/ALBUTEROL 2.5MG INH SOL UD 3ML (DUONEB) NEB SCH ×4 (02:15→19:44)
[2023-06-09 05:51] LABS: BASO % 0.1 % (0.0-1.0); HEMATOCRIT 26.4 % (36.0-47.0); HEMOGLOBIN 8.3 g/dl (12.0-15.5); LYMPH # 0.3 10^3/uL (1.5-5.0); LYMPH % 3.7 % (24.0-44.0); MEAN CORPUSCULAR HEMOGLOBIN 29.6 pg (27.0-33.0); MEAN CORPUSCULAR HGB CONC 31.4 g/dl (32.0-36.5); MEAN CORPUSCULAR VOLUME 94.3 fl (80.0-96.0); MONO # 0.5 10^3/uL (0.0-0.8); MONO % 5.8 % (2.0-8.0); NEUTROPHILS # 7.4 10^3/uL (1.5-8.5); NEUTROPHILS % 88.1 % (36.0-66.0); PLATELET COUNT, AUTOMATED 205 10^3/uL (150-450); WHITE BLOOD COUNT 8.4 10^3/uL (4.0-10.0)
[2023-06-09 06:04] LABS: CALCIUM LEVEL 8.6 MG/DL (8.3-10.6); CREATININE FOR GFR 1.13 MG/DL (0.55-1.30); GLOMERULAR FILTRATION RATE 49.1 (>32); MAGNESIUM LEVEL 2.2 MG/DL (1.8-2.4); POTASSIUM SERUM 4.7 MMOL/L (3.5-5.1)
[2023-06-09] MEDS: LEVOTHYROXINE 75MCG TABLET (0.075MG) PO SCH (06:24)
[2023-06-09] MEDS: methylPREDNISolone 40MG 1ML VIAL IV SCH ×2 (06:24→17:51)
[2023-06-09] MEDS ORDERED: DEXTROSE 50% 50ML SYRINGE IV PRN (07:05)
[2023-06-09] MEDS ORDERED: GLUCOSE 4GM CHEW TABLET PO PRN (07:05)
[2023-06-09] MEDS ORDERED: GLUCAGON INJ 1MG VIAL SC PRN (07:05)
[2023-06-09] MEDS: SYMBICORT 80/4.5MCG INHALER 6GM INH SCH ×2 (07:43→19:44)
[2023-06-09] MEDS: TIOTROPIUM INHALER/CAPSULE (SPIRIVA) INH SCH (07:43)
[2023-06-09 07:56] LABS: HEMOGLOBIN A1c 6.8 % (4.0-6.0)
[2023-06-09] MEDS: INSULIN LISPRO (NovoLOG) PER UNIT SC SCH ×4 (08:07→20:50)
[2023-06-09] MEDS: APIXABAN 2.5 MG TAB (ELIQUIS) PO SCH ×2 (08:08→20:51)
[2023-06-09] MEDS: guaiFENesin 200 MG TAB PO SCH ×3 (08:08→20:51)
[2023-06-09] MEDS: ESCITALOPRAM OXALATE 10 MG TAB (LEXAPRO) PO SCH (08:08)
[2023-06-09] MEDS: METOPROLOL TART 25 MG TABLET PO SCH (08:13)
[2023-06-09] MEDS: DIVALPROEX 500 MG TAB PO SCH (08:18)
[2023-06-09] MEDS ORDERED: FUROSEMIDE 40MG/4ML VIAL IV STA (10:15)
[2023-06-09] MEDS ORDERED: METOPROLOL SUCC *XL* 25MG TAB (TopROL *XL*) PO ONE (14:40)
[2023-06-09] MEDS ORDERED: DIGOXIN INJ 0.5 MG/2 ML AMP IV ONE (16:35)
[2023-06-09] MEDS: ATORVASTATIN 20 MG TAB PO SCH (20:51)
[2023-06-09] MEDS: DIVALPROEX 250MG TAB PO SCH (20:51)
[2023-06-10] VITALS (13 sets, daily range): BP systolic 106–140; BP diastolic 69–85; TEMP 96–97.7; O2SAT 90–98
[2023-06-10] MEDS: IPRATROPIUM 0.5MG/ALBUTEROL 2.5MG INH SOL UD 3ML (DUONEB) NEB SCH ×4 (02:43→19:18)
[2023-06-10 04:49] LABS: BASO % 0.1 % (0.0-1.0); HEMATOCRIT 27.3 % (36.0-47.0); HEMOGLOBIN 8.6 g/dl (12.0-15.5); LYMPH # 0.4 10^3/uL (1.5-5.0); LYMPH % 4.2 % (24.0-44.0); MEAN CORPUSCULAR HEMOGLOBIN 29.8 pg (27.0-33.0); MEAN CORPUSCULAR HGB CONC 31.5 g/dl (32.0-36.5); MEAN CORPUSCULAR VOLUME 94.5 fl (80.0-96.0); MONO # 0.4 10^3/uL (0.0-0.8); MONO % 4.5 % (2.0-8.0); NEUTROPHILS # 8.1 10^3/uL (1.5-8.5); NEUTROPHILS % 88.4 % (36.0-66.0); PLATELET COUNT, AUTOMATED 260 10^3/uL (150-450); RED BLOOD COUNT 2.89 10^6/uL (4.00-5.40); WHITE BLOOD COUNT 9.2 10^3/uL (4.0-10.0)
[2023-06-10 05:21] LABS: CALCIUM LEVEL 8.3 MG/DL (8.3-10.6); CREATININE FOR GFR 1.11 MG/DL (0.55-1.30); GLOMERULAR FILTRATION RATE 50.1 (>32); POTASSIUM SERUM 4.9 MMOL/L (3.5-5.1)
[2023-06-10] MEDS: methylPREDNISolone 40MG 1ML VIAL IV SCH (06:09)
[2023-06-10] MEDS: LEVOTHYROXINE 75MCG TABLET (0.075MG) PO SCH (06:09)
[2023-06-10] MEDS: INSULIN LISPRO (NovoLOG) PER UNIT SC SCH ×6 (08:17→22:11)
[2023-06-10] MEDS: APIXABAN 2.5 MG TAB (ELIQUIS) PO SCH ×2 (08:18→22:10)
[2023-06-10] MEDS: FERROUS SULFATE 325MG TAB PO SCH (08:18)
[2023-06-10] MEDS: guaiFENesin 200 MG TAB PO SCH ×3 (08:18→22:10)
[2023-06-10] MEDS: ESCITALOPRAM OXALATE 10 MG TAB (LEXAPRO) PO SCH (08:18)
[2023-06-10] MEDS: METOPROLOL SUCC (TopROL XL) 50MG **XL** TAB PO SCH (08:27)
[2023-06-10] MEDS: DIVALPROEX 500 MG TAB PO SCH (08:27)
[2023-06-10] MEDS: SYMBICORT 80/4.5MCG INHALER 6GM INH SCH ×2 (08:31→19:19)
[2023-06-10] MEDS: TIOTROPIUM INHALER/CAPSULE (SPIRIVA) INH SCH (08:31)
[2023-06-10] MEDS ORDERED: METOPROLOL SUCC *XL* 25MG TAB (TopROL *XL*) PO SCH (09:00)
[2023-06-10] MEDS ORDERED: hydrOXYzine 50 MG TAB PO STA (10:08)
[2023-06-10] MEDS ORDERED: predniSONE 20 MG TAB PO STA (10:08)
[2023-06-10] MEDS ORDERED: FUROSEMIDE 40 MG TAB PO STA (10:08)
[2023-06-10] MEDS ORDERED: HYDR-3363 PO (11:10)
[2023-06-10] MEDS ORDERED: METO1TAB7 PO (11:10)
[2023-06-10] MEDS ORDERED: FERR1TAB8 PO (11:10)
[2023-06-10] MEDS ORDERED: INSUHUMDS SC ×2 (11:10)
[2023-06-10] MEDS ORDERED: PRED10TA2 PO (11:10)
[2023-06-10] MEDS ORDERED: FUROSEMIDE 40MG/4ML VIAL IV ONE (14:00)
[2023-06-10] MEDS: DIVALPROEX 250MG TAB PO SCH (22:10)
[2023-06-10] MEDS: ATORVASTATIN 20 MG TAB PO SCH (22:10)
[2023-06-11] VITALS (9 sets, daily range): BP systolic 110–127; BP diastolic 70–84; TEMP 96.3–98.3; O2SAT 91–100
[2023-06-11] MEDS: IPRATROPIUM 0.5MG/ALBUTEROL 2.5MG INH SOL UD 3ML (DUONEB) NEB SCH ×2 (01:11→08:26)
[2023-06-11 04:44] LABS: HEMATOCRIT 28.9 % (36.0-47.0); HEMOGLOBIN 8.8 g/dl (12.0-15.5); MEAN CORPUSCULAR HEMOGLOBIN 29.1 pg (27.0-33.0); MEAN CORPUSCULAR HGB CONC 30.4 g/dl (32.0-36.5); MEAN CORPUSCULAR VOLUME 95.7 fl (80.0-96.0); PLATELET COUNT, AUTOMATED 271 10^3/uL (150-450); RED BLOOD COUNT 3.02 10^6/uL (4.00-5.40); WHITE BLOOD COUNT 7.7 10^3/uL (4.0-10.0)
[2023-06-11 05:06] LABS: CALCIUM LEVEL 8.6 MG/DL (8.3-10.6); CREATININE FOR GFR 1.15 MG/DL (0.55-1.30); GLOMERULAR FILTRATION RATE 48.1 (>32); POTASSIUM SERUM 4.5 MMOL/L (3.5-5.1)
[2023-06-11 05:26] LABS: ANISOCYTOSIS 1+; LYMPHOCYTES 6 % (16-44); METAMYELOCYTES 3 % (0-0); MONOCYTES 5 % (0-5); MYELOCYTES 1 % (0-0); NEUTROPHILS 85 % (28-66); OVALOCYTES 1+
[2023-06-11 05:27] LABS: PLATELET ESTIMATE NORMAL (NORMAL)
[2023-06-11] MEDS: LEVOTHYROXINE 75MCG TABLET (0.075MG) PO SCH (06:12)
[2023-06-11] MEDS: INSULIN LISPRO (NovoLOG) PER UNIT SC SCH (08:00)
[2023-06-11] MEDS: TIOTROPIUM INHALER/CAPSULE (SPIRIVA) INH SCH (08:27)
[2023-06-11] MEDS: SYMBICORT 80/4.5MCG INHALER 6GM INH SCH (08:27)
[2023-06-11] MEDS ORDERED: predniSONE 10MG TAB PO SCH (09:00)
[2023-06-11] MEDS ORDERED: FUROSEMIDE 40 MG TAB PO SCH (09:00)
[2023-06-11] MEDS: guaiFENesin 200 MG TAB PO SCH (09:49)
[2023-06-11] MEDS: APIXABAN 2.5 MG TAB (ELIQUIS) PO SCH (09:49)
[2023-06-11] MEDS: ESCITALOPRAM OXALATE 10 MG TAB (LEXAPRO) PO SCH (09:49)
[2023-06-11] MEDS: DIVALPROEX 500 MG TAB PO SCH (09:50)
[2023-06-11] MEDS: METOPROLOL SUCC (TopROL XL) 50MG **XL** TAB PO SCH (09:53)
== END 2023-06-11 11:28 | DRG 196 ==
LOC: M ED 15:48 → M ED INP 21:46 → M PCU 23:24
PROVIDERS: ADMIT Internal Medicine; ATTEND Internal Medicine
DX: J84.9 Interstitial pulmonary disease, unspecified (principal); J96.20 Acute and chronic respiratory failure, unspecified whether with hypoxia or hypercapnia; J90 Pleural effusion, not elsewhere classified; Z68.41 Body mass index [BMI] 40.0-44.9, adult; N17.9 Acute kidney failure, unspecified; I48.20 Chronic atrial fibrillation, unspecified; I50.32 Chronic diastolic (congestive) heart failure; J44.1 Chronic obstructive pulmonary disease with (acute) exacerbation; I13.0 Hypertensive heart and chronic kidney disease with heart failure and stage 1 through stage 4 chronic kidney disease, or unspecified chronic kidney disease; E03.9 Hypothyroidism, unspecified; Z79.01 Long term (current) use of anticoagulants; M10.9 Gout, unspecified; K21.9 Gastro-esophageal reflux disease without esophagitis; E78.00 Pure hypercholesterolemia, unspecified; G40.909 Epilepsy, unspecified, not intractable, without status epilepticus; N18.30 Chronic kidney disease, stage 3 unspecified; E11.65 Type 2 diabetes mellitus with hyperglycemia; F39 Unspecified mood [affective] disorder; E66.9 Obesity, unspecified; E78.5 Hyperlipidemia, unspecified; G47.33 Obstructive sleep apnea (adult) (pediatric); Z95.0 Presence of cardiac pacemaker; E11.22 Type 2 diabetes mellitus with diabetic chronic kidney disease; I27.81 Cor pulmonale (chronic); Z88.5 Allergy status to narcotic agent; Z88.8 Allergy status to other drugs, medicaments and biological substances; Z79.899 Other long term (current) drug therapy; Z79.4 Long term (current) use of insulin; Z99.81 Dependence on supplemental oxygen; N32.81 Overactive bladder; Z96.643 Presence of artificial hip joint, bilateral; Z87.891 Personal history of nicotine dependence

== ENCOUNTER → 2023-06-17 | Outpatient (REF) | payer MEDICARE, MEDICAID ==
[~2023-06-17] MED LIST changes: +ALBU2.5V10 INH; +AMIO0.1T PO; +AMIO200T49 PO; +ATOR40TA75 PO; +BENZ200C70 PO; +BISA10SU27 PR; +DILT180C78 PO; +DIVA500T94 PO; +ELIQ5TAB PO; +FERR1TAB8 PO; +FLEEENE12 PR; +FURO40TA2 PO; +HYDR-3363 PO; +INCR1INH INH; +INSUHUMDS SC; +IPRA0.00 INH; +IPRA2IN INH; +LEVO75TA4 PO; +MAGN400T2 PO; +METO1TAB7 PO; +METO1TAB87 PO; +MILKSUS3 PO; +OXYB5TAB11 PO; +POTA10CA60 PO; +PRED10TA2 PO; +SYMB80INH INH
== END ==
PROVIDERS: ATTEND Internal Medicine
DX: R05.9 Cough, unspecified (principal); I50.9 Heart failure, unspecified; J90 Pleural effusion, not elsewhere classified; Z95.0 Presence of cardiac pacemaker

== ENCOUNTER → 2023-06-17 | Outpatient (REF) | payer MEDICARE, MEDICAID | PROVIDERS: ATTEND Internal Medicine | DX: I50.9 Heart failure, unspecified (principal); J90 Pleural effusion, not elsewhere classified; Z95.0 Presence of cardiac pacemaker ==

== ENCOUNTER → 2023-06-21 | Outpatient (REF) | payer MEDICAID, MEDICARE ==
[2023-06-21 11:02] LABS: HEMATOCRIT 37.3 % (36.0-47.0); HEMOGLOBIN 11.2 g/dl (12.0-15.5); MEAN CORPUSCULAR HEMOGLOBIN 28.9 pg (27.0-33.0); MEAN CORPUSCULAR VOLUME 96.4 fl (80.0-96.0); PLATELET COUNT, AUTOMATED 245 10^3/uL (150-450); RED BLOOD COUNT 3.87 10^6/uL (4.00-5.40); WHITE BLOOD COUNT 10.2 10^3/uL (4.0-10.0)
[2023-06-21 11:28] LABS: CALCIUM LEVEL 9.1 MG/DL (8.3-10.6); CREATININE FOR GFR 1.39 MG/DL (0.55-1.30); GLOMERULAR FILTRATION RATE 38.6 (>32); POTASSIUM SERUM 4.7 MMOL/L (3.5-5.1)
== END ==
PROVIDERS: ATTEND Physician Assistant
DX: I50.9 Heart failure, unspecified (principal)

== ENCOUNTER → 2023-06-22 | Outpatient (REF) | payer MEDICARE, MEDICAID | PROVIDERS: ATTEND Internal Medicine | DX: I50.9 Heart failure, unspecified (principal); Z95.0 Presence of cardiac pacemaker ==

== ENCOUNTER → 2023-06-23 | Outpatient (REF) | payer MEDICAID, MEDICARE ==
[2023-06-23 12:05] LABS: HEMATOCRIT 35.9 % (36.0-47.0); HEMOGLOBIN 10.9 g/dl (12.0-15.5); MEAN CORPUSCULAR HEMOGLOBIN 29.1 pg (27.0-33.0); MEAN CORPUSCULAR HGB CONC 30.4 g/dl (32.0-36.5); PLATELET COUNT, AUTOMATED 244 10^3/uL (150-450); RED BLOOD COUNT 3.74 10^6/uL (4.00-5.40); WHITE BLOOD COUNT 17.7 10^3/uL (4.0-10.0)
[2023-06-23 12:42] LABS: CALCIUM LEVEL 8.6 MG/DL (8.3-10.6); CREATININE FOR GFR 1.62 MG/DL (0.55-1.30); GLOMERULAR FILTRATION RATE 32.4 (>32); POTASSIUM SERUM 4.5 MMOL/L (3.5-5.1)
== END ==
PROVIDERS: ATTEND Internal Medicine
DX: I50.9 Heart failure, unspecified (principal)

== ENCOUNTER → 2023-06-28 | Outpatient (REF) ==
[~2023-06-28] MED LIST changes: +APAP325T4 PO; +FERR325T3 PO; +HUMA100I5 SC; +INSU100I48 SQ; -OXYB5TAB11 PO; +OXYB5TAB14 PO; +TORS20TA2 PO
[2023-06-28 11:34] LABS: HEMATOCRIT 35.1 % (36.0-47.0); HEMOGLOBIN 10.8 g/dl (12.0-15.5); MEAN CORPUSCULAR HEMOGLOBIN 29.7 pg (27.0-33.0); MEAN CORPUSCULAR HGB CONC 30.8 g/dl (32.0-36.5); MEAN CORPUSCULAR VOLUME 96.4 fl (80.0-96.0); PLATELET COUNT, AUTOMATED 181 10^3/uL (150-450); RED BLOOD COUNT 3.64 10^6/uL (4.00-5.40); WHITE BLOOD COUNT 12.6 10^3/uL (4.0-10.0)
[2023-06-28 11:55] LABS: CALCIUM LEVEL 8.8 MG/DL (8.3-10.6); CREATININE FOR GFR 1.54 MG/DL (0.55-1.30); GLOMERULAR FILTRATION RATE 34.3 (>32); POTASSIUM SERUM 4.1 MMOL/L (3.5-5.1)
== END ==
PROVIDERS: ATTEND Physician Assistant
DX: I50.9 Heart failure, unspecified (principal)

== ENCOUNTER → 2023-06-28 | Outpatient (REF) | payer MEDICARE, MEDICAID ==
[~2023-06-28] MED LIST changes: -APAP325T4 PO; -FERR325T3 PO; -HUMA100I5 SC; -INSU100I48 SQ; +OXYB5TAB11 PO; -OXYB5TAB14 PO; -TORS20TA2 PO
== END ==
PROVIDERS: ATTEND Internal Medicine
DX: I50.9 Heart failure, unspecified (principal)

== ENCOUNTER → 2023-06-30 | Outpatient (REF) | payer MEDICAID, MEDICARE ==
[~2023-06-30] MED LIST changes: +APAP325T4 PO; +FERR325T3 PO; +HUMA100I5 SC; +INSU100I48 SQ; -OXYB5TAB11 PO; +OXYB5TAB14 PO; +TORS20TA2 PO
[2023-06-30 10:39] LABS: HEMATOCRIT 33.3 % (36.0-47.0); HEMOGLOBIN 10.2 g/dl (12.0-15.5); MEAN CORPUSCULAR HEMOGLOBIN 29.5 pg (27.0-33.0); MEAN CORPUSCULAR HGB CONC 30.6 g/dl (32.0-36.5); MEAN CORPUSCULAR VOLUME 96.2 fl (80.0-96.0); PLATELET COUNT, AUTOMATED 139 10^3/uL (150-450); RED BLOOD COUNT 3.46 10^6/uL (4.00-5.40); WHITE BLOOD COUNT 7.4 10^3/uL (4.0-10.0)
[2023-06-30 11:11] LABS: CALCIUM LEVEL 8.2 MG/DL (8.3-10.6); CREATININE FOR GFR 1.74 MG/DL (0.55-1.30); GLOMERULAR FILTRATION RATE 29.8 (>32); MAGNESIUM LEVEL 1.7 MG/DL (1.8-2.4); POTASSIUM SERUM 4.2 MMOL/L (3.5-5.1)
[2023-06-30 11:12] LABS: THYROID STIMULATING HORMONE 1.287 uIU/ML (0.55-4.78)
== END ==
PROVIDERS: ATTEND Physician Assistant
DX: I50.9 Heart failure, unspecified (principal)

== ENCOUNTER 2023-07-01 09:04 | Inpatient (IN) | payer MEDICARE, MEDICAID ==
[~2023-07-01] VITALS: Ht 152.4 cm; Wt 77.1 kg
[~2023-07-01 09:04] MED LIST changes: -APAP325T4 PO; -FERR325T3 PO; -HUMA100I5 SC; -INSU100I48 SQ; -TORS20TA2 PO
[2023-07-01 09:42] LABS: VENOUS HCO3 31.1 MMOL/L (23.0-27.0); VENOUS O2 SATURATION 39.5 % (60.0-80.0); VENOUS PARTIAL PRESSURE CO2 52.7 mmHg (38.0-50.0); VENOUS PARTIAL PRESSURE O2 25.8 mmHg (30.0-50.0); VENOUS PH 7.389 UNITS (7.330-7.430); VENOUS STANDARD HCO3 27.6 MMOL/L; VENOUS TOTAL CO2 32.7 MMOL/L (24.0-28.0)
[2023-07-01 09:53] LABS: BASO % 0.1 % (0.0-1.0); EOS % 0.2 % (0.0-3.0); HEMATOCRIT 37.6 % (36.0-47.0); HEMOGLOBIN 11.7 g/dl (12.0-15.5); LYMPH # 0.8 10^3/uL (1.5-5.0); LYMPH % 7.2 % (24.0-44.0); MEAN CORPUSCULAR HGB CONC 31.1 g/dl (32.0-36.5); MEAN CORPUSCULAR VOLUME 96.4 fl (80.0-96.0); MONO # 0.7 10^3/uL (0.0-0.8); MONO % 6.3 % (2.0-8.0); NEUTROPHILS # 9.3 10^3/uL (1.5-8.5); NEUTROPHILS % 83.9 % (36.0-66.0); PLATELET COUNT, AUTOMATED 143 10^3/uL (150-450); WHITE BLOOD COUNT 11.1 10^3/uL (4.0-10.0)
[2023-07-01 10:18] LABS: CK-MB VALUE MASS < 1.0 NG/ML (<3.6)
[2023-07-01 10:21] LABS: ALBUMIN 2.4 G/DL (3.2-5.2); ALKALINE PHOSPHATASE 50 U/L (46-116); ALT/SGPT 13 U/L (7.0-40); AST/SGOT 18 U/L (<34); BILIRUBIN,DIRECT 0.4 MG/DL (<0.4); BLOOD UREA NITROGEN 38 MG/DL (9-23); CALCIUM LEVEL 8.7 MG/DL (8.3-10.6); CARBON DIOXIDE LEVEL 34 MMOL/L (20-31); CHLORIDE LEVEL 101 MMOL/L (98-107); CREATININE FOR GFR 1.65 MG/DL (0.55-1.30); GLOMERULAR FILTRATION RATE 31.7 (>32); GLUCOSE, FASTING 154 MG/DL (74-106); POTASSIUM SERUM 4.6 MMOL/L (3.5-5.1); SODIUM LEVEL 139 MMOL/L (136-145); TOTAL PROTEIN 5.9 G/DL (5.7-8.2)
[2023-07-01 10:22] LABS: THYROXINE (T4) 7.5 UG/DL (4.5-10.9)
[2023-07-01 10:23] LABS: THYROID STIMULATING HORMONE 2.166 uIU/ML (0.55-4.78)
[2023-07-01 10:26] LABS: CPK CREATINE PHOSPHOKINASE 26 U/L (34-145); MB/CK RELATIVE INDEX 3.84 (< OR =4)
[2023-07-01] MEDS: METOPROLOL 5 MG/5 ML VIAL IV SCH (11:01)
[2023-07-01] MEDS: DIGOXIN INJ 0.5 MG/2 ML AMP IV STA (12:36)
[2023-07-01] MEDS ORDERED: DEXTROSE 50% 50ML SYRINGE IV PRN (14:10)
[2023-07-01] MEDS ORDERED: GLUCOSE 4GM CHEW TABLET PO PRN (14:10)
[2023-07-01] MEDS ORDERED: GLUCAGON INJ 1MG VIAL SC PRN (14:10)
[2023-07-01] MEDS ORDERED: INSU100I48 SQ (14:25)
[2023-07-01] MEDS ORDERED: PRED10TA2 PO (14:25)
[2023-07-01] MEDS ORDERED: APAP325T4 PO (14:25)
[2023-07-01] MEDS ORDERED: TORS20TA2 PO (14:25)
[2023-07-01] MEDS ORDERED: FERR325T3 PO (14:25)
[2023-07-01] MEDS ORDERED: METO1TAB7 PO (14:25)
[2023-07-01] MEDS ORDERED: HUMA100I5 SC ×2 (14:37)
[2023-07-01] MEDS ORDERED: HOME MED LIST COMPLETE! XX SCH (14:40)
[2023-07-01 16:50] VITALS: BP 93/52; TEMP 97.8; O2SAT 93
[2023-07-01] MEDS: INSULIN LISPRO (NovoLOG) PER UNIT SC SCH ×2 (17:30→20:16)
[2023-07-01] MEDS: METOPROLOL TART 25 MG TABLET PO SCH (18:00)
[2023-07-01] MEDS: DIGOXIN INJ 0.5 MG/2 ML AMP IV ONE (18:47)
[2023-07-01 20:00] VITALS: BP 96/51; TEMP 98.1; O2SAT 97
[2023-07-01] MEDS: APIXABAN 2.5 MG TAB (ELIQUIS) PO SCH (20:17)
[2023-07-01 23:07] VITALS: BP 105/56; TEMP 97.8; O2SAT 97
[2023-07-02] VITALS (7 sets, daily range): BP systolic 108–137; BP diastolic 56–66; TEMP 97.1–98.2; O2SAT 92–100
[2023-07-02 05:46] LABS: HEMATOCRIT 31.5 % (36.0-47.0); HEMOGLOBIN 9.9 g/dl (12.0-15.5); MEAN CORPUSCULAR HEMOGLOBIN 29.6 pg (27.0-33.0); MEAN CORPUSCULAR HGB CONC 31.4 g/dl (32.0-36.5); PLATELET COUNT, AUTOMATED 113 10^3/uL (150-450); RED BLOOD COUNT 3.35 10^6/uL (4.00-5.40); WHITE BLOOD COUNT 5.7 10^3/uL (4.0-10.0)
[2023-07-02 06:21] LABS: CALCIUM LEVEL 8.3 MG/DL (8.3-10.6); CREATININE FOR GFR 1.42 MG/DL (0.55-1.30); GLOMERULAR FILTRATION RATE 37.7 (>32); MAGNESIUM LEVEL 1.8 MG/DL (1.8-2.4); POTASSIUM SERUM 3.7 MMOL/L (3.5-5.1)
[2023-07-02] MEDS: IPRATROPIUM 0.5MG/ALBUTEROL 2.5MG INH SOL UD 3ML (DUONEB) INH SCH (08:00)
[2023-07-02] MEDS ORDERED: FLEET ENEMA PR PRN (08:30)
[2023-07-02] MEDS ORDERED: MOM 30ML SUSPENSION UDC PO PRN (08:30)
[2023-07-02] MEDS ORDERED: BISACODYL 10MG SUPP PR PRN (08:30)
[2023-07-02] MEDS ORDERED: ALBUTEROL SULFATE 2.5MG/0.5ML INH NEB SOLN INH PRN (08:30)
[2023-07-02] MEDS ORDERED: ACETAMINOPHEN 325 MG TAB PO PRN (08:30)
[2023-07-02] MEDS: DIGOXIN INJ 0.5 MG/2 ML AMP IV STA (09:40)
[2023-07-02] MEDS: DIVALPROEX 500 MG TAB PO SCH (09:40)
[2023-07-02] MEDS: BENZONATATE 100MG CAPSULE PO SCH (09:41)
[2023-07-02] MEDS: FERROUS SULFATE 325MG TAB PO SCH (09:41)
[2023-07-02] MEDS: METOPROLOL TART 25 MG TABLET PO SCH (09:42)
[2023-07-02] MEDS: predniSONE 10MG TAB PO SCH (09:42)
[2023-07-02] MEDS: ESCITALOPRAM OXALATE 10 MG TAB (LEXAPRO) PO SCH (09:42)
[2023-07-02] MEDS: LEVOTHYROXINE 75MCG TABLET (0.075MG) PO SCH (10:21)
[2023-07-02 11:12] LABS: PERCENT SATURATION 13.2 % (13.2-45.0)
[2023-07-02 11:19] LABS: FERRITIN 445.4 NG/ML (7.3-270.7)
[2023-07-02] MEDS: SYMBICORT 80/4.5MCG INHALER 6GM INH SCH (11:27)
[2023-07-02] MEDS: FUROSEMIDE injection 250 MG in D5W 225 ML IV SCH (12:09)
[2023-07-02] MEDS: POTASSIUM CHLORIDE 10MEQ SR TABLET PO SCH (12:44)
[2023-07-02 13:34] LABS: PERCENT SATURATION 12.4 % (13.2-45.0)
[2023-07-02 13:39] LABS: FERRITIN 489.4 NG/ML (7.3-270.7)
[2023-07-02] MEDS: DIVALPROEX 250MG TAB PO SCH (21:36)
[2023-07-02] MEDS: ATORVASTATIN 20 MG TAB PO SCH (21:36)
[2023-07-03 04:00] VITALS: BP 146/66; TEMP 97.6; O2SAT 97
[2023-07-03] MEDS: TIOTROPIUM INHALER/CAPSULE (SPIRIVA) INH SCH (07:37)
[2023-07-03 07:49] VITALS: BP 146/72; TEMP 97; O2SAT 98
[2023-07-03 08:34] LABS: BASO % 0.2 % (0.0-1.0); EOS # 0.1 10^3/uL (0.0-0.5); EOS % 2.3 % (0.0-3.0); HEMATOCRIT 34.3 % (36.0-47.0); HEMOGLOBIN 10.7 g/dl (12.0-15.5); LYMPH # 1.3 10^3/uL (1.5-5.0); MEAN CORPUSCULAR HEMOGLOBIN 29.5 pg (27.0-33.0); MEAN CORPUSCULAR HGB CONC 31.2 g/dl (32.0-36.5); MEAN CORPUSCULAR VOLUME 94.5 fl (80.0-96.0); MONO # 0.5 10^3/uL (0.0-0.8); MONO % 10.4 % (2.0-8.0); NEUTROPHILS # 3.2 10^3/uL (1.5-8.5); NEUTROPHILS % 60.8 % (36.0-66.0); PLATELET COUNT, AUTOMATED 124 10^3/uL (150-450); RED BLOOD COUNT 3.63 10^6/uL (4.00-5.40); WHITE BLOOD COUNT 5.2 10^3/uL (4.0-10.0)
[2023-07-03 09:04] LABS: CALCIUM LEVEL 8.3 MG/DL (8.3-10.6); CREATININE FOR GFR 1.25 MG/DL (0.55-1.30); GLOMERULAR FILTRATION RATE 43.7 (>32); MAGNESIUM LEVEL 1.7 MG/DL (1.8-2.4)
[2023-07-03] MEDS: MAGNESIUM OXIDE 400MG TAB (MAG-OX) PO SCH (10:22)
[2023-07-03] MEDS: FERRIC CARBOXYMALTOSE INJ 750 MG, VIAL MATE ADAPTER 1 EACH in NS 250 ML IV ONE (10:22)
[2023-07-03 12:00] VITALS: BP 138/68; TEMP 97.7; O2SAT 90
[2023-07-03] MEDS: NYSTATIN 100,000 UNITS/GM TOPICAL PWD 15GM TOP SCH (12:56)
[2023-07-03 16:00] VITALS: BP 122/64; TEMP 97.5; O2SAT 92
[2023-07-03 20:00] VITALS: BP 126/68; TEMP 97.8; O2SAT 97
[2023-07-03] MEDS: METOPROLOL TART 25 MG TABLET PO ONE (21:45)
[2023-07-04] VITALS (7 sets, daily range): BP systolic 119–155; BP diastolic 56–83; TEMP 97–98.1; O2SAT 96–99
[2023-07-04 04:53] LABS: BASO % 0.4 % (0.0-1.0); EOS # 0.1 10^3/uL (0.0-0.5); EOS % 1.6 % (0.0-3.0); HEMATOCRIT 32.8 % (36.0-47.0); HEMOGLOBIN 10.5 g/dl (12.0-15.5); LYMPH % 18.1 % (24.0-44.0); MEAN CORPUSCULAR HEMOGLOBIN 29.6 pg (27.0-33.0); MEAN CORPUSCULAR VOLUME 92.4 fl (80.0-96.0); MONO # 0.8 10^3/uL (0.0-0.8); MONO % 13.8 % (2.0-8.0); NEUTROPHILS # 3.6 10^3/uL (1.5-8.5); NEUTROPHILS % 63.3 % (36.0-66.0); PLATELET COUNT, AUTOMATED 135 10^3/uL (150-450); RED BLOOD COUNT 3.55 10^6/uL (4.00-5.40); WHITE BLOOD COUNT 5.7 10^3/uL (4.0-10.0)
[2023-07-04 05:17] LABS: CALCIUM LEVEL 8.3 MG/DL (8.3-10.6); CREATININE FOR GFR 1.11 MG/DL (0.55-1.30); GLOMERULAR FILTRATION RATE 50.1 (>32); MAGNESIUM LEVEL 1.6 MG/DL (1.8-2.4)
[2023-07-04] MEDS: DIGOXIN INJ 0.5 MG/2 ML AMP IV SCH (09:04)
[2023-07-04] MEDS: DIGOXIN INJ 0.5 MG/2 ML AMP IV ONE (10:00)
[2023-07-05 03:40] VITALS: BP 131/63; TEMP 97.1; O2SAT 98
[2023-07-05 05:33] LABS: BASO % 0.5 % (0.0-1.0); EOS # 0.1 10^3/uL (0.0-0.5); EOS % 2.1 % (0.0-3.0); HEMATOCRIT 34.3 % (36.0-47.0); HEMOGLOBIN 10.6 g/dl (12.0-15.5); LYMPH # 1.3 10^3/uL (1.5-5.0); LYMPH % 20.9 % (24.0-44.0); MEAN CORPUSCULAR HEMOGLOBIN 29.1 pg (27.0-33.0); MEAN CORPUSCULAR HGB CONC 30.9 g/dl (32.0-36.5); MEAN CORPUSCULAR VOLUME 94.2 fl (80.0-96.0); MONO # 0.8 10^3/uL (0.0-0.8); MONO % 13.1 % (2.0-8.0); NEUTROPHILS # 3.6 10^3/uL (1.5-8.5); NEUTROPHILS % 58.8 % (36.0-66.0); PLATELET COUNT, AUTOMATED 143 10^3/uL (150-450); RED BLOOD COUNT 3.64 10^6/uL (4.00-5.40); WHITE BLOOD COUNT 6.1 10^3/uL (4.0-10.0)
[2023-07-05 05:52] LABS: MAGNESIUM LEVEL 1.8 MG/DL (1.8-2.4)
[2023-07-05 07:02] LABS: CALCIUM LEVEL 8.5 MG/DL (8.3-10.6); CREATININE FOR GFR 1.35 MG/DL (0.55-1.30); POTASSIUM SERUM 4.4 MMOL/L (3.5-5.1)
[2023-07-05 07:55] VITALS: BP 120/71; TEMP 97; O2SAT 97
[2023-07-05 11:58] VITALS: BP 135/56; TEMP 96.9; O2SAT 99
[2023-07-05 16:40] VITALS: BP 124/67; TEMP 96.8; O2SAT 100
[2023-07-05 19:25] VITALS: BP 128/60; TEMP 96.8; O2SAT 98
[2023-07-05 23:55] VITALS: BP 146/89; TEMP 97.2; O2SAT 97
[2023-07-06 04:09] VITALS: BP 147/66; TEMP 97.4; O2SAT 97
[2023-07-06 05:43] LABS: HEMATOCRIT 36.8 % (36.0-47.0); HEMOGLOBIN 11.3 g/dl (12.0-15.5); MEAN CORPUSCULAR HGB CONC 30.7 g/dl (32.0-36.5); MEAN CORPUSCULAR VOLUME 94.4 fl (80.0-96.0); PLATELET COUNT, AUTOMATED 159 10^3/uL (150-450); WHITE BLOOD COUNT 7.2 10^3/uL (4.0-10.0)
[2023-07-06 06:13] LABS: CALCIUM LEVEL 9.2 MG/DL (8.3-10.6); CREATININE FOR GFR 1.47 MG/DL (0.55-1.30); GLOMERULAR FILTRATION RATE 36.2 (>32); POTASSIUM SERUM 5.1 MMOL/L (3.5-5.1)
[2023-07-06 07:06] LABS: ATYPICAL LYMPH 21 % (0-5); EOSINOPHILS 1 % (0-3); LYMPHOCYTES 3 % (16-44); METAMYELOCYTES 1 % (0-0); MONOCYTES 9 % (0-5); NEUTROPHILS 64 % (28-66); PLATELET ESTIMATE NORMAL (NORMAL); TOXIC VACUOLATION 1+
[2023-07-06 07:54] VITALS: BP 166/74; TEMP 96.8; O2SAT 97
[2023-07-06] MEDS: ENTRESTO 24-26MG TABLET (SACUBITRIL/VALSARTAN) PO SCH (09:29)
[2023-07-06 12:01] VITALS: BP 110/54; TEMP 97.3; O2SAT 99
[2023-07-06] MEDS: ACETAMINOPHEN TAB 650MG DOSE (2X325MG) PO PRN (14:10)
[2023-07-06 16:17] VITALS: BP 112/51; TEMP 96.7; O2SAT 90; O2SAT 93
[2023-07-06 20:04] VITALS: BP 101/54; TEMP 97; O2SAT 96
[2023-07-06 23:24] VITALS: BP 113/53; TEMP 97; O2SAT 97
[2023-07-07] VITALS (10 sets, daily range): BP systolic 100–131; BP diastolic 48–81; TEMP 96.7–97.6; O2SAT 87–100
[2023-07-07] MEDS ORDERED: CEPACOL LOZENGE PO PRN (00:35)
[2023-07-07 05:54] LABS: BASO % 0.4 % (0.0-1.0); EOS # 0.1 10^3/uL (0.0-0.5); EOS % 1.3 % (0.0-3.0); HEMOGLOBIN 10.6 g/dl (12.0-15.5); LYMPH # 1.4 10^3/uL (1.5-5.0); LYMPH % 17.9 % (24.0-44.0); MEAN CORPUSCULAR HEMOGLOBIN 29.6 pg (27.0-33.0); MEAN CORPUSCULAR HGB CONC 31.2 g/dl (32.0-36.5); MONO # 1.1 10^3/uL (0.0-0.8); MONO % 13.7 % (2.0-8.0); NEUTROPHILS # 4.8 10^3/uL (1.5-8.5); PLATELET COUNT, AUTOMATED 161 10^3/uL (150-450); RED BLOOD COUNT 3.58 10^6/uL (4.00-5.40); WHITE BLOOD COUNT 7.7 10^3/uL (4.0-10.0)
[2023-07-07 06:16] LABS: ALBUMIN 2.2 G/DL (3.2-5.2); CALCIUM LEVEL 9.1 MG/DL (8.3-10.6); CREATININE FOR GFR 1.8 MG/DL (0.55-1.30); GLOMERULAR FILTRATION RATE 28.7 (>32); MAGNESIUM LEVEL 2.1 MG/DL (1.8-2.4); POTASSIUM SERUM 4.1 MMOL/L (3.5-5.1)
[2023-07-08] VITALS (10 sets, daily range): BP systolic 106–131; BP diastolic 52–85; TEMP 96.1–98; O2SAT 82–98
[2023-07-08 06:04] LABS: BASO % 0.3 % (0.0-1.0); EOS # 0.1 10^3/uL (0.0-0.5); EOS % 1.5 % (0.0-3.0); HEMATOCRIT 34.8 % (36.0-47.0); LYMPH # 1.4 10^3/uL (1.5-5.0); LYMPH % 18.6 % (24.0-44.0); MEAN CORPUSCULAR HEMOGLOBIN 29.6 pg (27.0-33.0); MEAN CORPUSCULAR HGB CONC 31.6 g/dl (32.0-36.5); MEAN CORPUSCULAR VOLUME 93.8 fl (80.0-96.0); NEUTROPHILS # 4.4 10^3/uL (1.5-8.5); NEUTROPHILS % 60.6 % (36.0-66.0); PLATELET COUNT, AUTOMATED 168 10^3/uL (150-450); RED BLOOD COUNT 3.71 10^6/uL (4.00-5.40); WHITE BLOOD COUNT 7.3 10^3/uL (4.0-10.0)
[2023-07-08 06:38] LABS: ALBUMIN 2.4 G/DL (3.2-5.2); CALCIUM LEVEL 9.5 MG/DL (8.3-10.6); CREATININE FOR GFR 2.2 MG/DL (0.55-1.30); GLOMERULAR FILTRATION RATE 22.7 (>32); MAGNESIUM LEVEL 2.4 MG/DL (1.8-2.4); PHOSPHORUS LEVEL 4.1 MG/DL (2.4-5.1); POTASSIUM SERUM 4.1 MMOL/L (3.5-5.1)
[2023-07-08] MEDS: FERROUS SULFATE 325MG TAB PO SCH (08:57)
[2023-07-09 04:00] VITALS: BP 126/58; TEMP 98.2; O2SAT 95
[2023-07-09 05:13] LABS: BASO % 0.6 % (0.0-1.0); EOS # 0.1 10^3/uL (0.0-0.5); EOS % 1.6 % (0.0-3.0); HEMOGLOBIN 11.2 g/dl (12.0-15.5); LYMPH # 1.4 10^3/uL (1.5-5.0); LYMPH % 20.4 % (24.0-44.0); MEAN CORPUSCULAR HEMOGLOBIN 30.1 pg (27.0-33.0); MEAN CORPUSCULAR VOLUME 94.1 fl (80.0-96.0); MONO # 1.1 10^3/uL (0.0-0.8); MONO % 16.6 % (2.0-8.0); NEUTROPHILS # 3.9 10^3/uL (1.5-8.5); NEUTROPHILS % 56.3 % (36.0-66.0); PLATELET COUNT, AUTOMATED 172 10^3/uL (150-450); RED BLOOD COUNT 3.72 10^6/uL (4.00-5.40); WHITE BLOOD COUNT 6.9 10^3/uL (4.0-10.0)
[2023-07-09 05:36] LABS: ALBUMIN 2.4 G/DL (3.2-5.2); CALCIUM LEVEL 9.3 MG/DL (8.3-10.6); CREATININE FOR GFR 2.07 MG/DL (0.55-1.30); GLOMERULAR FILTRATION RATE 24.4 (>32); MAGNESIUM LEVEL 2.7 MG/DL (1.8-2.4); PHOSPHORUS LEVEL 4.1 MG/DL (2.4-5.1); POTASSIUM SERUM 4.7 MMOL/L (3.5-5.1)
[2023-07-09 06:04] LABS: DIGOXIN LEVEL 3.9 NG/ML (0.8-2.0)
[2023-07-09 07:51] VITALS: BP 118/60; TEMP 98.4; O2SAT 94
[2023-07-09 11:44] VITALS: BP 134/60; TEMP 97.4; O2SAT 94
[2023-07-09 15:34] VITALS: BP 115/54; TEMP 97.6; O2SAT 92
[2023-07-09 19:03] VITALS: BP 103/61; TEMP 96.7; O2SAT 97
[2023-07-09 23:26] VITALS: BP_SYST 95; BP_SYST 97; BP_DIAS 48; BP_DIAS 51; TEMP 97; O2SAT 93
[2023-07-10] VITALS (9 sets, daily range): BP systolic 89–136; BP diastolic 48–59; TEMP 96.5–97.2; O2SAT 93–98
[2023-07-10 05:59] LABS: BASO % 0.5 % (0.0-1.0); EOS # 0.1 10^3/uL (0.0-0.5); EOS % 1.1 % (0.0-3.0); HEMATOCRIT 34.3 % (36.0-47.0); HEMOGLOBIN 11.1 g/dl (12.0-15.5); LYMPH # 1.3 10^3/uL (1.5-5.0); LYMPH % 21.4 % (24.0-44.0); MEAN CORPUSCULAR HEMOGLOBIN 29.9 pg (27.0-33.0); MEAN CORPUSCULAR HGB CONC 32.4 g/dl (32.0-36.5); MEAN CORPUSCULAR VOLUME 92.5 fl (80.0-96.0); MONO # 0.9 10^3/uL (0.0-0.8); MONO % 15.1 % (2.0-8.0); NEUTROPHILS # 3.5 10^3/uL (1.5-8.5); NEUTROPHILS % 57.1 % (36.0-66.0); PLATELET COUNT, AUTOMATED 156 10^3/uL (150-450); RED BLOOD COUNT 3.71 10^6/uL (4.00-5.40); WHITE BLOOD COUNT 6.2 10^3/uL (4.0-10.0)
[2023-07-10 06:18] LABS: ALBUMIN 2.3 G/DL (3.2-5.2); CALCIUM LEVEL 8.9 MG/DL (8.3-10.6); CREATININE FOR GFR 1.91 MG/DL (0.55-1.30); GLOMERULAR FILTRATION RATE 26.8 (>32); MAGNESIUM LEVEL 2.6 MG/DL (1.8-2.4); PHOSPHORUS LEVEL 4.3 MG/DL (2.4-5.1); POTASSIUM SERUM 4.2 MMOL/L (3.5-5.1)
[2023-07-10 06:23] LABS: DIGOXIN LEVEL 3.1 NG/ML (0.8-2.0)
[2023-07-10] MEDS: FUROSEMIDE 100MG/10ML VIAL IV SCH (12:00)
[2023-07-10] MEDS ORDERED: ENTRESTO 24-26MG TABLET (SACUBITRIL/VALSARTAN) PO SCH (21:00)
[2023-07-11] VITALS (7 sets, daily range): BP systolic 99–173; BP diastolic 50–70; TEMP 96.7–97.3; O2SAT 93–100
[2023-07-11 06:03] LABS: BASO % 0.4 % (0.0-1.0); EOS # 0.1 10^3/uL (0.0-0.5); EOS % 1.9 % (0.0-3.0); HEMATOCRIT 35.3 % (36.0-47.0); HEMOGLOBIN 11.3 g/dl (12.0-15.5); LYMPH # 1.4 10^3/uL (1.5-5.0); LYMPH % 20.7 % (24.0-44.0); MEAN CORPUSCULAR HEMOGLOBIN 29.8 pg (27.0-33.0); MEAN CORPUSCULAR VOLUME 93.1 fl (80.0-96.0); MONO # 1.1 10^3/uL (0.0-0.8); MONO % 16.3 % (2.0-8.0); NEUTROPHILS # 3.9 10^3/uL (1.5-8.5); NEUTROPHILS % 55.7 % (36.0-66.0); PLATELET COUNT, AUTOMATED 157 10^3/uL (150-450); RED BLOOD COUNT 3.79 10^6/uL (4.00-5.40)
[2023-07-11 06:27] LABS: ALBUMIN 2.4 G/DL (3.2-5.2); CREATININE FOR GFR 1.83 MG/DL (0.55-1.30); GLOMERULAR FILTRATION RATE 28.1 (>32); MAGNESIUM LEVEL 2.5 MG/DL (1.8-2.4); PHOSPHORUS LEVEL 4.1 MG/DL (2.4-5.1); POTASSIUM SERUM 3.9 MMOL/L (3.5-5.1)
[2023-07-11 06:30] LABS: DIGOXIN LEVEL 2.6 NG/ML (0.8-2.0)
[2023-07-11] MEDS: TORSEMIDE (DEMADEX) 50 MG PER 1/2 TAB PO SCH (15:21)
[2023-07-12] VITALS (8 sets, daily range): BP systolic 103–136; BP diastolic 50–62; TEMP 96.3–97.2; O2SAT 92–99
[2023-07-12 05:07] LABS: BASO % 0.4 % (0.0-1.0); EOS # 0.1 10^3/uL (0.0-0.5); EOS % 0.7 % (0.0-3.0); HEMATOCRIT 34.4 % (36.0-47.0); HEMOGLOBIN 11.2 g/dl (12.0-15.5); LYMPH # 1.4 10^3/uL (1.5-5.0); LYMPH % 19.9 % (24.0-44.0); MEAN CORPUSCULAR HEMOGLOBIN 30.4 pg (27.0-33.0); MEAN CORPUSCULAR HGB CONC 32.6 g/dl (32.0-36.5); MEAN CORPUSCULAR VOLUME 93.2 fl (80.0-96.0); MONO # 0.9 10^3/uL (0.0-0.8); MONO % 13.6 % (2.0-8.0); NEUTROPHILS # 4.2 10^3/uL (1.5-8.5); NEUTROPHILS % 60.6 % (36.0-66.0); PLATELET COUNT, AUTOMATED 152 10^3/uL (150-450); RED BLOOD COUNT 3.69 10^6/uL (4.00-5.40); WHITE BLOOD COUNT 6.9 10^3/uL (4.0-10.0)
[2023-07-12 05:45] LABS: ALBUMIN 2.5 G/DL (3.2-5.2); CALCIUM LEVEL 8.7 MG/DL (8.3-10.6); CREATININE FOR GFR 1.54 MG/DL (0.55-1.30); GLOMERULAR FILTRATION RATE 34.3 (>32); MAGNESIUM LEVEL 2.2 MG/DL (1.8-2.4); PHOSPHORUS LEVEL 3.4 MG/DL (2.4-5.1)
[2023-07-12] MEDS: ENTRESTO 24-26MG TABLET (SACUBITRIL/VALSARTAN) PO SCH (10:50)
[2023-07-13 00:10] VITALS: BP 133/60; TEMP 97.9; O2SAT 99
[2023-07-13 04:19] VITALS: BP 114/54; TEMP 98.2; O2SAT 98
[2023-07-13 05:30] LABS: HEMATOCRIT 33.8 % (36.0-47.0); MEAN CORPUSCULAR HEMOGLOBIN 30.2 pg (27.0-33.0); MEAN CORPUSCULAR HGB CONC 32.5 g/dl (32.0-36.5); MEAN CORPUSCULAR VOLUME 92.9 fl (80.0-96.0); PLATELET COUNT, AUTOMATED 157 10^3/uL (150-450); RED BLOOD COUNT 3.64 10^6/uL (4.00-5.40); WHITE BLOOD COUNT 6.6 10^3/uL (4.0-10.0)
[2023-07-13 05:41] LABS: ALBUMIN 2.2 G/DL (3.2-5.2); CALCIUM LEVEL 8.9 MG/DL (8.3-10.6); CREATININE FOR GFR 1.49 MG/DL (0.55-1.30); GLOMERULAR FILTRATION RATE 35.7 (>32); PHOSPHORUS LEVEL 2.9 MG/DL (2.4-5.1); POTASSIUM SERUM 3.9 MMOL/L (3.5-5.1)
[2023-07-13 06:02] LABS: ATYPICAL LYMPH 4 % (0-5); LYMPHOCYTES 18 % (16-44); METAMYELOCYTES 4 % (0-0); MONOCYTES 10 % (0-5); MYELOCYTES 1 % (0-0); NEUTROPHILS 61 % (28-66); OVALOCYTES 1+
[2023-07-13 06:03] LABS: ANISOCYTOSIS 1+
[2023-07-13 06:04] LABS: PLATELET ESTIMATE NORMAL (NORMAL)
[2023-07-13 08:02] VITALS: BP 96/66; TEMP 98.6; O2SAT 97
[2023-07-13 09:00] VITALS: O2SAT 96
[2023-07-13 09:55] VITALS: BP 102/48
[2023-07-13] MEDS ORDERED: TORS100T PO ×2 (11:07→11:21)
[2023-07-13] MEDS ORDERED: ENTR1TAB PO ×2 (11:07→11:21)
[2023-07-13] MEDS ORDERED: METO1TAB87 PO (11:21)
[2023-07-13] MEDS ORDERED: IPRA0.00 INH (11:22)
[2023-07-13] MEDS ORDERED: FARX1TAB3 PO (11:39)
== END 2023-07-13 11:47 | DRG 291 ==
LOC: M ED 09:04 → EDBD 09:04 → M ED INP 13:11 → M PCU 16:22
PROVIDERS: ADMIT Internal Medicine; ATTEND Internal Medicine
DX: I13.0 Hypertensive heart and chronic kidney disease with heart failure and stage 1 through stage 4 chronic kidney disease, or unspecified chronic kidney disease (principal); I50.33 Acute on chronic diastolic (congestive) heart failure; J96.21 Acute and chronic respiratory failure with hypoxia; I48.20 Chronic atrial fibrillation, unspecified; N17.9 Acute kidney failure, unspecified; K21.9 Gastro-esophageal reflux disease without esophagitis; E11.22 Type 2 diabetes mellitus with diabetic chronic kidney disease; N18.30 Chronic kidney disease, stage 3 unspecified; I27.81 Cor pulmonale (chronic); J44.9 Chronic obstructive pulmonary disease, unspecified; E83.42 Hypomagnesemia; D63.1 Anemia in chronic kidney disease; E03.9 Hypothyroidism, unspecified; G40.909 Epilepsy, unspecified, not intractable, without status epilepticus; Z99.81 Dependence on supplemental oxygen; E78.5 Hyperlipidemia, unspecified; M10.9 Gout, unspecified; G47.33 Obstructive sleep apnea (adult) (pediatric); I34.0 Nonrheumatic mitral (valve) insufficiency; Z88.5 Allergy status to narcotic agent; Z88.8 Allergy status to other drugs, medicaments and biological substances; Z79.899 Other long term (current) drug therapy; Z79.4 Long term (current) use of insulin; D72.829 Elevated white blood cell count, unspecified; Z96.643 Presence of artificial hip joint, bilateral; Z87.891 Personal history of nicotine dependence; Z66 Do not resuscitate

== ENCOUNTER → 2023-07-03 | Outpatient (REF) ==
[~2023-07-03] MED LIST changes: +APAP325T4 PO; +FERR325T3 PO; +HUMA100I5 SC; +INSU100I48 SQ; +TORS20TA2 PO
== END ==
PROVIDERS: ATTEND Internal Medicine
DX: Z53.8 Procedure and treatment not carried out for other reasons (principal)

== ENCOUNTER → 2023-07-05 | Outpatient (REF) | PROVIDERS: ATTEND Physician Assistant | DX: I50.9 Heart failure, unspecified (principal) ==

== ENCOUNTER → 2023-07-16 | Outpatient (REF) ==
[~2023-07-16] MED LIST changes: +ENTR1TAB PO; +FARX1TAB3 PO; +TORS100T PO
[2023-07-16 09:33] LABS: HEMATOCRIT 38.2 % (36.0-47.0); MEAN CORPUSCULAR HEMOGLOBIN 29.6 pg (27.0-33.0); MEAN CORPUSCULAR HGB CONC 31.4 g/dl (32.0-36.5); MEAN CORPUSCULAR VOLUME 94.3 fl (80.0-96.0); PLATELET COUNT, AUTOMATED 173 10^3/uL (150-450); RED BLOOD COUNT 4.05 10^6/uL (4.00-5.40); WHITE BLOOD COUNT 7.8 10^3/uL (4.0-10.0)
[2023-07-16 10:01] LABS: ALBUMIN 2.4 G/DL (3.2-5.2); BILIRUBIN,TOTAL 0.4 MG/DL (0.3-1.2); CALCIUM LEVEL 9.4 MG/DL (8.3-10.6); CREATININE FOR GFR 2.47 MG/DL (0.55-1.30); GLOMERULAR FILTRATION RATE 19.9 (>32); MAGNESIUM LEVEL 1.9 MG/DL (1.8-2.4); POTASSIUM SERUM 4.7 MMOL/L (3.5-5.1); TOTAL PROTEIN 5.6 G/DL (5.7-8.2)
== END ==
PROVIDERS: ATTEND Internal Medicine
DX: I50.9 Heart failure, unspecified (principal)

== ENCOUNTER → 2023-07-19 | Outpatient (REF) ==
[2023-07-19 10:37] LABS: HEMATOCRIT 38.1 % (36.0-47.0); MEAN CORPUSCULAR HEMOGLOBIN 31.3 pg (27.0-33.0); MEAN CORPUSCULAR HGB CONC 31.5 g/dl (32.0-36.5); MEAN CORPUSCULAR VOLUME 99.2 fl (80.0-96.0); PLATELET COUNT, AUTOMATED 136 10^3/uL (150-450); RED BLOOD COUNT 3.84 10^6/uL (4.00-5.40); WHITE BLOOD COUNT 8.7 10^3/uL (4.0-10.0)
[2023-07-19 11:02] LABS: CALCIUM LEVEL 8.7 MG/DL (8.3-10.6); CREATININE FOR GFR 1.46 MG/DL (0.55-1.30); GLOMERULAR FILTRATION RATE 36.5 (>32); POTASSIUM SERUM 4.6 MMOL/L (3.5-5.1)
== END ==
PROVIDERS: ATTEND Physician Assistant
DX: I50.9 Heart failure, unspecified (principal)

== ENCOUNTER → 2023-07-21 | Outpatient (REF) | payer MEDICARE, MEDICAID | PROVIDERS: ATTEND Physician Assistant | DX: I50.9 Heart failure, unspecified (principal) ==

== ENCOUNTER → 2023-07-22 | Outpatient (REF) | payer MEDICARE, MEDICAID | PROVIDERS: ATTEND Internal Medicine | DX: R19.7 Diarrhea, unspecified (principal) ==

== ENCOUNTER → 2023-07-26 | Outpatient (CLI) | payer MEDICARE, MEDICAID | LOC: M PLAIMG 09:32 | PROVIDERS: ATTEND Internal Medicine Pulmonary Disease | DX: R91.8 Other nonspecific abnormal finding of lung field (principal); J44.9 Chronic obstructive pulmonary disease, unspecified ==

== ENCOUNTER → 2023-07-28 | Outpatient (REF) | payer MEDICARE, MEDICAID | PROVIDERS: ATTEND Internal Medicine | DX: I50.9 Heart failure, unspecified (principal); Z53.8 Procedure and treatment not carried out for other reasons ==

== ENCOUNTER → 2023-08-06 | Outpatient (REF) | payer MEDICARE, MEDICAID | PROVIDERS: ATTEND Internal Medicine | DX: Z51.81 Encounter for therapeutic drug level monitoring (principal); G40.909 Epilepsy, unspecified, not intractable, without status epilepticus ==

== ENCOUNTER → 2023-08-08 | Outpatient (REF) | payer MEDICARE, MEDICAID | PROVIDERS: ATTEND Internal Medicine | DX: R19.7 Diarrhea, unspecified (principal) ==

== ENCOUNTER → 2023-08-27 | Outpatient (REF) | payer MEDICARE, MEDICAID | PROVIDERS: ATTEND Physician Assistant | DX: I50.9 Heart failure, unspecified (principal); Z53.8 Procedure and treatment not carried out for other reasons ==

== ENCOUNTER → 2023-08-30 | Outpatient (REF) | payer MEDICARE, MEDICAID ==
[2023-08-30 11:48] LABS: HEMATOCRIT 28.4 % (36.0-47.0); HEMOGLOBIN 9.1 g/dl (12.0-15.5); MEAN CORPUSCULAR HEMOGLOBIN 31.7 pg (27.0-33.0); PLATELET COUNT, AUTOMATED 107 10^3/uL (150-450); RED BLOOD COUNT 2.87 10^6/uL (4.00-5.40); WHITE BLOOD COUNT 6.7 10^3/uL (4.0-10.0)
[2023-08-30 12:19] LABS: CALCIUM LEVEL 9.1 MG/DL (8.3-10.6); CREATININE FOR GFR 2.55 MG/DL (0.55-1.30); GLOMERULAR FILTRATION RATE 19.2 (>32); POTASSIUM SERUM 5.4 MMOL/L (3.5-5.1)
== END ==
PROVIDERS: ATTEND Physician Assistant
DX: I50.9 Heart failure, unspecified (principal)

== ENCOUNTER → 2023-08-31 | Outpatient (REF) | payer MEDICARE, MEDICAID ==
[~2023-08-31] MED LIST changes: +BACI1CAP PO; +GLUC1KIT IM; +LANTINJ4 SC; +LOPE2TAB12 PO; +SODIGEL NARES; +TORS10TA3 PO
[2023-08-31 14:58] LABS: CALCIUM LEVEL 9.5 MG/DL (8.3-10.6); CREATININE FOR GFR 2.24 MG/DL (0.55-1.30); GLOMERULAR FILTRATION RATE 22.3 (>32); POTASSIUM SERUM 5.4 MMOL/L (3.5-5.1)
== END ==
PROVIDERS: ATTEND Internal Medicine
DX: R05.9 Cough, unspecified (principal)

== ENCOUNTER → 2023-09-01 | Outpatient (REF) | payer MEDICARE, MEDICAID | PROVIDERS: ATTEND Physician Assistant | DX: I50.9 Heart failure, unspecified (principal); N18.9 Chronic kidney disease, unspecified; Z53.8 Procedure and treatment not carried out for other reasons ==

== ENCOUNTER 2023-09-02 09:32 | Inpatient (IN) | payer MEDICARE, MEDICAID ==
[~2023-09-02] VITALS: Ht 152.4 cm; Wt 74.5 kg
[2023-09-02] VITALS (11 sets, daily range): BP systolic 78–110; BP diastolic 48–65; TEMP 96.9–97.6; O2SAT 94–99
[~2023-09-02 09:32] MED LIST changes: -BACI1CAP PO; -GLUC1KIT IM; -LANTINJ4 SC; -LOPE2TAB12 PO; -POTA10CA60 PO; +POTA10CA70 PO; -SODIGEL NARES; -TORS10TA3 PO
[2023-09-02 10:02] LABS: VENOUS BASE EXCESS -4.5 (-2.0-2.0); VENOUS HCO3 23.1 MMOL/L (23.0-27.0); VENOUS O2 SATURATION 50.7 % (60.0-80.0); VENOUS PARTIAL PRESSURE CO2 54.5 mmHg (38.0-50.0); VENOUS PARTIAL PRESSURE O2 32.3 mmHg (30.0-50.0); VENOUS PH 7.246 UNITS (7.330-7.430); VENOUS STANDARD HCO3 19.9 MMOL/L; VENOUS TOTAL CO2 24.8 MMOL/L (24.0-28.0)
[2023-09-02 10:04] LABS: BASO % 0.5 % (0.0-1.0); EOS # 0.2 10^3/uL (0.0-0.5); EOS % 2.6 % (0.0-3.0); HEMATOCRIT 31.5 % (36.0-47.0); HEMOGLOBIN 9.9 g/dl (12.0-15.5); LYMPH # 1.6 10^3/uL (1.5-5.0); LYMPH % 26.9 % (24.0-44.0); MEAN CORPUSCULAR HEMOGLOBIN 31.6 pg (27.0-33.0); MEAN CORPUSCULAR HGB CONC 31.4 g/dl (32.0-36.5); MEAN CORPUSCULAR VOLUME 100.6 fl (80.0-96.0); MONO # 0.7 10^3/uL (0.0-0.8); MONO % 12.7 % (2.0-8.0); NEUTROPHILS # 3.2 10^3/uL (1.5-8.5); NEUTROPHILS % 55.6 % (36.0-66.0); PLATELET COUNT, AUTOMATED 128 10^3/uL (150-450); RED BLOOD COUNT 3.13 10^6/uL (4.00-5.40); WHITE BLOOD COUNT 5.8 10^3/uL (4.0-10.0)
[2023-09-02] MEDS: NS 500 ML IV ONE ×2 (10:13→11:58)
[2023-09-02 10:25] LABS: INR 1.5; LIPASE 20 U/L (12-53); PROTHROMBIN TIME 17.6 SECONDS (12.5-14.5); VALPROIC ACID (DEPAKOTE) 64.7 UG/ML (50.0-100.0)
[2023-09-02 10:26] LABS: DIGOXIN LEVEL 0.2 NG/ML (0.8-2.0)
[2023-09-02 10:27] LABS: ALBUMIN 2.4 G/DL (3.2-5.2); ALKALINE PHOSPHATASE 63 U/L (46-116); ALT/SGPT < 9 U/L (7.0-40); AST/SGOT 13 U/L (<34); BILIRUBIN,DIRECT 0.1 MG/DL (<0.4); BILIRUBIN,TOTAL 0.3 MG/DL (0.3-1.2); BLOOD UREA NITROGEN 67 MG/DL (9-23); CALCIUM LEVEL 9.3 MG/DL (8.3-10.6); CARBON DIOXIDE LEVEL 26 MMOL/L (20-31); CHLORIDE LEVEL 101 MMOL/L (98-107); CREATININE FOR GFR 2.41 MG/DL (0.55-1.30); GLOMERULAR FILTRATION RATE 20.5 (>32); GLUCOSE, FASTING 117 MG/DL (74-106); MAGNESIUM LEVEL 1.6 MG/DL (1.8-2.4); POTASSIUM SERUM 5.4 MMOL/L (3.5-5.1); SODIUM LEVEL 134 MMOL/L (136-145); TOTAL PROTEIN 6.5 G/DL (5.7-8.2)
[2023-09-02 10:28] LABS: FREE T4 1.32 NG/DL (0.89-1.76)
[2023-09-02 10:29] LABS: THYROID STIMULATING HORMONE 3.491 uIU/ML (0.55-4.78)
[2023-09-02] MEDS: cefTRIAXone SOD 2 GM in D5W MINI-BAG PLUS 50 ML IV ONE (10:48)
[2023-09-02] MEDS: NS IV STA (10:48)
[2023-09-02] MEDS: METOPROLOL TART 25 MG TABLET PO ONE (10:50)
[2023-09-02] MEDS ORDERED: GLUCAGON INJ 1MG VIAL SC PRN (12:35)
[2023-09-02] MEDS ORDERED: GLUCOSE 4 GM CHEW PO PRN (12:35)
[2023-09-02] MEDS ORDERED: DEXTROSE 50% 50ML SYRINGE IV PRN (12:35)
[2023-09-02] MEDS: INSULIN LISPRO (NovoLOG) PER UNIT SC SCH ×2 (12:57→20:19)
[2023-09-02] MEDS: NS 1,000 ML IV ONE (12:58)
[2023-09-02] MEDS: DIGOXIN INJ 0.5 MG/2 ML AMP IV ONE (13:00)
[2023-09-02 14:06] LABS: PROCALCITONIN 0.06 ng/ml
[2023-09-02] MEDS ORDERED: BACI1CAP PO (14:18)
[2023-09-02] MEDS ORDERED: TORS10TA3 PO (14:18)
[2023-09-02] MEDS ORDERED: GLUC1KIT IM (14:18)
[2023-09-02] MEDS ORDERED: SODIGEL NARES (14:18)
[2023-09-02] MEDS ORDERED: LOPE2TAB12 PO (14:18)
[2023-09-02] MEDS ORDERED: METO1TAB87 PO (14:18)
[2023-09-02] MEDS ORDERED: IPRA0.00 INH (14:18)
[2023-09-02] MEDS ORDERED: LANTINJ4 SC (14:18)
[2023-09-02] MEDS: AMIODARONE HCL 150 MG in IV 1 EA IV ONE (14:24)
[2023-09-02] MEDS ORDERED: HOME MED LIST COMPLETE! XX SCH (14:35)
[2023-09-02] MEDS: MAG SULF 1GM/100ML (MAG RUN) 1 GM in IV 1 EA IV SCH (15:07)
[2023-09-02] MEDS: NS 1,000 ML IV SCH (15:07)
[2023-09-02] MEDS ORDERED: IPRATROPIUM 0.5MG/ALBUTEROL 2.5MG INH SOL UD 3ML (DUONEB) INH PRN (15:10)
[2023-09-02] MEDS ORDERED: BISACODYL 10MG SUPP PR PRN (15:10)
[2023-09-02] MEDS: LEVOTHYROXINE 75MCG TABLET (0.075MG) PO SCH (15:44)
[2023-09-02] MEDS: AMIODARONE HCL 360 MG in IV 1 EA IV SCH ×2 (15:44→21:54)
[2023-09-02] MEDS: LACTOBACILLUS ACIDOPHILUS CAP (BACID) PO SCH (18:06)
[2023-09-02] MEDS: NS 250 ML IV ONE (20:11)
[2023-09-02] MEDS: MIDODRINE 5 MG TAB PO ONE (20:18)
[2023-09-02] MEDS: DIVALPROEX 250MG TAB PO SCH (20:19)
[2023-09-02] MEDS: FOLIC ACID 1MG TAB PO SCH (20:19)
[2023-09-02] MEDS: ATORVASTATIN 20 MG TAB PO SCH (20:19)
[2023-09-02] MEDS: BENZONATATE 100MG CAPSULE PO SCH (20:19)
[2023-09-02] MEDS: FERROUS SULFATE 325MG TAB PO SCH (20:19)
[2023-09-02] MEDS: APIXABAN 2.5 MG TAB (ELIQUIS) PO SCH (20:19)
[2023-09-02] MEDS: SYMBICORT 80/4.5MCG INHALER 6GM INH SCH (20:23)
[2023-09-02] MEDS: HYDROCORTISONE 100MG/2ML VIAL IV ONE (20:32)
[2023-09-03 04:19] VITALS: BP 112/62; TEMP 97.2; O2SAT 94
[2023-09-03 07:18] LABS: MAGNESIUM LEVEL 2.2 MG/DL (1.8-2.4)
[2023-09-03 07:57] LABS: BASO % 0.8 % (0.0-1.0); HEMATOCRIT 26.4 % (36.0-47.0); HEMOGLOBIN 8.2 g/dl (12.0-15.5); LYMPH # 0.8 10^3/uL (1.5-5.0); LYMPH % 20.4 % (24.0-44.0); MEAN CORPUSCULAR HEMOGLOBIN 31.7 pg (27.0-33.0); MEAN CORPUSCULAR HGB CONC 31.1 g/dl (32.0-36.5); MEAN CORPUSCULAR VOLUME 101.9 fl (80.0-96.0); MONO # 0.2 10^3/uL (0.0-0.8); MONO % 4.6 % (2.0-8.0); NEUTROPHILS # 2.6 10^3/uL (1.5-8.5); NEUTROPHILS % 69.6 % (36.0-66.0); PLATELET COUNT, AUTOMATED 124 10^3/uL (150-450); RED BLOOD COUNT 2.59 10^6/uL (4.00-5.40); WHITE BLOOD COUNT 3.7 10^3/uL (4.0-10.0)
[2023-09-03 07:58] VITALS: BP 105/52; TEMP 96.7; O2SAT 93
[2023-09-03 08:21] LABS: ALBUMIN 1.8 G/DL (3.2-5.2); ALKALINE PHOSPHATASE 51 U/L (46-116); ALT/SGPT < 9 U/L (7.0-40); AST/SGOT 8 U/L (<34); BILIRUBIN,TOTAL 0.2 MG/DL (0.3-1.2); BLOOD UREA NITROGEN 44 MG/DL (9-23); CALCIUM LEVEL 7.7 MG/DL (8.3-10.6); CARBON DIOXIDE LEVEL 20 MMOL/L (20-31); CHLORIDE LEVEL 111 MMOL/L (98-107); CREATININE FOR GFR 1.59 MG/DL (0.55-1.30); GLOMERULAR FILTRATION RATE 33.1 (>32); GLUCOSE, FASTING 129 MG/DL (74-106); POTASSIUM SERUM 5.1 MMOL/L (3.5-5.1); SODIUM LEVEL 138 MMOL/L (136-145); TOTAL PROTEIN 5.2 G/DL (5.7-8.2)
[2023-09-03] MEDS: cefTRIAXone SOD 1 GM in D5W MINI-BAG PLUS 50 ML IV SCH (09:52)
[2023-09-03] MEDS: LEVEMIR (INSULIN DETEMIR) 1 UNITS/0.01ML SC SCH (09:53)
[2023-09-03] MEDS: DIVALPROEX 500 MG TAB PO SCH (09:54)
[2023-09-03] MEDS: ESCITALOPRAM OXALATE 10 MG TAB (LEXAPRO) PO SCH (09:54)
[2023-09-03 11:57] VITALS: BP 108/55; TEMP 97; O2SAT 90
[2023-09-03 15:42] VITALS: BP 99/61; TEMP 96.8; O2SAT 90
[2023-09-03 19:40] VITALS: BP 103/49; TEMP 97; O2SAT 93
[2023-09-03 23:09] VITALS: BP 109/56; TEMP 97.6; O2SAT 94
[2023-09-04] VITALS (7 sets, daily range): BP systolic 92–135; BP diastolic 54–68; TEMP 97–98.5; O2SAT 89–93
[2023-09-04 06:39] LABS: BASO % 0.6 % (0.0-1.0); EOS # 0.1 10^3/uL (0.0-0.5); EOS % 1.7 % (0.0-3.0); HEMATOCRIT 25.5 % (36.0-47.0); HEMOGLOBIN 8.2 g/dl (12.0-15.5); LYMPH # 1.2 10^3/uL (1.5-5.0); LYMPH % 19.4 % (24.0-44.0); MEAN CORPUSCULAR HEMOGLOBIN 31.8 pg (27.0-33.0); MEAN CORPUSCULAR HGB CONC 32.2 g/dl (32.0-36.5); MEAN CORPUSCULAR VOLUME 98.8 fl (80.0-96.0); MONO # 1.4 10^3/uL (0.0-0.8); MONO % 22.4 % (2.0-8.0); NEUTROPHILS # 3.4 10^3/uL (1.5-8.5); NEUTROPHILS % 54.2 % (36.0-66.0); PLATELET COUNT, AUTOMATED 139 10^3/uL (150-450); RED BLOOD COUNT 2.58 10^6/uL (4.00-5.40); WHITE BLOOD COUNT 6.3 10^3/uL (4.0-10.0)
[2023-09-04 07:14] LABS: ALBUMIN 2.1 G/DL (3.2-5.2); ALKALINE PHOSPHATASE 62 U/L (46-116); ALT/SGPT < 9 U/L (7.0-40); AST/SGOT 9 U/L (<34); BILIRUBIN,TOTAL 0.4 MG/DL (0.3-1.2); BLOOD UREA NITROGEN 34 MG/DL (9-23); CALCIUM LEVEL 8.6 MG/DL (8.3-10.6); CARBON DIOXIDE LEVEL 23 MMOL/L (20-31); CHLORIDE LEVEL 109 MMOL/L (98-107); CREATININE FOR GFR 1.48 MG/DL (0.55-1.30); GLOMERULAR FILTRATION RATE 35.9 (>32); GLUCOSE, FASTING 91 MG/DL (74-106); MAGNESIUM LEVEL 1.9 MG/DL (1.8-2.4); POTASSIUM SERUM 4.7 MMOL/L (3.5-5.1); SODIUM LEVEL 139 MMOL/L (136-145); TOTAL PROTEIN 5.5 G/DL (5.7-8.2)
[2023-09-04] MEDS: TORSEMIDE 10 MG TABLET PO SCH (08:03)
[2023-09-04] MEDS: CEFDINIR 300 MG CAP (OMNICEF) PO SCH (08:29)
[2023-09-04] MEDS: AMIODARONE 200 MG TAB (PACERONE) PO SCH (10:34)
[2023-09-04] MEDS: FUROSEMIDE 40MG/4ML VIAL IV ONE (14:32)
[2023-09-05] VITALS (20 sets, daily range): BP systolic 88–128; BP diastolic 50–69; TEMP 97–99.6; O2SAT 86–100
[2023-09-05 05:37] LABS: BASO % 0.5 % (0.0-1.0); EOS # 0.1 10^3/uL (0.0-0.5); EOS % 1.8 % (0.0-3.0); HEMATOCRIT 22.5 % (36.0-47.0); HEMOGLOBIN 7.1 g/dl (12.0-15.5); LYMPH # 1.2 10^3/uL (1.5-5.0); LYMPH % 19.5 % (24.0-44.0); MEAN CORPUSCULAR HEMOGLOBIN 31.3 pg (27.0-33.0); MEAN CORPUSCULAR HGB CONC 31.6 g/dl (32.0-36.5); MEAN CORPUSCULAR VOLUME 99.1 fl (80.0-96.0); MONO # 1.5 10^3/uL (0.0-0.8); MONO % 23.9 % (2.0-8.0); NEUTROPHILS # 3.3 10^3/uL (1.5-8.5); NEUTROPHILS % 52.5 % (36.0-66.0); PLATELET COUNT, AUTOMATED 129 10^3/uL (150-450); RED BLOOD COUNT 2.27 10^6/uL (4.00-5.40); WHITE BLOOD COUNT 6.2 10^3/uL (4.0-10.0)
[2023-09-05 06:12] LABS: ALBUMIN 1.8 G/DL (3.2-5.2); ALKALINE PHOSPHATASE 57 U/L (46-116); ALT/SGPT < 9 U/L (7.0-40); AST/SGOT 11 U/L (<34); BILIRUBIN,TOTAL 0.5 MG/DL (0.3-1.2); BLOOD UREA NITROGEN 28 MG/DL (9-23); CALCIUM LEVEL 8.4 MG/DL (8.3-10.6); CARBON DIOXIDE LEVEL 23 MMOL/L (20-31); CHLORIDE LEVEL 108 MMOL/L (98-107); CREATININE FOR GFR 1.37 MG/DL (0.55-1.30); GLOMERULAR FILTRATION RATE 39.3 (>32); GLUCOSE, FASTING 96 MG/DL (74-106); MAGNESIUM LEVEL 1.6 MG/DL (1.8-2.4); POTASSIUM SERUM 3.9 MMOL/L (3.5-5.1); SODIUM LEVEL 139 MMOL/L (136-145); TOTAL PROTEIN 5.1 G/DL (5.7-8.2)
[2023-09-05] MEDS ORDERED: FUROSEMIDE injection 250 MG in D5W 225 ML IV SCH (09:00)
[2023-09-05] MEDS: MAG SULF 1GM/100ML (MAG RUN) 1 GM in IV 1 EA IV SCH (09:15)
[2023-09-05] MEDS: diltiaZEM 125 MG in NS 100 ML IV SCH (10:40)
[2023-09-05] MEDS: FUROSEMIDE 40MG/4ML VIAL IV ONE ×2 (16:12→20:42)
[2023-09-05] MEDS ORDERED: METOCLOPRAMIDE INJ 10MG/2ML VIAL IV PRN (23:30)
[2023-09-06 03:23] VITALS: BP 105/51; TEMP 97.2; O2SAT 95
[2023-09-06 05:48] LABS: BASO # 0.1 10^3/uL (0.0-0.2); BASO % 0.7 % (0.0-1.0); EOS # 0.2 10^3/uL (0.0-0.5); EOS % 3.1 % (0.0-3.0); HEMATOCRIT 27.2 % (36.0-47.0); LYMPH % 13.6 % (24.0-44.0); MEAN CORPUSCULAR HEMOGLOBIN 31.5 pg (27.0-33.0); MEAN CORPUSCULAR HGB CONC 33.1 g/dl (32.0-36.5); MEAN CORPUSCULAR VOLUME 95.1 fl (80.0-96.0); MONO # 1.5 10^3/uL (0.0-0.8); NEUTROPHILS # 4.6 10^3/uL (1.5-8.5); NEUTROPHILS % 60.6 % (36.0-66.0); PLATELET COUNT, AUTOMATED 130 10^3/uL (150-450); RED BLOOD COUNT 2.86 10^6/uL (4.00-5.40); WHITE BLOOD COUNT 7.6 10^3/uL (4.0-10.0)
[2023-09-06 06:21] LABS: ALBUMIN 1.8 G/DL (3.2-5.2); ALKALINE PHOSPHATASE 58 U/L (46-116); ALT/SGPT < 9 U/L (7.0-40); AST/SGOT 14 U/L (<34); BILIRUBIN,TOTAL 0.7 MG/DL (0.3-1.2); BLOOD UREA NITROGEN 23 MG/DL (9-23); CALCIUM LEVEL 8.1 MG/DL (8.3-10.6); CARBON DIOXIDE LEVEL 23 MMOL/L (20-31); CHLORIDE LEVEL 106 MMOL/L (98-107); CREATININE FOR GFR 1.28 MG/DL (0.55-1.30); GLOMERULAR FILTRATION RATE 42.5 (>32); GLUCOSE, FASTING 95 MG/DL (74-106); MAGNESIUM LEVEL 1.8 MG/DL (1.8-2.4); POTASSIUM SERUM 3.6 MMOL/L (3.5-5.1); SODIUM LEVEL 137 MMOL/L (136-145); TOTAL PROTEIN 5.2 G/DL (5.7-8.2)
[2023-09-06 07:40] VITALS: BP 96/54; O2SAT 94
[2023-09-06 07:52] VITALS: BP 96/50
[2023-09-06 11:47] VITALS: BP 100/59; TEMP 97.7; O2SAT 97
[2023-09-06 15:50] VITALS: BP 94/52; TEMP 96.9; O2SAT 89
[2023-09-06] MEDS: FUROSEMIDE 20MG/2ML VIAL IV ONE (15:59)
[2023-09-06] MEDS: LOPERAMIDE 2 MG CAPLET PO PRN (16:22)
[2023-09-06 18:53] VITALS: BP 110/52; TEMP 96.8; O2SAT 89
[2023-09-07] VITALS (7 sets, daily range): BP systolic 95–113; BP diastolic 44–69; TEMP 97.1–97.7; O2SAT 90–97
[2023-09-07 06:32] LABS: BASO % 0.5 % (0.0-1.0); EOS # 0.3 10^3/uL (0.0-0.5); EOS % 4.2 % (0.0-3.0); HEMATOCRIT 27.7 % (36.0-47.0); HEMOGLOBIN 8.7 g/dl (12.0-15.5); LYMPH # 1.2 10^3/uL (1.5-5.0); LYMPH % 15.6 % (24.0-44.0); MEAN CORPUSCULAR HEMOGLOBIN 31.8 pg (27.0-33.0); MEAN CORPUSCULAR HGB CONC 31.4 g/dl (32.0-36.5); MEAN CORPUSCULAR VOLUME 101.1 fl (80.0-96.0); MONO # 1.4 10^3/uL (0.0-0.8); MONO % 17.7 % (2.0-8.0); NEUTROPHILS # 4.7 10^3/uL (1.5-8.5); NEUTROPHILS % 59.6 % (36.0-66.0); PLATELET COUNT, AUTOMATED 133 10^3/uL (150-450); RED BLOOD COUNT 2.74 10^6/uL (4.00-5.40)
[2023-09-07 07:05] LABS: ALBUMIN 1.9 G/DL (3.2-5.2); ALKALINE PHOSPHATASE 59 U/L (46-116); ALT/SGPT < 9 U/L (7.0-40); AST/SGOT 16 U/L (<34); BILIRUBIN,TOTAL 0.7 MG/DL (0.3-1.2); BLOOD UREA NITROGEN 21 MG/DL (9-23); CALCIUM LEVEL 8.8 MG/DL (8.3-10.6); CARBON DIOXIDE LEVEL 22 MMOL/L (20-31); CHLORIDE LEVEL 106 MMOL/L (98-107); CREATININE FOR GFR 1.26 MG/DL (0.55-1.30); GLOMERULAR FILTRATION RATE 43.3 (>32); GLUCOSE, FASTING 91 MG/DL (74-106); MAGNESIUM LEVEL 1.9 MG/DL (1.8-2.4); POTASSIUM SERUM 3.9 MMOL/L (3.5-5.1); SODIUM LEVEL 137 MMOL/L (136-145); TOTAL PROTEIN 5.4 G/DL (5.7-8.2)
[2023-09-07] MEDS: METOPROLOL TART 12.5 MG PER 1/2 TAB PO SCH (10:15)
[2023-09-07] MEDS ORDERED: VARIBAR PUDDING 40% w/v 230ML TUBE As Ordered ONE (11:24)
[2023-09-07] MEDS ORDERED: E-Z-PAQUE 96% w/w SUSP 176GM BTL As Ordered ONE (11:24)
[2023-09-07] MEDS ORDERED: VARIBAR NECTAR 40% w/v 240ML SUSP BTL As Ordered ONE (11:24)
[2023-09-07] MEDS: FUROSEMIDE 100MG/10ML VIAL IV ONE (17:28)
[2023-09-08] VITALS (8 sets, daily range): BP systolic 102–136; BP diastolic 54–66; TEMP 96.6–98.8; O2SAT 83–100
[2023-09-08 05:41] LABS: BASO % 0.1 % (0.0-1.0); EOS # 0.3 10^3/uL (0.0-0.5); EOS % 3.8 % (0.0-3.0); HEMATOCRIT 26.7 % (36.0-47.0); HEMOGLOBIN 8.6 g/dl (12.0-15.5); LYMPH # 1.3 10^3/uL (1.5-5.0); LYMPH % 17.5 % (24.0-44.0); MEAN CORPUSCULAR HEMOGLOBIN 31.7 pg (27.0-33.0); MEAN CORPUSCULAR HGB CONC 32.2 g/dl (32.0-36.5); MEAN CORPUSCULAR VOLUME 98.5 fl (80.0-96.0); MONO # 1.5 10^3/uL (0.0-0.8); MONO % 19.8 % (2.0-8.0); NEUTROPHILS # 4.1 10^3/uL (1.5-8.5); NEUTROPHILS % 55.7 % (36.0-66.0); PLATELET COUNT, AUTOMATED 136 10^3/uL (150-450); RED BLOOD COUNT 2.71 10^6/uL (4.00-5.40); WHITE BLOOD COUNT 7.4 10^3/uL (4.0-10.0)
[2023-09-08 06:01] LABS: ALBUMIN 1.8 G/DL (3.2-5.2); ALKALINE PHOSPHATASE 56 U/L (46-116); ALT/SGPT < 9 U/L (7.0-40); AST/SGOT 13 U/L (<34); BILIRUBIN,TOTAL 0.7 MG/DL (0.3-1.2); BLOOD UREA NITROGEN 20 MG/DL (9-23); CALCIUM LEVEL 8.8 MG/DL (8.3-10.6); CARBON DIOXIDE LEVEL 26 MMOL/L (20-31); CHLORIDE LEVEL 107 MMOL/L (98-107); CREATININE FOR GFR 1.27 MG/DL (0.55-1.30); GLOMERULAR FILTRATION RATE 42.9 (>32); GLUCOSE, FASTING 96 MG/DL (74-106); MAGNESIUM LEVEL 1.7 MG/DL (1.8-2.4); POTASSIUM SERUM 3.6 MMOL/L (3.5-5.1); SODIUM LEVEL 139 MMOL/L (136-145); TOTAL PROTEIN 5.3 G/DL (5.7-8.2)
[2023-09-08] MEDS: POTASSIUM CHLORIDE 10MEQ SR TABLET PO ONE (08:20)
[2023-09-08] MEDS: predniSONE 10MG TAB PO SCH (08:21)
[2023-09-08] MEDS: MAG SULF 1GM/100ML (MAG RUN) 1 GM in IV 1 EA IV ONE (08:24)
[2023-09-08] MEDS: FUROSEMIDE 100MG/10ML VIAL IV ONE ×2 (08:25→17:41)
[2023-09-08] MEDS: ACETAMINOPHEN TAB 650MG DOSE (2X325MG) PO PRN (14:46)
[2023-09-09] VITALS (21 sets, daily range): BP systolic 96–145; BP diastolic 51–85; TEMP 96.7–98.3; O2SAT 87–100
[2023-09-09 05:39] LABS: BASO % 0.3 % (0.0-1.0); EOS # 0.2 10^3/uL (0.0-0.5); EOS % 3.4 % (0.0-3.0); HEMATOCRIT 26.8 % (36.0-47.0); HEMOGLOBIN 8.6 g/dl (12.0-15.5); LYMPH # 1.5 10^3/uL (1.5-5.0); LYMPH % 22.3 % (24.0-44.0); MEAN CORPUSCULAR HEMOGLOBIN 31.7 pg (27.0-33.0); MEAN CORPUSCULAR HGB CONC 32.1 g/dl (32.0-36.5); MEAN CORPUSCULAR VOLUME 98.9 fl (80.0-96.0); MONO # 1.3 10^3/uL (0.0-0.8); MONO % 18.2 % (2.0-8.0); NEUTROPHILS # 3.6 10^3/uL (1.5-8.5); NEUTROPHILS % 52.6 % (36.0-66.0); PLATELET COUNT, AUTOMATED 162 10^3/uL (150-450); RED BLOOD COUNT 2.71 10^6/uL (4.00-5.40); WHITE BLOOD COUNT 6.9 10^3/uL (4.0-10.0)
[2023-09-09 06:06] LABS: ALBUMIN 1.8 G/DL (3.2-5.2); ALKALINE PHOSPHATASE 57 U/L (46-116); ALT/SGPT < 9 U/L (7.0-40); AST/SGOT 18 U/L (<34); BILIRUBIN,TOTAL 0.6 MG/DL (0.3-1.2); BLOOD UREA NITROGEN 21 MG/DL (9-23); CALCIUM LEVEL 8.8 MG/DL (8.3-10.6); CARBON DIOXIDE LEVEL 32 MMOL/L (20-31); CHLORIDE LEVEL 106 MMOL/L (98-107); CREATININE FOR GFR 1.31 MG/DL (0.55-1.30); GLOMERULAR FILTRATION RATE 41.4 (>32); GLUCOSE, FASTING 86 MG/DL (74-106); MAGNESIUM LEVEL 1.7 MG/DL (1.8-2.4); POTASSIUM SERUM 3.6 MMOL/L (3.5-5.1); SODIUM LEVEL 143 MMOL/L (136-145); TOTAL PROTEIN 5.3 G/DL (5.7-8.2)
[2023-09-09] MEDS ORDERED: MIRALAX *UNIT DOSE* 17GM PACKET PO SCH (09:00)
[2023-09-09] MEDS ORDERED: DOCUSATE SODIUM 100MG CAPSULE PO SCH (09:00)
[2023-09-09] MEDS: AMIODARONE 200 MG TAB (PACERONE) PO SCH (09:52)
[2023-09-09] MEDS: FUROSEMIDE 20MG/2ML VIAL IV ONE (12:25)
[2023-09-09] MEDS: MAG SULF 1GM/100ML (MAG RUN) 1 GM in IV 1 EA IV ONE (12:26)
[2023-09-09] MEDS: FUROSEMIDE injection 250 MG in D5W 225 ML IV SCH (12:39)
[2023-09-09] MEDS: KCL 10MEQ/100ML SWI (KRUN) 10 MEQ in IV 1 EA IV SCH (13:34)
[2023-09-09] MEDS: IPRATROPIUM 0.02% SOLN 0.5MG 2.5ML NEB INH SCH (16:00)
[2023-09-09] MEDS: KCL 20MEQ IN 100ML SWI (KRUN) 20 MEQ in IV 1 EA IV ONE (16:30)
[2023-09-09 18:19] LABS: CALCIUM LEVEL 9.2 MG/DL (8.3-10.6); CREATININE FOR GFR 1.15 MG/DL (0.55-1.30); GLOMERULAR FILTRATION RATE 48.1 (>32); MAGNESIUM LEVEL 1.8 MG/DL (1.8-2.4); PHOSPHORUS LEVEL 2.4 MG/DL (2.4-5.1); POTASSIUM SERUM 4.4 MMOL/L (3.5-5.1)
[2023-09-09] MEDS: SODIUM CHLORIDE 0.9% INJ 10 ML SYR IV SCH (18:38)
[2023-09-09] MEDS: DOCUSATE SODIUM 100MG CAPSULE PO SCH (20:08)
[2023-09-09] MEDS ORDERED: SENNA 8.6 MG TAB (SENOKOT) PO SCH (21:00)
[2023-09-10] VITALS (27 sets, daily range): BP systolic 111–161; BP diastolic 55–80; TEMP 96.7–98; O2SAT 74–100
[2023-09-10 05:41] LABS: CALCIUM LEVEL 8.8 MG/DL (8.3-10.6); CREATININE FOR GFR 1.14 MG/DL (0.55-1.30); GLOMERULAR FILTRATION RATE 48.6 (>32); MAGNESIUM LEVEL 1.8 MG/DL (1.8-2.4); POTASSIUM SERUM 3.8 MMOL/L (3.5-5.1)
[2023-09-10] MEDS: FUROSEMIDE 40MG/4ML VIAL IV ONE ×3 (06:14→17:04)
[2023-09-10] MEDS: ALBUTEROL SULFATE 2.5MG/0.5ML INH NEB SOLN INH PRN (07:13)
[2023-09-10] MEDS: MAG SULF 1GM/100ML (MAG RUN) 1 GM in IV 1 EA IV ONE (08:19)
[2023-09-10] MEDS: SODIUM CHLORIDE 0.9% INJ 10 ML SYR IV PRN (17:10)
[2023-09-10 21:54] LABS: CREATININE FOR GFR 1.3 MG/DL (0.55-1.30); GLOMERULAR FILTRATION RATE 41.7 (>32); POTASSIUM SERUM 3.9 MMOL/L (3.5-5.1)
[2023-09-11] VITALS (25 sets, daily range): BP systolic 128–170; BP diastolic 59–89; TEMP 96.7–97.9; O2SAT 80–100
[2023-09-11] MEDS: methylPREDNISolone 125MG 2ML VIAL IV ONE (00:33)
[2023-09-11 06:32] LABS: CALCIUM LEVEL 9.2 MG/DL (8.3-10.6); CREATININE FOR GFR 1.26 MG/DL (0.55-1.30); GLOMERULAR FILTRATION RATE 43.3 (>32)
[2023-09-11] MEDS: METOPROLOL TART 25 MG TABLET PO SCH (07:55)
[2023-09-11] MEDS: LEVEMIR (INSULIN DETEMIR) 1 UNITS/0.01ML SC SCH (07:56)
[2023-09-11] MEDS: methylPREDNISolone 125MG 2ML VIAL IV SCH (09:17)
[2023-09-11] MEDS: FUROSEMIDE 20MG/2ML VIAL IV ONE (10:59)
[2023-09-11] MEDS: FUROSEMIDE injection 250 MG in D5W 225 ML IV SCH (10:59)
[2023-09-11 18:40] LABS: CALCIUM LEVEL 8.8 MG/DL (8.3-10.6); CREATININE FOR GFR 1.33 MG/DL (0.55-1.30); GLOMERULAR FILTRATION RATE 40.7 (>32); MAGNESIUM LEVEL 1.8 MG/DL (1.8-2.4); POTASSIUM SERUM 3.4 MMOL/L (3.5-5.1)
[2023-09-11] MEDS: FORMOTEROL FUMARATE 20 MCG/2 ML INHALATION SOLUTION (PERFOROMIST) INH SCH (19:31)
[2023-09-11] MEDS: KCL 10MEQ/100ML SWI (KRUN) 10 MEQ in IV 1 EA IV SCH (20:26)
[2023-09-12] VITALS (25 sets, daily range): BP systolic 111–166; BP diastolic 56–98; TEMP 97–99.5; O2SAT 84–100
[2023-09-12 06:39] LABS: C REACTIVE PROTEIN QUANTITATIV 1.4 MG/DL (<1.0)
[2023-09-12 06:40] LABS: CALCIUM LEVEL 8.5 MG/DL (8.3-10.6); CREATININE FOR GFR 1.33 MG/DL (0.55-1.30); GLOMERULAR FILTRATION RATE 40.7 (>32); MAGNESIUM LEVEL 1.7 MG/DL (1.8-2.4); POTASSIUM SERUM 3.4 MMOL/L (3.5-5.1)
[2023-09-12] MEDS: MAG SULF 1GM/100ML (MAG RUN) 1 GM in IV 1 EA IV ONE (08:01)
[2023-09-12] MEDS: POTASSIUM CHLORIDE 10MEQ SR TABLET PO ONE (08:16)
[2023-09-12] MEDS ORDERED: AMIODARONE 200 MG TAB (PACERONE) PO SCH (09:00)
[2023-09-12] MEDS: KCL 10MEQ/100ML SWI (KRUN) 10 MEQ in IV 1 EA IV SCH (09:50)
[2023-09-12 15:29] LABS: HEMATOCRIT 27.2 % (36.0-47.0); HEMOGLOBIN 8.8 g/dl (12.0-15.5); LYMPH # 0.6 10^3/uL (1.5-5.0); LYMPH % 8.4 % (24.0-44.0); MEAN CORPUSCULAR HEMOGLOBIN 31.8 pg (27.0-33.0); MEAN CORPUSCULAR HGB CONC 32.4 g/dl (32.0-36.5); MEAN CORPUSCULAR VOLUME 98.2 fl (80.0-96.0); MONO # 0.4 10^3/uL (0.0-0.8); MONO % 6.4 % (2.0-8.0); NEUTROPHILS # 5.8 10^3/uL (1.5-8.5); NEUTROPHILS % 83.9 % (36.0-66.0); PLATELET COUNT, AUTOMATED 221 10^3/uL (150-450); RED BLOOD COUNT 2.77 10^6/uL (4.00-5.40); WHITE BLOOD COUNT 6.9 10^3/uL (4.0-10.0)
[2023-09-12 19:13] LABS: CALCIUM LEVEL 8.6 MG/DL (8.3-10.6); CREATININE FOR GFR 1.32 MG/DL (0.55-1.30); POTASSIUM SERUM 3.5 MMOL/L (3.5-5.1)
[2023-09-12] MEDS: METOPROLOL TART 50 MG TAB PO SCH (20:55)
[2023-09-13] VITALS (24 sets, daily range): BP systolic 116–172; BP diastolic 63–81; TEMP 97–98.9; O2SAT 90–100
[2023-09-13 07:07] LABS: BLOOD UREA NITROGEN 49 MG/DL (9-23); CARBON DIOXIDE LEVEL > 40.0 MMOL/L (20-31); CHLORIDE LEVEL 99 MMOL/L (98-107); CREATININE FOR GFR 1.36 MG/DL (0.55-1.30); GLOMERULAR FILTRATION RATE 39.6 (>32); GLUCOSE, FASTING 148 MG/DL (74-106); PHOSPHORUS LEVEL 3.2 MG/DL (2.4-5.1); POTASSIUM SERUM 3.3 MMOL/L (3.5-5.1); SODIUM LEVEL 145 MMOL/L (136-145)
[2023-09-13 08:00] LABS: ABG BASE EXCESS 14.1 (-2.0-2.0); ABG HCO3 38.7 MMOL/L (22.0-26.0); ABG O2 SATURATION 98.9 % (95.0-99.0); ABG PARTIAL PRESSURE CO2 49.5 mmHg (35.0-45.0); ABG PARTIAL PRESSURE O2 147.7 mmHg (75.0-100.0); ABG STANDARD HCO3 37.9 MMOL/L. (22.0-26.0); ABG TOTAL CO2 40.2 MMOL/L (23.0-31.0); ABG pH (ARTERIAL) 7.511 UNITS (7.350-7.450)
[2023-09-13] MEDS: KCL 10MEQ/100ML SWI (KRUN) 10 MEQ in IV 1 EA IV SCH (09:20)
[2023-09-13] MEDS: CHLORHEXIDINE GLUCONATE 0.12 % 15ML UDC (PERIDEX ORAL RINSE) MT SCH (16:14)
[2023-09-14] VITALS (13 sets, daily range): BP systolic 124–162; BP diastolic 59–89; TEMP 97.3–98.3; O2SAT 87–100
[2023-09-14 05:54] LABS: BASO % 0.1 % (0.0-1.0); HEMATOCRIT 28.7 % (36.0-47.0); HEMOGLOBIN 8.9 g/dl (12.0-15.5); LYMPH # 0.6 10^3/uL (1.5-5.0); LYMPH % 5.2 % (24.0-44.0); MEAN CORPUSCULAR HEMOGLOBIN 31.3 pg (27.0-33.0); MEAN CORPUSCULAR VOLUME 101.1 fl (80.0-96.0); MONO # 1.1 10^3/uL (0.0-0.8); MONO % 9.1 % (2.0-8.0); NEUTROPHILS # 9.9 10^3/uL (1.5-8.5); NEUTROPHILS % 83.7 % (36.0-66.0); PLATELET COUNT, AUTOMATED 227 10^3/uL (150-450); RED BLOOD COUNT 2.84 10^6/uL (4.00-5.40); WHITE BLOOD COUNT 11.8 10^3/uL (4.0-10.0)
[2023-09-14 06:04] LABS: ALBUMIN 2.1 G/DL (3.2-5.2); ALKALINE PHOSPHATASE 55 U/L (46-116); ALT/SGPT < 9 U/L (7.0-40); AST/SGOT 9 U/L (<34); BILIRUBIN,TOTAL 0.6 MG/DL (0.3-1.2); BLOOD UREA NITROGEN 59 MG/DL (9-23); CALCIUM LEVEL 9.2 MG/DL (8.3-10.6); CARBON DIOXIDE LEVEL > 40.0 MMOL/L (20-31); CHLORIDE LEVEL 102 MMOL/L (98-107); CREATININE FOR GFR 1.29 MG/DL (0.55-1.30); GLOMERULAR FILTRATION RATE 42.1 (>32); GLUCOSE, FASTING 213 MG/DL (74-106); SODIUM LEVEL 146 MMOL/L (136-145); TOTAL PROTEIN 5.8 G/DL (5.7-8.2)
[2023-09-14] MEDS: predniSONE 10MG TAB PO SCH (08:21)
[2023-09-14] MEDS: METOPROLOL TART 25 MG TABLET PO SCH (08:28)
[2023-09-14] MEDS ORDERED: ISOVUE-370 76% 100ML VIAL As Ordered ONE (08:46)
[2023-09-14] MEDS: LEVEMIR (INSULIN DETEMIR) 1 UNITS/0.01ML SC ONE (09:41)
[2023-09-14] MEDS: PANTOPRAZOLE 40MG TAB (PROTONIX) PO SCH (12:09)
[2023-09-14] MEDS: PERCOCET 5MG/325MG TAB PO PRN (12:12)
[2023-09-14] MEDS ORDERED: PERCOCET 5MG/325MG TAB PO PRN (16:55)
[2023-09-14] MEDS: guaiFENesin ER TABLET 600 MG TAB PO SCH (20:05)
[2023-09-15] VITALS (13 sets, daily range): BP systolic 90–139; BP diastolic 50–77; TEMP 97.6–98.7; O2SAT 90–99
[2023-09-15 04:34] LABS: HEMATOCRIT 30.5 % (36.0-47.0); HEMOGLOBIN 9.6 g/dl (12.0-15.5); MEAN CORPUSCULAR HEMOGLOBIN 31.8 pg (27.0-33.0); MEAN CORPUSCULAR HGB CONC 31.5 g/dl (32.0-36.5); PLATELET COUNT, AUTOMATED 229 10^3/uL (150-450); RED BLOOD COUNT 3.02 10^6/uL (4.00-5.40); WHITE BLOOD COUNT 18.2 10^3/uL (4.0-10.0)
[2023-09-15 05:47] LABS: ALKALINE PHOSPHATASE 60 U/L (46-116); ALT/SGPT < 9 U/L (7.0-40); AST/SGOT 16 U/L (<34); BILIRUBIN,TOTAL 0.6 MG/DL (0.3-1.2); BLOOD UREA NITROGEN 60 MG/DL (9-23); CALCIUM LEVEL 9.1 MG/DL (8.3-10.6); CARBON DIOXIDE LEVEL 36 MMOL/L (20-31); CHLORIDE LEVEL 101 MMOL/L (98-107); CREATININE FOR GFR 1.22 MG/DL (0.55-1.30); GLOMERULAR FILTRATION RATE 44.9 (>32); GLUCOSE, FASTING 123 MG/DL (74-106); POTASSIUM SERUM 4.8 MMOL/L (3.5-5.1); SODIUM LEVEL 144 MMOL/L (136-145); TOTAL PROTEIN 5.9 G/DL (5.7-8.2)
[2023-09-15] MEDS: cefTRIAXone SOD 1 GM in D5W MINI-BAG PLUS 50 ML IV SCH (08:17)
[2023-09-15] MEDS: DOXYCYCLINE HYCLATE 100MG TABLET PO SCH (08:18)
[2023-09-15] MEDS: LEVEMIR (INSULIN DETEMIR) 1 UNITS/0.01ML SC SCH (08:24)
[2023-09-15] MEDS: FUROSEMIDE 20MG/2ML VIAL IV SCH (08:24)
[2023-09-15] MEDS ORDERED: LEVEMIR (INSULIN DETEMIR) 1 UNITS/0.01ML SC SCH (09:00)
[2023-09-16] VITALS (16 sets, daily range): BP systolic 101–139; BP diastolic 57–86; TEMP 97.1–98.6; O2SAT 91–100
[2023-09-16 05:26] LABS: HEMATOCRIT 27.9 % (36.0-47.0); MEAN CORPUSCULAR HEMOGLOBIN 31.8 pg (27.0-33.0); MEAN CORPUSCULAR HGB CONC 32.3 g/dl (32.0-36.5); MEAN CORPUSCULAR VOLUME 98.6 fl (80.0-96.0); PLATELET COUNT, AUTOMATED 183 10^3/uL (150-450); RED BLOOD COUNT 2.83 10^6/uL (4.00-5.40); WHITE BLOOD COUNT 18.5 10^3/uL (4.0-10.0)
[2023-09-16 06:34] LABS: ALBUMIN 1.8 G/DL (3.2-5.2); ALKALINE PHOSPHATASE 53 U/L (46-116); ALT/SGPT < 9 U/L (7.0-40); AST/SGOT 14 U/L (<34); BILIRUBIN,TOTAL 0.4 MG/DL (0.3-1.2); BLOOD UREA NITROGEN 56 MG/DL (9-23); CALCIUM LEVEL 8.6 MG/DL (8.3-10.6); CARBON DIOXIDE LEVEL 40 MMOL/L (20-31); CHLORIDE LEVEL 99 MMOL/L (98-107); CREATININE FOR GFR 1.12 MG/DL (0.55-1.30); GLOMERULAR FILTRATION RATE 49.6 (>32); GLUCOSE, FASTING 90 MG/DL (74-106); POTASSIUM SERUM 4.5 MMOL/L (3.5-5.1); SODIUM LEVEL 141 MMOL/L (136-145); TOTAL PROTEIN 5.5 G/DL (5.7-8.2)
[2023-09-17 03:24] VITALS: BP 110/68; TEMP 97.2; O2SAT 95
[2023-09-17 07:30] VITALS: BP 125/79; TEMP 96.9; O2SAT 100
[2023-09-17 08:04] LABS: HEMATOCRIT 26.7 % (36.0-47.0); HEMOGLOBIN 8.6 g/dl (12.0-15.5); MEAN CORPUSCULAR HEMOGLOBIN 31.6 pg (27.0-33.0); MEAN CORPUSCULAR HGB CONC 32.2 g/dl (32.0-36.5); MEAN CORPUSCULAR VOLUME 98.2 fl (80.0-96.0); PLATELET COUNT, AUTOMATED 159 10^3/uL (150-450); RED BLOOD COUNT 2.72 10^6/uL (4.00-5.40); WHITE BLOOD COUNT 12.1 10^3/uL (4.0-10.0)
[2023-09-17 08:39] LABS: ALBUMIN 1.8 G/DL (3.2-5.2); ALKALINE PHOSPHATASE 54 U/L (46-116); ALT/SGPT < 9 U/L (7.0-40); AST/SGOT 16 U/L (<34); BILIRUBIN,TOTAL 0.5 MG/DL (0.3-1.2); BLOOD UREA NITROGEN 43 MG/DL (9-23); CALCIUM LEVEL 8.5 MG/DL (8.3-10.6); CARBON DIOXIDE LEVEL > 40.0 MMOL/L (20-31); CHLORIDE LEVEL 97 MMOL/L (98-107); CREATININE FOR GFR 1.02 MG/DL (0.55-1.30); GLOMERULAR FILTRATION RATE 55.2 (>32); GLUCOSE, FASTING 105 MG/DL (74-106); POTASSIUM SERUM 4.5 MMOL/L (3.5-5.1); SODIUM LEVEL 139 MMOL/L (136-145); TOTAL PROTEIN 5.2 G/DL (5.7-8.2)
[2023-09-17 09:55] VITALS: BP 125/79
[2023-09-17] MEDS: TORSEMIDE 20 MG TAB PO SCH (09:55)
[2023-09-17] MEDS ORDERED: ACET1TAB55 PO (12:22)
[2023-09-17] MEDS ORDERED: PERCOCET PO (12:22)
[2023-09-17] MEDS ORDERED: COLA100C5 PO (12:22)
[2023-09-17] MEDS ORDERED: TORS20TA2 PO (12:22)
[2023-09-17] MEDS ORDERED: METO1TAB87 PO (12:22)
[2023-09-17] MEDS ORDERED: PERI12LIQ MT (12:22)
[2023-09-17] MEDS ORDERED: DOXY100T PO (12:22)
[2023-09-17] MEDS ORDERED: PRED10TA2 PO (12:31)
[2023-09-17] MEDS ORDERED: PROB250C PO (12:36)
== END 2023-09-17 14:44 | DRG 871 ==
LOC: M ED 09:32 → EDBD 09:32 → M ED INP 12:34 → ENRESERVTM 13:31 → ENRESERVDT 13:31 → M PCU 14:38 → M ICU 09-09 11:49 → M PCU 09-16 16:04
PROVIDERS: ADMIT Internal Medicine; ATTEND Internal Medicine
DX: A41.59 Other Gram-negative sepsis (principal); G93.41 Metabolic encephalopathy; I50.23 Acute on chronic systolic (congestive) heart failure; J96.21 Acute and chronic respiratory failure with hypoxia; J18.9 Pneumonia, unspecified organism; I48.20 Chronic atrial fibrillation, unspecified; N39.0 Urinary tract infection, site not specified; N17.9 Acute kidney failure, unspecified; E87.20 Acidosis, unspecified; I13.0 Hypertensive heart and chronic kidney disease with heart failure and stage 1 through stage 4 chronic kidney disease, or unspecified chronic kidney disease; E87.1 Hypo-osmolality and hyponatremia; B37.0 Candidal stomatitis; E87.5 Hyperkalemia; J45.909 Unspecified asthma, uncomplicated; N18.30 Chronic kidney disease, stage 3 unspecified; I95.9 Hypotension, unspecified; K21.9 Gastro-esophageal reflux disease without esophagitis; E83.42 Hypomagnesemia; J98.4 Other disorders of lung; B96.1 Klebsiella pneumoniae [K. pneumoniae] as the cause of diseases classified elsewhere; E87.6 Hypokalemia; E03.9 Hypothyroidism, unspecified; G40.909 Epilepsy, unspecified, not intractable, without status epilepticus; F32.A Depression, unspecified; G47.33 Obstructive sleep apnea (adult) (pediatric); Z79.01 Long term (current) use of anticoagulants; K11.21 Acute sialoadenitis; Z66 Do not resuscitate; Z88.8 Allergy status to other drugs, medicaments and biological substances; Z88.5 Allergy status to narcotic agent; Z79.899 Other long term (current) drug therapy; Z79.4 Long term (current) use of insulin; Z96.643 Presence of artificial hip joint, bilateral; D69.6 Thrombocytopenia, unspecified; E11.22 Type 2 diabetes mellitus with diabetic chronic kidney disease; M10.9 Gout, unspecified; D53.9 Nutritional anemia, unspecified; B95.8 Unspecified staphylococcus as the cause of diseases classified elsewhere; Z95.0 Presence of cardiac pacemaker

== ENCOUNTER → 2023-09-03 | Outpatient (REF) | payer MEDICARE, MEDICAID ==
[~2023-09-03] MED LIST changes: +ACET1TAB55 PO; +BACI1CAP PO; +COLA100C5 PO; +DOXY100T PO; +GLUC1KIT IM; +LANTINJ4 SC; +LOPE2TAB12 PO; +PERCOCET PO; +PERI12LIQ MT; +PROB250C PO; +SODIGEL NARES; +TORS10TA3 PO
== END ==
LOC: EEVIPCON
PROVIDERS: ATTEND Physician Assistant
DX: I50.9 Heart failure, unspecified (principal); N18.9 Chronic kidney disease, unspecified; Z53.8 Procedure and treatment not carried out for other reasons

== ENCOUNTER → 2023-09-20 | Outpatient (REF) ==
[2023-09-20 11:20] LABS: HEMATOCRIT 28.3 % (36.0-47.0); HEMOGLOBIN 9.1 g/dl (12.0-15.5); MEAN CORPUSCULAR HEMOGLOBIN 31.7 pg (27.0-33.0); MEAN CORPUSCULAR HGB CONC 32.2 g/dl (32.0-36.5); MEAN CORPUSCULAR VOLUME 98.6 fl (80.0-96.0); PLATELET COUNT, AUTOMATED 264 10^3/uL (150-450); RED BLOOD COUNT 2.87 10^6/uL (4.00-5.40); WHITE BLOOD COUNT 11.5 10^3/uL (4.0-10.0)
[2023-09-20 11:52] LABS: VALPROIC ACID (DEPAKOTE) 38.6 UG/ML (50.0-100.0)
[2023-09-20 11:54] LABS: CALCIUM LEVEL 8.5 MG/DL (8.3-10.6); CREATININE FOR GFR 0.95 MG/DL (0.55-1.30); POTASSIUM SERUM 4.6 MMOL/L (3.5-5.1)
== END ==
PROVIDERS: ATTEND Physician Assistant
DX: I48.91 Unspecified atrial fibrillation (principal)

== ENCOUNTER 2023-09-24 20:08 | Inpatient (IN) | payer MEDICARE, MEDICAID ==
[~2023-09-24] VITALS: Ht 152.4 cm; Wt 77.3 kg
[2023-09-24 20:38] LABS: HEMATOCRIT 31.3 % (36.0-47.0); HEMOGLOBIN 10.1 g/dl (12.0-15.5); MEAN CORPUSCULAR HEMOGLOBIN 32.2 pg (27.0-33.0); MEAN CORPUSCULAR HGB CONC 32.3 g/dl (32.0-36.5); MEAN CORPUSCULAR VOLUME 99.7 fl (80.0-96.0); PLATELET COUNT, AUTOMATED 287 10^3/uL (150-450); RED BLOOD COUNT 3.14 10^6/uL (4.00-5.40)
[2023-09-24] MEDS: METOPROLOL TART 25 MG TABLET PO ONE (20:46)
[2023-09-24] MEDS: METOPROLOL 5 MG/5 ML VIAL IV SCH (20:47)
[2023-09-24 21:00] LABS: VALPROIC ACID (DEPAKOTE) 57.3 UG/ML (50.0-100.0)
[2023-09-24 21:02] LABS: ALBUMIN 2.2 G/DL (3.2-5.2); BILIRUBIN,DIRECT 0.2 MG/DL (<0.4); BILIRUBIN,TOTAL 0.4 MG/DL (0.3-1.2); CALCIUM LEVEL 8.9 MG/DL (8.3-10.6); CREATININE FOR GFR 1.18 MG/DL (0.55-1.30); GLOMERULAR FILTRATION RATE 46.7 (>32); MB/CK RELATIVE INDEX 4.54 (< OR =4); POTASSIUM SERUM 4.5 MMOL/L (3.5-5.1); TOTAL PROTEIN 6.2 G/DL (5.7-8.2)
[2023-09-24 21:03] LABS: THYROXINE (T4) 8.8 UG/DL (4.5-10.9)
[2023-09-24 21:04] LABS: THYROID STIMULATING HORMONE 2.076 uIU/ML (0.55-4.78)
[2023-09-24 21:12] LABS: CK-MB VALUE MASS 1.1 NG/ML (<3.6)
[2023-09-24 21:12] LABS: ANISOCYTOSIS 1+; LYMPHOCYTES 8 % (16-44); MONOCYTES 2 % (0-5); NEUTROPHILS 89 % (28-66); PLATELET ESTIMATE NORMAL (NORMAL)
[2023-09-24 21:13] LABS: MB/CK RELATIVE INDEX 6.11 (< OR =4)
[2023-09-24 21:13] LABS: PLATELET CLUMPS SMALL AMT
[2023-09-24] MEDS: NS 500 ML IV ONE (22:20)
[2023-09-24] MEDS ORDERED: cefTRIAXone SOD 1 GM in D5W MINI-BAG PLUS 50 ML IV ONE (22:20)
[2023-09-24] MEDS ORDERED: AZITHROMYCIN 250MG TABLET PO ONE (22:20)
[2023-09-24] MEDS ORDERED: [UNRECOGNIZED DRUG - CODE] PO (23:08)
[2023-09-24] MEDS ORDERED: ACET-683 PO (23:08)
[2023-09-24] MEDS ORDERED: ACID1CAP5 PO (23:08)
[2023-09-24] MEDS ORDERED: DOXY100T PO (23:08)
[2023-09-24] MEDS ORDERED: HOME MED LIST COMPLETE! XX SCH (23:10)
[2023-09-25] VITALS (7 sets, daily range): BP systolic 97–129; BP diastolic 50–71; TEMP 97.2–98.6; O2SAT 92–98
[2023-09-25] MEDS ORDERED: IPRATROPIUM 0.5MG/ALBUTEROL 2.5MG INH SOL UD 3ML (DUONEB) INH PRN (00:15)
[2023-09-25] MEDS ORDERED: GLUCAGON INJ 1MG VIAL IM PRN (00:15)
[2023-09-25] MEDS ORDERED: ALBUTEROL SULFATE 2.5MG/0.5ML INH NEB SOLN INH PRN (00:15)
[2023-09-25] MEDS ORDERED: BISACODYL 10MG SUPP PR PRN (00:50)
[2023-09-25] MEDS ORDERED: LOPERAMIDE 2 MG CAPLET PO PRN (00:50)
[2023-09-25] MEDS ORDERED: FLEET ENEMA PR PRN (00:50)
[2023-09-25] MEDS ORDERED: MOM 30ML SUSPENSION UDC PO PRN (00:50)
[2023-09-25] MEDS: cefTRIAXone SOD 1 GM in D5W MINI-BAG PLUS 50 ML IV SCH (01:47)
[2023-09-25] MEDS: VANCOMYCIN HCL 750 MG, VIAL MATE ADAPTER 1 EACH in D5W 250 ML IV ONE ×2 (03:35→04:53)
[2023-09-25] MEDS: LEVOTHYROXINE 75MCG TABLET (0.075MG) PO SCH (06:20)
[2023-09-25] MEDS: SYMBICORT 80/4.5MCG INHALER 6GM INH SCH (08:28)
[2023-09-25] MEDS: TIOTROPIUM INHALER/CAPSULE (SPIRIVA) INH SCH (08:28)
[2023-09-25] MEDS: LEVEMIR (INSULIN DETEMIR) 1 UNITS/0.01ML SC SCH (08:43)
[2023-09-25 08:49] LABS: BASO % 0.1 % (0.0-1.0); EOS % 0.2 % (0.0-3.0); LYMPH # 1.7 10^3/uL (1.5-5.0); LYMPH % 16.6 % (24.0-44.0); MEAN CORPUSCULAR HEMOGLOBIN 32.5 pg (27.0-33.0); MEAN CORPUSCULAR HGB CONC 32.1 g/dl (32.0-36.5); MEAN CORPUSCULAR VOLUME 101.1 fl (80.0-96.0); MONO # 0.6 10^3/uL (0.0-0.8); MONO % 5.6 % (2.0-8.0); NEUTROPHILS # 7.8 10^3/uL (1.5-8.5); NEUTROPHILS % 74.2 % (36.0-66.0); PLATELET COUNT, AUTOMATED 240 10^3/uL (150-450); RED BLOOD COUNT 2.77 10^6/uL (4.00-5.40); WHITE BLOOD COUNT 10.5 10^3/uL (4.0-10.0)
[2023-09-25] MEDS ORDERED: TORSEMIDE 20 MG TAB PO SCH (09:00)
[2023-09-25] MEDS ORDERED: DIVALPROEX 500 MG TAB PO SCH (09:00)
[2023-09-25 09:14] LABS: BLOOD UREA NITROGEN 45 MG/DL (9-23); CALCIUM LEVEL 8.5 MG/DL (8.3-10.6); CARBON DIOXIDE LEVEL 34 MMOL/L (20-31); CHLORIDE LEVEL 98 MMOL/L (98-107); CREATININE FOR GFR 1.09 MG/DL (0.55-1.30); GLOMERULAR FILTRATION RATE 51.2 (>32); GLUCOSE, FASTING 138 MG/DL (74-106); MAGNESIUM LEVEL 1.8 MG/DL (1.8-2.4); POTASSIUM SERUM 3.8 MMOL/L (3.5-5.1); SODIUM LEVEL 135 MMOL/L (136-145)
[2023-09-25] MEDS: APIXABAN 2.5 MG TAB (ELIQUIS) PO SCH (09:19)
[2023-09-25] MEDS: BENZONATATE 100MG CAPSULE PO SCH (09:19)
[2023-09-25] MEDS: ESCITALOPRAM OXALATE 10 MG TAB (LEXAPRO) PO SCH (09:19)
[2023-09-25] MEDS: METOPROLOL TART 25 MG TABLET PO SCH ×2 (09:19→14:19)
[2023-09-25] MEDS: FERROUS SULFATE 325MG TAB PO SCH (09:19)
[2023-09-25] MEDS: FOLIC ACID 1MG TAB PO SCH (09:20)
[2023-09-25] MEDS: DIVALPROEX 250MG TAB PO SCH ×2 (09:20→21:28)
[2023-09-25 10:53] LABS: PROCALCITONIN <0.04 ng/ml
[2023-09-25] MEDS ORDERED: GLUCOSE 4 GM CHEW PO PRN (11:15)
[2023-09-25] MEDS ORDERED: DEXTROSE 50% 50ML SYRINGE IV PRN (11:15)
[2023-09-25] MEDS: LACTOBACILLUS ACIDOPHILUS CAP (BACID) PO SCH (11:17)
[2023-09-25] MEDS: TORSEMIDE 20 MG TAB PO SCH (11:17)
[2023-09-25] MEDS ORDERED: SODIUM CHLORIDE 0.9% NASAL GEL 15GM (AYR) PRN (11:45)
[2023-09-25] MEDS ORDERED: LEVALBUTEROL HFA 45MCG/ACT 15GM INHALER INH PRN (11:55)
[2023-09-25] MEDS: INSULIN LISPRO (NovoLOG) PER UNIT SC SCH ×2 (12:57→21:00)
[2023-09-25] MEDS: predniSONE 10MG TAB PO SCH (13:01)
[2023-09-25] MEDS: LEVALBUTEROL 1.25MG 0.5ML CONCENTRATE NEB INH SCH (13:33)
[2023-09-25] MEDS: DOXYCYCLINE HYCLATE 100MG TABLET PO SCH (21:28)
[2023-09-25] MEDS: ATORVASTATIN 20 MG TAB PO SCH (21:29)
[2023-09-26 00:03] VITALS: BP 110/67; TEMP 97.9; O2SAT 97
[2023-09-26 04:25] VITALS: BP 115/65; TEMP 96; O2SAT 99
[2023-09-26] MEDS ORDERED: VANCOMYCIN HCL 1,000 MG, VIAL MATE ADAPTER 1 EACH in D5W 250 ML IV SCH (06:00)
[2023-09-26 07:44] VITALS: BP 131/60; TEMP 96.1; O2SAT 98
[2023-09-26 08:14] LABS: BASO % 0.1 % (0.0-1.0); EOS % 0.1 % (0.0-3.0); HEMATOCRIT 28.8 % (36.0-47.0); LYMPH # 1.3 10^3/uL (1.5-5.0); LYMPH % 14.7 % (24.0-44.0); MEAN CORPUSCULAR HGB CONC 31.3 g/dl (32.0-36.5); MEAN CORPUSCULAR VOLUME 102.5 fl (80.0-96.0); MONO # 0.6 10^3/uL (0.0-0.8); MONO % 6.9 % (2.0-8.0); NEUTROPHILS # 6.9 10^3/uL (1.5-8.5); NEUTROPHILS % 76.2 % (36.0-66.0); PLATELET COUNT, AUTOMATED 245 10^3/uL (150-450); RED BLOOD COUNT 2.81 10^6/uL (4.00-5.40)
[2023-09-26 08:41] LABS: CALCIUM LEVEL 8.8 MG/DL (8.3-10.6); GLOMERULAR FILTRATION RATE 56.5 (>32); MAGNESIUM LEVEL 1.8 MG/DL (1.8-2.4); POTASSIUM SERUM 4.8 MMOL/L (3.5-5.1)
[2023-09-26] MEDS: FERROUS SULFATE 325MG TAB PO SCH (08:46)
[2023-09-26 14:30] VITALS: BP 96/58; O2SAT 96
[2023-09-26 16:00] VITALS: BP 108/55; TEMP 96.9; O2SAT 95
[2023-09-26 20:00] VITALS: BP 140/58; TEMP 98.6; O2SAT 99
[2023-09-27] VITALS (7 sets, daily range): BP systolic 104–118; BP diastolic 62–76; TEMP 96.4–97.6; O2SAT 95–100
[2023-09-27] MEDS: METOPROLOL TART 25 MG TABLET PO ONE (09:01)
[2023-09-27] MEDS: METOPROLOL TART 50 MG TAB PO SCH (12:00)
[2023-09-28 04:01] VITALS: BP 102/60; TEMP 97.2; O2SAT 98
[2023-09-28 05:52] LABS: CALCIUM LEVEL 8.8 MG/DL (8.3-10.6); CREATININE FOR GFR 1.05 MG/DL (0.55-1.30); GLOMERULAR FILTRATION RATE 53.4 (>32); MAGNESIUM LEVEL 1.7 MG/DL (1.8-2.4); POTASSIUM SERUM 4.4 MMOL/L (3.5-5.1)
[2023-09-28 07:41] VITALS: BP 103/63; TEMP 97.1; O2SAT 98
[2023-09-28 08:51] VITALS: BP 103/63
[2023-09-28] MEDS: METOPROLOL TART 50 MG TAB PO SCH (08:51)
[2023-09-28] MEDS ORDERED: METO50TA7 PO (09:06)
[2023-09-28] MEDS ORDERED: MAGN400T2 PO (09:10)
[2023-09-28] MEDS: MAG SULF 1GM/100ML (MAG RUN) 1 GM in IV 1 EA IV SCH (09:37)
[2023-09-28] MEDS: MAGNESIUM OXIDE 400MG TAB (MAG-OX) PO SCH (09:39)
== END 2023-09-28 11:21 | DRG 309 ==
LOC: EDBD 20:08 → M ED 20:08 → M ED INP 23:27 → M PCU 09-25 01:54
PROVIDERS: ADMIT Family Medicine; ATTEND Student in an Organized Health Care Education/Training Program
DX: I48.20 Chronic atrial fibrillation, unspecified (principal); I13.0 Hypertensive heart and chronic kidney disease with heart failure and stage 1 through stage 4 chronic kidney disease, or unspecified chronic kidney disease; J96.11 Chronic respiratory failure with hypoxia; I50.22 Chronic systolic (congestive) heart failure; J84.9 Interstitial pulmonary disease, unspecified; E87.20 Acidosis, unspecified; J96.12 Chronic respiratory failure with hypercapnia; N18.30 Chronic kidney disease, stage 3 unspecified; G40.909 Epilepsy, unspecified, not intractable, without status epilepticus; E03.9 Hypothyroidism, unspecified; D50.9 Iron deficiency anemia, unspecified; J44.9 Chronic obstructive pulmonary disease, unspecified; Z68.32 Body mass index [BMI] 32.0-32.9, adult; J45.909 Unspecified asthma, uncomplicated; E66.9 Obesity, unspecified; E78.5 Hyperlipidemia, unspecified; E11.22 Type 2 diabetes mellitus with diabetic chronic kidney disease; R00.0 Tachycardia, unspecified; Z99.81 Dependence on supplemental oxygen; K21.9 Gastro-esophageal reflux disease without esophagitis; G47.33 Obstructive sleep apnea (adult) (pediatric); Z88.8 Allergy status to other drugs, medicaments and biological substances; Z79.899 Other long term (current) drug therapy; Z79.4 Long term (current) use of insulin; Z79.01 Long term (current) use of anticoagulants; Z87.891 Personal history of nicotine dependence; K59.00 Constipation, unspecified; Z66 Do not resuscitate; Z95.0 Presence of cardiac pacemaker; D63.1 Anemia in chronic kidney disease; M10.9 Gout, unspecified

== ENCOUNTER → 2023-09-27 | Outpatient (REF) ==
[~2023-09-27] MED LIST changes: +ACID1CAP5 PO; +METO50TA7 PO; +[UNRECOGNIZED DRUG - CODE] PO
== END ==
PROVIDERS: ATTEND Physician Assistant
DX: I48.91 Unspecified atrial fibrillation (principal); Z53.8 Procedure and treatment not carried out for other reasons

== ENCOUNTER → 2023-09-29 | Outpatient (REF) ==
[~2023-09-29] MED LIST changes: +ADV250INH INH; +PRED20TA PO
[2023-09-29 11:24] LABS: HEMATOCRIT 34.6 % (36.0-47.0); HEMOGLOBIN 10.7 g/dl (12.0-15.5); MEAN CORPUSCULAR HEMOGLOBIN 32.4 pg (27.0-33.0); MEAN CORPUSCULAR HGB CONC 30.9 g/dl (32.0-36.5); MEAN CORPUSCULAR VOLUME 104.8 fl (80.0-96.0); PLATELET COUNT, AUTOMATED 218 10^3/uL (150-450); WHITE BLOOD COUNT 10.5 10^3/uL (4.0-10.0)
[2023-09-29 11:43] LABS: VALPROIC ACID (DEPAKOTE) 50.6 UG/ML (50.0-100.0)
[2023-09-29 11:44] LABS: ALBUMIN 2.5 G/DL (3.2-5.2); BILIRUBIN,DIRECT 0.2 MG/DL (<0.4); BILIRUBIN,TOTAL 0.5 MG/DL (0.3-1.2); CALCIUM LEVEL 9.5 MG/DL (8.3-10.6); CREATININE FOR GFR 1.18 MG/DL (0.55-1.30); GLOMERULAR FILTRATION RATE 46.7 (>32); POTASSIUM SERUM 4.8 MMOL/L (3.5-5.1)
[2023-09-29 11:48] LABS: THYROID STIMULATING HORMONE 2.291 uIU/ML (0.55-4.78)
== END ==
PROVIDERS: ATTEND Physician Assistant
DX: G40.909 Epilepsy, unspecified, not intractable, without status epilepticus (principal)

== ENCOUNTER 2023-09-30 12:42 | Emergency (ER) | payer MEDICARE, MEDICAID ==
[~2023-09-30] VITALS: Ht 152.4 cm; Wt 76.8 kg
[~2023-09-30 12:42] MED LIST changes: -ADV250INH INH; -PRED20TA PO
[2023-09-30 13:18] VITALS: BP 112/73
[2023-09-30] MEDS: METOPROLOL TART 50 MG TAB PO ONE (13:18)
[2023-09-30] MEDS ORDERED: METO50TA7 PO (13:41)
[2023-09-30] MEDS ORDERED: ADV250INH INH (13:41)
[2023-09-30] MEDS ORDERED: MAGN400T2 PO (13:41)
[2023-09-30 13:45] LABS: BASO % 0.1 % (0.0-1.0); EOS # 0.2 10^3/uL (0.0-0.5); EOS % 2.3 % (0.0-3.0); HEMATOCRIT 34.5 % (36.0-47.0); HEMOGLOBIN 10.8 g/dl (12.0-15.5); LYMPH # 0.8 10^3/uL (1.5-5.0); LYMPH % 8.6 % (24.0-44.0); MEAN CORPUSCULAR HEMOGLOBIN 32.7 pg (27.0-33.0); MEAN CORPUSCULAR HGB CONC 31.3 g/dl (32.0-36.5); MEAN CORPUSCULAR VOLUME 104.5 fl (80.0-96.0); MONO # 0.6 10^3/uL (0.0-0.8); MONO % 6.8 % (2.0-8.0); NEUTROPHILS # 7.6 10^3/uL (1.5-8.5); NEUTROPHILS % 81.3 % (36.0-66.0); PLATELET COUNT, AUTOMATED 229 10^3/uL (150-450); WHITE BLOOD COUNT 9.4 10^3/uL (4.0-10.0)
[2023-09-30] MEDS ORDERED: HOME MED LIST COMPLETE! XX SCH ×2 (13:45→14:25)
[2023-09-30 14:12] LABS: ALBUMIN 2.3 G/DL (3.2-5.2); BILIRUBIN,DIRECT 0.2 MG/DL (<0.4); BILIRUBIN,TOTAL 0.5 MG/DL (0.3-1.2); CREATININE FOR GFR 1.2 MG/DL (0.55-1.30); GLOMERULAR FILTRATION RATE 45.8 (>32); POTASSIUM SERUM 4.1 MMOL/L (3.5-5.1); TOTAL PROTEIN 5.8 G/DL (5.7-8.2)
[2023-09-30 14:13] LABS: THYROXINE (T4) 8.3 UG/DL (4.5-10.9)
[2023-09-30 14:15] LABS: THYROID STIMULATING HORMONE 2.998 uIU/ML (0.55-4.78)
[2023-09-30] MEDS ORDERED: ALBU2.5V10 INH (14:21)
[2023-09-30] MEDS ORDERED: ACET1TAB55 PO (14:21)
[2023-09-30] MEDS ORDERED: PRED20TA PO (14:21)
[2023-09-30] MEDS: NS 500 ML IV ONE (15:27)
[2023-09-30 20:24] VITALS: BP 124/63; TEMP 97.4; O2SAT 99
== END 2023-09-30 20:28 | disposition home or self-care (01) ==
LOC: EDBD 12:42 → M ED 12:42
DX: J44.1 Chronic obstructive pulmonary disease with (acute) exacerbation (principal); I48.91 Unspecified atrial fibrillation; I10 Essential (primary) hypertension; E78.5 Hyperlipidemia, unspecified; G40.909 Epilepsy, unspecified, not intractable, without status epilepticus; F41.9 Anxiety disorder, unspecified; F32.9 Major depressive disorder, single episode, unspecified; Z86.79 Personal history of other diseases of the circulatory system; Z88.5 Allergy status to narcotic agent; Z88.8 Allergy status to other drugs, medicaments and biological substances; Z79.01 Long term (current) use of anticoagulants; Z79.52 Long term (current) use of systemic steroids; Z79.02 Long term (current) use of antithrombotics/antiplatelets; Z79.810 Long term (current) use of selective estrogen receptor modulators (SERMs); Z79.899 Other long term (current) drug therapy

== ENCOUNTER → 2023-10-04 | Outpatient (REF) ==
[~2023-10-04] MED LIST changes: +ADV250INH INH; +PRED20TA PO
[2023-10-04 11:33] LABS: HEMATOCRIT 34.8 % (36.0-47.0); HEMOGLOBIN 10.6 g/dl (12.0-15.5); MEAN CORPUSCULAR HEMOGLOBIN 32.2 pg (27.0-33.0); MEAN CORPUSCULAR HGB CONC 30.5 g/dl (32.0-36.5); MEAN CORPUSCULAR VOLUME 105.8 fl (80.0-96.0); PLATELET COUNT, AUTOMATED 145 10^3/uL (150-450); RED BLOOD COUNT 3.29 10^6/uL (4.00-5.40); WHITE BLOOD COUNT 7.9 10^3/uL (4.0-10.0)
[2023-10-04 12:13] LABS: CALCIUM LEVEL 9.1 MG/DL (8.3-10.6); CREATININE FOR GFR 1.12 MG/DL (0.55-1.30); GLOMERULAR FILTRATION RATE 49.6 (>32); POTASSIUM SERUM 3.8 MMOL/L (3.5-5.1)
== END ==
PROVIDERS: ATTEND Physician Assistant
DX: I48.91 Unspecified atrial fibrillation (principal)

== ENCOUNTER → 2023-10-11 | Outpatient (REF) | PROVIDERS: ATTEND Physician Assistant | DX: I50.9 Heart failure, unspecified (principal); Z53.8 Procedure and treatment not carried out for other reasons ==

== ENCOUNTER → 2023-10-13 | Outpatient (REF) ==
[2023-10-13 11:53] LABS: HEMATOCRIT 35.5 % (36.0-47.0); HEMOGLOBIN 10.9 g/dl (12.0-15.5); MEAN CORPUSCULAR HEMOGLOBIN 33.4 pg (27.0-33.0); MEAN CORPUSCULAR HGB CONC 30.7 g/dl (32.0-36.5); MEAN CORPUSCULAR VOLUME 108.9 fl (80.0-96.0); PLATELET COUNT, AUTOMATED 147 10^3/uL (150-450); RED BLOOD COUNT 3.26 10^6/uL (4.00-5.40); WHITE BLOOD COUNT 11.4 10^3/uL (4.0-10.0)
[2023-10-13 12:23] LABS: CALCIUM LEVEL 9.3 MG/DL (8.3-10.6); CREATININE FOR GFR 1.19 MG/DL (0.55-1.30); GLOMERULAR FILTRATION RATE 46.2 (>32); POTASSIUM SERUM 4.3 MMOL/L (3.5-5.1)
== END ==
PROVIDERS: ATTEND Physician Assistant
DX: E11.9 Type 2 diabetes mellitus without complications (principal)

== ENCOUNTER → 2023-10-20 | Outpatient (REF) | payer MEDICARE, MEDICAID | PROVIDERS: ATTEND Internal Medicine | DX: J84.89 Other specified interstitial pulmonary diseases (principal); Z95.0 Presence of cardiac pacemaker ==

== ENCOUNTER → 2023-10-20 | Outpatient (REF) ==
[2023-10-20 11:13] LABS: HEMATOCRIT 37.1 % (36.0-47.0); HEMOGLOBIN 11.1 g/dl (12.0-15.5); MEAN CORPUSCULAR HEMOGLOBIN 32.6 pg (27.0-33.0); MEAN CORPUSCULAR HGB CONC 29.9 g/dl (32.0-36.5); MEAN CORPUSCULAR VOLUME 109.1 fl (80.0-96.0); PLATELET COUNT, AUTOMATED 201 10^3/uL (150-450); WHITE BLOOD COUNT 9.1 10^3/uL (4.0-10.0)
[2023-10-20 11:40] LABS: CALCIUM LEVEL 9.3 MG/DL (8.3-10.6); CREATININE FOR GFR 1.32 MG/DL (0.55-1.30); MAGNESIUM LEVEL 2.2 MG/DL (1.8-2.4); POTASSIUM SERUM 4.6 MMOL/L (3.5-5.1)
[2023-10-20 13:21] LABS: BASO # 0.1 10^3/uL (0.0-0.2); BASO % 0.9 % (0.0-1.0); EOS # 0.1 10^3/uL (0.0-0.5); EOS % 1.1 % (0.0-3.0); LYMPH # 2.1 10^3/uL (1.5-5.0); LYMPH % 23.1 % (24.0-44.0); MONO % 11.2 % (2.0-8.0); NEUTROPHILS # 5.6 10^3/uL (1.5-8.5); NEUTROPHILS % 61.7 % (36.0-66.0)
== END ==
PROVIDERS: ATTEND Physician Assistant
DX: N18.9 Chronic kidney disease, unspecified (principal); R06.02 Shortness of breath

== ENCOUNTER → 2023-11-02 | Outpatient (REF) | payer MEDICARE, MEDICAID | PROVIDERS: ATTEND Internal Medicine | DX: J81.1 Chronic pulmonary edema (principal); I50.9 Heart failure, unspecified; I70.0 Atherosclerosis of aorta; Z95.0 Presence of cardiac pacemaker ==

== ENCOUNTER → 2023-11-03 | Outpatient (REF) | payer MEDICARE, MEDICAID ==
[2023-11-03 11:28] LABS: HEMATOCRIT 40.1 % (36.0-47.0); HEMOGLOBIN 12.2 g/dl (12.0-15.5); MEAN CORPUSCULAR HEMOGLOBIN 31.9 pg (27.0-33.0); MEAN CORPUSCULAR HGB CONC 30.4 g/dl (32.0-36.5); PLATELET COUNT, AUTOMATED 177 10^3/uL (150-450); RED BLOOD COUNT 3.82 10^6/uL (4.00-5.40)
[2023-11-03 11:48] LABS: CALCIUM LEVEL 9.6 MG/DL (8.3-10.6); CREATININE FOR GFR 1.62 MG/DL (0.55-1.30); GLOMERULAR FILTRATION RATE 32.4 (>32); POTASSIUM SERUM 4.2 MMOL/L (3.5-5.1)
== END ==
PROVIDERS: ATTEND Physician Assistant
DX: R06.02 Shortness of breath (principal)

== ENCOUNTER 2023-11-08 12:43 | Inpatient (IN) | payer MEDICARE, MEDICAID ==
[~2023-11-08] VITALS: Ht 152.4 cm; Wt 74.9 kg
[2023-11-08] VITALS (8 sets, daily range): BP systolic 115–125; BP diastolic 60–68; TEMP 97.8–98.1; O2SAT 81–99
[~2023-11-08 12:43] MED LIST changes: -GUAI600T54 PO; -NYST10006 TOP
[2023-11-08 13:24] LABS: BASO # 0.1 10^3/uL (0.0-0.2); BASO % 0.6 % (0.0-1.0); EOS # 0.2 10^3/uL (0.0-0.5); EOS % 1.6 % (0.0-3.0); HEMATOCRIT 39.9 % (36.0-47.0); HEMOGLOBIN 12.1 g/dl (12.0-15.5); LYMPH # 1.1 10^3/uL (1.5-5.0); LYMPH % 11.7 % (24.0-44.0); MEAN CORPUSCULAR HEMOGLOBIN 32.5 pg (27.0-33.0); MEAN CORPUSCULAR HGB CONC 30.3 g/dl (32.0-36.5); MEAN CORPUSCULAR VOLUME 107.3 fl (80.0-96.0); MONO # 1.7 10^3/uL (0.0-0.8); MONO % 17.6 % (2.0-8.0); NEUTROPHILS # 6.5 10^3/uL (1.5-8.5); NEUTROPHILS % 67.6 % (36.0-66.0); PLATELET COUNT, AUTOMATED 162 10^3/uL (150-450); RED BLOOD COUNT 3.72 10^6/uL (4.00-5.40); WHITE BLOOD COUNT 9.6 10^3/uL (4.0-10.0)
[2023-11-08 13:35] LABS: INR 1.45; PARTIAL THROMBOPLASTIN TIME 29.2 SECONDS (24.8-34.2); PROTHROMBIN TIME 17.2 SECONDS (12.5-14.5)
[2023-11-08] MEDS: ACETAMINOPHEN TAB 650MG DOSE (2X325MG) PO ONE (13:43)
[2023-11-08] MEDS: cefTRIAXone SOD 2 GM in D5W MINI-BAG PLUS 50 ML IV ONE (13:43)
[2023-11-08 13:56] LABS: VALPROIC ACID (DEPAKOTE) 65.9 UG/ML (50.0-100.0)
[2023-11-08] MEDS: FUROSEMIDE 40MG/4ML VIAL IV ONE (13:57)
[2023-11-08 13:58] LABS: ALBUMIN 2.7 G/DL (3.2-5.2); ALKALINE PHOSPHATASE 69 U/L (46-116); ALT/SGPT 70 U/L (7.0-40); AST/SGOT 27 U/L (<34); BILIRUBIN,DIRECT 0.3 MG/DL (<0.4); BILIRUBIN,TOTAL 0.6 MG/DL (0.3-1.2); BLOOD UREA NITROGEN 41 MG/DL (9-23); CALCIUM LEVEL 9.4 MG/DL (8.3-10.6); CARBON DIOXIDE LEVEL 34 MMOL/L (20-31); CHLORIDE LEVEL 100 MMOL/L (98-107); CK-MB VALUE MASS < 1.0 NG/ML (<3.6); CREATININE FOR GFR 1.32 MG/DL (0.55-1.30); GLUCOSE, FASTING 148 MG/DL (74-106); POTASSIUM SERUM 4.4 MMOL/L (3.5-5.1); SODIUM LEVEL 137 MMOL/L (136-145); TOTAL PROTEIN 6.6 G/DL (5.7-8.2)
[2023-11-08 14:00] LABS: THYROID STIMULATING HORMONE 4.283 uIU/ML (0.55-4.78)
[2023-11-08 14:01] LABS: FREE T4 1.39 NG/DL (0.89-1.76)
[2023-11-08 14:11] LABS: CPK CREATINE PHOSPHOKINASE 25 U/L (34-145)
[2023-11-08] MEDS ORDERED: NYST10006 TOP (14:36)
[2023-11-08] MEDS ORDERED: GUAI600T54 PO (14:36)
[2023-11-08] MEDS ORDERED: TORS20TA2 PO (14:36)
[2023-11-08] MEDS ORDERED: ALBU2.5V10 INH (14:36)
[2023-11-08] MEDS ORDERED: HOME MED LIST COMPLETE! XX SCH (14:40)
[2023-11-08] MEDS: DIGOXIN INJ 0.5 MG/2 ML AMP IV ONE (14:42)
[2023-11-08] MEDS ORDERED: MOM 30ML SUSPENSION UDC PO PRN (15:50)
[2023-11-08] MEDS ORDERED: ACETAMINOPHEN TAB 650MG DOSE (2X325MG) PO PRN (15:50)
[2023-11-08] MEDS ORDERED: MAALOX 30 ML SUSP *UDC PO PRN (15:50)
[2023-11-08] MEDS ORDERED: ALBUTEROL SULFATE 2.5MG/0.5ML INH NEB SOLN INH PRN (16:45)
[2023-11-08] MEDS ORDERED: BISACODYL 10MG SUPP PR PRN (16:45)
[2023-11-08] MEDS ORDERED: GLUCAGON INJ 1MG VIAL SC PRN (18:45)
[2023-11-08] MEDS ORDERED: DEXTROSE 50% 50ML SYRINGE IV PRN (18:45)
[2023-11-08] MEDS ORDERED: GLUCOSE 4 GM CHEW PO PRN (18:45)
[2023-11-08] MEDS ORDERED: SENOKOT S TAB PO PRN (18:50)
[2023-11-08] MEDS: ADVAIR HFA 115/21MCG INHALER INH SCH (19:57)
[2023-11-08] MEDS: DIVALPROEX 250MG TAB PO SCH (21:00)
[2023-11-08] MEDS: INSULIN LISPRO (NovoLOG) PER UNIT SC SCH (21:00)
[2023-11-08] MEDS ORDERED: CEFDINIR 300 MG CAP (OMNICEF) PO SCH (21:00)
[2023-11-08] MEDS: ATORVASTATIN 20 MG TAB PO SCH (21:32)
[2023-11-08] MEDS: MAGNESIUM OXIDE 400MG TAB (MAG-OX) PO SCH (21:32)
[2023-11-08] MEDS: APIXABAN 2.5 MG TAB (ELIQUIS) PO SCH (21:33)
[2023-11-08] MEDS: METOPROLOL TART 50 MG TAB PO SCH (21:33)
[2023-11-08] MEDS: FOLIC ACID 1MG TAB PO SCH (21:33)
[2023-11-08] MEDS: FERROUS SULFATE 325MG TAB PO SCH (21:33)
[2023-11-08] MEDS: guaiFENesin ER TABLET 600 MG TAB PO SCH (21:33)
[2023-11-08] MEDS: BENZONATATE 100MG CAPSULE PO SCH (21:33)
[2023-11-09] VITALS (17 sets, daily range): BP systolic 106–138; BP diastolic 56–70; TEMP 96.9–97.8; O2SAT 88–100
[2023-11-09] MEDS: LEVOTHYROXINE 75MCG TABLET (0.075MG) PO SCH (05:58)
[2023-11-09] MEDS: TIOTROPIUM INHALER/CAPSULE (SPIRIVA) INH SCH (07:28)
[2023-11-09] MEDS: INSULIN LISPRO (NovoLOG) PER UNIT SC SCH (07:30)
[2023-11-09 08:00] LABS: HEMATOCRIT 39.3 % (36.0-47.0); HEMOGLOBIN 11.8 g/dl (12.0-15.5); MEAN CORPUSCULAR HEMOGLOBIN 31.6 pg (27.0-33.0); MEAN CORPUSCULAR VOLUME 105.4 fl (80.0-96.0); PLATELET COUNT, AUTOMATED 159 10^3/uL (150-450); RED BLOOD COUNT 3.73 10^6/uL (4.00-5.40); WHITE BLOOD COUNT 7.6 10^3/uL (4.0-10.0)
[2023-11-09 08:35] LABS: ALBUMIN 2.3 G/DL (3.2-5.2); BILIRUBIN,TOTAL 0.5 MG/DL (0.3-1.2); CALCIUM LEVEL 9.2 MG/DL (8.3-10.6); CREATININE FOR GFR 1.12 MG/DL (0.55-1.30); GLOMERULAR FILTRATION RATE 49.6 (>32); POTASSIUM SERUM 3.8 MMOL/L (3.5-5.1); TOTAL PROTEIN 5.9 G/DL (5.7-8.2)
[2023-11-09] MEDS: ESCITALOPRAM OXALATE 10 MG TAB (LEXAPRO) PO SCH (08:46)
[2023-11-09] MEDS: FUROSEMIDE 40MG/4ML VIAL IV SCH (08:47)
[2023-11-09] MEDS: DIVALPROEX 500 MG TAB PO SCH (08:47)
[2023-11-09] MEDS ORDERED: ENTER DRUG NAME HERE (PATIENT'S OWN MED) INH SCH (09:00)
[2023-11-09] MEDS: FUROSEMIDE 20MG/2ML VIAL IV ONE (09:08)
[2023-11-09] MEDS: LEVEMIR (INSULIN DETEMIR) 1 UNITS/0.01ML SC SCH (09:08)
[2023-11-09 09:57] LABS: URIC ACID 16.5 MG/DL (3.1-7.8)
[2023-11-09] MEDS: SODIUM CHLORIDE 0.9% NASAL GEL 15GM (AYR) SCH (12:33)
[2023-11-09] MEDS: cefTRIAXone SOD 2 GM in D5W MINI-BAG PLUS 50 ML IV SCH (12:34)
[2023-11-09] MEDS: metOLazone 5 MG TAB PO ONE (16:29)
[2023-11-09] MEDS: FUROSEMIDE 100MG/10ML VIAL IV SCH (16:58)
[2023-11-10] VITALS (8 sets, daily range): BP systolic 110–136; BP diastolic 55–73; TEMP 96.6–97.9; O2SAT 91–99
[2023-11-10 05:48] LABS: ALBUMIN 2.3 G/DL (3.2-5.2); BILIRUBIN,TOTAL 0.5 MG/DL (0.3-1.2); CALCIUM LEVEL 9.2 MG/DL (8.3-10.6); CREATININE FOR GFR 0.99 MG/DL (0.55-1.30); GLOMERULAR FILTRATION RATE 57.2 (>32); MAGNESIUM LEVEL 1.7 MG/DL (1.8-2.4); PHOSPHORUS LEVEL 3.3 MG/DL (2.4-5.1); POTASSIUM SERUM 3.8 MMOL/L (3.5-5.1); TOTAL PROTEIN 5.9 G/DL (5.7-8.2)
[2023-11-10 07:58] LABS: MEAN CORPUSCULAR HEMOGLOBIN 31.8 pg (27.0-33.0); MEAN CORPUSCULAR HGB CONC 30.8 g/dl (32.0-36.5); MEAN CORPUSCULAR VOLUME 103.4 fl (80.0-96.0); PLATELET COUNT, AUTOMATED 155 10^3/uL (150-450); RED BLOOD COUNT 3.77 10^6/uL (4.00-5.40); WHITE BLOOD COUNT 9.3 10^3/uL (4.0-10.0)
[2023-11-10] MEDS: MAGNESIUM OXIDE 400MG TAB (MAG-OX) PO SCH (08:50)
[2023-11-10] MEDS: predniSONE 20 MG TAB PO SCH (08:50)
[2023-11-10] MEDS: metOLazone 5 MG TAB PO ONE (08:50)
[2023-11-10] MEDS: FUROSEMIDE 100MG/10ML VIAL IV SCH (09:50)
[2023-11-10 19:22] LABS: CALCIUM LEVEL 9.3 MG/DL (8.3-10.6); CREATININE FOR GFR 0.95 MG/DL (0.55-1.30); MAGNESIUM LEVEL 1.7 MG/DL (1.8-2.4); POTASSIUM SERUM 3.6 MMOL/L (3.5-5.1)
[2023-11-10] MEDS: IPRATROPIUM 0.5MG/ALBUTEROL 2.5MG INH SOL UD 3ML (DUONEB) INH PRN (23:51)
[2023-11-11 04:18] VITALS: BP 117/64; TEMP 97.8; O2SAT 93
[2023-11-11] MEDS: LevoFLOXacin 500 MG TABLET PO SCH (05:22)
[2023-11-11 07:00] LABS: HEMATOCRIT 37.1 % (36.0-47.0); HEMOGLOBIN 11.6 g/dl (12.0-15.5); MEAN CORPUSCULAR HEMOGLOBIN 31.9 pg (27.0-33.0); MEAN CORPUSCULAR HGB CONC 31.3 g/dl (32.0-36.5); MEAN CORPUSCULAR VOLUME 101.9 fl (80.0-96.0); PLATELET COUNT, AUTOMATED 151 10^3/uL (150-450); RED BLOOD COUNT 3.64 10^6/uL (4.00-5.40); WHITE BLOOD COUNT 7.5 10^3/uL (4.0-10.0)
[2023-11-11 07:26] LABS: ALBUMIN 1.9 G/DL (3.2-5.2); BILIRUBIN,TOTAL 0.2 MG/DL (0.3-1.2); CALCIUM LEVEL 9.1 MG/DL (8.3-10.6); CREATININE FOR GFR 1.04 MG/DL (0.55-1.30); POTASSIUM SERUM 3.7 MMOL/L (3.5-5.1); TOTAL PROTEIN 5.4 G/DL (5.7-8.2)
[2023-11-11 07:30] VITALS: BP 144/63; TEMP 97.4; O2SAT 91
[2023-11-11] MEDS: metOLazone 5 MG TAB PO ONE (08:42)
[2023-11-11] MEDS: MAG SULF 1GM/100ML (MAG RUN) 1 GM in IV 1 EA IV ONE (08:43)
[2023-11-11 11:29] VITALS: BP 139/63; TEMP 97.8; O2SAT 90
[2023-11-11 15:35] VITALS: BP 115/57; TEMP 97.9; O2SAT 94
[2023-11-11] MEDS: LOPERAMIDE 2 MG CAPLET PO PRN (17:49)
[2023-11-11 19:00] VITALS: BP 130/71; TEMP 97.8; O2SAT 92
[2023-11-11] MEDS ORDERED: MAGN400T2 PO (22:40)
[2023-11-11] MEDS ORDERED: PRED20TA PO (22:43)
[2023-11-11] MEDS ORDERED: LEVO1TAB39 PO (22:43)
[2023-11-11 23:34] VITALS: BP 134/58; TEMP 97; O2SAT 96
[2023-11-12 04:00] VITALS: BP 147/63; TEMP 96.9; O2SAT 94
[2023-11-12 06:41] LABS: HEMATOCRIT 39.4 % (36.0-47.0); HEMOGLOBIN 12.4 g/dl (12.0-15.5); MEAN CORPUSCULAR HEMOGLOBIN 31.8 pg (27.0-33.0); MEAN CORPUSCULAR HGB CONC 31.5 g/dl (32.0-36.5); PLATELET COUNT, AUTOMATED 173 10^3/uL (150-450); WHITE BLOOD COUNT 6.9 10^3/uL (4.0-10.0)
[2023-11-12 07:07] LABS: ALBUMIN 2.2 G/DL (3.2-5.2); ALKALINE PHOSPHATASE 54 U/L (46-116); ALT/SGPT 22 U/L (7.0-40); AST/SGOT 13 U/L (<34); BILIRUBIN,TOTAL 0.3 MG/DL (0.3-1.2); BLOOD UREA NITROGEN 33 MG/DL (9-23); CALCIUM LEVEL 9.6 MG/DL (8.3-10.6); CARBON DIOXIDE LEVEL > 40.0 MMOL/L (20-31); CHLORIDE LEVEL 94 MMOL/L (98-107); CREATININE FOR GFR 0.99 MG/DL (0.55-1.30); GLOMERULAR FILTRATION RATE 57.2 (>32); GLUCOSE, FASTING 104 MG/DL (74-106); POTASSIUM SERUM 3.2 MMOL/L (3.5-5.1); SODIUM LEVEL 140 MMOL/L (136-145); TOTAL PROTEIN 5.9 G/DL (5.7-8.2)
[2023-11-12 08:20] VITALS: BP 142/69; TEMP 97.1; O2SAT 90
[2023-11-12 09:40] VITALS: BP 118/58
[2023-11-12] MEDS: POTASSIUM CHLORIDE 10MEQ SR TABLET PO ONE (12:04)
== END 2023-11-12 12:17 | DRG 291 ==
LOC: EDBD 12:43 → M ED 12:43 → M ED INP 15:34 → M PCU 17:28
PROVIDERS: ADMIT Student in an Organized Health Care Education/Training Program; ATTEND Internal Medicine
DX: I11.0 Hypertensive heart disease with heart failure (principal); I50.23 Acute on chronic systolic (congestive) heart failure; J96.21 Acute and chronic respiratory failure with hypoxia; N39.0 Urinary tract infection, site not specified; L03.115 Cellulitis of right lower limb; N17.9 Acute kidney failure, unspecified; I48.91 Unspecified atrial fibrillation; G40.909 Epilepsy, unspecified, not intractable, without status epilepticus; J44.9 Chronic obstructive pulmonary disease, unspecified; E11.649 Type 2 diabetes mellitus with hypoglycemia without coma; I27.81 Cor pulmonale (chronic); I34.0 Nonrheumatic mitral (valve) insufficiency; K21.9 Gastro-esophageal reflux disease without esophagitis; M10.9 Gout, unspecified; E83.42 Hypomagnesemia; E03.9 Hypothyroidism, unspecified; E78.5 Hyperlipidemia, unspecified; F32.A Depression, unspecified; B96.29 Other Escherichia coli [E. coli] as the cause of diseases classified elsewhere; Z79.01 Long term (current) use of anticoagulants; Z88.5 Allergy status to narcotic agent; Z88.8 Allergy status to other drugs, medicaments and biological substances; Z79.899 Other long term (current) drug therapy; Z96.643 Presence of artificial hip joint, bilateral

== ENCOUNTER → 2023-11-08 | Outpatient (REF) | payer MEDICARE, MEDICAID ==
[~2023-11-08] MED LIST changes: +GUAI600T54 PO; +NYST10006 TOP
[2023-11-08 09:19] LABS: HEMATOCRIT 39.1 % (36.0-47.0); HEMOGLOBIN 11.7 g/dl (12.0-15.5); MEAN CORPUSCULAR HEMOGLOBIN 31.7 pg (27.0-33.0); MEAN CORPUSCULAR HGB CONC 29.9 g/dl (32.0-36.5); PLATELET COUNT, AUTOMATED 145 10^3/uL (150-450); RED BLOOD COUNT 3.69 10^6/uL (4.00-5.40); WHITE BLOOD COUNT 6.8 10^3/uL (4.0-10.0)
[2023-11-08 09:36] LABS: CALCIUM LEVEL 9.3 MG/DL (8.3-10.6); CREATININE FOR GFR 1.26 MG/DL (0.55-1.30); GLOMERULAR FILTRATION RATE 43.3 (>32); POTASSIUM SERUM 4.5 MMOL/L (3.5-5.1)
== END ==
PROVIDERS: ATTEND Physician Assistant
DX: I50.9 Heart failure, unspecified (principal)

== ENCOUNTER → 2023-11-10 | Outpatient (REF) | payer MEDICARE, MEDICAID ==
[~2023-11-10] MED LIST changes: +GUAI600T54 PO; +LEVO1TAB39 PO; +NYST10006 TOP
== END ==
PROVIDERS: ATTEND Physician Assistant
DX: I50.9 Heart failure, unspecified (principal); Z53.8 Procedure and treatment not carried out for other reasons

== ENCOUNTER → 2023-11-15 | Outpatient (REF) | payer MEDICARE, MEDICAID | PROVIDERS: ATTEND Internal Medicine | DX: N18.9 Chronic kidney disease, unspecified (principal) ==

== ENCOUNTER → 2023-11-17 | Outpatient (REF) | payer MEDICARE, MEDICAID ==
[2023-11-17 10:16] LABS: MEAN CORPUSCULAR HEMOGLOBIN 31.3 pg (27.0-33.0); MEAN CORPUSCULAR HGB CONC 31.8 g/dl (32.0-36.5); MEAN CORPUSCULAR VOLUME 98.4 fl (80.0-96.0); PLATELET COUNT, AUTOMATED 179 10^3/uL (150-450); RED BLOOD COUNT 4.47 10^6/uL (4.00-5.40); WHITE BLOOD COUNT 9.7 10^3/uL (4.0-10.0)
[2023-11-17 10:48] LABS: BLOOD UREA NITROGEN 55 MG/DL (9-23); CALCIUM LEVEL 9.9 MG/DL (8.3-10.6); CARBON DIOXIDE LEVEL > 40.0 MMOL/L (20-31); CHLORIDE LEVEL 89 MMOL/L (98-107); CREATININE FOR GFR 1.38 MG/DL (0.55-1.30); GLUCOSE, FASTING 219 MG/DL (74-106); POTASSIUM SERUM 3.7 MMOL/L (3.5-5.1); SODIUM LEVEL 136 MMOL/L (136-145)
== END ==
PROVIDERS: ATTEND Physician Assistant
DX: I50.9 Heart failure, unspecified (principal)

== ENCOUNTER → 2023-11-22 | Outpatient (REF) | payer MEDICARE, MEDICAID ==
[2023-11-22 11:17] LABS: HEMATOCRIT 40.2 % (36.0-47.0); HEMOGLOBIN 12.5 g/dl (12.0-15.5); MEAN CORPUSCULAR HEMOGLOBIN 31.1 pg (27.0-33.0); MEAN CORPUSCULAR HGB CONC 31.1 g/dl (32.0-36.5); PLATELET COUNT, AUTOMATED 144 10^3/uL (150-450); RED BLOOD COUNT 4.02 10^6/uL (4.00-5.40); WHITE BLOOD COUNT 8.3 10^3/uL (4.0-10.0)
[2023-11-22 11:54] LABS: CALCIUM LEVEL 8.8 MG/DL (8.3-10.6); CREATININE FOR GFR 1.09 MG/DL (0.55-1.30); GLOMERULAR FILTRATION RATE 51.2 (>32); POTASSIUM SERUM 3.7 MMOL/L (3.5-5.1)
== END ==
PROVIDERS: ATTEND Physician Assistant
DX: I50.9 Heart failure, unspecified (principal)

== ENCOUNTER → 2023-11-24 | Outpatient (REF) | payer MEDICARE, MEDICAID ==
[2023-11-24 10:51] LABS: HEMATOCRIT 43.8 % (36.0-47.0); HEMOGLOBIN 13.6 g/dl (12.0-15.5); MEAN CORPUSCULAR HEMOGLOBIN 31.3 pg (27.0-33.0); MEAN CORPUSCULAR HGB CONC 31.1 g/dl (32.0-36.5); MEAN CORPUSCULAR VOLUME 100.9 fl (80.0-96.0); PLATELET COUNT, AUTOMATED 197 10^3/uL (150-450); RED BLOOD COUNT 4.34 10^6/uL (4.00-5.40); WHITE BLOOD COUNT 9.8 10^3/uL (4.0-10.0)
[2023-11-24 11:25] LABS: CALCIUM LEVEL 9.7 MG/DL (8.3-10.6); CREATININE FOR GFR 1.11 MG/DL (0.55-1.30); GLOMERULAR FILTRATION RATE 50.1 (>32); POTASSIUM SERUM 3.9 MMOL/L (3.5-5.1)
== END ==
PROVIDERS: ATTEND Physician Assistant
DX: I50.9 Heart failure, unspecified (principal)

== ENCOUNTER 2023-11-28 11:22 | Inpatient (IN) | payer MEDICARE, MEDICAID ==
[~2023-11-28] VITALS: Ht 152.4 cm; Wt 70.0 kg
[2023-11-28] MEDS: METOPROLOL 5 MG/5 ML VIAL IV SCH (12:35)
[2023-11-28 12:43] LABS: ABG BASE EXCESS 9.5 (-2.0-2.0); ABG HCO3 34.3 MMOL/L (22.0-26.0); ABG O2 SATURATION 98.4 % (95.0-99.0); ABG PARTIAL PRESSURE O2 127.6 mmHg (75.0-100.0); ABG STANDARD HCO3 33.3 MMOL/L. (22.0-26.0); ABG TOTAL CO2 35.7 MMOL/L (23.0-31.0); ABG pH (ARTERIAL) 7.481 UNITS (7.350-7.450)
[2023-11-28 12:57] LABS: BASO % 0.3 % (0.0-1.0); EOS # 0.1 10^3/uL (0.0-0.5); EOS % 1.1 % (0.0-3.0); HEMATOCRIT 35.8 % (36.0-47.0); HEMOGLOBIN 11.5 g/dl (12.0-15.5); LYMPH # 0.5 10^3/uL (1.5-5.0); LYMPH % 5.6 % (24.0-44.0); MEAN CORPUSCULAR HEMOGLOBIN 31.6 pg (27.0-33.0); MEAN CORPUSCULAR HGB CONC 32.1 g/dl (32.0-36.5); MEAN CORPUSCULAR VOLUME 98.4 fl (80.0-96.0); MONO # 0.6 10^3/uL (0.0-0.8); MONO % 6.5 % (2.0-8.0); NEUTROPHILS % 85.6 % (36.0-66.0); PLATELET COUNT, AUTOMATED 162 10^3/uL (150-450); RED BLOOD COUNT 3.64 10^6/uL (4.00-5.40); WHITE BLOOD COUNT 9.3 10^3/uL (4.0-10.0)
[2023-11-28 13:25] LABS: CPK CREATINE PHOSPHOKINASE < 15 U/L (34-145)
[2023-11-28 13:26] LABS: ALBUMIN 2.6 G/DL (3.2-5.2); ALKALINE PHOSPHATASE 58 U/L (46-116); ALT/SGPT 11 U/L (7.0-40); AST/SGOT 18 U/L (<34); BILIRUBIN,DIRECT 0.2 MG/DL (<0.4); BILIRUBIN,TOTAL 0.5 MG/DL (0.3-1.2); BLOOD UREA NITROGEN 33 MG/DL (9-23); CALCIUM LEVEL 9.8 MG/DL (8.3-10.6); CARBON DIOXIDE LEVEL 35 MMOL/L (20-31); CHLORIDE LEVEL 99 MMOL/L (98-107); CK-MB VALUE MASS < 1.0 NG/ML (<3.6); CREATININE FOR GFR 1.25 MG/DL (0.55-1.30); GLOMERULAR FILTRATION RATE 43.7 (>32); GLUCOSE, FASTING 115 MG/DL (74-106); POTASSIUM SERUM 4.2 MMOL/L (3.5-5.1); SODIUM LEVEL 138 MMOL/L (136-145); TOTAL PROTEIN 6.4 G/DL (5.7-8.2)
[2023-11-28 13:28] LABS: THYROID STIMULATING HORMONE 4.021 uIU/ML (0.55-4.78)
[2023-11-28 14:22] LABS: CK-MB VALUE MASS < 1.0 NG/ML (<3.6); CPK CREATINE PHOSPHOKINASE 31 U/L (34-145); MB/CK RELATIVE INDEX 3.22 (< OR =4)
[2023-11-28] MEDS: DIGOXIN INJ 0.5 MG/2 ML AMP IV ONE (14:41)
[2023-11-28] MEDS: MIDODRINE 5 MG TAB PO ONE (15:00)
[2023-11-28] MEDS ORDERED: IPRATROPIUM 0.02% SOLN 0.5MG 2.5ML NEB INH PRN ×2 (17:15)
[2023-11-28] MEDS ORDERED: LEVALBUTEROL 1.25MG 0.5ML CONCENTRATE NEB INH PRN (17:15)
[2023-11-28] MEDS: LEVALBUTEROL 1.25MG 0.5ML CONCENTRATE NEB NEB ONE (17:55)
[2023-11-28] MEDS ORDERED: HOME MED LIST COMPLETE! XX SCH (18:00)
[2023-11-28] MEDS: FUROSEMIDE 40MG/4ML VIAL IV ONE (18:22)
[2023-11-28] MEDS: FUROSEMIDE injection 250 MG in D5W 225 ML IV SCH (18:23)
[2023-11-28] MEDS: LEVALBUTEROL 1.25MG 0.5ML CONCENTRATE NEB INH SCH (19:08)
[2023-11-28] MEDS: IPRATROPIUM 0.02% SOLN 0.5MG 2.5ML NEB INH SCH (19:09)
[2023-11-28 19:10] LABS: CK-MB VALUE MASS < 1.0 NG/ML (<3.6); CPK CREATINE PHOSPHOKINASE < 15 U/L (34-145)
[2023-11-28] MEDS: methylPREDNISolone 125MG 2ML VIAL IV ONE (19:15)
[2023-11-28] MEDS: METOPROLOL TART 12.5 MG PER 1/2 TAB PO SCH (19:16)
[2023-11-28] MEDS: DIVALPROEX 250MG TAB PO SCH (21:05)
[2023-11-28] MEDS: ATORVASTATIN 20 MG TAB PO SCH (21:05)
[2023-11-28] MEDS: DIGOXIN INJ 0.5 MG/2 ML AMP IV SCH (21:05)
[2023-11-28] MEDS: APIXABAN 2.5 MG TAB (ELIQUIS) PO SCH (21:06)
[2023-11-28] MEDS: FERROUS SULFATE 325MG TAB PO SCH (21:06)
[2023-11-29 01:14] LABS: CK-MB VALUE MASS 1.1 NG/ML (<3.6)
[2023-11-29 01:16] LABS: MB/CK RELATIVE INDEX 5.78 (< OR =4)
[2023-11-29 06:35] LABS: CALCIUM LEVEL 9.5 MG/DL (8.3-10.6); CREATININE FOR GFR 1.1 MG/DL (0.55-1.30); DIGOXIN LEVEL 2.3 NG/ML (0.8-2.0); GLOMERULAR FILTRATION RATE 50.6 (>32)
[2023-11-29] MEDS: LEVOTHYROXINE 75MCG TABLET (0.075MG) PO SCH (06:43)
[2023-11-29] MEDS ORDERED: FUROSEMIDE 40MG/4ML VIAL IV ONE (08:45)
[2023-11-29] MEDS ORDERED: predniSONE 20 MG TAB PO SCH (09:00)
[2023-11-29] MEDS: DIVALPROEX 500 MG TAB PO SCH (11:04)
[2023-11-29] MEDS: predniSONE 10MG TAB PO SCH (11:04)
[2023-11-29] MEDS: metOLazone 2.5 MG TAB PO ONE (11:05)
[2023-11-29] MEDS: FOLIC ACID 1MG TAB PO SCH (11:05)
[2023-11-29] MEDS: LEVEMIR (INSULIN DETEMIR) 1 UNITS/0.01ML SC SCH (11:06)
[2023-11-29] MEDS: FUROSEMIDE 40MG/4ML VIAL IV ONE (11:51)
[2023-11-29 15:44] VITALS: BP 137/63; TEMP 96.6; O2SAT 94
[2023-11-29] MEDS: METOPROLOL TART 25 MG TABLET PO SCH (18:01)
[2023-11-29 19:50] VITALS: BP 126/68; TEMP 97; O2SAT 90
[2023-11-29 23:23] VITALS: BP 121/57; TEMP 96.7; O2SAT 96
[2023-11-30] VITALS (8 sets, daily range): BP systolic 102–144; BP diastolic 55–87; TEMP 96.1–98.4; O2SAT 91–99
[2023-11-30 06:24] LABS: BLOOD UREA NITROGEN 40 MG/DL (9-23); CALCIUM LEVEL 9.3 MG/DL (8.3-10.6); CARBON DIOXIDE LEVEL 35 MMOL/L (20-31); CHLORIDE LEVEL 98 MMOL/L (98-107); CREATININE FOR GFR 0.93 MG/DL (0.55-1.30); GLOMERULAR FILTRATION RATE > 60.0 (>32); GLUCOSE, FASTING 143 MG/DL (74-106); POTASSIUM SERUM 3.7 MMOL/L (3.5-5.1); SODIUM LEVEL 136 MMOL/L (136-145)
[2023-11-30] MEDS: ADVAIR HFA 115/21MCG INHALER INH SCH (07:36)
[2023-11-30] MEDS ORDERED: TORSEMIDE 20 MG TAB PO SCH (09:00)
[2023-11-30] MEDS: TORSEMIDE 20 MG TAB PO SCH (09:04)
[2023-11-30] MEDS: ESCITALOPRAM OXALATE 10 MG TAB (LEXAPRO) PO SCH (09:04)
[2023-11-30] MEDS: guaiFENesin ER TABLET 600 MG TAB PO SCH (09:05)
[2023-11-30] MEDS: MAGNESIUM OXIDE 400MG TAB (MAG-OX) PO SCH (09:05)
[2023-11-30] MEDS ORDERED: DEXTROSE 50% 50ML SYRINGE IV PRN (12:50)
[2023-11-30] MEDS ORDERED: GLUCAGON INJ 1MG VIAL SC PRN (12:50)
[2023-11-30] MEDS ORDERED: GLUCOSE 4 GM CHEW PO PRN (12:50)
[2023-12-01 00:10] VITALS: BP 108/67; O2SAT 96
[2023-12-01 03:10] VITALS: BP 124/87; TEMP 97; O2SAT 98
[2023-12-01 06:02] LABS: HEMATOCRIT 35.8 % (36.0-47.0); HEMOGLOBIN 11.8 g/dl (12.0-15.5); LYMPH # 1.2 10^3/uL (1.5-5.0); LYMPH % 13.4 % (24.0-44.0); MEAN CORPUSCULAR HEMOGLOBIN 31.3 pg (27.0-33.0); MONO # 0.9 10^3/uL (0.0-0.8); MONO % 10.5 % (2.0-8.0); NEUTROPHILS # 6.6 10^3/uL (1.5-8.5); NEUTROPHILS % 75.6 % (36.0-66.0); PLATELET COUNT, AUTOMATED 184 10^3/uL (150-450); RED BLOOD COUNT 3.77 10^6/uL (4.00-5.40); WHITE BLOOD COUNT 8.7 10^3/uL (4.0-10.0)
[2023-12-01 06:28] LABS: BLOOD UREA NITROGEN 31 MG/DL (9-23); CALCIUM LEVEL 9.7 MG/DL (8.3-10.6); CARBON DIOXIDE LEVEL > 40.0 MMOL/L (20-31); CHLORIDE LEVEL 96 MMOL/L (98-107); CREATININE FOR GFR 0.83 MG/DL (0.55-1.30); GLOMERULAR FILTRATION RATE > 60.0 (>32); GLUCOSE, FASTING 139 MG/DL (74-106); POTASSIUM SERUM 3.4 MMOL/L (3.5-5.1); SODIUM LEVEL 137 MMOL/L (136-145)
[2023-12-01] MEDS: POTASSIUM CHLORIDE 10MEQ SR TABLET PO SCH (09:51)
[2023-12-01] MEDS: METOPROLOL TART 25 MG TABLET PO ONE (09:56)
[2023-12-01] MEDS ORDERED: PRED10TA2 PO (11:17)
[2023-12-01 12:00] VITALS: BP 126/65; TEMP 97.2; O2SAT 100
[2023-12-01 20:22] VITALS: BP 116/69; TEMP 97.2; O2SAT 97
[2023-12-01] MEDS: METOPROLOL TART 50 MG TAB PO SCH (20:26)
[2023-12-01] MEDS: INSULIN LISPRO (NovoLOG) PER UNIT SC SCH (22:07)
[2023-12-02] VITALS: BP 106/64; TEMP 97.5; O2SAT 98
[2023-12-02 04:00] VITALS: BP 122/74; TEMP 97.2; O2SAT 100
[2023-12-02 06:56] LABS: BLOOD UREA NITROGEN 33 MG/DL (9-23); CARBON DIOXIDE LEVEL > 40.0 MMOL/L (20-31); CHLORIDE LEVEL 95 MMOL/L (98-107); CREATININE FOR GFR 0.85 MG/DL (0.55-1.30); GLOMERULAR FILTRATION RATE > 60.0 (>32); GLUCOSE, FASTING 113 MG/DL (74-106); MAGNESIUM LEVEL 1.8 MG/DL (1.8-2.4); POTASSIUM SERUM 3.5 MMOL/L (3.5-5.1); SODIUM LEVEL 141 MMOL/L (136-145)
[2023-12-02] MEDS: INSULIN LISPRO (NovoLOG) PER UNIT SC SCH (07:30)
[2023-12-02 08:02] VITALS: BP 108/61
== END 2023-12-02 11:21 | DRG 291 ==
LOC: EDBD 11:22 → M ED 11:22 → M ED INP 14:50 → M PCU 11-29 15:34 → M MSPAV 11-30 17:28
PROVIDERS: ADMIT General Practice; ATTEND Internal Medicine Nephrology
DX: I13.0 Hypertensive heart and chronic kidney disease with heart failure and stage 1 through stage 4 chronic kidney disease, or unspecified chronic kidney disease (principal); I50.23 Acute on chronic systolic (congestive) heart failure; J96.11 Chronic respiratory failure with hypoxia; J44.1 Chronic obstructive pulmonary disease with (acute) exacerbation; Z66 Do not resuscitate; I34.0 Nonrheumatic mitral (valve) insufficiency; I48.91 Unspecified atrial fibrillation; E11.22 Type 2 diabetes mellitus with diabetic chronic kidney disease; E03.9 Hypothyroidism, unspecified; G40.909 Epilepsy, unspecified, not intractable, without status epilepticus; E78.5 Hyperlipidemia, unspecified; N18.30 Chronic kidney disease, stage 3 unspecified; K21.9 Gastro-esophageal reflux disease without esophagitis; N32.81 Overactive bladder; I27.81 Cor pulmonale (chronic); E11.42 Type 2 diabetes mellitus with diabetic polyneuropathy; F32.A Depression, unspecified; E83.42 Hypomagnesemia; M10.9 Gout, unspecified; Z96.643 Presence of artificial hip joint, bilateral; Z90.49 Acquired absence of other specified parts of digestive tract; Z87.891 Personal history of nicotine dependence; Z79.01 Long term (current) use of anticoagulants; Z99.81 Dependence on supplemental oxygen; Z79.4 Long term (current) use of insulin; Z79.890 Hormone replacement therapy; Z79.52 Long term (current) use of systemic steroids; Z79.899 Other long term (current) drug therapy; Z88.5 Allergy status to narcotic agent; Z88.8 Allergy status to other drugs, medicaments and biological substances

== ENCOUNTER → 2023-12-06 | Outpatient (REF) ==
[2023-12-06 12:03] LABS: HEMATOCRIT 39.9 % (36.0-47.0); MEAN CORPUSCULAR HEMOGLOBIN 31.3 pg (27.0-33.0); MEAN CORPUSCULAR HGB CONC 32.6 g/dl (32.0-36.5); MEAN CORPUSCULAR VOLUME 96.1 fl (80.0-96.0); PLATELET COUNT, AUTOMATED 173 10^3/uL (150-450); RED BLOOD COUNT 4.15 10^6/uL (4.00-5.40); WHITE BLOOD COUNT 8.6 10^3/uL (4.0-10.0)
[2023-12-06 12:18] LABS: VALPROIC ACID (DEPAKOTE) 43.3 UG/ML (50.0-100.0)
[2023-12-06 12:19] LABS: URIC ACID 13.8 MG/DL (3.1-7.8)
[2023-12-06 12:20] LABS: THYROID STIMULATING HORMONE 1.471 uIU/ML (0.55-4.78)
[2023-12-06 12:23] LABS: ALBUMIN 2.4 G/DL (3.2-5.2); ALKALINE PHOSPHATASE 76 U/L (46-116); ALT/SGPT 10 U/L (7.0-40); AST/SGOT 10 U/L (<34); BILIRUBIN,DIRECT 0.2 MG/DL (<0.4); BILIRUBIN,TOTAL 0.4 MG/DL (0.3-1.2); BLOOD UREA NITROGEN 43 MG/DL (9-23); CALCIUM LEVEL 9.2 MG/DL (8.3-10.6); CARBON DIOXIDE LEVEL > 40.0 MMOL/L (20-31); CHLORIDE LEVEL 93 MMOL/L (98-107); CREATININE FOR GFR 0.88 MG/DL (0.55-1.30); GLOMERULAR FILTRATION RATE > 60.0 (>32); GLUCOSE, FASTING 168 MG/DL (74-106); POTASSIUM SERUM 3.7 MMOL/L (3.5-5.1); SODIUM LEVEL 139 MMOL/L (136-145); TOTAL PROTEIN 6.2 G/DL (5.7-8.2)
== END ==
PROVIDERS: ATTEND Physician Assistant
DX: I50.9 Heart failure, unspecified (principal)

== ENCOUNTER → 2023-12-13 | Outpatient (REF) ==
[2023-12-13 12:19] LABS: HEMATOCRIT 35.8 % (36.0-47.0); HEMOGLOBIN 11.6 g/dl (12.0-15.5); MEAN CORPUSCULAR HEMOGLOBIN 31.4 pg (27.0-33.0); MEAN CORPUSCULAR HGB CONC 32.4 g/dl (32.0-36.5); MEAN CORPUSCULAR VOLUME 96.8 fl (80.0-96.0); PLATELET COUNT, AUTOMATED 162 10^3/uL (150-450); WHITE BLOOD COUNT 9.5 10^3/uL (4.0-10.0)
[2023-12-13 12:55] LABS: BLOOD UREA NITROGEN 29 MG/DL (9-23); CALCIUM LEVEL 8.9 MG/DL (8.3-10.6); CARBON DIOXIDE LEVEL > 40.0 MMOL/L (20-31); CHLORIDE LEVEL 98 MMOL/L (98-107); CREATININE FOR GFR 1.01 MG/DL (0.55-1.30); GLOMERULAR FILTRATION RATE 55.9 (>32); GLUCOSE, FASTING 173 MG/DL (74-106); POTASSIUM SERUM 3.8 MMOL/L (3.5-5.1); SODIUM LEVEL 139 MMOL/L (136-145)
== END ==
PROVIDERS: ATTEND Physician Assistant
DX: I50.9 Heart failure, unspecified (principal)

== ENCOUNTER → 2023-12-20 | Outpatient (REF) ==
[2023-12-20 11:39] LABS: HEMATOCRIT 31.8 % (36.0-47.0); HEMOGLOBIN 10.2 g/dl (12.0-15.5); MEAN CORPUSCULAR HEMOGLOBIN 31.3 pg (27.0-33.0); MEAN CORPUSCULAR HGB CONC 32.1 g/dl (32.0-36.5); MEAN CORPUSCULAR VOLUME 97.5 fl (80.0-96.0); PLATELET COUNT, AUTOMATED 128 10^3/uL (150-450); RED BLOOD COUNT 3.26 10^6/uL (4.00-5.40)
[2023-12-20 11:54] LABS: CALCIUM LEVEL 9.1 MG/DL (8.3-10.6); CREATININE FOR GFR 1.08 MG/DL (0.55-1.30); GLOMERULAR FILTRATION RATE 51.7 (>32)
== END ==
PROVIDERS: ATTEND Internal Medicine
DX: I50.9 Heart failure, unspecified (principal)

== ENCOUNTER → 2023-12-20 | Outpatient (REF) | payer MEDICARE, MEDICAID | PROVIDERS: ATTEND Internal Medicine | DX: M20.11 Hallux valgus (acquired), right foot (principal) ==

== ENCOUNTER → 2024-01-03 | Outpatient (REF) | PROVIDERS: ATTEND Physician Assistant | DX: I50.9 Heart failure, unspecified (principal) ==

== ENCOUNTER → 2024-01-05 | Outpatient (REF) | payer MEDICARE, MEDICAID ==
[2024-01-05 17:47] LABS: BASO # 0.1 10^3/uL (0.0-0.2); BASO % 0.6 % (0.0-1.0); EOS # 0.1 10^3/uL (0.0-0.5); HEMATOCRIT 38.2 % (36.0-47.0); HEMOGLOBIN 11.5 g/dl (12.0-15.5); LYMPH # 1.1 10^3/uL (1.5-5.0); LYMPH % 8.4 % (24.0-44.0); MEAN CORPUSCULAR HGB CONC 30.1 g/dl (32.0-36.5); MEAN CORPUSCULAR VOLUME 106.4 fl (80.0-96.0); MONO # 1.6 10^3/uL (0.0-0.8); MONO % 12.1 % (2.0-8.0); NEUTROPHILS # 10.1 10^3/uL (1.5-8.5); NEUTROPHILS % 76.2 % (36.0-66.0); PLATELET COUNT, AUTOMATED 191 10^3/uL (150-450); RED BLOOD COUNT 3.59 10^6/uL (4.00-5.40); WHITE BLOOD COUNT 13.3 10^3/uL (4.0-10.0)
[2024-01-05 17:56] LABS: CALCIUM LEVEL 9.1 MG/DL (8.3-10.6); CREATININE FOR GFR 1.54 MG/DL (0.55-1.30); GLOMERULAR FILTRATION RATE 34.3 (>32)
[2024-01-05 19:55] LABS: HEMOGLOBIN A1c 5.2 % (4.0-6.0)
== END ==
PROVIDERS: ATTEND Physician Assistant
DX: I50.9 Heart failure, unspecified (principal); R05.9 Cough, unspecified; Z79.899 Other long term (current) drug therapy

== ENCOUNTER → 2024-01-05 | Outpatient (REF) | payer MEDICARE, MEDICAID | PROVIDERS: ATTEND Internal Medicine | DX: I50.9 Heart failure, unspecified (principal) ==

== ENCOUNTER → 2024-01-10 | Outpatient (REF) | payer MEDICARE, MEDICAID ==
[2024-01-10 12:39] LABS: HEMATOCRIT 40.7 % (36.0-47.0); HEMOGLOBIN 12.2 g/dl (12.0-15.5); MEAN CORPUSCULAR HEMOGLOBIN 32.1 pg (27.0-33.0); MEAN CORPUSCULAR VOLUME 107.1 fl (80.0-96.0); PLATELET COUNT, AUTOMATED 179 10^3/uL (150-450); WHITE BLOOD COUNT 6.1 10^3/uL (4.0-10.0)
[2024-01-10 13:03] LABS: BLOOD UREA NITROGEN 28 MG/DL (9-23); CALCIUM LEVEL 9.1 MG/DL (8.3-10.6); CARBON DIOXIDE LEVEL > 40.0 MMOL/L (20-31); CHLORIDE LEVEL 99 MMOL/L (98-107); CREATININE FOR GFR 1.09 MG/DL (0.55-1.30); GLOMERULAR FILTRATION RATE 51.2 (>32); GLUCOSE, FASTING 143 MG/DL (74-106); POTASSIUM SERUM 3.8 MMOL/L (3.5-5.1); SODIUM LEVEL 140 MMOL/L (136-145)
== END ==
PROVIDERS: ATTEND Physician Assistant
DX: I50.9 Heart failure, unspecified (principal); Z95.0 Presence of cardiac pacemaker

== ENCOUNTER → 2024-01-13 | Outpatient (REF) | payer MEDICARE, MEDICAID ==
[2024-01-13 15:20] LABS: BLOOD UREA NITROGEN 27 MG/DL (9-23); CALCIUM LEVEL 9.1 MG/DL (8.3-10.6); CARBON DIOXIDE LEVEL 32 MMOL/L (20-31); CHLORIDE LEVEL 101 MMOL/L (98-107); CREATININE FOR GFR 0.87 MG/DL (0.55-1.30); GLOMERULAR FILTRATION RATE > 60.0 (>32); GLUCOSE, FASTING 118 MG/DL (74-106); SODIUM LEVEL 138 MMOL/L (136-145)
== END ==
PROVIDERS: ATTEND Physician Assistant
DX: I50.9 Heart failure, unspecified (principal)

== ENCOUNTER → 2024-01-17 | Outpatient (REF) | payer MEDICARE, MEDICAID | PROVIDERS: ATTEND Internal Medicine | DX: I50.9 Heart failure, unspecified (principal); Z53.8 Procedure and treatment not carried out for other reasons ==

== ENCOUNTER → 2024-01-18 | Outpatient (REF) | payer MEDICARE, MEDICAID | PROVIDERS: ATTEND Internal Medicine | DX: R05.9 Cough, unspecified (principal); Z53.8 Procedure and treatment not carried out for other reasons ==

== ENCOUNTER → 2024-01-18 | Outpatient (REF) | payer MEDICARE, MEDICAID ==
[2024-01-18 14:08] LABS: HEMATOCRIT 35.6 % (36.0-47.0); HEMOGLOBIN 10.9 g/dl (12.0-15.5); MEAN CORPUSCULAR HEMOGLOBIN 31.9 pg (27.0-33.0); MEAN CORPUSCULAR HGB CONC 30.6 g/dl (32.0-36.5); MEAN CORPUSCULAR VOLUME 104.1 fl (80.0-96.0); PLATELET COUNT, AUTOMATED 113 10^3/uL (150-450); RED BLOOD COUNT 3.42 10^6/uL (4.00-5.40)
[2024-01-18 14:22] LABS: CALCIUM LEVEL 9.3 MG/DL (8.3-10.6); CREATININE FOR GFR 0.98 MG/DL (0.55-1.30); GLOMERULAR FILTRATION RATE 57.8 (>32); POTASSIUM SERUM 4.3 MMOL/L (3.5-5.1)
== END ==
PROVIDERS: ATTEND Physician Assistant
DX: I50.9 Heart failure, unspecified (principal)

== ENCOUNTER → 2024-01-18 | Outpatient (REF) | payer MEDICARE, MEDICAID | PROVIDERS: ATTEND Internal Medicine | DX: I50.9 Heart failure, unspecified (principal) ==

== ENCOUNTER → 2024-01-19 | Outpatient (REF) | payer MEDICARE, MEDICAID ==
[2024-01-19 11:57] LABS: HEMATOCRIT 38.4 % (36.0-47.0); HEMOGLOBIN 11.7 g/dl (12.0-15.5); MEAN CORPUSCULAR HEMOGLOBIN 31.4 pg (27.0-33.0); MEAN CORPUSCULAR HGB CONC 30.5 g/dl (32.0-36.5); MEAN CORPUSCULAR VOLUME 102.9 fl (80.0-96.0); PLATELET COUNT, AUTOMATED 135 10^3/uL (150-450); RED BLOOD COUNT 3.73 10^6/uL (4.00-5.40); WHITE BLOOD COUNT 7.2 10^3/uL (4.0-10.0)
[2024-01-19 12:13] LABS: VALPROIC ACID (DEPAKOTE) 35.7 UG/ML (50.0-100.0)
[2024-01-19 12:14] LABS: CALCIUM LEVEL 9.4 MG/DL (8.3-10.6); CREATININE FOR GFR 0.98 MG/DL (0.55-1.30); GLOMERULAR FILTRATION RATE 57.8 (>32); POTASSIUM SERUM 3.7 MMOL/L (3.5-5.1)
== END ==
PROVIDERS: ATTEND Internal Medicine
DX: I48.91 Unspecified atrial fibrillation (principal); I50.9 Heart failure, unspecified; Z79.899 Other long term (current) drug therapy

== ENCOUNTER → 2024-01-24 | Outpatient (REF) | payer MEDICARE, MEDICAID ==
[2024-01-24 08:41] LABS: BASO # 0.1 10^3/uL (0.0-0.2); BASO % 0.9 % (0.0-1.0); EOS # 0.3 10^3/uL (0.0-0.5); EOS % 4.3 % (0.0-3.0); HEMATOCRIT 35.3 % (36.0-47.0); HEMOGLOBIN 10.6 g/dl (12.0-15.5); LYMPH # 1.2 10^3/uL (1.5-5.0); LYMPH % 17.1 % (24.0-44.0); MEAN CORPUSCULAR VOLUME 103.2 fl (80.0-96.0); MONO # 1.2 10^3/uL (0.0-0.8); MONO % 17.7 % (2.0-8.0); NEUTROPHILS % 59.1 % (36.0-66.0); PLATELET COUNT, AUTOMATED 229 10^3/uL (150-450); RED BLOOD COUNT 3.42 10^6/uL (4.00-5.40); WHITE BLOOD COUNT 6.8 10^3/uL (4.0-10.0)
[2024-01-24 09:13] LABS: DIGOXIN LEVEL 1.9 NG/ML (0.8-2.0)
[2024-01-24 09:29] LABS: CALCIUM LEVEL 9.4 MG/DL (8.3-10.6); CREATININE FOR GFR 0.98 MG/DL (0.55-1.30); GLOMERULAR FILTRATION RATE 57.8 (>32); POTASSIUM SERUM 4.1 MMOL/L (3.5-5.1)
== END ==
PROVIDERS: ATTEND Physician Assistant
DX: I50.9 Heart failure, unspecified (principal)

== ENCOUNTER → 2024-01-25 | Outpatient (REF) | payer MEDICARE, MEDICAID | PROVIDERS: ATTEND Physician Assistant | DX: I50.9 Heart failure, unspecified (principal); Z95.0 Presence of cardiac pacemaker ==

== ENCOUNTER → 2024-02-07 | Outpatient (REF) | payer MEDICARE, MEDICAID | PROVIDERS: ATTEND Physician Assistant | DX: Z53.9 Procedure and treatment not carried out, unspecified reason (principal) ==

== ENCOUNTER → 2024-02-15 | Outpatient (REF) | payer MEDICARE, MEDICAID | PROVIDERS: ATTEND Physician Assistant | DX: I48.91 Unspecified atrial fibrillation (principal); Z79.01 Long term (current) use of anticoagulants ==

== ENCOUNTER → 2024-02-23 | Outpatient (REF) | payer MEDICARE, MEDICAID ==
[2024-02-23 09:04] LABS: HEMATOCRIT 36.6 % (36.0-47.0); HEMOGLOBIN 11.5 g/dl (12.0-15.5); MEAN CORPUSCULAR HEMOGLOBIN 31.3 pg (27.0-33.0); MEAN CORPUSCULAR HGB CONC 31.4 g/dl (32.0-36.5); MEAN CORPUSCULAR VOLUME 99.5 fl (80.0-96.0); PLATELET COUNT, AUTOMATED 159 10^3/uL (150-450); RED BLOOD COUNT 3.68 10^6/uL (4.00-5.40); WHITE BLOOD COUNT 6.7 10^3/uL (4.0-10.0)
[2024-02-23 09:30] LABS: BLOOD UREA NITROGEN 23 MG/DL (9-23); CALCIUM LEVEL 9.5 MG/DL (8.3-10.6); CARBON DIOXIDE LEVEL > 40.0 MMOL/L (20-31); CHLORIDE LEVEL 96 MMOL/L (98-107); CREATININE FOR GFR 0.96 MG/DL (0.55-1.30); GLOMERULAR FILTRATION RATE 59.2 (>32); GLUCOSE, FASTING 100 MG/DL (74-106); SODIUM LEVEL 137 MMOL/L (136-145)
== END ==
PROVIDERS: ATTEND Internal Medicine
DX: N18.9 Chronic kidney disease, unspecified (principal); I50.9 Heart failure, unspecified

== ENCOUNTER → 2024-03-08 | Outpatient (REF) | payer MEDICARE, MEDICAID | PROVIDERS: ATTEND Physician Assistant | DX: I48.91 Unspecified atrial fibrillation (principal) ==

== ENCOUNTER 2024-03-18 17:43 | Emergency (ER) | payer MEDICARE, MEDICAID ==
[~2024-03-18] VITALS: Ht 152.4 cm; Wt 72.9 kg
[~2024-03-18 17:43] MED LIST changes: +LEVA15HF2 INH; -LEVAINH INH
[2024-03-18 18:00] VITALS: TEMP 99.6
[2024-03-18 19:30] VITALS: BP 149/63; O2SAT 100
== END 2024-03-18 20:22 | disposition home or self-care (01) ==
LOC: EDBD 17:43 → M ED 17:43
DX: M25.461 Effusion, right knee (principal); E11.9 Type 2 diabetes mellitus without complications; I10 Essential (primary) hypertension; E78.5 Hyperlipidemia, unspecified; J44.9 Chronic obstructive pulmonary disease, unspecified; J45.909 Unspecified asthma, uncomplicated; Z86.79 Personal history of other diseases of the circulatory system; Z79.01 Long term (current) use of anticoagulants; Z88.5 Allergy status to narcotic agent; Z88.8 Allergy status to other drugs, medicaments and biological substances; Z79.52 Long term (current) use of systemic steroids; Z79.1 Long term (current) use of non-steroidal anti-inflammatories (NSAID); Z79.899 Other long term (current) drug therapy

== ENCOUNTER → 2024-03-22 | Outpatient (REF) | payer MEDICARE, MEDICAID ==
[~2024-03-22] MED LIST changes: -LEVA15HF2 INH; +LEVAINH INH
[2024-03-22 09:45] LABS: HEMATOCRIT 37.4 % (36.0-47.0); MEAN CORPUSCULAR HEMOGLOBIN 32.2 pg (27.0-33.0); MEAN CORPUSCULAR HGB CONC 32.1 g/dl (32.0-36.5); MEAN CORPUSCULAR VOLUME 100.3 fl (80.0-96.0); PLATELET COUNT, AUTOMATED 216 10^3/uL (150-450); RED BLOOD COUNT 3.73 10^6/uL (4.00-5.40); WHITE BLOOD COUNT 7.3 10^3/uL (4.0-10.0)
[2024-03-22 10:06] LABS: URIC ACID 12.3 MG/DL (3.1-7.8)
[2024-03-22 10:09] LABS: ALBUMIN 2.4 G/DL (3.2-5.2); ALKALINE PHOSPHATASE 69 U/L (35-104); ALT/SGPT < 9 U/L (7.0-40); AST/SGOT 11 U/L (<34); BILIRUBIN,DIRECT 0.1 MG/DL (<0.4); BILIRUBIN,TOTAL 0.4 MG/DL (0.3-1.2); BLOOD UREA NITROGEN 32 MG/DL (9-23); CALCIUM LEVEL 10.1 MG/DL (8.3-10.6); CARBON DIOXIDE LEVEL 40 MMOL/L (20-31); CHLORIDE LEVEL 96 MMOL/L (98-107); CREATININE FOR GFR 1.02 MG/DL (0.55-1.30); DIGOXIN LEVEL 0.7 NG/ML (0.8-2.0); GLOMERULAR FILTRATION RATE 55.1 (>32); GLUCOSE, FASTING 109 MG/DL (74-106); POTASSIUM SERUM 3.9 MMOL/L (3.5-5.1); SODIUM LEVEL 139 MMOL/L (136-145); TOTAL PROTEIN 7.1 G/DL (5.7-8.2)
[2024-03-22 10:11] LABS: THYROID STIMULATING HORMONE 3.509 uIU/ML (0.55-4.78)
== END ==
PROVIDERS: ATTEND Internal Medicine
DX: I50.9 Heart failure, unspecified (principal)

== ENCOUNTER → 2024-04-17 | Outpatient (REF) | payer MEDICARE, MEDICAID ==
[~2024-04-17] MED LIST changes: +LEVA15HF2 INH; -LEVAINH INH
[2024-04-17 12:02] LABS: HEMATOCRIT 35.8 % (36.0-47.0); HEMOGLOBIN 11.5 g/dl (12.0-15.5); MEAN CORPUSCULAR HEMOGLOBIN 31.9 pg (27.0-33.0); MEAN CORPUSCULAR HGB CONC 32.1 g/dl (32.0-36.5); MEAN CORPUSCULAR VOLUME 99.2 fl (80.0-96.0); PLATELET COUNT, AUTOMATED 163 10^3/uL (150-450); RED BLOOD COUNT 3.61 10^6/uL (4.00-5.40); WHITE BLOOD COUNT 7.6 10^3/uL (4.0-10.0)
[2024-04-17 12:49] LABS: CALCIUM LEVEL 9.8 MG/DL (8.3-10.6); CREATININE FOR GFR 1.01 MG/DL (0.55-1.30); GLOMERULAR FILTRATION RATE 55.7 (>32); POTASSIUM SERUM 3.7 MMOL/L (3.5-5.1)
== END ==
PROVIDERS: ATTEND Internal Medicine
DX: N18.9 Chronic kidney disease, unspecified (principal)

== ENCOUNTER → 2024-05-03 | Outpatient (REF) | payer MEDICARE, MEDICAID ==
[~2024-05-03] MED LIST changes: -ADV250INH INH; +ADVA1AER9 INH
[2024-05-03 09:53] LABS: BASO % 0.4 % (0.0-1.0); EOS # 0.1 10^3/uL (0.0-0.5); EOS % 1.7 % (0.0-3.0); HEMATOCRIT 35.5 % (36.0-47.0); HEMOGLOBIN 11.5 g/dl (12.0-15.5); LYMPH % 28.7 % (24.0-44.0); MEAN CORPUSCULAR HGB CONC 32.4 g/dl (32.0-36.5); MEAN CORPUSCULAR VOLUME 98.9 fl (80.0-96.0); MONO # 1.1 10^3/uL (0.0-0.8); MONO % 16.2 % (2.0-8.0); NEUTROPHILS # 3.6 10^3/uL (1.5-8.5); PLATELET COUNT, AUTOMATED 184 10^3/uL (150-450); RED BLOOD COUNT 3.59 10^6/uL (4.00-5.40); WHITE BLOOD COUNT 6.9 10^3/uL (4.0-10.0)
[2024-05-03 10:11] LABS: C REACTIVE PROTEIN QUANTITATIV 3.71 MG/DL (<1.0); CPK CREATINE PHOSPHOKINASE 34 U/L (34-145); LDH LACTATE DEHYDROGENASE 154 U/L (120-246)
[2024-05-03 10:12] LABS: ALBUMIN 2.6 G/DL (3.2-5.2); ALKALINE PHOSPHATASE 68 U/L (35-104); ALT/SGPT < 9 U/L (7.0-40); AST/SGOT 13 U/L (<34); BILIRUBIN,TOTAL 0.5 MG/DL (0.3-1.2); BLOOD UREA NITROGEN 34 MG/DL (9-23); CALCIUM LEVEL 9.9 MG/DL (8.3-10.6); CARBON DIOXIDE LEVEL 38 MMOL/L (20-31); CHLORIDE LEVEL 95 MMOL/L (98-107); CHOLESTEROL LEVEL 139 MG/DL (<200); CREATININE FOR GFR 1.21 MG/DL (0.55-1.30); GLOMERULAR FILTRATION RATE 45.2 (>32); GLUCOSE, FASTING 110 MG/DL (74-106); PHOSPHORUS LEVEL 3.6 MG/DL (2.4-5.1); POTASSIUM SERUM 3.7 MMOL/L (3.5-5.1); SODIUM LEVEL 141 MMOL/L (136-145); TOTAL PROTEIN 6.8 G/DL (5.7-8.2); TRIGLYCERIDES LEVEL 273 MG/DL (<150)
[2024-05-03 10:13] LABS: RHEUMATOID FACTOR QUANT 4.9 IU/ML (<14)
[2024-05-03 12:10] LABS: URIC ACID 11.3 MG/DL (3.1-7.8)
[2024-05-03 12:25] LABS: ERYTHROCYTE SEDIMENTATION RATE 51 mm/hr (0-30)
== END ==
PROVIDERS: ATTEND Physician Assistant
DX: M25.561 Pain in right knee (principal); M25.562 Pain in left knee; Z79.899 Other long term (current) drug therapy

== ENCOUNTER → 2024-05-05 | Outpatient (CLI) | payer MEDICARE, MEDICAID | LOC: M RAD 07:33 | PROVIDERS: ATTEND Physician Assistant | DX: M25.561 Pain in right knee (principal); M25.562 Pain in left knee; M17.0 Bilateral primary osteoarthritis of knee; M79.89 Other specified soft tissue disorders; M25.461 Effusion, right knee; M25.462 Effusion, left knee ==

== ENCOUNTER → 2024-05-11 | Outpatient (REF) | payer MEDICARE, MEDICAID | PROVIDERS: ATTEND Physician Assistant | DX: M10.9 Gout, unspecified (principal) ==

== ENCOUNTER → 2024-05-18 | Outpatient (REF) | payer MEDICARE, MEDICAID | PROVIDERS: ATTEND Physician Assistant | DX: M10.9 Gout, unspecified (principal) ==

== ENCOUNTER → 2024-05-22 | Outpatient (REF) | payer MEDICARE, MEDICAID ==
[2024-05-22 11:16] LABS: HEMATOCRIT 37.2 % (36.0-47.0); HEMOGLOBIN 11.7 g/dl (12.0-15.5); MEAN CORPUSCULAR HEMOGLOBIN 31.4 pg (27.0-33.0); MEAN CORPUSCULAR HGB CONC 31.5 g/dl (32.0-36.5); MEAN CORPUSCULAR VOLUME 99.7 fl (80.0-96.0); PLATELET COUNT, AUTOMATED 186 10^3/uL (150-450); RED BLOOD COUNT 3.73 10^6/uL (4.00-5.40); WHITE BLOOD COUNT 6.9 10^3/uL (4.0-10.0)
[2024-05-22 11:43] LABS: VALPROIC ACID (DEPAKOTE) 51.6 UG/ML (50.0-100.0)
[2024-05-22 11:47] LABS: BLOOD UREA NITROGEN 39 MG/DL (9-23); CARBON DIOXIDE LEVEL > 40.0 MMOL/L (20-31); CHLORIDE LEVEL 94 MMOL/L (98-107); CREATININE FOR GFR 1.17 MG/DL (0.55-1.30); GLUCOSE, FASTING 173 MG/DL (74-106); MAGNESIUM LEVEL 2.3 MG/DL (1.8-2.4); SODIUM LEVEL 140 MMOL/L (136-145)
== END ==
PROVIDERS: ATTEND Internal Medicine
DX: N18.9 Chronic kidney disease, unspecified (principal)

== ENCOUNTER → 2024-06-19 | Outpatient (REF) | payer MEDICARE, MEDICAID ==
[2024-06-19 10:10] LABS: HEMOGLOBIN 13.1 g/dl (12.0-15.5); MEAN CORPUSCULAR HEMOGLOBIN 32.2 pg (27.0-33.0); MEAN CORPUSCULAR HGB CONC 32.8 g/dl (32.0-36.5); MEAN CORPUSCULAR VOLUME 98.3 fl (80.0-96.0); PLATELET COUNT, AUTOMATED 164 10^3/uL (150-450); RED BLOOD COUNT 4.07 10^6/uL (4.00-5.40); WHITE BLOOD COUNT 6.7 10^3/uL (4.0-10.0)
[2024-06-19 10:35] LABS: CALCIUM LEVEL 9.2 MG/DL (8.3-10.6); CREATININE FOR GFR 1.12 MG/DL (0.55-1.30); DIGOXIN LEVEL 0.6 NG/ML (0.8-2.0); GLOMERULAR FILTRATION RATE 49.5 (>32)
== END ==
PROVIDERS: ATTEND Internal Medicine
DX: N18.9 Chronic kidney disease, unspecified (principal); I50.9 Heart failure, unspecified

== ENCOUNTER → 2024-06-23 | Outpatient (REF) | payer MEDICARE, MEDICAID ==
[2024-06-23 08:15] LABS: HEMATOCRIT 39.7 % (36.0-47.0); HEMOGLOBIN 13.2 g/dl (12.0-15.5); MEAN CORPUSCULAR HEMOGLOBIN 32.6 pg (27.0-33.0); MEAN CORPUSCULAR HGB CONC 33.2 g/dl (32.0-36.5); PLATELET COUNT, AUTOMATED 143 10^3/uL (150-450); RED BLOOD COUNT 4.05 10^6/uL (4.00-5.40); WHITE BLOOD COUNT 8.1 10^3/uL (4.0-10.0)
[2024-06-23 08:55] LABS: ALBUMIN 2.6 G/DL (3.2-5.2); BILIRUBIN,TOTAL 0.4 MG/DL (0.3-1.2); CALCIUM LEVEL 9.9 MG/DL (8.3-10.6); CHOLESTEROL RISK RATIO 4.2 (<5); CREATININE FOR GFR 1.03 MG/DL (0.55-1.30); DIGOXIN LEVEL 0.7 NG/ML (0.8-2.0); GLOMERULAR FILTRATION RATE 54.5 (>32); HDL CHOLESTEROL 32.6 MG/DL (>40); LDL CHOLESTEROL 75.8 MG/DL (<100); MAGNESIUM LEVEL 2.3 MG/DL (1.8-2.4); NON-HDL-C 104.4 MG/DL; POTASSIUM SERUM 4.4 MMOL/L (3.5-5.1); TOTAL PROTEIN 6.7 G/DL (5.7-8.2)
[2024-06-23 08:56] LABS: THYROID STIMULATING HORMONE 1.596 uIU/ML (0.55-4.78)
[2024-06-23 09:40] LABS: HEMOGLOBIN A1c 5.9 % (4.0-6.0)
== END ==
PROVIDERS: ATTEND Internal Medicine
DX: I50.9 Heart failure, unspecified (principal); Z79.899 Other long term (current) drug therapy

== ENCOUNTER → 2024-07-19 | Outpatient (REF) | payer MEDICARE, MEDICAID ==
[2024-07-19 09:15] LABS: HEMATOCRIT 37.8 % (36.0-47.0); HEMOGLOBIN 12.4 g/dl (12.0-15.5); MEAN CORPUSCULAR HEMOGLOBIN 32.6 pg (27.0-33.0); MEAN CORPUSCULAR HGB CONC 32.8 g/dl (32.0-36.5); MEAN CORPUSCULAR VOLUME 99.5 fl (80.0-96.0); PLATELET COUNT, AUTOMATED 173 10^3/uL (150-450); WHITE BLOOD COUNT 7.5 10^3/uL (4.0-10.0)
[2024-07-19 09:41] LABS: CALCIUM LEVEL 9.8 MG/DL (8.3-10.6); CREATININE FOR GFR 1.05 MG/DL (0.55-1.30); GLOMERULAR FILTRATION RATE 53.3 (>32); POTASSIUM SERUM 4.1 MMOL/L (3.5-5.1)
== END ==
PROVIDERS: ATTEND Internal Medicine
DX: N18.9 Chronic kidney disease, unspecified (principal); I50.9 Heart failure, unspecified

== ENCOUNTER → 2024-08-21 | Outpatient (REF) | payer MEDICARE, MEDICAID ==
[2024-08-21 10:30] LABS: HEMATOCRIT 36.7 % (36.0-47.0); HEMOGLOBIN 11.9 g/dl (12.0-15.5); MEAN CORPUSCULAR HEMOGLOBIN 32.9 pg (27.0-33.0); MEAN CORPUSCULAR HGB CONC 32.4 g/dl (32.0-36.5); MEAN CORPUSCULAR VOLUME 101.4 fl (80.0-96.0); PLATELET COUNT, AUTOMATED 202 10^3/uL (150-450); RED BLOOD COUNT 3.62 10^6/uL (4.00-5.40); WHITE BLOOD COUNT 9.2 10^3/uL (4.0-10.0)
[2024-08-21 10:59] LABS: CALCIUM LEVEL 9.8 MG/DL (8.3-10.6); CREATININE FOR GFR 0.98 MG/DL (0.55-1.30); GLOMERULAR FILTRATION RATE 57.3 (>32); POTASSIUM SERUM 3.9 MMOL/L (3.5-5.1)
== END ==
PROVIDERS: ATTEND Internal Medicine
DX: N18.9 Chronic kidney disease, unspecified (principal); I50.9 Heart failure, unspecified

== ENCOUNTER → 2024-09-20 | Outpatient (REF) | payer MEDICARE, MEDICAID ==
[~2024-09-20] MED LIST changes: -GLUC1KIT IM; +GLUC1VIA14 IM; -VERA300C6 PO; +VERA300C7 PO
[2024-09-20 07:28] LABS: HEMATOCRIT 34.8 % (36.0-47.0); HEMOGLOBIN 11.2 g/dl (12.0-15.5); MEAN CORPUSCULAR HEMOGLOBIN 32.5 pg (27.0-33.0); MEAN CORPUSCULAR HGB CONC 32.2 g/dl (32.0-36.5); MEAN CORPUSCULAR VOLUME 100.9 fl (80.0-96.0); PLATELET COUNT, AUTOMATED 225 10^3/uL (150-450); RED BLOOD COUNT 3.45 10^6/uL (4.00-5.40); WHITE BLOOD COUNT 7.8 10^3/uL (4.0-10.0)
[2024-09-20 08:02] LABS: DIGOXIN LEVEL 0.4 NG/ML (0.8-2.0)
[2024-09-20 08:03] LABS: ALBUMIN 2.6 G/DL (3.2-5.2); ALKALINE PHOSPHATASE 83 U/L (35-104); ALT/SGPT < 9 U/L (7.0-40); AST/SGOT 15 U/L (<34); BILIRUBIN,DIRECT < 0.1 MG/DL (<0.4); BILIRUBIN,TOTAL 0.3 MG/DL (0.3-1.2); BLOOD UREA NITROGEN 36 MG/DL (9-23); CALCIUM LEVEL 9.4 MG/DL (8.3-10.6); CARBON DIOXIDE LEVEL 35 MMOL/L (20-31); CHLORIDE LEVEL 96 MMOL/L (98-107); CREATININE FOR GFR 1.07 MG/DL (0.55-1.30); GLOMERULAR FILTRATION RATE 51.5 (>32); GLUCOSE, FASTING 124 MG/DL (74-106); POTASSIUM SERUM 4.1 MMOL/L (3.5-5.1); SODIUM LEVEL 141 MMOL/L (136-145); TOTAL PROTEIN 6.6 G/DL (5.7-8.2)
[2024-09-20 08:05] LABS: THYROID STIMULATING HORMONE 1.634 uIU/ML (0.55-4.78)
[2024-09-20 08:10] LABS: URIC ACID 5.4 MG/DL (3.1-7.8)
== END ==
PROVIDERS: ATTEND Internal Medicine
DX: N18.9 Chronic kidney disease, unspecified (principal); I50.9 Heart failure, unspecified

== ENCOUNTER → 2024-11-20 | Outpatient (REF) | payer MEDICARE, MEDICAID ==
[~2024-11-20] MED LIST changes: -AMIO200T49 PO; +AMIO200T54 PO; +DIVA-41 PO; -DIVA500T94 PO
[2024-11-20 10:41] LABS: PLATELET COUNT, AUTOMATED 198 10^3/uL (150-450)
[2024-11-20 10:57] LABS: CALCIUM LEVEL 10.0 MG/DL (8.3-10.6); CARBON DIOXIDE LEVEL 35.0 MMOL/L (20-31); CHLORIDE LEVEL 94.0 MMOL/L (98-107); CREATININE FOR GFR 1.08 MG/DL (0.55-1.30); GLOMERULAR FILTRATION RATE 51.0 (>32); MAGNESIUM LEVEL 2.4 MG/DL (1.8-2.4); POTASSIUM SERUM 4.6 MMOL/L (3.5-5.1); SODIUM LEVEL 141.0 MMOL/L (136-145)
== END ==
PROVIDERS: ATTEND Internal Medicine
DX: N18.9 Chronic kidney disease, unspecified (principal); I50.9 Heart failure, unspecified

== ENCOUNTER → 2024-12-18 | Outpatient (REF) | payer MEDICARE, MEDICAID ==
[2024-12-18 10:24] LABS: PLATELET COUNT, AUTOMATED 183 10^3/uL (150-450)
[2024-12-18 11:00] LABS: CALCIUM LEVEL 9.9 MG/DL (8.3-10.6); CARBON DIOXIDE LEVEL 36.0 MMOL/L (20-31); CHLORIDE LEVEL 91.0 MMOL/L (98-107); CREATININE FOR GFR 1.2 MG/DL (0.55-1.30); DIGOXIN LEVEL 0.6 NG/ML (0.8-2.0); GLOMERULAR FILTRATION RATE 44.9 (>32); POTASSIUM SERUM 4.2 MMOL/L (3.5-5.1); SODIUM LEVEL 138.0 MMOL/L (136-145)
== END ==
PROVIDERS: ATTEND Physician Assistant
DX: N18.9 Chronic kidney disease, unspecified (principal); I50.9 Heart failure, unspecified

== ENCOUNTER → 2025-01-05 | Outpatient (REF) | payer MEDICARE, MEDICAID ==
[2025-01-05 17:35] LABS: APPEARANCE, URINE MANUAL TURBID (CLEAR); COLOR, URINE MANUAL YELLOW (YELLOW); PH,URINE MAN 5.0 UNITS (5.0 - 7.0)
[2025-01-05 17:36] LABS: BILIRUBIN, URINE MANUAL NEGATIVE (NEGATIVE); GLUCOSE, URINE (UA) MANUAL 4+(1000 MG/DL) mg/dL (NEGATIVE); KETONE, URINE MANUAL NEGATIVE (NEGATIVE); LEUKOCYTE ESTERASE, URINE MAN POSITIVE (NEGATIVE); NITRITE, URINE MANUAL NEGATIVE (NEGATIVE); PROTEIN, URINE MANUAL 3+ mg/dL (NEGATIVE); SPECIFIC GRAVITY,URINE MANUAL 1.020 (1.002-1.035); UROBILINOGEN, URINE MANUAL NORMAL (NORMAL)
[2025-01-05 17:37] LABS: BLOOD URINE MANUAL POSITIVE (NEGATIVE)
[2025-01-05 17:42] LABS: WBC, URINE TNTC /hpf (0-3)
[2025-01-05 17:43] LABS: BACTERIA, URINE MOD AMOUNT; SQUAMOUS EPITHELIAL CELL URINE SMALL AMOUNT /hpf (SMALL AMT)
[2025-01-05 17:44] LABS: HYALINE CAST, URINE NONE SEEN /lpf (0-1)
[2025-01-05 18:10] LABS: PLATELET COUNT, AUTOMATED 175 10^3/uL (150-450)
[2025-01-05 18:36] LABS: CALCIUM LEVEL 9.5 MG/DL (8.3-10.6); CARBON DIOXIDE LEVEL 36.0 MMOL/L (20-31); CHLORIDE LEVEL 96.0 MMOL/L (98-107); CREATININE FOR GFR 1.22 MG/DL (0.55-1.30); GLOMERULAR FILTRATION RATE 44.0 (>32); POTASSIUM SERUM 4.3 MMOL/L (3.5-5.1); SODIUM LEVEL 141.0 MMOL/L (136-145)
== END ==
PROVIDERS: ATTEND Nurse Practitioner Family
DX: N39.0 Urinary tract infection, site not specified (principal)

== ENCOUNTER → 2025-01-08 | Outpatient (REF) | payer MEDICARE, MEDICAID ==
[2025-01-08 11:50] LABS: PLATELET COUNT, AUTOMATED 177 10^3/uL (150-450)
[2025-01-08 12:17] LABS: CALCIUM LEVEL 9.6 MG/DL (8.3-10.6); CARBON DIOXIDE LEVEL 36.0 MMOL/L (20-31); CHLORIDE LEVEL 96.0 MMOL/L (98-107); CREATININE FOR GFR 1.12 MG/DL (0.55-1.30); GLOMERULAR FILTRATION RATE 48.8 (>32); POTASSIUM SERUM 3.9 MMOL/L (3.5-5.1); SODIUM LEVEL 141.0 MMOL/L (136-145)
== END ==
PROVIDERS: ATTEND Internal Medicine
DX: I50.9 Heart failure, unspecified (principal)

== ENCOUNTER → 2025-01-22 | Outpatient (REF) | payer MEDICARE, MEDICAID ==
[2025-01-22 11:38] LABS: PLATELET COUNT, AUTOMATED 169 10^3/uL (150-450)
[2025-01-22 12:16] LABS: VALPROIC ACID (DEPAKOTE) 49.9 UG/ML (50.0-100.0)
[2025-01-22 12:18] LABS: CALCIUM LEVEL 10.0 MG/DL (8.3-10.6); CARBON DIOXIDE LEVEL 37.0 MMOL/L (20-31); CHLORIDE LEVEL 93.0 MMOL/L (98-107); CREATININE FOR GFR 1.13 MG/DL (0.55-1.30); GLOMERULAR FILTRATION RATE 48.3 (>32); POTASSIUM SERUM 4.2 MMOL/L (3.5-5.1); SODIUM LEVEL 142.0 MMOL/L (136-145)
== END ==
PROVIDERS: ATTEND Internal Medicine
DX: N18.9 Chronic kidney disease, unspecified (principal)

== ENCOUNTER → 2025-02-21 | Outpatient (REF) | payer MEDICARE, MEDICAID ==
[2025-02-21 11:54] LABS: PLATELET COUNT, AUTOMATED 187 10^3/uL (150-450)
[2025-02-21 12:20] LABS: CALCIUM LEVEL 9.4 MG/DL (8.3-10.6); CARBON DIOXIDE LEVEL 37.0 MMOL/L (20-31); CHLORIDE LEVEL 94.0 MMOL/L (98-107); CREATININE FOR GFR 1.19 MG/DL (0.55-1.30); GLOMERULAR FILTRATION RATE 45.4 (>32); POTASSIUM SERUM 3.7 MMOL/L (3.5-5.1); SODIUM LEVEL 140.0 MMOL/L (136-145)
== END ==
PROVIDERS: ATTEND Internal Medicine
DX: I50.9 Heart failure, unspecified (principal)

== ENCOUNTER → 2025-02-26 | Outpatient (REF) | payer MEDICARE, MEDICAID ==
[2025-02-26 14:03] LABS: ESTIMATED AVERAGE GLUCOSE 128.0 MG/DL (60-110)
== END ==
PROVIDERS: ATTEND Internal Medicine
DX: E11.9 Type 2 diabetes mellitus without complications (principal)

== ENCOUNTER → 2025-03-16 | Outpatient (REF) | payer MEDICARE, MEDICAID | PROVIDERS: ATTEND Nurse Practitioner Family | DX: M79.674 Pain in right toe(s) (principal); M79.675 Pain in left toe(s); M20.11 Hallux valgus (acquired), right foot; M85.871 Other specified disorders of bone density and structure, right ankle and foot; I70.90 Unspecified atherosclerosis ==

== ENCOUNTER → 2025-03-16 | Outpatient (REF) | payer MEDICARE, MEDICAID ==
[2025-03-16 13:37] LABS: PLATELET COUNT, AUTOMATED 215 10^3/uL (150-450)
[2025-03-16 13:57] LABS: CALCIUM LEVEL 9.0 MG/DL (8.3-10.6); CARBON DIOXIDE LEVEL 36.0 MMOL/L (20-31); CHLORIDE LEVEL 93.0 MMOL/L (98-107); CREATININE FOR GFR 1.18 MG/DL (0.55-1.30); GLOMERULAR FILTRATION RATE 45.5 (>32); POTASSIUM SERUM 4.2 MMOL/L (3.5-5.1); SODIUM LEVEL 137.0 MMOL/L (136-145)
== END ==
PROVIDERS: ATTEND Nurse Practitioner Family
DX: M79.674 Pain in right toe(s) (principal); M79.675 Pain in left toe(s)

== ENCOUNTER → 2025-03-19 | Outpatient (REF) | payer MEDICARE, MEDICAID ==
[2025-03-19 12:38] LABS: PLATELET COUNT, AUTOMATED 195 10^3/uL (150-450)
[2025-03-19 13:04] LABS: DIGOXIN LEVEL 0.5 NG/ML (0.8-2.0)
[2025-03-19 13:05] LABS: CALCIUM LEVEL 9.2 MG/DL (8.3-10.6); CARBON DIOXIDE LEVEL 36.0 MMOL/L (20-31); CHLORIDE LEVEL 93.0 MMOL/L (98-107); CREATININE FOR GFR 1.13 MG/DL (0.55-1.30); GLOMERULAR FILTRATION RATE 48.0 (>32); POTASSIUM SERUM 3.9 MMOL/L (3.5-5.1); SODIUM LEVEL 139.0 MMOL/L (136-145)
== END ==
PROVIDERS: ATTEND Internal Medicine
DX: N18.9 Chronic kidney disease, unspecified (principal); I50.9 Heart failure, unspecified

== ENCOUNTER → 2025-04-16 | Outpatient (REF) | payer MEDICARE, MEDICAID ==
[2025-04-16 12:49] LABS: PLATELET COUNT, AUTOMATED 185 10^3/uL (150-450)
[2025-04-16 13:24] LABS: CALCIUM LEVEL 9.1 MG/DL (8.3-10.6); CARBON DIOXIDE LEVEL 38.0 MMOL/L (20-31); CHLORIDE LEVEL 93.0 MMOL/L (98-107); CREATININE FOR GFR 1.11 MG/DL (0.55-1.30); GLOMERULAR FILTRATION RATE 49.0 (>32); POTASSIUM SERUM 4.0 MMOL/L (3.5-5.1); SODIUM LEVEL 142.0 MMOL/L (136-145)
== END ==
PROVIDERS: ATTEND Internal Medicine
DX: N18.9 Chronic kidney disease, unspecified (principal); I50.9 Heart failure, unspecified